=== PATIENT | female | born 1950 | race Caucasian/White ===

== ENCOUNTER 2021-02-02 13:47 | Emergency (ER) | payer OTHER ==
[~2021-02-02] VITALS: Ht 170.2 cm; Wt 59.0 kg
[2021-02-02] MEDS ORDERED: SODIUM CHLORIDE 0.9% 1,000 ML IVB ONE (16:15)
[2021-02-02] MEDS ORDERED: ONDANSETRON HCL 4 MG/2 ML VIAL IV ONE (16:15)
[2021-02-02 17:03] LABS: Basophils # (auto) 0.1 10 ^3/uL (0-0.2); Basophils % (auto) 0.4 % (0.0-2.0); Eosinophils # (auto) 0 10 ^3/uL (0-0.8); Hematocrit 32.8 % (36.0-46.0); Lymphocytes # (auto) 0.7 10 ^3/uL (0.4-5.4); Lymphocytes % (auto) 4.4 % (10.0-50.0); Mean Corpuscular Hemoglobin 30.6 pg (28.0-32.0); Mean Corpuscular Hgb Conc. 33.7 g/dL (32.0-36.0); Mean Corpuscular Volume 90.8 fL (80.0-100.0); Monocytes % (auto) 5.8 % (0.0-12.0); Neutrophils # (auto) 15.1 10 ^3/uL (1.6-8.6); Neutrophils % (auto) 89.4 % (37.0-80.0); Red Blood Cells 3.61 10^6/uL (4.0-5.20); Red Cell Distribution Width 12.9 % (11.8-14.3); White Blood Cell 16.8 10^3/uL (4.4-10.8)
[2021-02-02 17:20] LABS: Albumin 1.5 g/dL (3.4-5.0); Calcium 7.9 mg/dL (8.5-10.1); Magnesium 2.2 mg/dL (1.6-2.6); Potassium 3.3 mmol/L (3.5-5.1)
[2021-02-02 17:24] LABS: Bilirubin, Total 0.8 mg/dL (0.2-1.0); Total Protein 5.7 g/dL (6.4-8.2)
[2021-02-02] MEDS ORDERED: MORPHINE SULFATE INJECTION 2 MG/ML SYRG IV ONE (18:15)
[2021-02-02] MEDS ORDERED: cefTRIAXone 1GM/50ML D5W 50 ML IV ONE (21:00)
[2021-02-02] MEDS ORDERED: POTASSIUM CHL 20MEQ/50ML 50 ML IV ONE (21:00)
[2021-02-03] MEDS ORDERED: ONDANSETRON HCL 4 MG/2 ML VIAL IV PRN (04:00)
[2021-02-03] MEDS: MORPHINE SULFATE 4 MG/ML SYR/VIAL IV PRN ×3 (04:25→21:49)
[2021-02-03] MEDS ORDERED: ONDANSETRON HCL 4 MG/2 ML VIAL IV ONE (13:30)
[2021-02-03] MEDS ORDERED: MORPHINE SULFATE INJECTION 2 MG/ML SYRG IV ONE ×3 (13:30→18:00)
[2021-02-04] MEDS ORDERED: MORPHINE SULFATE 4 MG/ML SYR/VIAL IV PRN (01:45)
[2021-02-04] MEDS ORDERED: HYDROcodone-ACET 5/325MG TAB PO PRN (05:00)
[2021-02-04] MEDS ORDERED: metroNIDAZOLE 500 MG TAB PO SCH (06:00)
[2021-02-04 09:56] VITALS: BP 110/68
[2021-02-04] MEDS ORDERED: levoFLOXacin 500 MG TAB PO SCH (10:00)
== END 2021-02-04 10:01 | disposition home or self-care (01) ==
LOC: ER 13:47 → EDBD 13:47 → ER 02-04 10:01
DX: R10.84 Generalized abdominal pain (principal); R11.2 Nausea with vomiting, unspecified; E87.6 Hypokalemia; R50.9 Fever, unspecified; I10 Essential (primary) hypertension; E78.5 Hyperlipidemia, unspecified; F17.210 Nicotine dependence, cigarettes, uncomplicated; Z87.19 Personal history of other diseases of the digestive system; Z88.0 Allergy status to penicillin; Z20.822 Contact with and (suspected) exposure to COVID-19
CPT/HCPCS: 36415; 71045; 74176; 80053; 83605; 83735; 85025; 87040; 87426; 96361; 96365; 96375; 96376; 99285; C9803; J0696; J2270; J2405; J3480; U0003

== ENCOUNTER 2021-11-22 01:59 | Inpatient (IN) | payer OTHER ==
[~2021-11-22] VITALS: Ht 157.5 cm; Wt 37.3 kg
[2021-11-22] MEDS ORDERED: LACTATED RINGER'S 1,000 ML IV ONE (02:45)
[2021-11-22 05:16] LABS: Basophils # (auto) 0.1 10 ^3/uL (0-0.2); Basophils % (auto) 1.2 % (0.0-2.0); Eosinophils # (auto) 0 10 ^3/uL (0-0.8); Eosinophils % (auto) 0.2 % (0.0-7.0); Hematocrit 35.1 % (36.0-46.0); Lymphocytes # (auto) 1.8 10 ^3/uL (0.4-5.4); Lymphocytes % (auto) 20.6 % (10.0-50.0); Mean Corpuscular Hemoglobin 30.1 pg (28.0-32.0); Mean Corpuscular Hgb Conc. 34.2 g/dL (32.0-36.0); Mean Corpuscular Volume 88.2 fL (80.0-100.0); Monocytes % (auto) 11.3 % (0.0-12.0); Neutrophils # (auto) 5.9 10 ^3/uL (1.6-8.6); Neutrophils % (auto) 66.7 % (37.0-80.0); Nucleated Red Blood Cells % 0.1 %; Red Blood Cells 3.98 10^6/uL (4.0-5.20); White Blood Cell 8.9 10^3/uL (4.4-10.8)
[2021-11-22 05:39] LABS: Lactic Acid w/Reflex 2.1 mmol/L (0.4-2.0)
[2021-11-22 05:48] LABS: Albumin 3.6 g/dL (3.4-5.0); Anion Gap 15 (5-15); Aspartate Aminotransferase 51 U/L (15-37); Blood Urea Nitrogen 57 mg/dL (7-18); Calcium 6.1 mg/dL (8.5-10.1); Carbon Dioxide 22 mmol/L (21-32); Chloride 91 mmol/L (98-107); GFR African American 29 mL/min; GFR Non-African American 24 mL/min; Glucose 92 mg/dL (74-106); Sodium 128 mmol/L (136-145)
[2021-11-22 05:52] LABS: Alanine Aminotransferase 78 U/L (13-56); Alkaline Phosphatase 287 U/L (45-117); Bilirubin, Total 0.6 mg/dL (0.2-1.0); Total Protein 7.4 g/dL (6.4-8.2)
[2021-11-22 06:24] LABS: Magnesium 0.4 mg/dL (1.6-2.6)
[2021-11-22] MEDS ORDERED: CALCIUM GLUC 1,000mg/50ml-NS 50 ML IV ONE (06:45)
[2021-11-22 10:06] LABS: Urine Blood Negative /uL (Negative); Urine Hyaline Cast MOD /lpf (0 - 2)
[2021-11-22 10:09] LABS: Cannabinoid Screen, Urine NEGATIVE (NEGATIVE)
[2021-11-22 10:20] LABS: Alcohol, Urine < 3.0 mg/dL (0-10); Amphetamine Screen, Urine NEGATIVE (NEGATIVE); Barbiturate Scree,Urine NEGATIVE (NEGATIVE); Benzodiazephine Screen, Urine NEGATIVE (NEGATIVE); Cocaine Screen, Urine NEGATIVE (NEGATIVE); Opiate Scree,Urine NEGATIVE (NEGATIVE); Phencyclidine Screen, Urine NEGATIVE (NEGATIVE)
[2021-11-22] MEDS: MAGNESIUM SULFATE 1GM/100ML 100 ML IV SCH ×5 (10:22→21:31)
[2021-11-22 10:38] LABS: Urine Bacteria FEW /hpf (None Seen); Urine WBC None Seen /hpf (0 - 5)
[2021-11-22] MEDS ORDERED: SODIUM CHLORIDE 0.9% 1,000 ML IV ONE (13:30)
[2021-11-22 14:58] LABS: Potassium 4.1 mmol/L (3.5-5.1)
[2021-11-22 15:00] LABS: BUN/Creatinine Ratio 28.3; Calcium 7.1 mg/dL (8.5-10.1)
[2021-11-22] MEDS ORDERED: KETOROLAC TROMETH 60MG/2ML VIAL IM ONE ×2 (16:00→16:30)
[2021-11-22] MEDS ORDERED: cefTRIAXone 1GM/50ML D5W 50 ML IV ONE (16:15)
[2021-11-22] MEDS ORDERED: DOCUSATE SOD 100 MG CAP PO PRN (16:15)
[2021-11-22] MEDS ORDERED: MORPHINE SULFATE INJ 2 MG/ml SYRG IV PRN (16:15)
[2021-11-22] MEDS ORDERED: HYDROcodone-ACET 5/325MG TAB PO PRN (16:15)
[2021-11-22] MEDS ORDERED: ACETAMINOPHEN 325 MG TAB PO PRN (16:15)
[2021-11-22] MEDS ORDERED: LORazepam 0.5 MG TAB PO PRN (16:15)
[2021-11-22] MEDS ORDERED: ONDANSETRON HCL 4 MG/2 ML VIAL IV PRN (16:15)
[2021-11-22] MEDS ORDERED: OMNIPAQUE ORAL SOLN 500ml 12mg/ml PO ONE (16:24)
[2021-11-22] MEDS: SODIUM CHLORIDE 0.9% 1,000 ML IV SCH (17:17)
[2021-11-22] MEDS ORDERED: MAGNESIUM SULFATE 1GM/100ML 100 ML IV ONE (21:25)
[2021-11-22] MEDS: HALOPERIDOL LACTATE 5 MG/ML INJ VIAL IM SCH (22:00)
[2021-11-23 04:30] LABS: Basophils # (auto) 0 10 ^3/uL (0-0.2); Basophils % (auto) 0.8 % (0.0-2.0); Eosinophils # (auto) 0.1 10 ^3/uL (0-0.8); Eosinophils % (auto) 1.5 % (0.0-7.0); Hematocrit 34.8 % (36.0-46.0); Hemoglobin 11.5 g/dL (12.2-16.2); Lymphocytes # (auto) 1.7 10 ^3/uL (0.4-5.4); Lymphocytes % (auto) 30.8 % (10.0-50.0); Mean Corpuscular Hemoglobin 30.3 pg (28.0-32.0); Mean Corpuscular Hgb Conc. 33.1 g/dL (32.0-36.0); Mean Corpuscular Volume 91.6 fL (80.0-100.0); Neutrophils # (auto) 2.7 10 ^3/uL (1.6-8.6); Neutrophils % (auto) 48.9 % (37.0-80.0); White Blood Cell 5.4 10^3/uL (4.4-10.8)
[2021-11-23 04:32] LABS: Calcium 6.9 mg/dL (8.5-10.1); Potassium 3.5 mmol/L (3.5-5.1)
[2021-11-23 04:35] LABS: Albumin 3.2 g/dL (3.4-5.0); BUN/Creatinine Ratio 30.4; Magnesium 1.9 mg/dL (1.6-2.6)
[2021-11-23 04:38] LABS: Bilirubin, Total 0.8 mg/dL (0.2-1.0); Phosphorus 3.5 mg/dL (2.5-4.90); Total Protein 6.8 g/dL (6.4-8.2)
[2021-11-23] MEDS: HALOPERIDOL LACTATE 5 MG/ML INJ VIAL IM SCH (06:00)
[2021-11-23] MEDS: SODIUM CHLORIDE 0.9% 1,000 ML IV SCH (08:58)
[2021-11-23] MEDS ORDERED: CALCIUM GLUC 1,000mg/50ml-NS 50 ML IV ONE (09:00)
[2021-11-23] MEDS ORDERED: CALCIUM GLUC 1,000mg/50ml-NS 150 ML IV ONE (09:15)
[2021-11-23] MEDS ORDERED: CALCIUM GLUC IV ONE (09:15)
[2021-11-23] MEDS ORDERED: [UNRECOGNIZED DRUG - OTHER] IV ONE (09:15)
[2021-11-23] MEDS: CALCIUM GLUC 1,000mg/50ml-NS 50 ML IV SCH ×6 (09:30→18:01)
[2021-11-23 11:25] VITALS: BP 100/73
[2021-11-23 11:53] LABS: Creatinine, Urine 111 mg/dL (30.0-125.0); Sodium Urine < 5 mmol/L (40-220)
[2021-11-23 11:55] LABS: Protein, Urine 35.1 mg/dL (0.0-11.9)
[2021-11-23] MEDS: MAGNESIUM SULFATE 1GM/100ML 100 ML IV SCH ×4 (12:47→15:40)
[2021-11-23] MEDS ORDERED: HALOPERIDOL LACTATE 5 MG/ML INJ VIAL IM PRN (13:00)
[2021-11-23 16:00] VITALS: BP 110/73
[2021-11-23] MEDS ORDERED: LORazepam 2MG/ML-1ML VIAL IV PRN (20:45)
[2021-11-23 22:04] VITALS: BP 111/68
[2021-11-24] VITALS (7 sets, daily range): BP systolic 101–119; BP diastolic 63–69
[2021-11-24] MEDS: SODIUM CHLORIDE 0.9% 1,000 ML IV SCH ×3 (02:49→20:15)
[2021-11-24 07:04] LABS: Albumin 2.9 g/dL (3.4-5.0); Calcium 8.1 mg/dL (8.5-10.1); Potassium 3.2 mmol/L (3.5-5.1)
[2021-11-24 07:07] LABS: BUN/Creatinine Ratio 30.8; Bilirubin, Total 0.9 mg/dL (0.2-1.0); Total Protein 6.6 g/dL (6.4-8.2)
[2021-11-24] MEDS ORDERED: POTASSIUM CHL 20 Meq TABLET PO ONE (09:15)
[2021-11-24 09:53] LABS: Folate (Folic Acid) > 24.00 ng/mL (5.38-24)
[2021-11-24] MEDS ORDERED: ERGOCALCIFEROL 50,000 UNIT(1.25MG) CAP PO SCH (10:00)
[2021-11-24] MEDS ORDERED: ERGO1CAP23 PO (10:03)
[2021-11-24] MEDS ORDERED: POTASSIUM CHL 20MEQ/100ML 100 ML IV ONE (10:15)
[2021-11-24 12:09] LABS: Hepatitis A Ab IgM Negative; Hepatitis B Core IgM Negative
[2021-11-24 12:10] LABS: Hepatitis C Antibody Negative (Negative)
[2021-11-24] MEDS ORDERED: POTASSIUM EFFERVESENT TAB 25 MEQ PO ONE (14:00)
[2021-11-24] MEDS: PANTOPRAZOLE 40 MG TAB PO SCH (23:16)
[2021-11-25 05:00] VITALS: BP 98/59
[2021-11-25] MEDS: SODIUM CHLORIDE 0.9% 1,000 ML IV SCH (05:17)
[2021-11-25 08:00] VITALS: BP 114/69
[2021-11-25 09:00] VITALS: BP 123/71
[2021-11-25] MEDS: PANTOPRAZOLE 40 MG TAB PO SCH (10:28)
[2021-11-25] MEDS ORDERED: POTASSIUM CHL 20MEQ/100ML 100 ML IV SCH (11:00)
[2021-11-25 13:00] VITALS: BP 144/66
[2021-11-25 17:00] VITALS: BP 108/74
== END 2021-11-25 17:20 | disposition home health service (06) | DRG 640 ==
LOC: EDUNIT# 01:59 → ER 01:59 → EDBD 01:59 → ER 09:08 → TELE 16:09 → TELE-CENTR 11-23 11:23 → CENTRAL 11-23 18:48
PROVIDERS: ADMIT Internal Medicine; ATTEND Internal Medicine
DX: E87.1 Hypo-osmolality and hyponatremia (principal); G93.41 Metabolic encephalopathy; N17.0 Acute kidney failure with tubular necrosis; N39.0 Urinary tract infection, site not specified; E55.9 Vitamin D deficiency, unspecified; N18.31 Chronic kidney disease, stage 3a; I71.4 Abdominal aortic aneurysm, without rupture; E78.5 Hyperlipidemia, unspecified; E86.0 Dehydration; F17.210 Nicotine dependence, cigarettes, uncomplicated; I12.9 Hypertensive chronic kidney disease with stage 1 through stage 4 chronic kidney disease, or unspecified chronic kidney disease; G89.29 Other chronic pain; M54.50 Low back pain, unspecified; R79.89 Other specified abnormal findings of blood chemistry; Z20.822 Contact with and (suspected) exposure to COVID-19; Z82.49 Family history of ischemic heart disease and other diseases of the circulatory system; Z90.49 Acquired absence of other specified parts of digestive tract; Z93.2 Ileostomy status; Z93.3 Colostomy status; Z88.0 Allergy status to penicillin
CPT/HCPCS: 36415; 70450; 71045; 74176; 76705; 76775; 80048; 80053; 80074; 80307; 81001; 82140; 82306; 82570; 82607; 82746; 83605; 83735; 83880; 83970; 84100; 84156; 84300; 84439; 84443; 84484; 85025; 93005; 96361; 96365; 96367; 96372; 97163; 99291; G0378; J0696; J1885; J2405; J3480

== ENCOUNTER 2021-12-28 08:55 | Inpatient (IN) | payer OTHER, MEDICAID ==
[~2021-12-28] VITALS: Ht 170.2 cm; Wt 40.1 kg
[~2021-12-28 08:55] MED LIST: ERGO1CAP23 PO
[2021-12-28] MEDS ORDERED: SODIUM CHLORIDE 0.9% 1,000 ML IV ONE ×2 (09:30→15:45)
[2021-12-28 09:45] LABS: Basophils # (auto) 0.1 10 ^3/uL (0-0.2); Basophils % (auto) 1.6 % (0.0-2.0); Eosinophils # (auto) 0 10 ^3/uL (0-0.8); Eosinophils % (auto) 0.7 % (0.0-7.0); Hemoglobin 12.3 g/dL (12.2-16.2); Lymphocytes # (auto) 1.2 10 ^3/uL (0.4-5.4); Lymphocytes % (auto) 24.3 % (10.0-50.0); Mean Corpuscular Hemoglobin 28.9 pg (28.0-32.0); Mean Corpuscular Hgb Conc. 32.4 g/dL (32.0-36.0); Mean Corpuscular Volume 89.1 fL (80.0-100.0); Monocytes # (auto) 0.6 10 ^3/uL (0-1.3); Monocytes % (auto) 11.4 % (0.0-12.0); Neutrophils # (auto) 3.1 10 ^3/uL (1.6-8.6); Nucleated Red Blood Cells % 0.1 %; Red Blood Cells 4.27 10^6/uL (4.0-5.20); Red Cell Distribution Width 14.7 % (11.8-14.3)
[2021-12-28 10:03] LABS: Potassium 4.6 mmol/L (3.5-5.1)
[2021-12-28 10:06] LABS: BUN/Creatinine Ratio 20.2; Bilirubin, Total 0.8 mg/dL (0.2-1.0); Total Protein 8.2 g/dL (6.4-8.2)
[2021-12-28] MEDS ORDERED: CALCIUM GLUC 1,000mg/50ml-NS 50 ML IV ONE ×2 (15:15→18:30)
[2021-12-28] MEDS ORDERED: LORazepam 2MG/ML-1ML VIAL IV PRN ×2 (15:45→19:30)
[2021-12-28] MEDS ORDERED: NITROGLYCERIN 0.4 MG SL TAB SL PRN (16:00)
[2021-12-28] MEDS ORDERED: ACETAMINOPHEN 325 MG TAB PO PRN (16:00)
[2021-12-28] MEDS ORDERED: DOCUSATE SOD 100 MG CAP PO PRN (16:00)
[2021-12-28] MEDS ORDERED: MORPHINE SULFATE INJ 2 MG/ml SYRG IV PRN (16:00)
[2021-12-28] MEDS ORDERED: ONDANSETRON HCL 4 MG/2 ML VIAL IV PRN (16:00)
[2021-12-28] MEDS ORDERED: HYDROcodone-ACET 5/325MG TAB PO PRN (16:00)
[2021-12-28 16:54] LABS: Anion Gap 16 (5-15); BUN/Creatinine Ratio 22.6; Blood Urea Nitrogen 45 mg/dL (7-18); Carbon Dioxide 22 mmol/L (21-32); Chloride 93 mmol/L (98-107); GFR African American 32 mL/min; GFR Non-African American 26 mL/min; Glucose 102 mg/dL (74-106); Potassium 4.8 mmol/L (3.5-5.1); Sodium 131 mmol/L (136-145)
[2021-12-28 17:00] LABS: Calcium 5.9 mg/dL (8.5-10.1)
[2021-12-28 19:22] LABS: Potassium 5.4 mmol/L (3.5-5.1)
[2021-12-28 19:23] LABS: Calcium 6.4 mg/dL (8.5-10.1)
[2021-12-28] MEDS: HEPARIN SODIUM (PORCINE) 5000 UNITS/ML 1ML VIAL IV SCH (22:18)
[2021-12-29 02:05] LABS: BUN/Creatinine Ratio 25.6; Calcium 6.6 mg/dL (8.5-10.1); Potassium 3.8 mmol/L (3.5-5.1)
[2021-12-29] MEDS ORDERED: CALCIUM GLUC 1,000mg/50ml-NS 50 ML IV ONE ×2 (03:30→11:45)
[2021-12-29 03:55] LABS: Basophils # (auto) 0.1 10 ^3/uL (0-0.2); Basophils % (auto) 0.8 % (0.0-2.0); Eosinophils # (auto) 0 10 ^3/uL (0-0.8); Eosinophils % (auto) 0.2 % (0.0-7.0); Hematocrit 32.6 % (36.0-46.0); Hemoglobin 11.1 g/dL (12.2-16.2); Lymphocytes # (auto) 1.3 10 ^3/uL (0.4-5.4); Lymphocytes % (auto) 19.6 % (10.0-50.0); Mean Corpuscular Hemoglobin 30.1 pg (28.0-32.0); Mean Corpuscular Hgb Conc. 33.9 g/dL (32.0-36.0); Mean Corpuscular Volume 88.8 fL (80.0-100.0); Monocytes # (auto) 0.9 10 ^3/uL (0-1.3); Monocytes % (auto) 13.6 % (0.0-12.0); Neutrophils # (auto) 4.4 10 ^3/uL (1.6-8.6); Neutrophils % (auto) 65.8 % (37.0-80.0); Nucleated Red Blood Cells % 0.1 %; Red Blood Cells 3.68 10^6/uL (4.0-5.20); Red Cell Distribution Width 14.7 % (11.8-14.3); White Blood Cell 6.8 10^3/uL (4.4-10.8)
[2021-12-29 04:06] LABS: Anion Gap 13 (5-15); Blood Urea Nitrogen 39 mg/dL (7-18); Calcium 6.5 mg/dL (8.5-10.1); Carbon Dioxide 24 mmol/L (21-32); Chloride 99 mmol/L (98-107); GFR African American 44 mL/min; GFR Non-African American 36 mL/min; Glucose 69 mg/dL (74-106); Potassium 3.8 mmol/L (3.5-5.1); Sodium 136 mmol/L (136-145)
[2021-12-29 09:54] LABS: BUN/Creatinine Ratio 28.6; Calcium 7.2 mg/dL (8.5-10.1); Potassium 3.8 mmol/L (3.5-5.1)
[2021-12-29] MEDS: HEPARIN SODIUM (PORCINE) 5000 UNITS/ML 1ML VIAL IV SCH ×2 (11:02→21:22)
[2021-12-29] MEDS: SODIUM CHLORIDE 0.9% 1,000 ML IV SCH (13:00)
[2021-12-29 15:23] LABS: BUN/Creatinine Ratio 27.2; Calcium 7.3 mg/dL (8.5-10.1); Potassium 3.1 mmol/L (3.5-5.1)
[2021-12-29 22:00] VITALS: BP 128/63
[2021-12-30] MEDS: SODIUM CHLORIDE 0.9% 1,000 ML IV SCH ×2 (02:20→15:40)
[2021-12-30 05:00] VITALS: BP 105/63
[2021-12-30 05:43] LABS: Basophils # (auto) 0 10 ^3/uL (0-0.2); Basophils % (auto) 0.5 % (0.0-2.0); Eosinophils # (auto) 0.1 10 ^3/uL (0-0.8); Hematocrit 33.8 % (36.0-46.0); Hemoglobin 11.2 g/dL (12.2-16.2); Lymphocytes # (auto) 1.6 10 ^3/uL (0.4-5.4); Lymphocytes % (auto) 31.4 % (10.0-50.0); Mean Corpuscular Hemoglobin 29.6 pg (28.0-32.0); Mean Corpuscular Volume 89.5 fL (80.0-100.0); Monocytes # (auto) 0.6 10 ^3/uL (0-1.3); Monocytes % (auto) 12.2 % (0.0-12.0); Neutrophils # (auto) 2.8 10 ^3/uL (1.6-8.6); Neutrophils % (auto) 54.9 % (37.0-80.0); Nucleated Red Blood Cells % 0.1 %; Red Blood Cells 3.77 10^6/uL (4.0-5.20); Red Cell Distribution Width 14.6 % (11.8-14.3); White Blood Cell 5.1 10^3/uL (4.4-10.8)
[2021-12-30 09:00] VITALS: BP 106/69
[2021-12-30] MEDS ORDERED: POTA-180 PO (11:24)
[2021-12-30 11:54] LABS: BUN/Creatinine Ratio 30.5; Potassium 3.4 mmol/L (3.5-5.1)
[2021-12-30 12:07] LABS: Alcohol, Urine < 3.0 mg/dL (0-10); Amphetamine Screen, Urine NEGATIVE (NEGATIVE); Barbiturate Scree,Urine NEGATIVE (NEGATIVE); Benzodiazephine Screen, Urine NEGATIVE (NEGATIVE); Cannabinoid Screen, Urine NEGATIVE (NEGATIVE); Cocaine Screen, Urine NEGATIVE (NEGATIVE); Opiate Scree,Urine NEGATIVE (NEGATIVE); Phencyclidine Screen, Urine NEGATIVE (NEGATIVE)
[2021-12-30 12:21] LABS: Urine Bacteria FEW /hpf (None Seen); Urine Blood Negative /uL (Negative); Urine Specific Gravity 1.019 (1.001-1.035); Urine WBC 301 /hpf (0 - 5)
[2021-12-30 13:00] VITALS: BP 115/78
[2021-12-30 16:43] VITALS: BP 109/72
[2021-12-31 04:26] LABS: Sodium Urine < 5 mmol/L (40-220)
[2021-12-31 04:42] LABS: Creatinine, Urine 135 mg/dL (30.0-125.0)
== END 2021-12-30 19:40 | disposition home health service (06) | DRG 71 ==
LOC: EDBD 08:55 → ER 08:55 → TELE 15:57 → TELE-WESTW 12-29 18:13
PROVIDERS: ADMIT Internal Medicine; ATTEND Internal Medicine
DX: G93.41 Metabolic encephalopathy (principal); E87.1 Hypo-osmolality and hyponatremia; N17.9 Acute kidney failure, unspecified; G40.409 Other generalized epilepsy and epileptic syndromes, not intractable, without status epilepticus; E83.51 Hypocalcemia; N18.2 Chronic kidney disease, stage 2 (mild); I12.9 Hypertensive chronic kidney disease with stage 1 through stage 4 chronic kidney disease, or unspecified chronic kidney disease; F32.A Depression, unspecified; E78.5 Hyperlipidemia, unspecified; Z20.822 Contact with and (suspected) exposure to COVID-19; E87.6 Hypokalemia; M54.50 Low back pain, unspecified; F17.210 Nicotine dependence, cigarettes, uncomplicated; G89.29 Other chronic pain; Z82.49 Family history of ischemic heart disease and other diseases of the circulatory system; Z93.2 Ileostomy status; Z86.79 Personal history of other diseases of the circulatory system; Z90.49 Acquired absence of other specified parts of digestive tract; Z90.710 Acquired absence of both cervix and uterus; Z93.3 Colostomy status
CPT/HCPCS: 36415; 70450; 70551; 71045; 80048; 80053; 80307; 81001; 82310; 82570; 83930; 84133; 84156; 84166; 84300; 84484; 85025; 95819; 96361; 96365; 96366; 97163; 99291; G0378

== ENCOUNTER 2022-01-02 14:30 | Emergency (ER) | payer OTHER, MEDICAID ==
[~2022-01-02 14:30] MED LIST changes: +POTA-180 PO
[2022-01-02] MEDS ORDERED: SODIUM CHLORIDE 0.9% 1,000 ML IV ONE (17:45)
[2022-01-02 18:00] VITALS: BP 120/63
== END 2022-01-02 19:45 | disposition home or self-care (01) ==
LOC: EDBD 14:30 → ER 14:30
DX: Z43.3 Encounter for attention to colostomy (principal); I95.9 Hypotension, unspecified; E78.5 Hyperlipidemia, unspecified; I10 Essential (primary) hypertension; F17.210 Nicotine dependence, cigarettes, uncomplicated; Z79.899 Other long term (current) drug therapy; Z88.0 Allergy status to penicillin
CPT/HCPCS: 96360; 99283; J7030

== ENCOUNTER 2022-01-16 13:00 | Emergency (ER) | payer OTHER, MEDICAID ==
[~2022-01-16] VITALS: Ht 170.2 cm; Wt 34.5 kg
[2022-01-16] MEDS ORDERED: SODIUM CHLORIDE 0.9% 1,000 ML IV ONE (14:00)
[2022-01-16 14:57] LABS: Basophils # (auto) 0 10 ^3/uL (0-0.2); Basophils % (auto) 0.5 % (0.0-2.0); Eosinophils # (auto) 0.1 10 ^3/uL (0-0.8); Hematocrit 36.5 % (36.0-46.0); Hemoglobin 12.2 g/dL (12.2-16.2); Lymphocytes % (auto) 16.8 % (10.0-50.0); Mean Corpuscular Hemoglobin 29.2 pg (28.0-32.0); Mean Corpuscular Hgb Conc. 33.6 g/dL (32.0-36.0); Mean Corpuscular Volume 86.9 fL (80.0-100.0); Monocytes # (auto) 0.9 10 ^3/uL (0-1.3); Monocytes % (auto) 14.5 % (0.0-12.0); Neutrophils # (auto) 4.1 10 ^3/uL (1.6-8.6); Neutrophils % (auto) 67.2 % (37.0-80.0); Red Cell Distribution Width 13.9 % (11.8-14.3); White Blood Cell 6.1 10^3/uL (4.4-10.8)
[2022-01-16 15:12] LABS: Albumin 3.6 g/dL (3.4-5.0); BUN/Creatinine Ratio 35.7; Potassium 3.9 mmol/L (3.5-5.1)
[2022-01-16 15:14] LABS: Bilirubin, Total 0.7 mg/dL (0.2-1.0); Total Protein 7.4 g/dL (6.4-8.2)
[2022-01-16 15:19] LABS: Lactic Acid w/Reflex 2.1 mmol/L (0.4-2.0)
[2022-01-16 20:08] VITALS: BP 98/65
[2022-01-17] MEDS ORDERED: FOLIC ACID 1 MG, MULTIPLE VITAMIN 10 ML, MAGNESIUM SULF SDV 50% 8 MEQ, THIAMINE INJ 100... INJ SCH ×5 (12:00)
== END 2022-01-16 20:18 | disposition home or self-care (01) ==
LOC: ER 13:00
DX: S51.012A Laceration without foreign body of left elbow, initial encounter (principal); S81.812A Laceration without foreign body, left lower leg, initial encounter; S81.811A Laceration without foreign body, right lower leg, initial encounter; S00.83XA Contusion of other part of head, initial encounter; I10 Essential (primary) hypertension; E78.5 Hyperlipidemia, unspecified; F17.210 Nicotine dependence, cigarettes, uncomplicated; Z79.899 Other long term (current) drug therapy; Z88.0 Allergy status to penicillin; W01.0XXA Fall on same level from slipping, tripping and stumbling without subsequent striking against object, initial encounter; Y93.89 Activity, other specified; Y92.89 Other specified places as the place of occurrence of the external cause; Y99.8 Other external cause status
CPT/HCPCS: 36415; 70450; 71045; 72170; 74176; 80053; 83605; 85025; 86850; 86900; 86901; 96360; 99285; J7030

== ENCOUNTER 2022-02-14 17:48 | Inpatient (IN) | payer OTHER, MEDICAID ==
[~2022-02-14] VITALS: Ht 167.6 cm; Wt 44.4 kg
[2022-02-14] MEDS ORDERED: SODIUM CHLORIDE 0.9% 1,000 ML IV ONE (18:45)
[2022-02-14 20:17] LABS: Basophils # (auto) 0 10 ^3/uL (0-0.2); Eosinophils # (auto) 0 10 ^3/uL (0-0.8); Eosinophils % (auto) 0.4 % (0.0-7.0); Hemoglobin 11.2 g/dL (12.2-16.2); Lymphocytes # (auto) 0.5 10 ^3/uL (0.4-5.4); Lymphocytes % (auto) 11.5 % (10.0-50.0); Mean Corpuscular Hemoglobin 30.1 pg (28.0-32.0); Mean Corpuscular Hgb Conc. 33.1 g/dL (32.0-36.0); Mean Corpuscular Volume 90.8 fL (80.0-100.0); Monocytes # (auto) 0.6 10 ^3/uL (0-1.3); Monocytes % (auto) 12.7 % (0.0-12.0); Neutrophils # (auto) 3.3 10 ^3/uL (1.6-8.6); Neutrophils % (auto) 74.4 % (37.0-80.0); Nucleated Red Blood Cells % 0.1 %; Red Blood Cells 3.74 10^6/uL (4.0-5.20); Red Cell Distribution Width 14.2 % (11.8-14.3); White Blood Cell 4.4 10^3/uL (4.4-10.8)
[2022-02-14 20:44] LABS: Albumin 3.8 g/dL (3.4-5.0); Blood Urea Nitrogen 56 mg/dL (7-18); Chloride 87 mmol/L (98-107); Potassium 4.3 mmol/L (3.5-5.1); Sodium 131 mmol/L (136-145)
[2022-02-14 20:53] LABS: Alanine Aminotransferase 37 U/L (13-56); Alkaline Phosphatase 147 U/L (45-117); Anion Gap 13 (5-15); Aspartate Aminotransferase 28 U/L (15-37); BUN/Creatinine Ratio 28.9; Bilirubin, Total 0.5 mg/dL (0.2-1.0); Blood Alcohol < 3.0 mg/dL (0-5); Carbon Dioxide 31 mmol/L (21-32); GFR African American 33 mL/min; GFR Non-African American 27 mL/min; Glucose 128 mg/dL (74-106); Total Protein 7.2 g/dL (6.4-8.2)
[2022-02-14 21:59] LABS: Calcium 5.8 mg/dL (8.5-10.1)
[2022-02-14 22:03] LABS: Urine Bacteria NONE SEEN /hpf (None Seen); Urine Blood Negative /uL (Negative); Urine Specific Gravity 1.016 (1.001-1.035); Urine WBC 1 /hpf (0 - 5)
[2022-02-14] MEDS: CALCIUM GLUC 1,000mg/50ml-NS 50 ML IV SCH ×2 (22:19→23:02)
[2022-02-14 22:21] LABS: Alcohol, Urine < 3.0 mg/dL (0-10); Amphetamine Screen, Urine NEGATIVE (NEGATIVE); Barbiturate Scree,Urine NEGATIVE (NEGATIVE); Benzodiazephine Screen, Urine NEGATIVE (NEGATIVE); Cannabinoid Screen, Urine NEGATIVE (NEGATIVE); Cocaine Screen, Urine NEGATIVE (NEGATIVE); Opiate Scree,Urine NEGATIVE (NEGATIVE); Phencyclidine Screen, Urine NEGATIVE (NEGATIVE)
[2022-02-15] MEDS ORDERED: ACETAMINOPHEN 325 MG TAB PO PRN
[2022-02-15] MEDS ORDERED: NITROGLYCERIN 0.4 MG SL TAB SL PRN
[2022-02-15] MEDS ORDERED: MORPHINE SULFATE INJ 2 MG/ml SYRG IV PRN
[2022-02-15] MEDS ORDERED: ONDANSETRON HCL 4 MG/2 ML VIAL IV PRN
[2022-02-15] MEDS ORDERED: DOCUSATE SOD 100 MG CAP PO PRN
[2022-02-15] MEDS: SODIUM CHLORIDE 0.9% 1,000 ML IV SCH ×2 (00:18→16:36)
[2022-02-15 02:12] VITALS: BP 131/56
[2022-02-15] MEDS: FAMOTIDINE (10MG/ML) 2ML VL IV SCH (09:27)
[2022-02-15] MEDS: HYDROcodone-ACET 5/325MG TAB PO PRN ×3 (09:37→21:15)
[2022-02-15] MEDS: HEPARIN SODIUM (PORCINE) 5000 UNITS/ML 1ML VIAL SC SCH ×2 (09:38→20:21)
[2022-02-15 13:00] VITALS: BP 100/52
[2022-02-15 13:55] LABS: Basophils # (auto) 0.1 10 ^3/uL (0-0.2); Basophils % (auto) 0.7 % (0.0-2.0); Eosinophils # (auto) 0 10 ^3/uL (0-0.8); Hematocrit 33.2 % (36.0-46.0); Hemoglobin 10.8 g/dL (12.2-16.2); Lymphocytes # (auto) 0.9 10 ^3/uL (0.4-5.4); Mean Corpuscular Hemoglobin 29.8 pg (28.0-32.0); Mean Corpuscular Hgb Conc. 32.5 g/dL (32.0-36.0); Mean Corpuscular Volume 91.8 fL (80.0-100.0); Monocytes % (auto) 7.8 % (0.0-12.0); Neutrophils # (auto) 10.7 10 ^3/uL (1.6-8.6); Neutrophils % (auto) 84.5 % (37.0-80.0); Red Blood Cells 3.62 10^6/uL (4.0-5.20); Red Cell Distribution Width 14.4 % (11.8-14.3); White Blood Cell 12.7 10^3/uL (4.4-10.8)
[2022-02-15 16:03] LABS: Potassium 3.2 mmol/L (3.5-5.1)
[2022-02-15 16:04] LABS: Albumin 3.2 g/dL (3.4-5.0); BUN/Creatinine Ratio 26.1; Bilirubin, Total 0.7 mg/dL (0.2-1.0); Calcium 6.4 mg/dL (8.5-10.1); Total Protein 6.8 g/dL (6.4-8.2)
[2022-02-15 16:10] LABS: Magnesium 0.6 mg/dL (1.6-2.6)
[2022-02-15 17:37] VITALS: BP 106/66
[2022-02-15] MEDS ORDERED: POTASSIUM EFFERVESENT TAB 25 MEQ PO ONE (19:45)
[2022-02-15] MEDS: MAGNESIUM SULFATE 1GM/100ML 100 ML IV SCH ×3 (20:20→23:01)
[2022-02-15] MEDS ORDERED: MIDAZOLAM HCL 2MG/2ML 2ml VIAL (1mg/ml) IV PRN ×2 (21:45)
[2022-02-15] MEDS: levETIRAcetam 500 MG TAB PO SCH (22:09)
[2022-02-15 22:32] VITALS: BP 90/52
[2022-02-16] MEDS: MAGNESIUM SULFATE 1GM/100ML 100 ML IV SCH (00:40)
[2022-02-16] MEDS ORDERED: SODIUM CHLORIDE 0.9% 1,000 ML IV ONE (01:15)
[2022-02-16] MEDS: SODIUM CHLORIDE 0.9% 1,000 ML IV SCH (02:23)
[2022-02-16 05:09] VITALS: BP 90/58
[2022-02-16 08:37] LABS: Basophils # (auto) 0.1 10 ^3/uL (0-0.2); Basophils % (auto) 0.8 % (0.0-2.0); Eosinophils # (auto) 0 10 ^3/uL (0-0.8); Eosinophils % (auto) 0.1 % (0.0-7.0); Hematocrit 31.1 % (36.0-46.0); Hemoglobin 10.3 g/dL (12.2-16.2); Lymphocytes # (auto) 0.9 10 ^3/uL (0.4-5.4); Lymphocytes % (auto) 9.2 % (10.0-50.0); Mean Corpuscular Hemoglobin 31.2 pg (28.0-32.0); Mean Corpuscular Hgb Conc. 33.1 g/dL (32.0-36.0); Mean Corpuscular Volume 94.2 fL (80.0-100.0); Monocytes # (auto) 0.9 10 ^3/uL (0-1.3); Monocytes % (auto) 9.1 % (0.0-12.0); Neutrophils # (auto) 8.4 10 ^3/uL (1.6-8.6); Neutrophils % (auto) 80.8 % (37.0-80.0); Red Cell Distribution Width 14.4 % (11.8-14.3); White Blood Cell 10.4 10^3/uL (4.4-10.8)
[2022-02-16 08:59] LABS: BUN/Creatinine Ratio 22.5; Calcium 6.7 mg/dL (8.5-10.1); Magnesium 2.6 mg/dL (1.6-2.6); Potassium 3.2 mmol/L (3.5-5.1)
[2022-02-16 09:00] VITALS: BP 98/56
[2022-02-16] MEDS: FAMOTIDINE (10MG/ML) 2ML VL IV SCH (10:45)
[2022-02-16] MEDS: levETIRAcetam 500 MG TAB PO SCH ×2 (10:46→22:39)
[2022-02-16] MEDS: HEPARIN SODIUM (PORCINE) 5000 UNITS/ML 1ML VIAL SC SCH ×2 (11:01→22:47)
[2022-02-16] MEDS ORDERED: POTASSIUM EFFERVESENT TAB 25 MEQ PO ONE (11:15)
[2022-02-16] MEDS: HYDROcodone-ACET 5/325MG TAB PO PRN (11:19)
[2022-02-16] MEDS ORDERED: MAGNESIUM SULFATE 1GM/100ML 100 ML IV SCH (12:00)
[2022-02-16] MEDS ORDERED: POTA-180 PO (14:06)
[2022-02-16] MEDS ORDERED: KEP500T PO (14:06)
[2022-02-16 17:00] VITALS: BP 106/61
[2022-02-16 23:22] VITALS: BP 100/61
[2022-02-17] MEDS: SODIUM CHLORIDE 0.9% 1,000 ML IV SCH (02:00)
[2022-02-17 06:01] VITALS: BP 95/56
[2022-02-17] MEDS: HYDROcodone-ACET 5/325MG TAB PO PRN (06:34)
[2022-02-17 08:39] VITALS: BP 103/54
[2022-02-17] MEDS: levETIRAcetam 500 MG TAB PO SCH (09:15)
[2022-02-17] MEDS: FAMOTIDINE (10MG/ML) 2ML VL IV SCH (09:18)
[2022-02-17] MEDS: HEPARIN SODIUM (PORCINE) 5000 UNITS/ML 1ML VIAL SC SCH (09:18)
[2022-02-17] MEDS ORDERED: MAGNESIUM SULFATE 1GM/100ML 100 ML IV SCH (11:00)
== END 2022-02-17 10:36 | disposition home health service (06) | DRG 100 ==
LOC: EDBD 17:48 → ER 17:50 → TELE 23:59 → TELE-EAST 02-15 01:48 → EAST 02-17 06:24
PROVIDERS: ADMIT Nurse Practitioner Family; ATTEND Internal Medicine
DX: G40.401 Other generalized epilepsy and epileptic syndromes, not intractable, with status epilepticus (principal); N17.0 Acute kidney failure with tubular necrosis; E87.1 Hypo-osmolality and hyponatremia; D64.9 Anemia, unspecified; E86.0 Dehydration; J44.9 Chronic obstructive pulmonary disease, unspecified; I10 Essential (primary) hypertension; D72.829 Elevated white blood cell count, unspecified; Z20.822 Contact with and (suspected) exposure to COVID-19; F17.210 Nicotine dependence, cigarettes, uncomplicated; E78.5 Hyperlipidemia, unspecified; E83.42 Hypomagnesemia; E87.6 Hypokalemia; E83.51 Hypocalcemia; Z93.3 Colostomy status; Z88.0 Allergy status to penicillin; Z82.49 Family history of ischemic heart disease and other diseases of the circulatory system
CPT/HCPCS: 36415; 70450; 70551; 71045; 76775; 80048; 80053; 80307; 80320; 81001; 82306; 83605; 83690; 83735; 83880; 83970; 84100; 84484; 85025; 87081; 93005; 95819; 96361; 96365; 96375; 97116; 97163; 97530; G0378; J3490

== ENCOUNTER 2022-12-08 08:43 | Emergency (ER) | payer OTHER, MEDICAID ==
[~2022-12-08] VITALS: Ht 170.2 cm; Wt 43.0 kg
[~2022-12-08 08:43] MED LIST changes: +KEP500T PO
[2022-12-08] MEDS ORDERED: HYDROmorphone HCL 2 MG/ML VL/or syr IM ONE (09:30)
[2022-12-08 09:37] VITALS: BP 136/84
== END 2022-12-08 10:23 | disposition home or self-care (01) ==
LOC: ER 08:43
DX: M16.0 Bilateral primary osteoarthritis of hip (principal); F17.210 Nicotine dependence, cigarettes, uncomplicated; M19.90 Unspecified osteoarthritis, unspecified site; E78.5 Hyperlipidemia, unspecified; I10 Essential (primary) hypertension; Z88.0 Allergy status to penicillin; W18.09XA Striking against other object with subsequent fall, initial encounter; Y93.89 Activity, other specified; Y92.098 Other place in other non-institutional residence as the place of occurrence of the external cause; Y99.8 Other external cause status
CPT/HCPCS: 73502; 96372; 99283; J1170

== ENCOUNTER 2023-04-18 15:12 | Inpatient (IN) | payer OTHER, MEDICAID ==
[~2023-04-18] VITALS: Ht 170.2 cm; Wt 47.8 kg
[2023-04-18 15:59] VITALS: PULSE 102; RESP 20; O2SAT 99
[2023-04-18 16:24] LABS: Basophils # (auto) 0 10 ^3/uL (0-0.2); Basophils % (auto) 0.4 % (0.0-2.0); Eosinophils # (auto) 0.1 10 ^3/uL (0-0.8); Eosinophils % (auto) 1.1 % (0.0-7.0); Hematocrit 34.7 % (36.0-46.0); Hemoglobin 11.3 g/dL (12.2-16.2); Lymphocytes # (auto) 1.5 10 ^3/uL (0.4-5.4); Lymphocytes % (auto) 30.4 % (10.0-50.0); Mean Corpuscular Hemoglobin 30.3 pg (28.0-32.0); Mean Corpuscular Hgb Conc. 32.6 g/dL (32.0-36.0); Mean Corpuscular Volume 92.8 fL (80.0-100.0); Monocytes # (auto) 0.7 10 ^3/uL (0-1.3); Monocytes % (auto) 13.7 % (0.0-12.0); Neutrophils # (auto) 2.6 10 ^3/uL (1.6-8.6); Neutrophils % (auto) 54.4 % (37.0-80.0); Nucleated Red Blood Cells % 0.1 %; Red Blood Cells 3.75 10^6/uL (4.0-5.20); Red Cell Distribution Width 13.2 % (11.8-14.3); White Blood Cell 4.8 10^3/uL (4.4-10.8)
[2023-04-18 16:38] LABS: INR 1.4 (0.9-1.15); Partial Thromboplastin Time 30.4 SEC (24.5-34.5); Prothrombin Time 14.4 sec (9.3-11.8)
[2023-04-18 16:41] LABS: Alanine Aminotransferase 16 U/L (7-40); Albumin 4.9 g/dL (3.2-4.8); Alkaline Phosphatase 92 U/L (46-116); Anion Gap 12 (5-15); Aspartate Aminotransferase 20 U/L (13-40); BUN/Creatinine Ratio 11.2 (10.0-20.0); Bilirubin, Total 0.5 mg/dL (0.2-1.0); Blood Alcohol < 3.0 mg/dL (<10); Blood Urea Nitrogen 20 mg/dL (9-23); Calcium 7.6 mg/dL (8.5-10.1); Carbon Dioxide 27 mmol/L (20-30); Chloride 96 mmol/L (98-107); Glucose 116 mg/dL (74-106); Potassium 3.5 mmol/L (3.5-5.1); Sodium 135 mmol/L (136-145); Total Protein 7.3 g/dL (5.7-8.2)
[2023-04-18] MEDS ORDERED: KETOROLAC TROMETH 30 MG/ML 1ML VIAL IV ONE (16:45)
[2023-04-18] MEDS ORDERED: ONDANSETRON HCL 4 MG/2 ML VIAL IV ONE (18:00)
[2023-04-18] MEDS ORDERED: HYDROmorphone HCL 2 MG/ML VL/or syr IV ONE (18:00)
[2023-04-18] MEDS ORDERED: levETIRAcetam 1000 mg/100ml 100 ML IV ONE (18:00)
[2023-04-18] MEDS ORDERED: ERGOCALCIFEROL 50,000 UNIT(1.25MG) CAP PO SCH (19:15)
[2023-04-18] MEDS ORDERED: NITROGLYCERIN 0.4 MG SL TAB SL PRN (19:15)
[2023-04-18 19:30] VITALS: PULSE 107; RESP 22; O2SAT 98
[2023-04-18] MEDS ORDERED: PANTOPRAZOLE 40 MG/10 ML VIAL INJ IV ONE (19:30)
[2023-04-18] MEDS: MORPHINE SULFATE INJ 2 MG/ml SYRG IV PRN (20:38)
[2023-04-18] MEDS ORDERED: levETIRAcetam 500 MG TAB PO SCH (22:00)
[2023-04-18] MEDS ORDERED: levETIRAcetam 500 mg/100ml 100 ML IV SCH (22:00)
[2023-04-19] MEDS: MORPHINE SULFATE INJ 2 MG/ml SYRG IV PRN ×5 (00:38→23:37)
[2023-04-19] MEDS: ACETAMINOPHEN 325 MG TAB PO PRN ×3 (02:42→20:01)
[2023-04-19] MEDS ORDERED: MORPHINE SULFATE INJ 2 MG/ml SYRG IV ONE (03:00)
[2023-04-19 03:48] LABS: Urine Bacteria MOD /hpf (None Seen); Urine Blood TRACE /uL (Negative); Urine Clarity HAZY (Clear); Urine Color Yellow (Yellow); Urine Protein, UAD 1+ (Negative); Urine Specific Gravity 1.018 (1.001-1.035); Urine Urobilinogen Normal (Negative); Urine WBC 195 /hpf (0 - 5); Urine WBC Clumps PRESENT /hpf (None Seen); Urine pH 5.5 (5.0-8.0)
[2023-04-19 04:05] LABS: Amphetamine Screen, Urine Neg (NEGATIVE); Barbiturate Scree,Urine Neg (NEGATIVE); Benzodiazephine Screen, Urine Neg (NEGATIVE); Cocaine Screen, Urine Neg (NEGATIVE); Opiate Scree,Urine Pos (NEGATIVE); Phencyclidine Screen, Urine Neg (NEGATIVE)
[2023-04-19 04:06] LABS: Cannabinoid Screen, Urine Neg (NEGATIVE)
[2023-04-19 07:06] LABS: Alanine Aminotransferase 15 U/L (7-40); Albumin 4.2 g/dL (3.2-4.8); Alkaline Phosphatase 80 U/L (46-116); Anion Gap 9 (5-15); Aspartate Aminotransferase 23 U/L (13-40); BUN/Creatinine Ratio 12.8 (10.0-20.0); Basophils # (auto) 0 10 ^3/uL (0-0.2); Basophils % (auto) 0.3 % (0.0-2.0); Blood Urea Nitrogen 26 mg/dL (9-23); Calcium 7.7 mg/dL (8.5-10.1); Carbon Dioxide 31 mmol/L (20-30); Chloride 96 mmol/L (98-107); Eosinophils # (auto) 0 10 ^3/uL (0-0.8); Eosinophils % (auto) 0.1 % (0.0-7.0); Glucose 87 mg/dL (74-106); Hemoglobin 10.2 g/dL (12.2-16.2); Lymphocytes % (auto) 18.2 % (10.0-50.0); Mean Corpuscular Hemoglobin 30.2 pg (28.0-32.0); Mean Corpuscular Hgb Conc. 33.1 g/dL (32.0-36.0); Mean Corpuscular Volume 91.2 fL (80.0-100.0); Monocytes # (auto) 0.7 10 ^3/uL (0-1.3); Monocytes % (auto) 13.1 % (0.0-12.0); Neutrophils # (auto) 3.9 10 ^3/uL (1.6-8.6); Neutrophils % (auto) 68.3 % (37.0-80.0); Red Cell Distribution Width 12.6 % (11.8-14.3); Sodium 136 mmol/L (136-145); White Blood Cell 5.7 10^3/uL (4.4-10.8)
[2023-04-19 07:07] LABS: Bilirubin, Total 0.7 mg/dL (0.2-1.0); Total Protein 6.5 g/dL (5.7-8.2)
[2023-04-19] MEDS ORDERED: ONDANSETRON HCL 4 MG/2 ML VIAL IV PRN (09:00)
[2023-04-19 09:25] VITALS: PULSE 68; RESP 18; O2SAT 96
[2023-04-19] MEDS ORDERED: LORazepam 2MG/ML-1ML VIAL IV PRN (09:30)
[2023-04-19] MEDS ORDERED: levETIRAcetam 500 MG TAB PO SCH (10:00)
[2023-04-19] MEDS ORDERED: SODIUM CHLORIDE 0.9% 1,000 ML IV ONE (11:45)
[2023-04-19] MEDS: PANTOPRAZOLE 40 MG/10 ML VIAL INJ IV SCH (12:13)
[2023-04-19] MEDS: POTASSIUM CHL 20 Meq TABLET PO SCH (12:14)
[2023-04-19] MEDS: levoFLOXacin 250MG 50 ML IV SCH (12:15)
[2023-04-19] MEDS: levETIRAcetam 500 MG TAB PO SCH ×2 (12:33→22:13)
[2023-04-19 12:42] LABS: Folate (Folic Acid) > 24.00 ng/mL (>5.38); Free T4 (Free Thyroxine) 1.33 ng/dL (0.89-1.76)
[2023-04-19] MEDS ORDERED: VANCOMYCIN PER PHARMACY 0 MG IV SCH (18:30)
[2023-04-19] MEDS ORDERED: CYANOCOBALAMIN (B-12) 1000 MCG/1 ML VIAL IM ONE (18:30)
[2023-04-19] MEDS ORDERED: VANCOMYCIN 1GM/250ML 250 ML IV ONE (19:45)
[2023-04-19 19:54] VITALS: PULSE 67; RESP 20; O2SAT 94
[2023-04-20] VITALS (9 sets, daily range): BP systolic 107–142; BP diastolic 55–74; PULSE 63–78; RESP 16–18; TEMP 98–99.9; O2SAT 91–100
[2023-04-20] MEDS ORDERED: FUR20T PO (00:18)
[2023-04-20] MEDS ORDERED: ERGO1CAP12 PO (00:18)
[2023-04-20] MEDS ORDERED: OMEP1CAP70 PO (00:18)
[2023-04-20] MEDS ORDERED: CLOP75TA70 PO (00:18)
[2023-04-20] MEDS ORDERED: MEGE20TA3 PO (00:18)
[2023-04-20] MEDS ORDERED: POTA-228 PO (00:18)
[2023-04-20] MEDS ORDERED: MAGN400T40 PO (00:18)
[2023-04-20] MEDS ORDERED: CYAN100042 PO (00:18)
[2023-04-20] MEDS ORDERED: HYDR-4072 PO (00:19)
[2023-04-20] MEDS: MORPHINE SULFATE INJ 2 MG/ml SYRG IV PRN ×3 (05:41→16:35)
[2023-04-20 06:45] LABS: Anion Gap 6 (5-15); Calcium 7.6 mg/dL (8.7-10.4); Carbon Dioxide 29 mmol/L (20-30); Chloride 102 mmol/L (98-107); Potassium 3.9 mmol/L (3.5-5.1); Sodium 137 mmol/L (136-145)
[2023-04-20 06:50] LABS: Glucose 106 mg/dL (74-106)
[2023-04-20 06:51] LABS: BUN/Creatinine Ratio 12.9 (10.0-20.0); Blood Urea Nitrogen 24 mg/dL (9-23)
[2023-04-20 07:15] LABS: Basophils # (auto) 0 10 ^3/uL (0-0.2); Basophils % (auto) 0.4 % (0.0-2.0); Eosinophils # (auto) 0 10 ^3/uL (0-0.8); Eosinophils % (auto) 0.5 % (0.0-7.0); Hemoglobin 9.2 g/dL (12.2-16.2); Lymphocytes # (auto) 1.1 10 ^3/uL (0.4-5.4); Lymphocytes % (auto) 21.4 % (10.0-50.0); Mean Corpuscular Hemoglobin 31.2 pg (28.0-32.0); Mean Corpuscular Volume 91.8 fL (80.0-100.0); Monocytes # (auto) 0.8 10 ^3/uL (0-1.3); Monocytes % (auto) 15.3 % (0.0-12.0); Neutrophils # (auto) 3.3 10 ^3/uL (1.6-8.6); Neutrophils % (auto) 62.4 % (37.0-80.0); Nucleated Red Blood Cells % 0.3 %; Red Blood Cells 2.94 10^6/uL (4.0-5.20); Red Cell Distribution Width 13.1 % (11.8-14.3); White Blood Cell 5.3 10^3/uL (4.4-10.8)
[2023-04-20] MEDS ORDERED: VANCOMYCIN 1GM/250ML 250 ML IV ONE (09:15)
[2023-04-20] MEDS: POTASSIUM CHL 20 Meq TABLET PO SCH (09:55)
[2023-04-20] MEDS: levETIRAcetam 500 MG TAB PO SCH ×2 (09:55→22:02)
[2023-04-20] MEDS: levoFLOXacin 250MG 50 ML IV SCH (09:55)
[2023-04-20] MEDS: PANTOPRAZOLE 40 MG/10 ML VIAL INJ IV SCH (09:55)
[2023-04-20] MEDS ORDERED: HYDROcodone-ACET 5/325MG TAB PO PRN (20:15)
[2023-04-20] MEDS: HYDROcodone-ACET 5/325MG TAB PO PRN (20:57)
[2023-04-21] MEDS: MORPHINE SULFATE INJ 2 MG/ml SYRG IV PRN ×3 (01:31→20:47)
[2023-04-21 05:01] VITALS: BP 108/56; PULSE 63; RESP 18; TEMP 98.8; O2SAT 96
[2023-04-21 05:43] LABS: Basophils # (auto) 0 10 ^3/uL (0-0.2); Basophils % (auto) 0.3 % (0.0-2.0); Eosinophils # (auto) 0 10 ^3/uL (0-0.8); Eosinophils % (auto) 0.6 % (0.0-7.0); Hematocrit 27.8 % (36.0-46.0); Hemoglobin 9.3 g/dL (12.2-16.2); Lymphocytes # (auto) 1.3 10 ^3/uL (0.4-5.4); Lymphocytes % (auto) 21.9 % (10.0-50.0); Mean Corpuscular Hemoglobin 30.7 pg (28.0-32.0); Mean Corpuscular Hgb Conc. 33.3 g/dL (32.0-36.0); Mean Corpuscular Volume 92.2 fL (80.0-100.0); Neutrophils # (auto) 3.6 10 ^3/uL (1.6-8.6); Neutrophils % (auto) 60.2 % (37.0-80.0); Red Blood Cells 3.02 10^6/uL (4.0-5.20); Red Cell Distribution Width 13.1 % (11.8-14.3)
[2023-04-21 06:03] LABS: Anion Gap 7 (5-15); Carbon Dioxide 29 mmol/L (20-30); Chloride 101 mmol/L (98-107); Potassium 3.9 mmol/L (3.5-5.1); Sodium 137 mmol/L (136-145)
[2023-04-21 06:04] LABS: Calcium 8.2 mg/dL (8.5-10.1)
[2023-04-21 06:09] LABS: BUN/Creatinine Ratio 9.7 (10.0-20.0); Blood Urea Nitrogen 15 mg/dL (9-23); Glucose 94 mg/dL (74-106)
[2023-04-21] MEDS: HYDROcodone-ACET 5/325MG TAB PO PRN ×3 (06:25→23:11)
[2023-04-21 08:00] VITALS: RESP 16
[2023-04-21 09:24] VITALS: BP 126/60; PULSE 66; RESP 19; TEMP 98.3; O2SAT 95
[2023-04-21] MEDS: levoFLOXacin 250MG 50 ML IV SCH (09:56)
[2023-04-21] MEDS: levETIRAcetam 500 MG TAB PO SCH ×2 (09:56→20:47)
[2023-04-21] MEDS: PANTOPRAZOLE 40 MG/10 ML VIAL INJ IV SCH (09:56)
[2023-04-21] MEDS: POTASSIUM CHL 20 Meq TABLET PO SCH (09:56)
[2023-04-21 13:58] VITALS: BP 115/63; PULSE 63; RESP 19; TEMP 97.7; O2SAT 99
[2023-04-21 16:44] VITALS: BP 129/63; PULSE 64; RESP 19; TEMP 98; O2SAT 97
[2023-04-21] MEDS: VANCOMYCIN 750mg/250ml 250 ML IV SCH (17:38)
[2023-04-22] MEDS: MORPHINE SULFATE INJ 2 MG/ml SYRG IV PRN ×3 (02:52→10:10)
[2023-04-22 06:10] LABS: Basophils # (auto) 0 10 ^3/uL (0-0.2); Basophils % (auto) 0.3 % (0.0-2.0); Eosinophils # (auto) 0.1 10 ^3/uL (0-0.8); Eosinophils % (auto) 1.2 % (0.0-7.0); Hematocrit 28.8 % (36.0-46.0); Hemoglobin 9.5 g/dL (12.2-16.2); Lymphocytes # (auto) 1.4 10 ^3/uL (0.4-5.4); Lymphocytes % (auto) 24.8 % (10.0-50.0); Mean Corpuscular Hemoglobin 30.4 pg (28.0-32.0); Mean Corpuscular Hgb Conc. 33.1 g/dL (32.0-36.0); Mean Corpuscular Volume 91.7 fL (80.0-100.0); Monocytes # (auto) 0.8 10 ^3/uL (0-1.3); Monocytes % (auto) 13.9 % (0.0-12.0); Neutrophils # (auto) 3.4 10 ^3/uL (1.6-8.6); Neutrophils % (auto) 59.8 % (37.0-80.0); Nucleated Red Blood Cells % 0.3 %; Red Blood Cells 3.15 10^6/uL (4.0-5.20); White Blood Cell 5.7 10^3/uL (4.4-10.8)
[2023-04-22] MEDS: HYDROcodone-ACET 5/325MG TAB PO PRN ×2 (06:13→12:15)
[2023-04-22 06:23] LABS: Chloride 100 mmol/L (98-107); Potassium 3.9 mmol/L (3.5-5.1); Sodium 133 mmol/L (136-145)
[2023-04-22 06:24] LABS: Anion Gap 8 (5-15); Calcium 8.5 mg/dL (8.7-10.4); Carbon Dioxide 25 mmol/L (20-30)
[2023-04-22 06:29] LABS: BUN/Creatinine Ratio 11.5 (10.0-20.0); Blood Urea Nitrogen 15 mg/dL (9-23); Glucose 82 mg/dL (74-106)
[2023-04-22 06:39] LABS: Magnesium 0.9 mg/dL (1.6-2.6)
[2023-04-22 08:00] VITALS: BP 106/55; PULSE 69; RESP 20; TEMP 98; O2SAT 97
[2023-04-22] MEDS ORDERED: MAGNESIUM SULFATE 1GM/100ML 100 ML IV SCH (08:00)
[2023-04-22] MEDS: levoFLOXacin 250MG 50 ML IV SCH (10:04)
[2023-04-22] MEDS: POTASSIUM CHL 20 Meq TABLET PO SCH (10:10)
[2023-04-22] MEDS: levETIRAcetam 500 MG TAB PO SCH (10:10)
[2023-04-22] MEDS: PANTOPRAZOLE 40 MG/10 ML VIAL INJ IV SCH (10:10)
[2023-04-22] MEDS: MAGNESIUM SULFATE 1GM/100ML 100 ML IV SCH ×4 (10:11→16:15)
[2023-04-22 12:35] VITALS: BP 125/65; PULSE 66; RESP 20; TEMP 97.8; O2SAT 97
[2023-04-22 12:45] VITALS: BP 125/65; PULSE 66; RESP 20; TEMP 97.8; O2SAT 97
[2023-04-22 16:31] VITALS: BP 101/61; PULSE 67; RESP 20; TEMP 98.4; O2SAT 99
[2023-04-22] MEDS: VANCOMYCIN 750mg/250ml 250 ML IV SCH (17:00)
== END 2023-04-22 18:53 | disposition home health service (06) | DRG 177 ==
LOC: EDBD 15:12 → ER 15:12 → TELE 19:05 → TELE-WESTW 04-19 22:40
PROVIDERS: ADMIT Nurse Practitioner Family; ATTEND Internal Medicine
DX: J69.0 Pneumonitis due to inhalation of food and vomit (principal); J96.00 Acute respiratory failure, unspecified whether with hypoxia or hypercapnia; N17.0 Acute kidney failure with tubular necrosis; I13.0 Hypertensive heart and chronic kidney disease with heart failure and stage 1 through stage 4 chronic kidney disease, or unspecified chronic kidney disease; N39.0 Urinary tract infection, site not specified; I50.40 Unspecified combined systolic (congestive) and diastolic (congestive) heart failure; E83.51 Hypocalcemia; G40.909 Epilepsy, unspecified, not intractable, without status epilepticus; K21.9 Gastro-esophageal reflux disease without esophagitis; S01.01XA Laceration without foreign body of scalp, initial encounter; N18.31 Chronic kidney disease, stage 3a; M54.50 Low back pain, unspecified; G89.29 Other chronic pain; E78.5 Hyperlipidemia, unspecified; W18.39XA Other fall on same level, initial encounter; F17.210 Nicotine dependence, cigarettes, uncomplicated; Z86.73 Personal history of transient ischemic attack (TIA), and cerebral infarction without residual deficits; Z82.49 Family history of ischemic heart disease and other diseases of the circulatory system; Z88.0 Allergy status to penicillin; Z93.3 Colostomy status; Y93.89 Activity, other specified; Y92.89 Other specified places as the place of occurrence of the external cause; Y99.8 Other external cause status
CPT/HCPCS: 12011; 36415; 70450; 71045; 71250; 72125; 72192; 73502; 80048; 80053; 80202; 80307; 80320; 81001; 82306; 82607; 82746; 83735; 83880; 83930; 84439; 84443; 84484; 85025; 85610; 85730; 87086; 87088; 87186; 93306; 95819; 97110; 97116; 97163; 97530; C9113; G0378; J1885; J2405

== ENCOUNTER 2023-08-18 15:56 | Emergency (ER) | payer OTHER, MEDICAID ==
[~2023-08-18] VITALS: Ht 170.2 cm; Wt 45.5 kg
[~2023-08-18 15:56] MED LIST changes: +CLOP75TA70 PO; +CYAN100042 PO; +ERGO1CAP12 PO; +FUR20T PO; +HYDR-4072 PO; +MAGN400T40 PO; +MEGE20TA3 PO; +OMEP1CAP70 PO; +POTA-228 PO
[2023-08-18] MEDS: ONDANSETRON ODT 4 MG TAB PO ONE (19:23)
[2023-08-18] MEDS: MORPHINE SULFATE INJ 2 MG/ml SYRG IM ONE (19:24)
[2023-08-18 20:04] VITALS: BP 99/65; PULSE 85; RESP 18; TEMP 97.6; O2SAT 98
== END 2023-08-18 20:09 | disposition home or self-care (01) ==
LOC: ER 15:56 → EDBD 15:56 → ER 20:09
DX: M16.0 Bilateral primary osteoarthritis of hip (principal); G89.29 Other chronic pain; M25.552 Pain in left hip; M25.551 Pain in right hip; M54.50 Low back pain, unspecified; K21.9 Gastro-esophageal reflux disease without esophagitis; I13.0 Hypertensive heart and chronic kidney disease with heart failure and stage 1 through stage 4 chronic kidney disease, or unspecified chronic kidney disease; N18.9 Chronic kidney disease, unspecified; I50.9 Heart failure, unspecified; E78.5 Hyperlipidemia, unspecified; F17.210 Nicotine dependence, cigarettes, uncomplicated; Z79.01 Long term (current) use of anticoagulants; Z79.899 Other long term (current) drug therapy; Z88.0 Allergy status to penicillin
CPT/HCPCS: 96372; 99285; J2270; Q0162

== ENCOUNTER 2023-11-23 16:12 | Inpatient (IN) | payer OTHER, MEDICAID ==
[~2023-11-23] VITALS: Ht 170.2 cm; Wt 51.0 kg
[2023-11-23] MEDS: SODIUM CHLORIDE 0.9% 500 ML IVB ONE (16:45)
[2023-11-23 17:47] LABS: Basophils # (auto) 0 10 ^3/uL (0-0.2); Basophils % (auto) 0.6 % (0.0-2.0); Eosinophils # (auto) 0 10 ^3/uL (0-0.8); Eosinophils % (auto) 0.3 % (0.0-7.0); Hematocrit 31.4 % (36.0-46.0); Hemoglobin 10.7 g/dL (12.2-16.2); Lymphocytes # (auto) 0.7 10 ^3/uL (0.4-5.4); Lymphocytes % (auto) 13.7 % (10.0-50.0); Mean Corpuscular Hemoglobin 31.4 pg (28.0-32.0); Mean Corpuscular Hgb Conc. 34.2 g/dL (32.0-36.0); Monocytes # (auto) 0.8 10 ^3/uL (0-1.3); Monocytes % (auto) 14.5 % (0.0-12.0); Neutrophils # (auto) 3.7 10 ^3/uL (1.6-8.6); Neutrophils % (auto) 70.9 % (37.0-80.0); Nucleated Red Blood Cells % 0.1 %; Red Blood Cells 3.41 10^6/uL (4.0-5.20); Red Cell Distribution Width 12.9 % (11.8-14.3); White Blood Cell 5.2 10^3/uL (4.4-10.8)
[2023-11-23 18:00] VITALS: O2SAT 99
[2023-11-23 18:00] LABS: Anion Gap 15 (5-15); Carbon Dioxide 28 mmol/L (20-30); Chloride 89 mmol/L (98-107); Potassium 3.8 mmol/L (3.5-5.1); Sodium 132 mmol/L (136-145)
[2023-11-23 18:01] LABS: Calcium 6.8 mg/dL (8.5-10.1)
[2023-11-23 18:06] LABS: BUN/Creatinine Ratio 17.2 (10.0-20.0); Blood Urea Nitrogen 51 mg/dL (9-23); Glucose 126 mg/dL (74-106)
[2023-11-23 19:09] LABS: Magnesium 0.9 mg/dL (1.6-2.6)
[2023-11-23 19:10] LABS: Lactic Acid w/Reflex 3.2 mmol/L (0.4-2.0)
[2023-11-23 19:35] VITALS: PULSE 73; RESP 12; O2SAT 96
[2023-11-23] MEDS: MAGNESIUM SULFATE 1GM/100ML 100 ML IV ONE (20:12)
[2023-11-23] MEDS: levoFLOXacin 500MG 100 ML IV ONE (21:16)
[2023-11-23] MEDS: SODIUM CHLORIDE 0.9% 1,650 ML IV ONE (21:17)
[2023-11-23] MEDS ORDERED: MORPHINE SULFATE INJ 2 MG/ml SYRG IV PRN (21:30)
[2023-11-23] MEDS ORDERED: DOCUSATE SOD 100 MG CAP PO PRN (21:30)
[2023-11-23] MEDS ORDERED: ONDANSETRON HCL 4 MG/2 ML VIAL IV PRN (21:30)
[2023-11-23] MEDS ORDERED: NITROGLYCERIN 0.4 MG SL TAB SL PRN (21:30)
[2023-11-23] MEDS: ASCORBIC ACID 500 MG TAB PO SCH (22:46)
[2023-11-23] MEDS: MAGNESIUM SULFATE 1GM/100ML 100 ML IV SCH (22:46)
[2023-11-23] MEDS: SODIUM CHLORIDE 0.9% 1,000 ML IV SCH (22:55)
[2023-11-24 04:37] VITALS: BP 99/59; PULSE 73; RESP 18; TEMP 98; O2SAT 100
[2023-11-24 07:52] LABS: Hematocrit 26.6 % (36.0-46.0); Mean Corpuscular Hemoglobin 32.2 pg (28.0-32.0); Mean Corpuscular Hgb Conc. 33.8 g/dL (32.0-36.0); Mean Corpuscular Volume 95.4 fL (80.0-100.0); Red Blood Cells 2.79 10^6/uL (4.0-5.20); Red Cell Distribution Width 13.1 % (11.8-14.3); White Blood Cell 4.6 10^3/uL (4.4-10.8)
[2023-11-24 07:54] LABS: Band Neutrophils % (manual) 0; Basophils % (manual) 0 (0.0-2.0); Blast Cells 0; Eosinophils % (manual) 0 (0-7); Metamyelocytes % 0; Myelocytes % 0; Promyelocytes % 0; Reactive Lymphocytes 0
[2023-11-24 07:56] LABS: Alanine Aminotransferase 16 U/L (7-40); Albumin 3.8 g/dL (3.2-4.8); Alkaline Phosphatase 82 U/L (46-116); Anion Gap 12 (5-15); Aspartate Aminotransferase 15 U/L (13-40); BUN/Creatinine Ratio 16.5 (10.0-20.0); Bilirubin, Total 0.6 mg/dL (0.2-1.0); Carbon Dioxide 25 mmol/L (20-30); Chloride 99 mmol/L (98-107); Glucose 87 mg/dL (74-106); Potassium 3.1 mmol/L (3.5-5.1); Sodium 136 mmol/L (136-145); Total Protein 5.6 g/dL (5.7-8.2)
[2023-11-24 07:58] LABS: Blood Urea Nitrogen 34 mg/dL (9-23)
[2023-11-24 08:51] LABS: Lymphocytes % (manual) 14 (10.0-50.0); Monocytes % (manual) 6 (0-12)
[2023-11-24 08:52] LABS: Platelet Estimate Adequate
[2023-11-24 09:00] VITALS: BP 87/52; PULSE 71; RESP 18; TEMP 98.6; O2SAT 99
[2023-11-24] MEDS: ZINC SULFATE 220mg CAP or TAB PO SCH (09:37)
[2023-11-24] MEDS: MULTIPLE VITAMIN TAB PO SCH (09:38)
[2023-11-24] MEDS: HYDROcodone-ACET 5/325MG TAB PO PRN (09:38)
[2023-11-24 13:00] VITALS: BP 98/59; PULSE 68; RESP 18; TEMP 98.3; O2SAT 99
[2023-11-24 17:00] VITALS: BP 92/47; PULSE 72; RESP 18; TEMP 98.1; O2SAT 98
[2023-11-24] MEDS: MAGNESIUM SULFATE 1GM/100ML 100 ML IV SCH (17:53)
[2023-11-24] MEDS: levoFLOXacin 250MG 50 ML IV SCH (18:00)
[2023-11-24 18:22] LABS: Urine Bacteria None Seen /hpf (None Seen)
[2023-11-24 18:46] LABS: Creatinine, Urine 91.75 mg/dL (30.0-125.0); Protein, Urine 47.3 mg/dL (0.0-11.9); Urine Protein/Creatinine Ratio 0.52
[2023-11-24 18:50] LABS: Urine Blood Negative /uL (Negative); Urine Clarity Clear (Clear); Urine Color Yellow (Yellow); Urine Protein, UAD TRACE (Negative); Urine Specific Gravity 1.017 (1.001-1.035); Urine Urobilinogen Normal (Negative); Urine WBC <1 /hpf (0 - 5); Urine pH 5.5 (5.0-9.0)
[2023-11-24 20:00] VITALS: PULSE 70
[2023-11-24 21:00] VITALS: BP 92/69; PULSE 69; RESP 16; TEMP 98; O2SAT 94
[2023-11-24] MEDS: levETIRAcetam 500 MG TAB PO SCH (22:09)
[2023-11-24] MEDS: MAGNESIUM OXIDE 400 MG TAB PO SCH (22:10)
[2023-11-24] MEDS: SOD CHL 0.9%/ KCL 20MEQ 1,000 ML IV SCH (22:12)
[2023-11-24] MEDS ORDERED: LORazepam 2MG/ML-1ML VIAL IV PRN ×2 (23:15)
[2023-11-25] VITALS (8 sets, daily range): BP systolic 89–128; BP diastolic 38–89; PULSE 49–68; RESP 16–20; TEMP 97.8–98; O2SAT 92–100
[2023-11-25] MEDS: MEGESTROL ACETATE 20 MG TAB PO SCH (00:25)
[2023-11-25] MEDS: PANTOPRAZOLE 40 MG TAB PO SCH (05:08)
[2023-11-25 07:11] LABS: Anion Gap 9 (5-15); Carbon Dioxide 26 mmol/L (20-30); Chloride 102 mmol/L (98-107); Potassium 3.3 mmol/L (3.5-5.1); Sodium 137 mmol/L (136-145)
[2023-11-25 07:12] LABS: Calcium 8.1 mg/dL (8.5-10.1)
[2023-11-25 07:17] LABS: BUN/Creatinine Ratio 13.9 (10.0-20.0); Blood Urea Nitrogen 22 mg/dL (9-23); Glucose 84 mg/dL (74-106)
[2023-11-25] MEDS: CLOPIDOGREL BISULFATE 75 MG TAB PO SCH (10:50)
[2023-11-25] MEDS: ACETAMINOPHEN 325 MG TAB PO PRN (16:18)
[2023-11-26] VITALS (9 sets, daily range): BP systolic 91–119; BP diastolic 43–57; PULSE 53–81; RESP 16–22; TEMP 97.8–98.1; O2SAT 97–100
[2023-11-26 14:23] LABS: Basophils # (auto) 0 10 ^3/uL (0-0.2); Basophils % (auto) 0.4 % (0.0-2.0); Eosinophils # (auto) 0 10 ^3/uL (0-0.8); Eosinophils % (auto) 0.4 % (0.0-7.0); Hematocrit 23.2 % (36.0-46.0); Lymphocytes # (auto) 1.2 10 ^3/uL (0.4-5.4); Lymphocytes % (auto) 21.8 % (10.0-50.0); Mean Corpuscular Hemoglobin 32.1 pg (28.0-32.0); Mean Corpuscular Hgb Conc. 34.5 g/dL (32.0-36.0); Mean Corpuscular Volume 92.9 fL (80.0-100.0); Monocytes # (auto) 0.6 10 ^3/uL (0-1.3); Monocytes % (auto) 11.3 % (0.0-12.0); Neutrophils # (auto) 3.5 10 ^3/uL (1.6-8.6); Neutrophils % (auto) 66.1 % (37.0-80.0); Red Blood Cells 2.49 10^6/uL (4.0-5.20); Red Cell Distribution Width 13.4 % (11.8-14.3); White Blood Cell 5.3 10^3/uL (4.4-10.8)
[2023-11-26 14:55] LABS: Alanine Aminotransferase 13 U/L (7-40); Albumin 3.5 g/dL (3.2-4.8); Alkaline Phosphatase 77 U/L (46-116); Anion Gap 4 (5-15); Aspartate Aminotransferase 12 U/L (13-40); BUN/Creatinine Ratio 17.3 (10.0-20.0); Blood Urea Nitrogen 24 mg/dL (9-23); Calcium 7.8 mg/dL (8.5-10.1); Carbon Dioxide 28 mmol/L (20-30); Chloride 105 mmol/L (98-107); Glucose 99 mg/dL (74-106); Potassium 3.5 mmol/L (3.5-5.1); Sodium 137 mmol/L (136-145)
[2023-11-26 14:56] LABS: Bilirubin, Total 0.6 mg/dL (0.2-1.0); Total Protein 5.2 g/dL (5.7-8.2)
[2023-11-26] MEDS: MORPHINE SULFATE INJ 2 MG/ml SYRG IV PRN (23:28)
[2023-11-27] VITALS (7 sets, daily range): BP systolic 85–135; BP diastolic 45–86; PULSE 64–99; RESP 16–22; TEMP 98–98.6; O2SAT 90–100
[2023-11-27 06:09] LABS: Basophils # (auto) 0 10 ^3/uL (0-0.2); Basophils % (auto) 0.3 % (0.0-2.0); Eosinophils # (auto) 0 10 ^3/uL (0-0.8); Eosinophils % (auto) 0.4 % (0.0-7.0); Hematocrit 24.6 % (36.0-46.0); Hemoglobin 8.5 g/dL (12.2-16.2); Lymphocytes # (auto) 1.1 10 ^3/uL (0.4-5.4); Lymphocytes % (auto) 18.4 % (10.0-50.0); Mean Corpuscular Hemoglobin 32.3 pg (28.0-32.0); Mean Corpuscular Hgb Conc. 34.5 g/dL (32.0-36.0); Mean Corpuscular Volume 93.5 fL (80.0-100.0); Monocytes # (auto) 0.8 10 ^3/uL (0-1.3); Monocytes % (auto) 12.9 % (0.0-12.0); Red Blood Cells 2.64 10^6/uL (4.0-5.20); Red Cell Distribution Width 13.3 % (11.8-14.3); White Blood Cell 5.9 10^3/uL (4.4-10.8)
[2023-11-27 06:18] LABS: Alanine Aminotransferase 12 U/L (7-40); Albumin 3.4 g/dL (3.2-4.8); Alkaline Phosphatase 77 U/L (46-116); Anion Gap 4 (5-15); Aspartate Aminotransferase 10 U/L (13-40); BUN/Creatinine Ratio 16.2 (10.0-20.0); Blood Urea Nitrogen 23 mg/dL (9-23); Calcium 8.1 mg/dL (8.5-10.1); Carbon Dioxide 26 mmol/L (20-30); Chloride 108 mmol/L (98-107); Glucose 79 mg/dL (74-106); Potassium 4.3 mmol/L (3.5-5.1); Sodium 138 mmol/L (136-145)
[2023-11-27 06:19] LABS: Bilirubin, Total 0.6 mg/dL (0.2-1.0); Total Protein 5.2 g/dL (5.7-8.2)
[2023-11-27] MEDS ORDERED: GABAPENTIN 100 MG CAP PO SCH (10:00)
[2023-11-27] MEDS: PREGABALIN CAPSULE 75 MG CAP PO SCH (10:25)
[2023-11-28] VITALS (10 sets, daily range): BP systolic 88–135; BP diastolic 44–86; PULSE 68–83; RESP 16–20; TEMP 98–98.8; O2SAT 91–98
[2023-11-28] MEDS: PREGABALIN 25 MG CAP PO SCH (09:39)
[2023-11-29] VITALS (7 sets, daily range): BP systolic 91–132; BP diastolic 45–60; PULSE 61–78; RESP 17–19; TEMP 97.9–98.6; O2SAT 93–100
[2023-11-29 09:25] LABS: Basophils # (auto) 0 10 ^3/uL (0-0.2); Eosinophils # (auto) 0.1 10 ^3/uL (0-0.8); Neutrophils # (auto) 3.3 10 ^3/uL (1.6-8.6)
[2023-11-29 09:27] LABS: Basophils % (auto) 0.5 % (0.0-2.0); Eosinophils % (auto) 1.6 % (0.0-7.0); Hematocrit 24.2 % (36.0-46.0); Hemoglobin 8.3 g/dL (12.2-16.2); Lymphocytes % (auto) 19.4 % (10.0-50.0); Mean Corpuscular Hemoglobin 32.2 pg (28.0-32.0); Mean Corpuscular Hgb Conc. 34.5 g/dL (32.0-36.0); Mean Corpuscular Volume 93.5 fL (80.0-100.0); Monocytes # (auto) 0.7 10 ^3/uL (0-1.3); Monocytes % (auto) 14.6 % (0.0-12.0); Neutrophils % (auto) 63.9 % (37.0-80.0); Red Blood Cells 2.59 10^6/uL (4.0-5.20); Red Cell Distribution Width 13.5 % (11.8-14.3); White Blood Cell 5.1 10^3/uL (4.4-10.8)
[2023-11-29 10:04] LABS: Alanine Aminotransferase 14 U/L (7-40); Albumin 3.4 g/dL (3.2-4.8); Alkaline Phosphatase 116 U/L (46-116); Anion Gap 5 (5-15); Aspartate Aminotransferase 15 U/L (13-40); Blood Urea Nitrogen 21 mg/dL (9-23); Calcium 8.5 mg/dL (8.5-10.1); Carbon Dioxide 23 mmol/L (20-30); Chloride 110 mmol/L (98-107); Glucose 104 mg/dL (74-106); Potassium 4.3 mmol/L (3.5-5.1); Sodium 138 mmol/L (136-145)
[2023-11-29 10:05] LABS: Bilirubin, Total 0.5 mg/dL (0.2-1.0); Total Protein 5.1 g/dL (5.7-8.2)
[2023-11-30] VITALS (7 sets, daily range): BP systolic 92–107; BP diastolic 52–61; PULSE 69–78; RESP 16–19; TEMP 36.7; O2SAT 93–99
== END 2023-11-30 19:40 | disposition home health service (06) | DRG 682 ==
LOC: EDUNIT# 16:12 → EDBD 16:12 → ER 16:12 → TELE 21:27 → TELE-EAST 11-24 03:51
PROVIDERS: ADMIT Nurse Practitioner Family; ATTEND Nurse Practitioner Family
DX: N17.0 Acute kidney failure with tubular necrosis (principal); G93.41 Metabolic encephalopathy; I13.0 Hypertensive heart and chronic kidney disease with heart failure and stage 1 through stage 4 chronic kidney disease, or unspecified chronic kidney disease; E83.42 Hypomagnesemia; F17.210 Nicotine dependence, cigarettes, uncomplicated; D64.9 Anemia, unspecified; E78.5 Hyperlipidemia, unspecified; E83.51 Hypocalcemia; E87.6 Hypokalemia; K21.9 Gastro-esophageal reflux disease without esophagitis; G40.909 Epilepsy, unspecified, not intractable, without status epilepticus; N18.32 Chronic kidney disease, stage 3b; I50.9 Heart failure, unspecified; Z93.3 Colostomy status; Z88.0 Allergy status to penicillin; Z83.3 Family history of diabetes mellitus; Z82.49 Family history of ischemic heart disease and other diseases of the circulatory system; Z79.02 Long term (current) use of antithrombotics/antiplatelets
CPT/HCPCS: 36415; 70450; 71045; 76775; 80048; 80053; 81001; 82570; 83605; 83735; 84156; 85007; 85025; 85027; 87040; 93005; 93925; 95819; 96361; 96365; 96367; 97110; 97116; 97163; 97530; 99291; G0378; J1956

== ENCOUNTER 2023-12-23 07:39 | Inpatient (IN) | payer OTHER, MEDICAID ==
[~2023-12-23] VITALS: Ht 165.1 cm; Wt 52.0 kg
[2023-12-23] VITALS (7 sets, daily range): BP systolic 93–103; BP diastolic 51–60; PULSE 59–88; RESP 16–20; TEMP 97.2–98.7; O2SAT 95–100
[~2023-12-23 07:39] MED LIST changes: +BUPR5DIS TOP; +OXYC325T14 PO
[2023-12-23] MEDS: SODIUM CHLORIDE 0.9% 1,000 ML IVB ONE (08:29)
[2023-12-23] MEDS: ONDANSETRON HCL 4 MG/2 ML VIAL IV ONE (08:29)
[2023-12-23 08:38] LABS: Basophils # (auto) 0 10 ^3/uL (0-0.2); Basophils % (auto) 0.3 % (0.0-2.0); Eosinophils # (auto) 0 10 ^3/uL (0-0.8); Hematocrit 36.5 % (36.0-46.0); Hemoglobin 12.6 g/dL (12.2-16.2); Lymphocytes # (auto) 0.9 10 ^3/uL (0.4-5.4); Lymphocytes % (auto) 11.8 % (10.0-50.0); Mean Corpuscular Hemoglobin 32.1 pg (28.0-32.0); Mean Corpuscular Hgb Conc. 34.7 g/dL (32.0-36.0); Mean Corpuscular Volume 92.7 fL (80.0-100.0); Monocytes % (auto) 12.8 % (0.0-12.0); Neutrophils # (auto) 5.8 10 ^3/uL (1.6-8.6); Neutrophils % (auto) 75.1 % (37.0-80.0); Nucleated Red Blood Cells % 0.1 %; Red Blood Cells 3.94 10^6/uL (4.0-5.20); Red Cell Distribution Width 12.5 % (11.8-14.3); White Blood Cell 7.7 10^3/uL (4.4-10.8)
[2023-12-23] MEDS: MORPHINE SULFATE 4 MG/ML SYR/VIAL IV ONE (08:59)
[2023-12-23 09:14] LABS: Alanine Aminotransferase 37 U/L (7-40); Alkaline Phosphatase 151 U/L (46-116); Calcium 9.5 mg/dL (8.5-10.1)
[2023-12-23 09:15] LABS: Albumin 5.6 g/dL (3.2-4.8); Anion Gap 21 (5-15); Aspartate Aminotransferase 19 U/L (13-40); BUN/Creatinine Ratio 17.2 (10.0-20.0); Carbon Dioxide 22 mmol/L (20-30); Chloride 77 mmol/L (98-107); Glucose 122 mg/dL (74-106); Magnesium 1.5 mg/dL (1.6-2.6); Potassium 5.4 mmol/L (3.5-5.1); Sodium 120 mmol/L (136-145); Total Protein 8.3 g/dL (5.7-8.2)
[2023-12-23 09:20] LABS: Blood Urea Nitrogen 96 mg/dL (9-23); Lactic Acid w/Reflex 3.5 mmol/L (0.4-2.0)
[2023-12-23 10:46] LABS: Lipase 40 U/L (12-53)
[2023-12-23] MEDS: SODIUM ZIRCONIUM CYCL 10 GM PAK PO ONE ×2 (13:00→15:07)
[2023-12-23] MEDS ORDERED: MORPHINE SULFATE INJ 2 MG/ml SYRG IV PRN ×2 (13:00)
[2023-12-23] MEDS ORDERED: NITROGLYCERIN 0.4 MG SL TAB SL PRN (13:00)
[2023-12-23] MEDS: SODIUM CHLORIDE 0.9% 1,000 ML IV SCH (13:29)
[2023-12-23] MEDS: MAGNESIUM SULFATE 1GM/100ML 100 ML IV SCH (13:42)
[2023-12-23] MEDS ORDERED: SODIUM ZIRCONIUM CYCL 10 GM PAK PO ONE (13:45)
[2023-12-23] MEDS ORDERED: DEXTROSE (50%) 50ML SYRG IV ONE (15:30)
[2023-12-23] MEDS ORDERED: InsuLIN REG 1unit/0.01ml Soln (100units/ml) IV ONE (15:30)
[2023-12-23] MEDS ORDERED: CALCIUM GLUC 1,000mg/50ml-NS 50 ML IV ONE (15:30)
[2023-12-23] MEDS ORDERED: FUROSEMIDE 40 MG/4 ML VIAL IV ONE (15:30)
[2023-12-23] MEDS ORDERED: SODIUM BICARB 8.4% 50Meq/50ml SYR INJ IV ONE (15:30)
[2023-12-23 15:34] LABS: Sodium Urine < 10 mmol/L (40-220)
[2023-12-23 15:41] LABS: Creatinine, Urine 84.65 mg/dL (30.0-125.0)
[2023-12-23] MEDS: ALBUTEROL SULF 2.5 MG/0.5ML(0.5%) NEB SOLN NEB ONE (15:56)
[2023-12-23 17:19] LABS: Urine Bacteria MANY /hpf (None Seen); Urine Blood Negative /uL (Negative); Urine Clarity Turbid (Clear); Urine Color Light-Orange (Yellow); Urine Protein, UAD TRACE (Negative); Urine Specific Gravity 1.017 (1.001-1.035); Urine Urobilinogen Normal (Negative); Urine WBC 78 /hpf (0 - 5)
[2023-12-23] MEDS: levoFLOXacin 250MG 50 ML IV SCH (17:45)
[2023-12-23 19:52] LABS: Magnesium 1.8 mg/dL (1.6-2.6)
[2023-12-23 19:54] LABS: Phosphorus 10.6 mg/dL (2.4-5.1)
[2023-12-23] MEDS: MEGESTROL ACETATE 20 MG TAB PO SCH (21:00)
[2023-12-23] MEDS: levETIRAcetam 500 MG TAB PO SCH (21:17)
[2023-12-23] MEDS: OXYCODONE W/ ACETAMINOPHEN 5/325MG TABLET PO PRN (21:17)
[2023-12-24] VITALS (9 sets, daily range): BP systolic 86–104; BP diastolic 47–59; PULSE 60–71; RESP 15–21; TEMP 75.5–98.3; O2SAT 96–100
[2023-12-24] MEDS: SODIUM CHLORIDE 0.9% 500 ML IV ONE (01:39)
[2023-12-24 06:29] LABS: Basophils # (auto) 0 10 ^3/uL (0-0.2); Basophils % (auto) 0.2 % (0.0-2.0); Eosinophils # (auto) 0 10 ^3/uL (0-0.8); Eosinophils % (auto) 0.2 % (0.0-7.0); Hematocrit 26.2 % (36.0-46.0); Lymphocytes % (auto) 13.7 % (10.0-50.0); Mean Corpuscular Hemoglobin 31.7 pg (28.0-32.0); Mean Corpuscular Hgb Conc. 34.4 g/dL (32.0-36.0); Mean Corpuscular Volume 92.1 fL (80.0-100.0); Monocytes # (auto) 1.1 10 ^3/uL (0-1.3); Monocytes % (auto) 15.8 % (0.0-12.0); Neutrophils # (auto) 5.1 10 ^3/uL (1.6-8.6); Neutrophils % (auto) 70.1 % (37.0-80.0); Red Blood Cells 2.85 10^6/uL (4.0-5.20); Red Cell Distribution Width 12.5 % (11.8-14.3); White Blood Cell 7.2 10^3/uL (4.4-10.8)
[2023-12-24 06:40] LABS: Alanine Aminotransferase 31 U/L (7-40); Alkaline Phosphatase 94 U/L (46-116); Anion Gap 14 (5-15); Calcium 7.9 mg/dL (8.7-10.4); Carbon Dioxide 23 mmol/L (20-30); Glucose 84 mg/dL (74-106); Potassium 3.7 mmol/L (3.5-5.1)
[2023-12-24 06:41] LABS: Albumin 3.8 g/dL (3.2-4.8); Aspartate Aminotransferase 21 U/L (13-40); Bilirubin, Total 0.7 mg/dL (0.2-1.0); Total Protein 5.6 g/dL (5.7-8.2)
[2023-12-24 06:53] LABS: Chloride 89 mmol/L (98-107); Sodium 126 mmol/L (136-145)
[2023-12-24 06:55] LABS: Blood Urea Nitrogen 92 mg/dL (9-23)
[2023-12-24] MEDS: cefTRIAXone 1GM/50ML D5W 50 ML IV SCH (09:00)
[2023-12-24] MEDS ORDERED: cefTRIAXone 1GM/50ML D5W 50 ML IV ONE (09:00)
[2023-12-24] MEDS: CYANOCOBALAMIN 500 MCG TAB PO SCH (10:27)
[2023-12-24] MEDS: PANTOPRAZOLE 40 MG TAB PO SCH (10:28)
[2023-12-24] MEDS: CLOPIDOGREL BISULFATE 75 MG TAB PO SCH (10:28)
[2023-12-24] MEDS: ONDANSETRON HCL 4 MG/2 ML VIAL IV PRN (12:06)
[2023-12-24 13:49] LABS: Chloride 89 mmol/L (98-107); Potassium 3.4 mmol/L (3.5-5.1); Sodium 126 mmol/L (136-145)
[2023-12-24 13:50] LABS: Anion Gap 11 (5-15); Calcium 7.8 mg/dL (8.5-10.1); Carbon Dioxide 26 mmol/L (20-30)
[2023-12-24 13:55] LABS: BUN/Creatinine Ratio 22.7 (10.0-20.0); Glucose 113 mg/dL (74-106)
[2023-12-24 14:26] LABS: Blood Urea Nitrogen 92 mg/dL (9-23)
[2023-12-24] MEDS: MAGNESIUM SULFATE 1GM/100ML 100 ML IV SCH (16:00)
[2023-12-24] MEDS ORDERED: ALBUTEROL SULF 2.5 MG/0.5ML(0.5%) NEB SOLN NEB PRN (16:30)
[2023-12-24] MEDS: POTASSIUM EFFERVESENT TAB 25 MEQ PO ONE (16:30)
[2023-12-24] MEDS ORDERED: IPRATROPIUM BROM 0.5 MG/2.5ML INH SOL NEB PRN ×2 (16:30)
[2023-12-24] MEDS: ENOXAPARIN SOD 30 MG/0.3 ML SYRINGE SC ONE (17:15)
[2023-12-24] MEDS ORDERED: GABA-1250 PO (17:22)
[2023-12-24] MEDS ORDERED: BACL10TA PO (17:22)
[2023-12-24] MEDS ORDERED: ATOR10TA PO (17:22)
[2023-12-24] MEDS ORDERED: ALLO100T PO (17:22)
[2023-12-24] MEDS ORDERED: PRED1SUS31 LEFTEYE (17:22)
[2023-12-24] MEDS: ALBUMIN 25% 100 ML IV SCH (17:57)
[2023-12-24] MEDS: CALCIUM ACETATE 667 MG CAP PO SCH (17:58)
[2023-12-24] MEDS: FUROSEMIDE 20 MG TAB PO SCH (18:00)
[2023-12-24] MEDS: DOPamine 1600MCG/ML D5W 250 ML IV SCH (21:10)
[2023-12-24] MEDS: SODIUM CHLORIDE 0.9% 1,000 ML IV SCH (22:14)
[2023-12-25] VITALS (12 sets, daily range): BP systolic 80–112; BP diastolic 36–74; PULSE 61–72; RESP 15–18; TEMP 97.5–98.7; O2SAT 97–100
[2023-12-25] MEDS: ENOXAPARIN SOD 30 MG/0.3 ML SYRINGE SC SCH (08:38)
[2023-12-25 08:47] LABS: Basophils # (auto) 0 10 ^3/uL (0-0.2); Basophils % (auto) 0.3 % (0.0-2.0); Eosinophils # (auto) 0 10 ^3/uL (0-0.8); Eosinophils % (auto) 0.3 % (0.0-7.0); Hematocrit 23.1 % (36.0-46.0); Lymphocytes # (auto) 0.6 10 ^3/uL (0.4-5.4); Lymphocytes % (auto) 14.1 % (10.0-50.0); Mean Corpuscular Hemoglobin 32.4 pg (28.0-32.0); Mean Corpuscular Hgb Conc. 34.6 g/dL (32.0-36.0); Mean Corpuscular Volume 93.8 fL (80.0-100.0); Monocytes # (auto) 0.6 10 ^3/uL (0-1.3); Monocytes % (auto) 14.5 % (0.0-12.0); Neutrophils % (auto) 70.8 % (37.0-80.0); Red Blood Cells 2.47 10^6/uL (4.0-5.20); Red Cell Distribution Width 12.3 % (11.8-14.3); White Blood Cell 4.2 10^3/uL (4.4-10.8)
[2023-12-25 09:15] LABS: Chloride 97 mmol/L (98-107); Potassium 2.6 mmol/L (3.5-5.1)
[2023-12-25 09:16] LABS: Anion Gap 12 (5-15); Calcium 8.8 mg/dL (8.7-10.4); Carbon Dioxide 25 mmol/L (20-30)
[2023-12-25 09:21] LABS: BUN/Creatinine Ratio 19.1 (10.0-20.0); Glucose 89 mg/dL (74-106)
[2023-12-25 09:24] LABS: Blood Urea Nitrogen 58 mg/dL (9-23); Sodium 134 mmol/L (136-145)
[2023-12-25] MEDS: POTASSIUM CHL 20MEQ/100ML 100 ML IV SCH (11:52)
[2023-12-25] MEDS: POTASSIUM EFFERVESENT TAB 25 MEQ PO ONE ×2 (11:52→16:33)
[2023-12-25] MEDS: MAGNESIUM SULFATE 1GM/100ML 100 ML IV SCH (11:53)
[2023-12-25] MEDS: MAGNESIUM OXIDE 400 MG TAB PO ONE (16:34)
[2023-12-26] VITALS (10 sets, daily range): BP systolic 91–121; BP diastolic 45–59; PULSE 68–78; RESP 14–19; TEMP 97.4–98.9; O2SAT 94–100
[2023-12-26 06:48] LABS: Basophils # (auto) 0 10 ^3/uL (0-0.2); Basophils % (auto) 0.7 % (0.0-2.0); Eosinophils # (auto) 0 10 ^3/uL (0-0.8); Eosinophils % (auto) 0.9 % (0.0-7.0); Hematocrit 25.3 % (36.0-46.0); Hemoglobin 8.5 g/dL (12.2-16.2); Lymphocytes # (auto) 0.9 10 ^3/uL (0.4-5.4); Lymphocytes % (auto) 18.1 % (10.0-50.0); Mean Corpuscular Hemoglobin 31.9 pg (28.0-32.0); Mean Corpuscular Hgb Conc. 33.8 g/dL (32.0-36.0); Mean Corpuscular Volume 94.3 fL (80.0-100.0); Monocytes # (auto) 0.8 10 ^3/uL (0-1.3); Monocytes % (auto) 15.6 % (0.0-12.0); Neutrophils # (auto) 3.4 10 ^3/uL (1.6-8.6); Neutrophils % (auto) 64.7 % (37.0-80.0); Red Blood Cells 2.68 10^6/uL (4.0-5.20); Red Cell Distribution Width 12.7 % (11.8-14.3); White Blood Cell 5.2 10^3/uL (4.4-10.8)
[2023-12-26 07:11] LABS: Anion Gap 10 (5-15); Carbon Dioxide 28 mmol/L (20-30); Chloride 95 mmol/L (98-107); Potassium 3.4 mmol/L (3.5-5.1); Sodium 133 mmol/L (136-145)
[2023-12-26 07:12] LABS: Calcium 9.2 mg/dL (8.7-10.4)
[2023-12-26 07:17] LABS: BUN/Creatinine Ratio 15.2 (10.0-20.0); Glucose 115 mg/dL (74-106); Magnesium 1.9 mg/dL (1.6-2.6)
[2023-12-26 07:27] LABS: Blood Urea Nitrogen 41 mg/dL (9-23)
[2023-12-26] MEDS: CALCIUM ACETATE 667 MG CAP PO SCH (10:32)
[2023-12-26] MEDS: POTASSIUM EFFERVESENT TAB 25 MEQ PO ONE ×2 (10:33→13:11)
[2023-12-26 11:36] LABS: % Iron Saturation 15.5 % (15-50)
[2023-12-26 11:40] LABS: Ferritin 428.2 ng/mL (10-291)
[2023-12-26 15:20] LABS: Amphetamine Screen, Urine Neg (NEGATIVE); Barbiturate Scree,Urine Neg (NEGATIVE); Benzodiazephine Screen, Urine Neg (NEGATIVE); Cannabinoid Screen, Urine Neg (NEGATIVE); Cocaine Screen, Urine Neg (NEGATIVE); Opiate Scree,Urine Neg (NEGATIVE); Phencyclidine Screen, Urine Neg (NEGATIVE)
[2023-12-27] VITALS (11 sets, daily range): BP systolic 106–133; BP diastolic 50–78; PULSE 17–84; RESP 17–22; TEMP 97.8–98.2; O2SAT 95–100
[2023-12-27 06:55] LABS: Basophils # (auto) 0 10 ^3/uL (0-0.2); Basophils % (auto) 0.7 % (0.0-2.0); Eosinophils # (auto) 0.1 10 ^3/uL (0-0.8); Eosinophils % (auto) 1.6 % (0.0-7.0); Hematocrit 26.4 % (36.0-46.0); Lymphocytes # (auto) 1.1 10 ^3/uL (0.4-5.4); Lymphocytes % (auto) 20.4 % (10.0-50.0); Mean Corpuscular Hemoglobin 31.9 pg (28.0-32.0); Mean Corpuscular Hgb Conc. 33.9 g/dL (32.0-36.0); Mean Corpuscular Volume 94.2 fL (80.0-100.0); Monocytes # (auto) 0.9 10 ^3/uL (0-1.3); Monocytes % (auto) 17.1 % (0.0-12.0); Neutrophils # (auto) 3.2 10 ^3/uL (1.6-8.6); Neutrophils % (auto) 60.2 % (37.0-80.0); Nucleated Red Blood Cells % 0.1 %; Red Cell Distribution Width 12.5 % (11.8-14.3); White Blood Cell 5.3 10^3/uL (4.4-10.8)
[2023-12-27 07:04] LABS: Alanine Aminotransferase 20 U/L (7-40); Alkaline Phosphatase 76 U/L (46-116); Anion Gap 8 (5-15); Aspartate Aminotransferase 12 U/L (13-40); BUN/Creatinine Ratio 15.4 (10.0-20.0); Blood Urea Nitrogen 35 mg/dL (9-23); Calcium 8.9 mg/dL (8.7-10.4); Carbon Dioxide 29 mmol/L (20-30); Chloride 99 mmol/L (98-107); Glucose 84 mg/dL (74-106); Potassium 3.5 mmol/L (3.5-5.1); Sodium 136 mmol/L (136-145)
[2023-12-27 07:05] LABS: Albumin 4.1 g/dL (3.2-4.8); Bilirubin, Total 0.4 mg/dL (0.2-1.0); Creatine Kinase IFCC 33 U/L (34-145); Total Protein 5.9 g/dL (5.7-8.2)
[2023-12-27] MEDS: CEPHALEXIN 250 MG CAP PO SCH (12:06)
[2023-12-27 13:22] LABS: Folate (Folic Acid) 14.25 ng/mL (>5.38)
[2023-12-27] MEDS ORDERED: CEPH500C PO (18:19)
[2023-12-28] VITALS (9 sets, daily range): BP systolic 89–109; BP diastolic 45–62; PULSE 17–85; RESP 16–20; TEMP 97.9–98; O2SAT 95–100
[2023-12-28] MEDS ORDERED: CEPHALEXIN 250 MG CAP PO SCH (16:10)
== END 2023-12-28 13:30 | disposition home health service (06) | DRG 640 ==
LOC: EDBD 07:39 → ER 07:39 → OVERFLOW 13:04 → CENTRAL 15:18 → TELE-CENTR 12-24 17:30
PROVIDERS: ADMIT Internal Medicine Pulmonary Disease; ATTEND Emergency Medicine
DX: E86.0 Dehydration (principal); N17.0 Acute kidney failure with tubular necrosis; N39.0 Urinary tract infection, site not specified; I13.0 Hypertensive heart and chronic kidney disease with heart failure and stage 1 through stage 4 chronic kidney disease, or unspecified chronic kidney disease; I50.32 Chronic diastolic (congestive) heart failure; N25.81 Secondary hyperparathyroidism of renal origin; E87.1 Hypo-osmolality and hyponatremia; K56.41 Fecal impaction; E83.42 Hypomagnesemia; E87.5 Hyperkalemia; J44.9 Chronic obstructive pulmonary disease, unspecified; I71.40 Abdominal aortic aneurysm, without rupture, unspecified; N18.9 Chronic kidney disease, unspecified; F17.210 Nicotine dependence, cigarettes, uncomplicated; E78.5 Hyperlipidemia, unspecified; E83.39 Other disorders of phosphorus metabolism; K21.9 Gastro-esophageal reflux disease without esophagitis; G40.909 Epilepsy, unspecified, not intractable, without status epilepticus; E87.6 Hypokalemia; D64.9 Anemia, unspecified; Z93.3 Colostomy status; Z88.0 Allergy status to penicillin; Z79.899 Other long term (current) drug therapy; Z83.3 Family history of diabetes mellitus; Z82.49 Family history of ischemic heart disease and other diseases of the circulatory system
CPT/HCPCS: 36415; 71045; 74176; 76700; 76775; 80048; 80053; 80307; 81001; 82306; 82550; 82570; 82728; 82746; 83010; 83540; 83550; 83605; 83615; 83690; 83735; 83930; 83935; 83970; 84100; 84132; 84300; 84484; 85025; 85045; 93005; 93306; 97110; 97116; 97163; 97530; 99291; G0378; J1815; J2405; J3480; P9047

== ENCOUNTER 2024-03-18 05:19 | Inpatient (IN) | payer OTHER, MEDICAID ==
[~2024-03-18] VITALS: Ht 170.2 cm; Wt 48.6 kg
[~2024-03-18 05:19] MED LIST changes: +ALLO100T PO; +ATOR10TA PO; +BACL10TA PO; +CEPH500C PO; -ERGO1CAP23 PO; -FUR20T PO; +FURO20TA4 PO; +GABA-1250 PO; -HYDR-4072 PO; -KEP500T PO; -POTA-228 PO; +PRED1SUS31 LEFTEYE
[2024-03-18 07:56] LABS: Basophils # (auto) 0 10 ^3/uL (0-0.2); Basophils % (auto) 0.5 % (0.0-2.0); Eosinophils # (auto) 0 10 ^3/uL (0-0.8); Eosinophils % (auto) 0.1 % (0.0-7.0); Hematocrit 33.6 % (36.0-46.0); Hemoglobin 11.8 g/dL (12.2-16.2); Lymphocytes # (auto) 0.4 10 ^3/uL (0.4-5.4); Lymphocytes % (auto) 4.2 % (10.0-50.0); Mean Corpuscular Hemoglobin 32.4 pg (28.0-32.0); Mean Corpuscular Hgb Conc. 35.2 g/dL (32.0-36.0); Monocytes # (auto) 1.5 10 ^3/uL (0-1.3); Monocytes % (auto) 16.3 % (0.0-12.0); Neutrophils # (auto) 7.3 10 ^3/uL (1.6-8.6); Neutrophils % (auto) 78.9 % (37.0-80.0); Nucleated Red Blood Cells % 0.1 %; Platelet Count (auto) 294 10^3/uL (140-450); Red Blood Cells 3.65 10^6/uL (4.0-5.20); Red Cell Distribution Width 13.6 % (11.8-14.3); White Blood Cell 9.2 10^3/uL (4.4-10.8)
[2024-03-18 08:05] LABS: Chloride 75 mmol/L (98-107); Potassium 3.5 mmol/L (3.5-5.1); Sodium 124 mmol/L (136-145)
[2024-03-18 08:06] LABS: Anion Gap 19 (5-15); Calcium 9.5 mg/dL (8.7-10.4); Carbon Dioxide 30 mmol/L (20-31)
[2024-03-18 08:11] LABS: Glucose 140 mg/dL (74-106)
[2024-03-18 08:16] LABS: Blood Urea Nitrogen 120 mg/dL (9-23)
[2024-03-18] MEDS: SODIUM CHLORIDE 0.9% 1,000 ML IV ONE (09:12)
[2024-03-18] MEDS: ONDANSETRON HCL 4 MG/2 ML VIAL IV ONE (09:31)
[2024-03-18] MEDS: MORPHINE SULFATE INJ 2 MG/ml SYRG IV ONE (09:32)
[2024-03-18 10:10] VITALS: PULSE 67; RESP 14; O2SAT 98
[2024-03-18] MEDS ORDERED: DOCUSATE SOD 100 MG CAP PO PRN (11:15)
[2024-03-18] MEDS ORDERED: MORPHINE SULFATE INJ 2 MG/ml SYRG IV PRN (11:15)
[2024-03-18] MEDS ORDERED: NITROGLYCERIN 0.4 MG SL TAB SL PRN (11:15)
[2024-03-18] MEDS ORDERED: ERGOCALCIFEROL 50,000 UNIT(1.25MG) CAP PO SCH (11:15)
[2024-03-18] MEDS ORDERED: ONDANSETRON HCL 4 MG/2 ML VIAL IV PRN (11:15)
[2024-03-18] MEDS: prednisoLONE ACETATE 1% OPTH SUSP 5ML LEFTEYE SCH (12:00)
[2024-03-18] MEDS: SODIUM CHLORIDE 0.9% 1,000 ML IV SCH ×2 (12:00→17:30)
[2024-03-18] MEDS: OXYCODONE W/ ACETAMINOPHEN 5/325MG TABLET PO PRN (17:07)
[2024-03-18 17:50] LABS: Urine Bacteria None Seen /hpf (None Seen)
[2024-03-18 18:06] LABS: Sodium Urine < 10 mmol/L (40-220)
[2024-03-18 18:09] LABS: Urine Blood TRACE /uL (Negative); Urine Clarity Turbid (Clear); Urine Color Light-Orange (Yellow); Urine Protein, UAD TRACE (Negative); Urine Specific Gravity 1.015 (1.001-1.035); Urine Urobilinogen Normal (Negative); Urine WBC 6 /hpf (0 - 5)
[2024-03-18 18:11] LABS: Protein, Urine 41.9 mg/dL (1-14)
[2024-03-18 18:13] LABS: Creatinine, Urine 109.76 mg/dL (30.0-125.0)
[2024-03-18 18:41] LABS: Chloride 82 mmol/L (98-107); Potassium 2.8 mmol/L (3.5-5.1); Sodium 128 mmol/L (136-145)
[2024-03-18 18:42] LABS: Anion Gap 12 (5-15); Calcium 8.5 mg/dL (8.7-10.4); Carbon Dioxide 34 mmol/L (20-31)
[2024-03-18 18:47] LABS: BUN/Creatinine Ratio 25.4 (10.0-20.0); Glucose 111 mg/dL (74-106)
[2024-03-18 19:41] LABS: Blood Urea Nitrogen 101 mg/dL (9-23)
[2024-03-18 20:00] VITALS: PULSE 72; RESP 18; O2SAT 100
[2024-03-18 22:00] VITALS: BP 89/51; PULSE 72; RESP 18; TEMP 97.3; O2SAT 100
[2024-03-18] MEDS: MEGESTROL ACETATE 20 MG TAB PO SCH (22:00)
[2024-03-18 22:38] VITALS: BP 108/61
[2024-03-18] MEDS: MAGNESIUM OXIDE 400 MG TAB PO SCH (22:41)
[2024-03-19] VITALS (7 sets, daily range): BP systolic 77–118; BP diastolic 45–61; PULSE 60–86; RESP 15–19; TEMP 97.8–98.6; O2SAT 95–100
[2024-03-19 07:26] LABS: Basophils # (auto) 0 10 ^3/uL (0-0.2); Basophils % (auto) 0.6 % (0.0-2.0); Eosinophils # (auto) 0.1 10 ^3/uL (0-0.8); Eosinophils % (auto) 2.2 % (0.0-7.0); Hemoglobin 9.7 g/dL (12.2-16.2); Lymphocytes # (auto) 0.4 10 ^3/uL (0.4-5.4); Lymphocytes % (auto) 10.3 % (10.0-50.0); Mean Corpuscular Hemoglobin 33.1 pg (28.0-32.0); Mean Corpuscular Hgb Conc. 35.9 g/dL (32.0-36.0); Mean Corpuscular Volume 92.2 fL (80.0-100.0); Monocytes # (auto) 0.6 10 ^3/uL (0-1.3); Monocytes % (auto) 13.3 % (0.0-12.0); Neutrophils # (auto) 3.1 10 ^3/uL (1.6-8.6); Neutrophils % (auto) 73.6 % (37.0-80.0); Nucleated Red Blood Cells % 0.2 %; Platelet Count (auto) 239 10^3/uL (140-450); Red Blood Cells 2.93 10^6/uL (4.0-5.20); White Blood Cell 4.2 10^3/uL (4.4-10.8)
[2024-03-19 07:52] LABS: Alanine Aminotransferase 58 U/L (7-40); Albumin 3.8 g/dL (3.2-4.8); Alkaline Phosphatase 129 U/L (46-116); Anion Gap 9 (5-15); Aspartate Aminotransferase 71 U/L (13-40); BUN/Creatinine Ratio 23.9 (10.0-20.0); Bilirubin, Direct 0.5 mg/dL (<0.3); Bilirubin, Total 1.1 mg/dL (0.2-1.0); Calcium 8.4 mg/dL (8.7-10.4); Carbon Dioxide 30 mmol/L (20-31); Glucose 82 mg/dL (74-106); Phosphorus 3.7 mg/dL (2.4-5.1); Potassium 2.8 mmol/L (3.5-5.1); Sodium 132 mmol/L (136-145); Total Protein 5.9 g/dL (5.7-8.2)
[2024-03-19 07:55] LABS: Blood Urea Nitrogen 74 mg/dL (9-23); Chloride 93 mmol/L (98-107)
[2024-03-19 09:16] LABS: Uric Acid 17.8 mg/dL (3.1-7.8)
[2024-03-19] MEDS: FUROSEMIDE 20 MG TAB PO SCH (10:00)
[2024-03-19] MEDS: GABAPENTIN 300 MG CAP PO SCH (10:00)
[2024-03-19] MEDS: ATORVASTATIN 20 MG TAB PO SCH (11:19)
[2024-03-19] MEDS: CYANOCOBALAMIN 500 MCG TAB PO SCH (11:19)
[2024-03-19] MEDS: PANTOPRAZOLE 40 MG TAB PO SCH (11:19)
[2024-03-19] MEDS: CLOPIDOGREL BISULFATE 75 MG TAB PO SCH (11:20)
[2024-03-19] MEDS: POTASSIUM CHLORIDE 80 MEQ, LIDOCAINE 1% (LOCAL ANESTH.) 6 ML in SODIUM CHL 0.9% 500 ML IV ONE (15:19)
[2024-03-20] VITALS (8 sets, daily range): BP systolic 78–133; BP diastolic 41–64; PULSE 65–106; RESP 15–22; TEMP 98–98.7; O2SAT 92–99
[2024-03-20 07:19] LABS: Basophils # (auto) 0 10 ^3/uL (0-0.2); Basophils % (auto) 0.7 % (0.0-2.0); Eosinophils # (auto) 0.1 10 ^3/uL (0-0.8); Hematocrit 25.6 % (36.0-46.0); Hemoglobin 8.8 g/dL (12.2-16.2); Lymphocytes # (auto) 0.5 10 ^3/uL (0.4-5.4); Lymphocytes % (auto) 11.7 % (10.0-50.0); Mean Corpuscular Hemoglobin 32.6 pg (28.0-32.0); Mean Corpuscular Hgb Conc. 34.5 g/dL (32.0-36.0); Mean Corpuscular Volume 94.4 fL (80.0-100.0); Monocytes # (auto) 0.7 10 ^3/uL (0-1.3); Monocytes % (auto) 16.6 % (0.0-12.0); Neutrophils # (auto) 2.8 10 ^3/uL (1.6-8.6); Nucleated Red Blood Cells % 0.2 %; Platelet Count (auto) 229 10^3/uL (140-450); Red Blood Cells 2.71 10^6/uL (4.0-5.20); Red Cell Distribution Width 13.8 % (11.8-14.3); White Blood Cell 4.1 10^3/uL (4.4-10.8)
[2024-03-20 11:34] LABS: Anion Gap 7 (5-15); Calcium 8.4 mg/dL (8.7-10.4); Carbon Dioxide 32 mmol/L (20-31); Chloride 96 mmol/L (98-107); Potassium 4.1 mmol/L (3.5-5.1); Sodium 135 mmol/L (136-145)
[2024-03-20 11:40] LABS: BUN/Creatinine Ratio 22.2 (10.0-20.0); Glucose 121 mg/dL (74-106)
[2024-03-20 11:42] LABS: Blood Urea Nitrogen 46 mg/dL (9-23)
[2024-03-20 11:43] LABS: Folate (Folic Acid) 23.28 ng/mL (>5.38); Free T3 2.44 pg/mL (2.3-4.2)
[2024-03-20 11:44] LABS: Ferritin 849.5 ng/mL (10-291); Free T4 (Free Thyroxine) 1.78 ng/dL (0.89-1.76)
[2024-03-20 11:56] LABS: % Iron Saturation 11.5 % (15-50)
[2024-03-20] MEDS: Ensure HIGH Protein Chocolate 8oz Bottle PO SCH (12:00)
[2024-03-20] MEDS: MAGNESIUM SULFATE 1GM/100ML 100 ML IV SCH ×2 (14:00→21:13)
[2024-03-20] MEDS: SODIUM CHLORIDE 0.9% 1,000 ML IV SCH (16:15)
[2024-03-20] MEDS: IRON SUCROSE COMPLEX 100 ML IV SCH (16:15)
[2024-03-20] MEDS: ALPRAZolam 0.5 MG TAB PO PRN (16:21)
[2024-03-20 19:54] LABS: INR 1.65 (0.9-1.15); Partial Thromboplastin Time 30.1 SEC (24.5-34.5); Prothrombin Time 16.9 sec (9.3-11.8)
[2024-03-20] MEDS: MELATONIN 5 MG TAB PO SCH (22:04)
[2024-03-21] VITALS (8 sets, daily range): BP systolic 82–124; BP diastolic 43–65; PULSE 66–99; RESP 14–17; TEMP 97.3–98.7; O2SAT 94–100
[2024-03-21 09:17] LABS: Basophils # (auto) 0 10 ^3/uL (0-0.2); Basophils % (auto) 0.7 % (0.0-2.0); Eosinophils # (auto) 0.1 10 ^3/uL (0-0.8); Eosinophils % (auto) 2.4 % (0.0-7.0); Hematocrit 26.7 % (36.0-46.0); Hemoglobin 9.2 g/dL (12.2-16.2); Lymphocytes # (auto) 0.3 10 ^3/uL (0.4-5.4); Lymphocytes % (auto) 7.5 % (10.0-50.0); Mean Corpuscular Hemoglobin 32.4 pg (28.0-32.0); Mean Corpuscular Hgb Conc. 34.4 g/dL (32.0-36.0); Mean Corpuscular Volume 94.1 fL (80.0-100.0); Monocytes # (auto) 0.8 10 ^3/uL (0-1.3); Neutrophils # (auto) 3.3 10 ^3/uL (1.6-8.6); Neutrophils % (auto) 71.4 % (37.0-80.0); Nucleated Red Blood Cells % 0.1 %; Platelet Count (auto) 238 10^3/uL (140-450); Red Blood Cells 2.84 10^6/uL (4.0-5.20); Red Cell Distribution Width 13.9 % (11.8-14.3); White Blood Cell 4.6 10^3/uL (4.4-10.8)
[2024-03-21 09:23] LABS: Chloride 97 mmol/L (98-107); Potassium 3.1 mmol/L (3.5-5.1); Sodium 134 mmol/L (136-145)
[2024-03-21 09:24] LABS: Anion Gap 7 (5-15); Carbon Dioxide 30 mmol/L (20-31)
[2024-03-21 09:25] LABS: Calcium 8.5 mg/dL (8.7-10.4)
[2024-03-21 09:29] LABS: Glucose 85 mg/dL (74-106)
[2024-03-21 09:32] LABS: BUN/Creatinine Ratio 21.3 (10.0-20.0)
[2024-03-21 09:36] LABS: Blood Urea Nitrogen 35 mg/dL (9-23)
[2024-03-21] MEDS: POTASSIUM CHLORIDE 40 MEQ, LIDOCAINE 1% (LOCAL ANESTH.) 4 ML in SODIUM CHL 0.9% 250 ML IV ONE (12:00)
[2024-03-21] MEDS ORDERED: LOPERAMIDE HCL 2 MG CAP/TAB PO PRN (18:45)
[2024-03-21 18:49] LABS: Potassium 3.1 mmol/L (3.5-5.1)
[2024-03-21 18:58] LABS: Phosphorus 2.1 mg/dL (2.4-5.1)
[2024-03-21] MEDS: LOPERAMIDE HCL 2 MG CAP/TAB PO ONE (21:46)
[2024-03-21] MEDS: ZINC OXIDE 20 % OINT 30GM TOP SCH (21:48)
[2024-03-21] MEDS: HYDROGEL 60 GRAM GEL TOP SCH (21:49)
[2024-03-22] VITALS (8 sets, daily range): BP systolic 92–141; BP diastolic 52–75; PULSE 62–103; RESP 16–19; TEMP 97.9–99.2; O2SAT 91–100
[2024-03-22] MEDS: POTASSIUM CHLORIDE 60 MEQ, LIDOCAINE 1% (LOCAL ANESTH.) 6 ML in SODIUM CHL 0.9% 500 ML IV ONE (00:49)
[2024-03-22] MEDS: MELATONIN 5 MG TAB PO ONE (02:27)
[2024-03-22 06:00] LABS: Chloride 103 mmol/L (98-107); Sodium 134 mmol/L (136-145)
[2024-03-22 06:01] LABS: Anion Gap 7 (5-15); Carbon Dioxide 24 mmol/L (20-31)
[2024-03-22 06:06] LABS: BUN/Creatinine Ratio 18.5 (10.0-20.0); Blood Urea Nitrogen 31 mg/dL (9-23); Glucose 101 mg/dL (74-106)
[2024-03-22 06:07] LABS: Magnesium 1.7 mg/dL (1.6-2.6)
[2024-03-22 06:17] LABS: Hematocrit 28.3 % (36.0-46.0); Hemoglobin 9.9 g/dL (12.2-16.2); Mean Corpuscular Hemoglobin 32.8 pg (28.0-32.0); Mean Corpuscular Hgb Conc. 34.9 g/dL (32.0-36.0); Mean Corpuscular Volume 94.1 fL (80.0-100.0); Platelet Count (auto) 236 10^3/uL (140-450); Red Blood Cells 3.01 10^6/uL (4.0-5.20); White Blood Cell 6.8 10^3/uL (4.4-10.8)
[2024-03-22 06:30] LABS: Potassium 5.2 mmol/L (3.5-5.1)
[2024-03-22 06:36] LABS: Band Neutrophils % (manual) 0; Basophils % (manual) 0 (0.0-2.0); Blast Cells 0; Metamyelocytes % 0; Myelocytes % 0; Promyelocytes % 0; Reactive Lymphocytes 0
[2024-03-22 08:20] LABS: Eosinophils % (manual) 1 (0-7); Lymphocytes % (manual) 9 (10.0-50.0); Monocytes % (manual) 16 (0-12); Platelet Estimate Adequate
[2024-03-22] MEDS: MAGNESIUM SULFATE 1GM/100ML 100 ML IV ONE (14:00)
[2024-03-23 01:00] VITALS: BP 99/51; PULSE 90; RESP 18; TEMP 98.4; O2SAT 97
[2024-03-23 05:00] VITALS: BP 89/94; PULSE 86; RESP 18; TEMP 98.4; O2SAT 94
[2024-03-23 06:08] LABS: Basophils # (auto) 0 10 ^3/uL (0-0.2); Basophils % (auto) 0.7 % (0.0-2.0); Eosinophils # (auto) 0.2 10 ^3/uL (0-0.8); Eosinophils % (auto) 2.9 % (0.0-7.0); Hematocrit 23.6 % (36.0-46.0); Hemoglobin 8.3 g/dL (12.2-16.2); Lymphocytes # (auto) 0.5 10 ^3/uL (0.4-5.4); Lymphocytes % (auto) 7.5 % (10.0-50.0); Mean Corpuscular Hemoglobin 32.9 pg (28.0-32.0); Mean Corpuscular Hgb Conc. 35.1 g/dL (32.0-36.0); Mean Corpuscular Volume 93.7 fL (80.0-100.0); Monocytes % (auto) 15.9 % (0.0-12.0); Neutrophils # (auto) 4.5 10 ^3/uL (1.6-8.6); Nucleated Red Blood Cells % 0.1 %; Platelet Count (auto) 208 10^3/uL (140-450); Red Blood Cells 2.52 10^6/uL (4.0-5.20); Red Cell Distribution Width 14.2 % (11.8-14.3); White Blood Cell 6.2 10^3/uL (4.4-10.8)
[2024-03-23 06:18] LABS: Chloride 103 mmol/L (98-107); Potassium 5.1 mmol/L (3.5-5.1); Sodium 131 mmol/L (136-145)
[2024-03-23 06:19] LABS: Anion Gap 5 (5-15); Calcium 8.2 mg/dL (8.7-10.4); Carbon Dioxide 23 mmol/L (20-31)
[2024-03-23 06:24] LABS: BUN/Creatinine Ratio 19.1 (10.0-20.0); Blood Urea Nitrogen 31 mg/dL (9-23); Glucose 89 mg/dL (74-106)
[2024-03-23 08:00] VITALS: PULSE 79; RESP 20; O2SAT 93
[2024-03-23 09:09] VITALS: BP 87/46; PULSE 79; RESP 20; TEMP 98.6; O2SAT 98
[2024-03-23 11:00] VITALS: BP 105/55; PULSE 79; RESP 20; TEMP 98.6; O2SAT 98
== END 2024-03-23 13:45 | disposition home health service (06) | DRG 604 ==
LOC: ER 05:19 → EDBD 05:19 → OVERFLOW 11:25 → WEST WING 18:53 → TELE-WESTW 03-19 13:34
PROVIDERS: ADMIT Internal Medicine; ATTEND Internal Medicine
DX: S41.011A Laceration without foreign body of right shoulder, initial encounter (principal); N17.0 Acute kidney failure with tubular necrosis; I13.0 Hypertensive heart and chronic kidney disease with heart failure and stage 1 through stage 4 chronic kidney disease, or unspecified chronic kidney disease; E87.1 Hypo-osmolality and hyponatremia; K90.822 Short bowel syndrome without colon in continuity; N18.4 Chronic kidney disease, stage 4 (severe); I50.32 Chronic diastolic (congestive) heart failure; S09.8XXA Other specified injuries of head, initial encounter; S51.011A Laceration without foreign body of right elbow, initial encounter; R56.9 Unspecified convulsions; E86.0 Dehydration; D64.9 Anemia, unspecified; E78.5 Hyperlipidemia, unspecified; J44.9 Chronic obstructive pulmonary disease, unspecified; K21.9 Gastro-esophageal reflux disease without esophagitis; E87.8 Other disorders of electrolyte and fluid balance, not elsewhere classified; E61.1 Iron deficiency; E87.6 Hypokalemia; G47.00 Insomnia, unspecified; L24.9 Irritant contact dermatitis, unspecified cause; M16.0 Bilateral primary osteoarthritis of hip; Z82.49 Family history of ischemic heart disease and other diseases of the circulatory system; Z87.891 Personal history of nicotine dependence; I25.2 Old myocardial infarction; Z83.3 Family history of diabetes mellitus; Z93.3 Colostomy status; Z90.49 Acquired absence of other specified parts of digestive tract; Z88.0 Allergy status to penicillin; W01.0XXA Fall on same level from slipping, tripping and stumbling without subsequent striking against object, initial encounter; Y93.89 Activity, other specified; Y92.89 Other specified places as the place of occurrence of the external cause; Y99.8 Other external cause status
CPT/HCPCS: 36415; 70450; 72170; 73030; 73080; 76705; 76775; 80048; 80053; 80076; 81001; 82306; 82570; 82607; 82728; 82746; 83540; 83550; 83735; 84100; 84132; 84156; 84300; 84439; 84443; 84481; 84484; 84550; 85007; 85025; 85027; 85610; 85730; 87340; 93886; 96361; 96374; 96375; 97110; 97116; 97163; G0378; J1756; J2001; J2003; J2405

== ENCOUNTER 2024-03-28 16:43 | Inpatient (IN) | payer OTHER, MEDICAID ==
[~2024-03-28] VITALS: Ht 157.5 cm; Wt 51.3 kg
[~2024-03-28 16:43] MED LIST changes: +BUPR5DIS TD; -BUPR5DIS TOP; -CEPH500C PO; +POTA-228 PO; +ZOFR4T PO
[2024-03-28 17:24] LABS: Basophils # (auto) 0 10 ^3/uL (0-0.2); Basophils % (auto) 0.6 % (0.0-2.0); Eosinophils # (auto) 0.1 10 ^3/uL (0-0.8); Eosinophils % (auto) 1.9 % (0.0-7.0); Hematocrit 26.5 % (36.0-46.0); Lymphocytes # (auto) 0.6 10 ^3/uL (0.4-5.4); Mean Corpuscular Hemoglobin 31.7 pg (28.0-32.0); Mean Corpuscular Hgb Conc. 33.9 g/dL (32.0-36.0); Mean Corpuscular Volume 93.4 fL (80.0-100.0); Monocytes # (auto) 0.8 10 ^3/uL (0-1.3); Neutrophils % (auto) 66.5 % (37.0-80.0); Platelet Count (auto) 302 10^3/uL (140-450); Red Blood Cells 2.84 10^6/uL (4.0-5.20); Red Cell Distribution Width 14.3 % (11.8-14.3); White Blood Cell 4.5 10^3/uL (4.4-10.8)
[2024-03-28 17:37] LABS: Anion Gap 9 (5-15); Carbon Dioxide 24 mmol/L (20-31); Chloride 103 mmol/L (98-107); Potassium 4.2 mmol/L (3.5-5.1)
[2024-03-28 17:38] LABS: Calcium 8.1 mg/dL (8.7-10.4)
[2024-03-28 17:43] LABS: BUN/Creatinine Ratio 17.7 (10.0-20.0); Blood Urea Nitrogen 34 mg/dL (9-23); Glucose 104 mg/dL (74-106)
[2024-03-28 18:23] VITALS: PULSE 102; RESP 18; O2SAT 97
[2024-03-28] MEDS: ONDANSETRON HCL 4 MG/2 ML VIAL IV ONE (18:34)
[2024-03-28 18:36] LABS: Sodium 136 mmol/L (136-145)
[2024-03-28] MEDS: MORPHINE SULFATE 4 MG/ML SYR/VIAL IV ONE (18:36)
[2024-03-28 23:53] LABS: Alanine Aminotransferase 44 U/L (7-40); Albumin 3.7 g/dL (3.2-4.8); Alkaline Phosphatase 232 U/L (46-116); Anion Gap 9 (5-15); Aspartate Aminotransferase 28 U/L (13-40); Bilirubin, Total 0.6 mg/dL (0.2-1.0); Blood Urea Nitrogen 28 mg/dL (9-23); Calcium 8.5 mg/dL (8.7-10.4); Carbon Dioxide 24 mmol/L (20-31); Chloride 103 mmol/L (98-107); Glucose 101 mg/dL (74-106); Potassium 3.3 mmol/L (3.5-5.1); Sodium 136 mmol/L (136-145); Total Protein 5.9 g/dL (5.7-8.2)
[2024-03-29] VITALS (12 sets, daily range): BP systolic 100–116; BP diastolic 51–65; PULSE 64–83; RESP 15–19; TEMP 97.6–97.8; O2SAT 93–100
[2024-03-29] MEDS: FUROSEMIDE 20 MG/2 ML VIAL IV ONE (02:24)
[2024-03-29] MEDS ORDERED: OXYCODONE PO PRN (02:30)
[2024-03-29] MEDS ORDERED: ACETAMINOPHEN PO PRN (02:30)
[2024-03-29] MEDS: POTASSIUM CHL 20 Meq TABLET PO ONE (02:32)
[2024-03-29] MEDS ORDERED: ALBUTEROL SULF 2.5 MG/0.5ML(0.5%) NEB SOLN NEB PRN (06:15)
[2024-03-29] MEDS ORDERED: IPRATROPIUM BROM 0.5 MG/2.5ML INH SOL NEB PRN (06:15)
[2024-03-29] MEDS: Ensure HIGH Protein Chocolate 8oz Bottle PO SCH (08:00)
[2024-03-29] MEDS: FUROSEMIDE 20 MG/2 ML VIAL IV SCH (09:46)
[2024-03-29] MEDS: BACLOFEN 10 MG TAB PO SCH (09:47)
[2024-03-29] MEDS: CLOPIDOGREL BISULFATE 75 MG TAB PO SCH (09:47)
[2024-03-29] MEDS: ENOXAPARIN SOD 30 MG/0.3 ML SYRINGE SC SCH (09:47)
[2024-03-29] MEDS ORDERED: PATIENTS OWN MEDICATION (Atorvastatin Calcium (Lipitor) 1 TAB) PO SCH (10:00)
[2024-03-29 11:19] LABS: INR 1.76 (0.9-1.15); Prothrombin Time 17.9 sec (9.3-11.8)
[2024-03-29 11:22] LABS: % Iron Saturation 17.1 % (15-50)
[2024-03-29 11:24] LABS: Folate (Folic Acid) 13.56 ng/mL (>5.38)
[2024-03-29] MEDS: POTASSIUM EFFERVESENT TAB 25 MEQ PO ONE ×2 (11:34→14:45)
[2024-03-29] MEDS: ceFAZolin 2 GM/D5W50ml 50 ML IV SCH (14:13)
[2024-03-29] MEDS: FUROSEMIDE 40 MG/4 ML VIAL IV SCH (14:24)
[2024-03-29 16:58] LABS: Amphetamine Screen, Urine Neg (NEGATIVE); Barbiturate Scree,Urine Neg (NEGATIVE); Benzodiazephine Screen, Urine Neg (NEGATIVE); Cannabinoid Screen, Urine Neg (NEGATIVE); Cocaine Screen, Urine Neg (NEGATIVE); Opiate Scree,Urine Neg (NEGATIVE); Phencyclidine Screen, Urine Neg (NEGATIVE)
[2024-03-29 17:07] LABS: Urine Bacteria FEW /hpf (None Seen); Urine Blood Negative /uL (Negative); Urine Budding Yeast FEW /hpf (None Seen); Urine Clarity Turbid (Clear); Urine Color Colorless (Yellow); Urine Hyaline Cast FEW /lpf (0 - 2); Urine Protein, UAD Negative (Negative); Urine Specific Gravity 1.008 (1.001-1.035); Urine Urobilinogen Normal (Negative); Urine WBC 367 /hpf (0 - 5); Urine pH 6.5 (5.0-9.0)
[2024-03-29] MEDS: ATORVASTATIN 20 MG TAB PO SCH (21:13)
[2024-03-30] VITALS (10 sets, daily range): BP systolic 98–139; BP diastolic 57–74; PULSE 51–99; RESP 16–20; TEMP 97.4–99.2; O2SAT 0–100
[2024-03-30] MEDS: ceFAZolin 1GM/50ML 50 ML IV SCH (01:19)
[2024-03-30] MEDS: PANTOPRAZOLE 40 MG TAB PO SCH (05:42)
[2024-03-30] MEDS: FERROUS SULFATE 325mg EC TAB PO SCH (09:56)
[2024-03-30] MEDS ORDERED: FERROUS SULFATE 325mg EC TAB PO ONE (10:00)
[2024-03-30 10:30] LABS: Basophils # (auto) 0 10 ^3/uL (0-0.2); Basophils % (auto) 0.5 % (0.0-2.0); Eosinophils # (auto) 0.1 10 ^3/uL (0-0.8); Eosinophils % (auto) 1.2 % (0.0-7.0); Hematocrit 27.1 % (36.0-46.0); Hemoglobin 9.4 g/dL (12.2-16.2); Lymphocytes # (auto) 0.7 10 ^3/uL (0.4-5.4); Mean Corpuscular Hemoglobin 32.3 pg (28.0-32.0); Mean Corpuscular Hgb Conc. 34.6 g/dL (32.0-36.0); Mean Corpuscular Volume 93.6 fL (80.0-100.0); Monocytes # (auto) 0.9 10 ^3/uL (0-1.3); Monocytes % (auto) 17.8 % (0.0-12.0); Neutrophils # (auto) 3.2 10 ^3/uL (1.6-8.6); Neutrophils % (auto) 66.5 % (37.0-80.0); Nucleated Red Blood Cells % 0.1 %; Platelet Count (auto) 297 10^3/uL (140-450); Red Cell Distribution Width 14.7 % (11.8-14.3); White Blood Cell 4.8 10^3/uL (4.4-10.8)
[2024-03-30] MEDS: cefTRIAXone 1GM/50ML D5W 50 ML IV SCH (10:31)
[2024-03-30 10:34] LABS: Chloride 103 mmol/L (98-107); Potassium 3.4 mmol/L (3.5-5.1); Sodium 139 mmol/L (136-145)
[2024-03-30 10:35] LABS: Anion Gap 8 (5-15); Calcium 8.2 mg/dL (8.7-10.4); Carbon Dioxide 28 mmol/L (20-31)
[2024-03-30 10:40] LABS: BUN/Creatinine Ratio 15.2 (10.0-20.0); Blood Urea Nitrogen 26 mg/dL (9-23); Glucose 88 mg/dL (74-106)
[2024-03-30] MEDS: SODIUM CHLORIDE 0.9% 1,000 ML IV SCH (11:45)
[2024-03-30] MEDS: SODIUM CHLORIDE 0.9% 500 ML IV ONE (11:45)
[2024-03-30] MEDS: POTASSIUM EFFERVESENT TAB 25 MEQ PO SCH (13:26)
[2024-03-30] MEDS: metroNIDAZOLE 500MG/100ML 100 ML IV SCH (13:26)
[2024-03-30] MEDS ORDERED: POTASSIUM EFFERVESENT TAB 25 MEQ PO SCH (14:00)
[2024-03-30] MEDS: POTASSIUM CHL 20MEQ/100ML 100 ML IV ONE (16:20)
[2024-03-30 22:08] LABS: Basophils # (auto) 0.1 10 ^3/uL (0-0.2); Basophils % (auto) 1.2 % (0.0-2.0); Eosinophils # (auto) 0 10 ^3/uL (0-0.8); Eosinophils % (auto) 0.1 % (0.0-7.0); Hematocrit 30.8 % (36.0-46.0); Hemoglobin 10.4 g/dL (12.2-16.2); Lymphocytes # (auto) 0.6 10 ^3/uL (0.4-5.4); Lymphocytes % (auto) 7.2 % (10.0-50.0); Mean Corpuscular Hemoglobin 32.1 pg (28.0-32.0); Mean Corpuscular Hgb Conc. 33.8 g/dL (32.0-36.0); Monocytes # (auto) 0.7 10 ^3/uL (0-1.3); Monocytes % (auto) 8.6 % (0.0-12.0); Neutrophils # (auto) 6.9 10 ^3/uL (1.6-8.6); Neutrophils % (auto) 82.9 % (37.0-80.0); Nucleated Red Blood Cells % 0.1 %; Platelet Count (auto) 349 10^3/uL (140-450); Red Blood Cells 3.24 10^6/uL (4.0-5.20); Red Cell Distribution Width 14.9 % (11.8-14.3); White Blood Cell 8.3 10^3/uL (4.4-10.8)
[2024-03-30] MEDS ORDERED: LORazepam 2MG/ML-1ML VIAL IV PRN (22:30)
[2024-03-30 22:45] LABS: Alanine Aminotransferase 24 U/L (7-40); Albumin 3.8 g/dL (3.2-4.8); Alkaline Phosphatase 205 U/L (46-116); Anion Gap 12 (5-15); Aspartate Aminotransferase 27 U/L (13-40); BUN/Creatinine Ratio 15.9 (10.0-20.0); Bilirubin, Total 0.4 mg/dL (0.2-1.0); Blood Urea Nitrogen 25 mg/dL (9-23); Calcium 8.4 mg/dL (8.7-10.4); Carbon Dioxide 25 mmol/L (20-31); Chloride 104 mmol/L (98-107); Glucose 98 mg/dL (74-106); Magnesium 1.3 mg/dL (1.6-2.6); Potassium 3.9 mmol/L (3.5-5.1); Sodium 141 mmol/L (136-145); Total Protein 6.3 g/dL (5.7-8.2)
[2024-03-30] MEDS: MEROPENEM 500MG IVPB 50 ML IV ONE (22:45)
[2024-03-31] VITALS (9 sets, daily range): BP systolic 103–134; BP diastolic 48–80; PULSE 61–105; RESP 16–20; TEMP 96.5–98.9; O2SAT 97–100
[2024-03-31] MEDS: MEROPENEM 500MG IVPB 50 ML IV ONE (00:27)
[2024-03-31] MEDS: MAGNESIUM SULFATE 1GM/100ML 100 ML IV SCH (02:41)
[2024-03-31 02:46] LABS: COVID19 ANTIGEN SOFIA FIA NEGATIVE (NEGATIVE)
[2024-03-31 03:05] LABS: Basophils # (auto) 0 10 ^3/uL (0-0.2); Basophils % (auto) 0.2 % (0.0-2.0); Eosinophils # (auto) 0 10 ^3/uL (0-0.8); Hematocrit 29.2 % (36.0-46.0); Hemoglobin 10.2 g/dL (12.2-16.2); Lymphocytes # (auto) 0.4 10 ^3/uL (0.4-5.4); Lymphocytes % (auto) 6.3 % (10.0-50.0); Mean Corpuscular Hemoglobin 32.4 pg (28.0-32.0); Mean Corpuscular Hgb Conc. 34.8 g/dL (32.0-36.0); Mean Corpuscular Volume 93.1 fL (80.0-100.0); Monocytes # (auto) 0.5 10 ^3/uL (0-1.3); Monocytes % (auto) 6.6 % (0.0-12.0); Neutrophils % (auto) 86.9 % (37.0-80.0); Platelet Count (auto) 334 10^3/uL (140-450); Red Blood Cells 3.14 10^6/uL (4.0-5.20); Red Cell Distribution Width 14.6 % (11.8-14.3); White Blood Cell 6.9 10^3/uL (4.4-10.8)
[2024-03-31] MEDS: MEROPENEM 1GM IVPB 50 ML IV SCH (10:00)
[2024-03-31] MEDS: metroNIDAZOLE 500MG/100ML 100 ML IV SCH (14:24)
[2024-03-31 16:30] LABS: Chloride 107 mmol/L (98-107); Potassium 3.7 mmol/L (3.5-5.1); Sodium 143 mmol/L (136-145)
[2024-03-31 16:31] LABS: Anion Gap 8 (5-15); Calcium 8.9 mg/dL (8.7-10.4); Carbon Dioxide 28 mmol/L (20-31)
[2024-03-31 16:36] LABS: BUN/Creatinine Ratio 17.1 (10.0-20.0); Blood Urea Nitrogen 25 mg/dL (9-23); Glucose 115 mg/dL (74-106)
[2024-03-31] MEDS ORDERED: ACETAMINOPHEN IV 1000 MG/100ML (10MG/ML) IV PRN (16:45)
[2024-03-31] MEDS: ACETAMINOPHEN IV 1000 MG/100ML (10MG/ML) IV PRN (17:56)
[2024-04-01] VITALS (9 sets, daily range): BP systolic 119–134; BP diastolic 52–73; PULSE 71–110; RESP 16–20; TEMP 98.4–98.9; O2SAT 90–99
[2024-04-01] MEDS: HALOPERIDOL LACTATE 5 MG/ML INJ VIAL IM PRN (01:05)
[2024-04-01 05:57] LABS: Basophils # (auto) 0 10 ^3/uL (0-0.2); Basophils % (auto) 0.5 % (0.0-2.0); Eosinophils # (auto) 0 10 ^3/uL (0-0.8); Eosinophils % (auto) 0.2 % (0.0-7.0); Hemoglobin 8.9 g/dL (12.2-16.2); Lymphocytes # (auto) 0.6 10 ^3/uL (0.4-5.4); Lymphocytes % (auto) 10.5 % (10.0-50.0); Mean Corpuscular Hemoglobin 32.3 pg (28.0-32.0); Mean Corpuscular Hgb Conc. 34.4 g/dL (32.0-36.0); Mean Corpuscular Volume 93.8 fL (80.0-100.0); Monocytes # (auto) 0.9 10 ^3/uL (0-1.3); Monocytes % (auto) 14.5 % (0.0-12.0); Neutrophils # (auto) 4.4 10 ^3/uL (1.6-8.6); Neutrophils % (auto) 74.3 % (37.0-80.0); Nucleated Red Blood Cells % 0.1 %; Platelet Count (auto) 345 10^3/uL (140-450); Red Blood Cells 2.77 10^6/uL (4.0-5.20); Red Cell Distribution Width 14.8 % (11.8-14.3); White Blood Cell 5.9 10^3/uL (4.4-10.8)
[2024-04-01 06:11] LABS: Anion Gap 10 (5-15); Calcium 8.6 mg/dL (8.7-10.4); Carbon Dioxide 28 mmol/L (20-31); Chloride 109 mmol/L (98-107); Sodium 147 mmol/L (136-145)
[2024-04-01 06:17] LABS: BUN/Creatinine Ratio 20.3 (10.0-20.0); Blood Urea Nitrogen 30 mg/dL (9-23); Glucose 91 mg/dL (74-106)
[2024-04-01] MEDS: POTASSIUM CHL 20MEQ/100ML 100 ML IV SCH (09:30)
[2024-04-02] VITALS (9 sets, daily range): BP systolic 99–128; BP diastolic 53–82; PULSE 64–90; RESP 18–20; TEMP 97.6–98.3; O2SAT 94–100
[2024-04-02] MEDS: HALOPERIDOL LACTATE 5 MG/ML INJ VIAL IM ONE (00:18)
[2024-04-02] MEDS ORDERED: HALOPERIDOL LACTATE 5 MG/ML INJ VIAL IM PRN (00:30)
[2024-04-02 06:00] LABS: Basophils # (auto) 0 10 ^3/uL (0-0.2); Basophils % (auto) 0.3 % (0.0-2.0); Eosinophils # (auto) 0 10 ^3/uL (0-0.8); Eosinophils % (auto) 0.5 % (0.0-7.0); Hemoglobin 8.5 g/dL (12.2-16.2); Lymphocytes # (auto) 0.6 10 ^3/uL (0.4-5.4); Lymphocytes % (auto) 9.7 % (10.0-50.0); Mean Corpuscular Hemoglobin 32.5 pg (28.0-32.0); Mean Corpuscular Hgb Conc. 34.1 g/dL (32.0-36.0); Mean Corpuscular Volume 95.2 fL (80.0-100.0); Monocytes % (auto) 14.5 % (0.0-12.0); Platelet Count (auto) 342 10^3/uL (140-450); Red Blood Cells 2.63 10^6/uL (4.0-5.20); Red Cell Distribution Width 15.1 % (11.8-14.3); White Blood Cell 6.6 10^3/uL (4.4-10.8)
[2024-04-02 06:14] LABS: Anion Gap 8 (5-15); Carbon Dioxide 28 mmol/L (20-31); Chloride 107 mmol/L (98-107); Potassium 3.4 mmol/L (3.5-5.1); Sodium 143 mmol/L (136-145)
[2024-04-02 06:19] LABS: Glucose 106 mg/dL (74-106)
[2024-04-02 06:20] LABS: BUN/Creatinine Ratio 21.4 (10.0-20.0); Blood Urea Nitrogen 30 mg/dL (9-23)
[2024-04-02] MEDS: HYDROcodone-ACET 5/325MG TAB PO PRN (11:21)
[2024-04-03] VITALS (7 sets, daily range): BP systolic 95–114; BP diastolic 54–66; PULSE 70–92; RESP 16–21; TEMP 97.7–98.7; O2SAT 95–100
[2024-04-03 06:41] LABS: Chloride 104 mmol/L (98-107); Potassium 3.1 mmol/L (3.5-5.1); Sodium 138 mmol/L (136-145)
[2024-04-03 06:42] LABS: Anion Gap 8 (5-15); Calcium 8.5 mg/dL (8.7-10.4); Carbon Dioxide 26 mmol/L (20-31)
[2024-04-03 06:48] LABS: BUN/Creatinine Ratio 20.6 (10.0-20.0); Blood Urea Nitrogen 27 mg/dL (9-23); Glucose 91 mg/dL (74-106)
[2024-04-03 06:49] LABS: Basophils # (auto) 0 10 ^3/uL (0-0.2); Basophils % (auto) 0.3 % (0.0-2.0); Eosinophils # (auto) 0.1 10 ^3/uL (0-0.8); Eosinophils % (auto) 1.2 % (0.0-7.0); Hematocrit 26.2 % (36.0-46.0); Hemoglobin 8.9 g/dL (12.2-16.2); Lymphocytes # (auto) 0.7 10 ^3/uL (0.4-5.4); Lymphocytes % (auto) 9.9 % (10.0-50.0); Mean Corpuscular Hemoglobin 32.4 pg (28.0-32.0); Mean Corpuscular Volume 95.2 fL (80.0-100.0); Monocytes # (auto) 0.9 10 ^3/uL (0-1.3); Monocytes % (auto) 12.1 % (0.0-12.0); Neutrophils # (auto) 5.4 10 ^3/uL (1.6-8.6); Neutrophils % (auto) 76.5 % (37.0-80.0); Nucleated Red Blood Cells % 0.1 %; Platelet Count (auto) 326 10^3/uL (140-450); Red Blood Cells 2.75 10^6/uL (4.0-5.20); Red Cell Distribution Width 14.2 % (11.8-14.3); White Blood Cell 7.1 10^3/uL (4.4-10.8)
[2024-04-03] MEDS: POTASSIUM EFFERVESENT TAB 25 MEQ PO ONE (10:06)
[2024-04-03] MEDS: PERCOCET PO SCH (11:26)
[2024-04-03] MEDS: SODIUM CHLORIDE 0.9% 1,000 ML IV SCH (11:45)
[2024-04-03] MEDS: OXYCODONE W/ ACETAMINOPHEN 5/325MG TABLET PO PRN (18:13)
[2024-04-04] VITALS (8 sets, daily range): BP systolic 103–117; BP diastolic 57–66; PULSE 75–95; RESP 16–20; TEMP 98.5–98.9; O2SAT 99–100
[2024-04-04 05:58] LABS: Basophils # (auto) 0 10 ^3/uL (0-0.2); Basophils % (auto) 0.5 % (0.0-2.0); Eosinophils # (auto) 0.2 10 ^3/uL (0-0.8); Eosinophils % (auto) 3.2 % (0.0-7.0); Hematocrit 25.9 % (36.0-46.0); Hemoglobin 8.7 g/dL (12.2-16.2); Lymphocytes # (auto) 0.7 10 ^3/uL (0.4-5.4); Lymphocytes % (auto) 13.8 % (10.0-50.0); Mean Corpuscular Hemoglobin 32.2 pg (28.0-32.0); Mean Corpuscular Hgb Conc. 33.8 g/dL (32.0-36.0); Mean Corpuscular Volume 95.2 fL (80.0-100.0); Monocytes # (auto) 0.8 10 ^3/uL (0-1.3); Monocytes % (auto) 14.7 % (0.0-12.0); Neutrophils # (auto) 3.7 10 ^3/uL (1.6-8.6); Neutrophils % (auto) 67.8 % (37.0-80.0); Nucleated Red Blood Cells % 0.1 %; Platelet Count (auto) 321 10^3/uL (140-450); Red Blood Cells 2.71 10^6/uL (4.0-5.20); Red Cell Distribution Width 14.6 % (11.8-14.3); White Blood Cell 5.4 10^3/uL (4.4-10.8)
[2024-04-04 06:20] LABS: Anion Gap 7 (5-15); Calcium 8.3 mg/dL (8.7-10.4); Carbon Dioxide 25 mmol/L (20-31); Chloride 104 mmol/L (98-107); Potassium 3.6 mmol/L (3.5-5.1); Sodium 136 mmol/L (136-145)
[2024-04-04 06:26] LABS: BUN/Creatinine Ratio 19.8 (10.0-20.0); Blood Urea Nitrogen 26 mg/dL (9-23); Glucose 83 mg/dL (74-106)
[2024-04-05] VITALS (7 sets, daily range): BP systolic 105–115; BP diastolic 57–75; PULSE 75–98; RESP 18–20; TEMP 98–99.3; O2SAT 94–100
[2024-04-05 07:10] LABS: Hematocrit 24.9 % (36.0-46.0); Hemoglobin 8.5 g/dL (12.2-16.2); Mean Corpuscular Hemoglobin 32.1 pg (28.0-32.0); Mean Corpuscular Volume 94.4 fL (80.0-100.0); Platelet Count (auto) 290 10^3/uL (140-450); Red Blood Cells 2.64 10^6/uL (4.0-5.20); Red Cell Distribution Width 14.5 % (11.8-14.3); White Blood Cell 5.8 10^3/uL (4.4-10.8)
[2024-04-05 07:13] LABS: Band Neutrophils % (manual) 0; Basophils % (manual) 0 (0.0-2.0); Blast Cells 0; Metamyelocytes % 0; Monocytes % (manual) 0 (0-12); Myelocytes % 0; Promyelocytes % 0; Reactive Lymphocytes 0
[2024-04-05 07:31] LABS: Calcium 8.4 mg/dL (8.7-10.4); Chloride 104 mmol/L (98-107); Potassium 3.3 mmol/L (3.5-5.1); Sodium 136 mmol/L (136-145)
[2024-04-05 07:32] LABS: Anion Gap 8 (5-15); Carbon Dioxide 24 mmol/L (20-31)
[2024-04-05 07:37] LABS: BUN/Creatinine Ratio 17.5 (10.0-20.0); Blood Urea Nitrogen 21 mg/dL (9-23); Glucose 83 mg/dL (74-106)
[2024-04-05 07:42] LABS: Eosinophils % (manual) 3 (0-7); Lymphocytes % (manual) 30 (10.0-50.0); Platelet Estimate Adequate
[2024-04-05] MEDS ORDERED: FER325T PO (08:12)
[2024-04-05] MEDS: POTASSIUM EFFERVESENT TAB 25 MEQ PO ONE (09:31)
[2024-04-05] MEDS: CALCIUM CARB 500 MG CHEW TAB PO ONE (13:49)
== END 2024-04-05 17:00 | disposition home or self-care (01) | DRG 280 ==
LOC: EDBD 16:43 → ER 16:43 → OVERFLOW 23:08 → WEST WING 03-29 05:15 → TELE-WESTW 03-29 05:23 → WEST WING 04-05 08:08
PROVIDERS: ADMIT Internal Medicine Geriatric Medicine; ATTEND Emergency Medicine
DX: I13.0 Hypertensive heart and chronic kidney disease with heart failure and stage 1 through stage 4 chronic kidney disease, or unspecified chronic kidney disease (principal); G93.41 Metabolic encephalopathy; I21.A1 Myocardial infarction type 2; I50.33 Acute on chronic diastolic (congestive) heart failure; N17.0 Acute kidney failure with tubular necrosis; N39.0 Urinary tract infection, site not specified; L03.115 Cellulitis of right lower limb; A04.5 Campylobacter enteritis; N18.4 Chronic kidney disease, stage 4 (severe); Z68.1 Body mass index [BMI] 19.9 or less, adult; E44.0 Moderate protein-calorie malnutrition; L03.116 Cellulitis of left lower limb; J44.9 Chronic obstructive pulmonary disease, unspecified; E78.5 Hyperlipidemia, unspecified; E87.6 Hypokalemia; G40.909 Epilepsy, unspecified, not intractable, without status epilepticus; M16.0 Bilateral primary osteoarthritis of hip; K21.9 Gastro-esophageal reflux disease without esophagitis; R74.01 Elevation of levels of liver transaminase levels; I25.10 Atherosclerotic heart disease of native coronary artery without angina pectoris; Z20.822 Contact with and (suspected) exposure to COVID-19; G89.29 Other chronic pain; D64.9 Anemia, unspecified; F17.200 Nicotine dependence, unspecified, uncomplicated; Z88.0 Allergy status to penicillin; Z79.899 Other long term (current) drug therapy; Z83.3 Family history of diabetes mellitus; Z82.49 Family history of ischemic heart disease and other diseases of the circulatory system; I25.2 Old myocardial infarction; Z93.2 Ileostomy status; Z93.3 Colostomy status; Z98.61 Coronary angioplasty status; Z74.01 Bed confinement status; Z86.73 Personal history of transient ischemic attack (TIA), and cerebral infarction without residual deficits; Z90.710 Acquired absence of both cervix and uterus
CPT/HCPCS: 36415; 36600; 70450; 71045; 71250; 73700; 74176; 80048; 80053; 80307; 81001; 82140; 82306; 82550; 82607; 82746; 82805; 82962; 83540; 83550; 83735; 83880; 83970; 84100; 84132; 84146; 84484; 85007; 85025; 85027; 85048; 85610; 85730; 87045; 87081; 87086; 87088; 87426; 87427; 87493; 93005; 93925; 93970; 95819; 97110; 97116; 97163; G0378; J0131; J2185; J2405; J3480; J3490

== ENCOUNTER 2024-04-10 12:00 | Inpatient (IN) | payer OTHER, MEDICAID ==
[~2024-04-10] VITALS: Ht 154.9 cm; Wt 43.3 kg
[~2024-04-10 12:00] MED LIST changes: +FER325T PO; -POTA-180 PO
[2024-04-10 12:41] VITALS: PULSE 62; RESP 10
[2024-04-10 12:59] LABS: Basophils # (auto) 0 10 ^3/uL (0-0.2); Basophils % (auto) 0.3 % (0.0-2.0); Eosinophils # (auto) 0.3 10 ^3/uL (0-0.8); Eosinophils % (auto) 3.8 % (0.0-7.0); Hematocrit 29.2 % (36.0-46.0); Hemoglobin 9.8 g/dL (12.2-16.2); Lymphocytes # (auto) 0.8 10 ^3/uL (0.4-5.4); Lymphocytes % (auto) 10.6 % (10.0-50.0); Mean Corpuscular Hemoglobin 32.3 pg (28.0-32.0); Mean Corpuscular Hgb Conc. 33.7 g/dL (32.0-36.0); Mean Corpuscular Volume 95.9 fL (80.0-100.0); Monocytes % (auto) 12.8 % (0.0-12.0); Neutrophils # (auto) 5.8 10 ^3/uL (1.6-8.6); Neutrophils % (auto) 72.5 % (37.0-80.0); Platelet Count (auto) 233 10^3/uL (140-450); Red Blood Cells 3.04 10^6/uL (4.0-5.20); Red Cell Distribution Width 14.6 % (11.8-14.3)
[2024-04-10 13:07] LABS: Chloride 101 mmol/L (98-107); Sodium 134 mmol/L (136-145)
[2024-04-10 13:08] LABS: Anion Gap 7 (5-15); Carbon Dioxide 26 mmol/L (20-31)
[2024-04-10 13:09] LABS: Calcium 8.6 mg/dL (8.7-10.4)
[2024-04-10 13:13] LABS: Glucose 115 mg/dL (74-106)
[2024-04-10 13:14] LABS: Blood Urea Nitrogen 36 mg/dL (9-23)
[2024-04-10] MEDS: SODIUM CHLORIDE 0.9% 1,000 ML IV ONE (13:50)
[2024-04-10 14:35] LABS: Urine Bacteria None Seen /hpf (None Seen)
[2024-04-10 15:16] LABS: Urine Blood Negative /uL (Negative); Urine Budding Yeast MODERATE /hpf (None Seen); Urine Clarity Clear (Clear); Urine Color Colorless (Yellow); Urine Protein, UAD Negative (Negative); Urine Specific Gravity 1.007 (1.001-1.035); Urine Urobilinogen Normal (Negative); Urine WBC 7 /hpf (0 - 5)
[2024-04-10] MEDS ORDERED: BUPRENORPHINE TD SCH ×2 (15:30→15:45)
[2024-04-10] MEDS ORDERED: DOCUSATE SOD 100 MG CAP PO PRN (15:30)
[2024-04-10] MEDS ORDERED: levETIRAcetam 1000 mg/100ml 100 ML IV ONE (15:30)
[2024-04-10] MEDS ORDERED: ACETAMINOPHEN 325 MG TAB PO PRN (15:30)
[2024-04-10] MEDS ORDERED: ERGOCALCIFEROL 50,000 UNIT(1.25MG) CAP PO SCH (15:30)
[2024-04-10] MEDS ORDERED: ONDANSETRON HCL 4 MG/2 ML VIAL IV PRN (15:30)
[2024-04-10] MEDS ORDERED: LORazepam 2MG/ML-1ML VIAL IV ONE (15:45)
[2024-04-10 16:17] LABS: Free T4 (Free Thyroxine) 1.53 ng/dL (0.89-1.76)
[2024-04-10] MEDS: levETIRAcetam 1000 mg/100ml 100 ML IV ONE (16:29)
[2024-04-10] MEDS: LORazepam 2MG/ML-1ML VIAL IV ONE (16:40)
[2024-04-10 18:58] LABS: Magnesium 1.5 mg/dL (1.6-2.6)
[2024-04-10 19:00] LABS: Phosphorus 3.6 mg/dL (2.4-5.1)
[2024-04-10 19:21] LABS: Uric Acid 8.3 mg/dL (3.1-7.8)
[2024-04-10 19:43] VITALS: PULSE 55; RESP 12; O2SAT 100
[2024-04-10 21:06] LABS: Sodium Urine < 10 mmol/L (40-220)
[2024-04-10 21:11] LABS: Protein, Urine 17.5 mg/dL (1-14)
[2024-04-10 21:12] LABS: Amphetamine Screen, Urine Neg (NEGATIVE); Barbiturate Scree,Urine Neg (NEGATIVE); Benzodiazephine Screen, Urine Neg (NEGATIVE); Cocaine Screen, Urine Neg (NEGATIVE)
[2024-04-10 21:13] LABS: Cannabinoid Screen, Urine Neg (NEGATIVE); Creatinine, Urine 39.05 mg/dL (30.0-125.0); Opiate Scree,Urine Neg (NEGATIVE); Phencyclidine Screen, Urine Neg (NEGATIVE); Urine Protein/Creatinine Ratio 0.45
[2024-04-10] MEDS: ATORVASTATIN 20 MG TAB PO SCH (22:00)
[2024-04-10] MEDS ORDERED: SODIUM CHLOR 0.9% PF (SALINE LOCK) 10ML VIAL/SYR IV SCH (22:00)
[2024-04-10] MEDS: SODIUM CHLOR 0.9% PF (SALINE LOCK) 10ML VIAL/SYR IV SCH (22:03)
[2024-04-11 05:11] LABS: Hematocrit 31.8 % (36.0-46.0); Hemoglobin 10.7 g/dL (12.2-16.2); Mean Corpuscular Hemoglobin 32.4 pg (28.0-32.0); Mean Corpuscular Hgb Conc. 33.7 g/dL (32.0-36.0); Mean Corpuscular Volume 96.1 fL (80.0-100.0); Platelet Count (auto) 243 10^3/uL (140-450); Red Blood Cells 3.31 10^6/uL (4.0-5.20); Red Cell Distribution Width 14.7 % (11.8-14.3); White Blood Cell 6.8 10^3/uL (4.4-10.8)
[2024-04-11 05:17] LABS: Band Neutrophils % (manual) 0; Basophils % (manual) 0 (0.0-2.0); Blast Cells 0; Metamyelocytes % 0; Myelocytes % 0; Promyelocytes % 0; Reactive Lymphocytes 0
[2024-04-11 05:27] LABS: Alanine Aminotransferase 28 U/L (7-40); Albumin 3.9 g/dL (3.2-4.8); Alkaline Phosphatase 126 U/L (46-116); Anion Gap 6 (5-15); Aspartate Aminotransferase 25 U/L (13-40); BUN/Creatinine Ratio 15.5 (10.0-20.0); Bilirubin, Total 0.6 mg/dL (0.2-1.0); Calcium 9.3 mg/dL (8.7-10.4); Carbon Dioxide 25 mmol/L (20-31); Chloride 107 mmol/L (98-107); Glucose 89 mg/dL (74-106); Potassium 4.2 mmol/L (3.5-5.1); Sodium 138 mmol/L (136-145); Total Protein 6.3 g/dL (5.7-8.2)
[2024-04-11 05:29] LABS: Blood Urea Nitrogen 25 mg/dL (9-23)
[2024-04-11 06:47] LABS: Eosinophils % (manual) 2 (0-7); Lymphocytes % (manual) 16 (10.0-50.0); Monocytes % (manual) 20 (0-12); Platelet Estimate Adequate
[2024-04-11 06:50] LABS: Anisocytosis Slight; Ovalocytes FEW
[2024-04-11 07:30] VITALS: PULSE 64; RESP 14; O2SAT 100
[2024-04-11 08:06] LABS: RPR Non Reactive (Non Reactive)
[2024-04-11] MEDS: FUROSEMIDE 20 MG TAB PO SCH (10:00)
[2024-04-11] MEDS: CLOPIDOGREL BISULFATE 75 MG TAB PO SCH (10:00)
[2024-04-11] MEDS ORDERED: CYANOCOBALAMIN PO SCH ×2 (10:00)
[2024-04-11] MEDS: PANTOPRAZOLE 40 MG TAB PO SCH (10:00)
[2024-04-11] MEDS: CHOLECALCIFEROL (VITD3) 1,000UNIT=25mCg TAB PO SCH (10:00)
[2024-04-11] MEDS ORDERED: FUROSEMIDE 20 MG TAB PO SCH (10:00)
[2024-04-11] MEDS ORDERED: PATIENTS OWN MEDICATION (Atorvastatin Calcium (Lipitor) 1 TAB) PO SCH (10:00)
[2024-04-11] MEDS: FERROUS SULFATE 325mg EC TAB PO SCH (10:00)
[2024-04-11] MEDS ORDERED: ENOXAPARIN SOD 40 MG/0.4 ML SYRINGE SC SCH (10:00)
[2024-04-11] MEDS ORDERED: PATIENTS OWN MEDICATION (Omeprazole (Omeprazole Dr) 1 CAP) PO SCH ×2 (10:00)
[2024-04-11] MEDS ORDERED: FERROUS SULFATE 325mg EC TAB PO SCH (10:00)
[2024-04-11] MEDS ORDERED: CLOPIDOGREL BISULFATE 75 MG TAB PO SCH (10:00)
[2024-04-11] MEDS: ENOXAPARIN SOD 30 MG/0.3 ML SYRINGE SC SCH (10:24)
[2024-04-11 13:03] LABS: Basophils # (auto) 0.1 10 ^3/uL (0-0.2); Basophils % (auto) 0.8 % (0.0-2.0); Eosinophils # (auto) 0.1 10 ^3/uL (0-0.8); Eosinophils % (auto) 0.8 % (0.0-7.0); Hematocrit 31.6 % (36.0-46.0); Hemoglobin 10.5 g/dL (12.2-16.2); Lymphocytes # (auto) 0.7 10 ^3/uL (0.4-5.4); Lymphocytes % (auto) 5.3 % (10.0-50.0); Mean Corpuscular Hemoglobin 31.9 pg (28.0-32.0); Mean Corpuscular Hgb Conc. 33.3 g/dL (32.0-36.0); Mean Corpuscular Volume 95.6 fL (80.0-100.0); Monocytes # (auto) 1.1 10 ^3/uL (0-1.3); Monocytes % (auto) 8.7 % (0.0-12.0); Neutrophils # (auto) 11.1 10 ^3/uL (1.6-8.6); Neutrophils % (auto) 84.4 % (37.0-80.0); Nucleated Red Blood Cells % 0.1 %; Platelet Count (auto) 274 10^3/uL (140-450); Red Cell Distribution Width 15.1 % (11.8-14.3); White Blood Cell 13.1 10^3/uL (4.4-10.8)
[2024-04-11] MEDS: SODIUM CHLORIDE 0.9% 1,000 ML IV SCH (13:15)
[2024-04-11 16:43] LABS: Urine Bacteria None Seen /hpf (None Seen)
[2024-04-11 16:57] LABS: Urine Blood Negative /uL (Negative); Urine Budding Yeast MANY /hpf (None Seen); Urine Clarity Turbid (Clear); Urine Color Light-Orange (Yellow); Urine Protein, UAD 1+ (Negative); Urine Specific Gravity 1.024 (1.001-1.035); Urine Urobilinogen Normal (Negative); Urine WBC 49 /hpf (0 - 5); Urine pH 5.5 (5.0-9.0)
[2024-04-11 18:14] VITALS: O2SAT 100
[2024-04-11 19:30] VITALS: BP 126/67; PULSE 115; RESP 21; O2SAT 100
[2024-04-11 20:44] VITALS: PULSE 103; RESP 20; O2SAT 100
[2024-04-11] MEDS: MEROPENEM 500MG IVPB 50 ML IV SCH (21:47)
[2024-04-11] MEDS: LINEZOLID 600MG/300ML 300 ML IV SCH (21:48)
[2024-04-11] MEDS ORDERED: MEROPENEM 1GM IVPB 50 ML IV SCH (22:00)
[2024-04-11 23:59] VITALS: O2SAT 95
[2024-04-12] VITALS (9 sets, daily range): BP systolic 101–144; BP diastolic 70–90; PULSE 103–123; RESP 15–20; TEMP 96.8–98.8; O2SAT 98–100
[2024-04-12 06:22] LABS: Basophils # (auto) 0 10 ^3/uL (0-0.2); Basophils % (auto) 0.2 % (0.0-2.0); Eosinophils # (auto) 0 10 ^3/uL (0-0.8); Hematocrit 27.2 % (36.0-46.0); Hemoglobin 9.2 g/dL (12.2-16.2); Lymphocytes % (auto) 4.7 % (10.0-50.0); Mean Corpuscular Hemoglobin 32.4 pg (28.0-32.0); Mean Corpuscular Hgb Conc. 33.8 g/dL (32.0-36.0); Monocytes % (auto) 9.5 % (0.0-12.0); Neutrophils # (auto) 18.3 10 ^3/uL (1.6-8.6); Neutrophils % (auto) 85.6 % (37.0-80.0); Nucleated Red Blood Cells % 0.1 %; Platelet Count (auto) 242 10^3/uL (140-450); Red Blood Cells 2.83 10^6/uL (4.0-5.20); Red Cell Distribution Width 15.4 % (11.8-14.3); White Blood Cell 21.4 10^3/uL (4.4-10.8)
[2024-04-12 06:38] LABS: Alanine Aminotransferase 25 U/L (7-40); Albumin 3.9 g/dL (3.2-4.8); Alkaline Phosphatase 112 U/L (46-116); Anion Gap 9 (5-15); Aspartate Aminotransferase 24 U/L (13-40); BUN/Creatinine Ratio 14.9 (10.0-20.0); Blood Urea Nitrogen 22 mg/dL (9-23); Calcium 9.1 mg/dL (8.7-10.4); Carbon Dioxide 21 mmol/L (20-31); Chloride 113 mmol/L (98-107); Glucose 115 mg/dL (74-106); Magnesium 1.4 mg/dL (1.6-2.6); Potassium 3.9 mmol/L (3.5-5.1); Sodium 143 mmol/L (136-145)
[2024-04-12 06:39] LABS: Bilirubin, Total 0.7 mg/dL (0.2-1.0); Total Protein 6.1 g/dL (5.7-8.2)
[2024-04-12] MEDS: SODIUM CHLORIDE 0.9% 1,000 ML IV SCH (10:30)
[2024-04-12] MEDS ORDERED: traMADol HCL 50 MG TAB PO PRN (10:30)
[2024-04-12] MEDS ORDERED: LORazepam 2MG/ML-1ML VIAL IV PRN (11:00)
[2024-04-12] MEDS: levETIRAcetam 1000 mg/100ml 100 ML IV ONE (12:17)
[2024-04-12] MEDS: MEROPENEM 500MG IVPB 50 ML IV SCH (12:50)
[2024-04-12] MEDS: levETIRAcetam 500 mg/100ml 100 ML IV SCH (21:31)
[2024-04-13] VITALS (9 sets, daily range): BP systolic 109–131; BP diastolic 58–67; PULSE 89–125; RESP 16–20; TEMP 97.4–98.9; O2SAT 95–100
[2024-04-13 07:19] LABS: Basophils # (auto) 0 10 ^3/uL (0-0.2); Basophils % (auto) 0.3 % (0.0-2.0); Eosinophils # (auto) 0.1 10 ^3/uL (0-0.8); Eosinophils % (auto) 0.5 % (0.0-7.0); Hematocrit 25.8 % (36.0-46.0); Hemoglobin 8.6 g/dL (12.2-16.2); Lymphocytes # (auto) 0.9 10 ^3/uL (0.4-5.4); Lymphocytes % (auto) 5.5 % (10.0-50.0); Mean Corpuscular Hgb Conc. 33.4 g/dL (32.0-36.0); Mean Corpuscular Volume 95.7 fL (80.0-100.0); Monocytes # (auto) 1.5 10 ^3/uL (0-1.3); Monocytes % (auto) 9.2 % (0.0-12.0); Neutrophils # (auto) 13.8 10 ^3/uL (1.6-8.6); Neutrophils % (auto) 84.5 % (37.0-80.0); Platelet Count (auto) 236 10^3/uL (140-450); Red Cell Distribution Width 15.4 % (11.8-14.3); White Blood Cell 16.3 10^3/uL (4.4-10.8)
[2024-04-13 07:38] LABS: Alanine Aminotransferase 31 U/L (7-40); Albumin 3.5 g/dL (3.2-4.8); Alkaline Phosphatase 122 U/L (46-116); Anion Gap 9 (5-15); Aspartate Aminotransferase 36 U/L (13-40); BUN/Creatinine Ratio 16.7 (10.0-20.0); Bilirubin, Total 0.7 mg/dL (0.2-1.0); Blood Urea Nitrogen 24 mg/dL (9-23); Carbon Dioxide 22 mmol/L (20-31); Chloride 113 mmol/L (98-107); Glucose 82 mg/dL (74-106); Sodium 144 mmol/L (136-145); Total Protein 5.6 g/dL (5.7-8.2)
[2024-04-13] MEDS: MEROPENEM 1GM IVPB 50 ML IV SCH (12:25)
[2024-04-13] MEDS: QUEtiapine FUMARATE 25 MG TAB PO SCH (13:45)
[2024-04-13] MEDS: SODIUM CHLORIDE 0.9% 1,000 ML IV SCH (15:56)
[2024-04-13] MEDS: Ensure Enlive Strawberry 8oz Bottle PO SCH (18:00)
[2024-04-13] MEDS: HYDROcodone-ACET 7.5/325MG TAB PO PRN (23:23)
[2024-04-14] VITALS (10 sets, daily range): BP systolic 102–128; BP diastolic 51–69; PULSE 80–93; RESP 16–18; TEMP 97.7–98.6; O2SAT 94–100
[2024-04-14 08:13] LABS: Basophils # (auto) 0 10 ^3/uL (0-0.2); Eosinophils # (auto) 0.3 10 ^3/uL (0-0.8); Lymphocytes # (auto) 0.3 10 ^3/uL (0.4-5.4); Monocytes # (auto) 0.3 10 ^3/uL (0-1.3); Neutrophils % (auto) 86.1 % (37.0-80.0); White Blood Cell 6.8 10^3/uL (4.4-10.8)
[2024-04-14 08:16] LABS: Basophils % (auto) 0.5 % (0.0-2.0); Eosinophils % (auto) 3.8 % (0.0-7.0); Hematocrit 23.5 % (36.0-46.0); Mean Corpuscular Hemoglobin 32.5 pg (28.0-32.0); Mean Corpuscular Hgb Conc. 34.1 g/dL (32.0-36.0); Mean Corpuscular Volume 95.5 fL (80.0-100.0); Monocytes % (auto) 4.6 % (0.0-12.0); Neutrophils # (auto) 5.9 10 ^3/uL (1.6-8.6); Nucleated Red Blood Cells % 0.1 %; Platelet Count (auto) 212 10^3/uL (140-450); Red Blood Cells 2.46 10^6/uL (4.0-5.20); Red Cell Distribution Width 15.2 % (11.8-14.3)
[2024-04-14 08:40] LABS: Alanine Aminotransferase 39 U/L (7-40); Alkaline Phosphatase 104 U/L (46-116); Calcium 8.8 mg/dL (8.7-10.4); Carbon Dioxide 21 mmol/L (20-31); Chloride 115 mmol/L (98-107)
[2024-04-14 08:41] LABS: Albumin 3.1 g/dL (3.2-4.8); Anion Gap 10 (5-15); Aspartate Aminotransferase 45 U/L (13-40); BUN/Creatinine Ratio 19.6 (10.0-20.0); Bilirubin, Total 0.6 mg/dL (0.2-1.0); Blood Urea Nitrogen 27 mg/dL (9-23); Glucose 73 mg/dL (74-106); Sodium 146 mmol/L (136-145); Total Protein 5.2 g/dL (5.7-8.2)
[2024-04-14] MEDS: ENOXAPARIN SOD 40 MG/0.4 ML SYRINGE SC SCH (10:25)
[2024-04-14] MEDS: POTASSIUM CHLORIDE 40 MEQ, LIDOCAINE 1% (LOCAL ANESTH.) 4 ML in SODIUM CHL 0.9% 250 ML IV ONE (18:47)
[2024-04-15] VITALS (9 sets, daily range): BP systolic 92–113; BP diastolic 55–66; PULSE 64–98; RESP 14–20; TEMP 97.4–98.6; O2SAT 92–100
[2024-04-15 06:04] LABS: Basophils # (auto) 0 10 ^3/uL (0-0.2); Eosinophils # (auto) 0.3 10 ^3/uL (0-0.8); Hematocrit 23.9 % (36.0-46.0); Hemoglobin 8.1 g/dL (12.2-16.2); Lymphocytes # (auto) 0.4 10 ^3/uL (0.4-5.4); Monocytes # (auto) 0.4 10 ^3/uL (0-1.3); Neutrophils # (auto) 4.6 10 ^3/uL (1.6-8.6)
[2024-04-15 06:09] LABS: Basophils % (auto) 0.4 % (0.0-2.0); Eosinophils % (auto) 5.1 % (0.0-7.0); Lymphocytes % (auto) 7.3 % (10.0-50.0); Mean Corpuscular Hemoglobin 32.5 pg (28.0-32.0); Mean Corpuscular Volume 95.5 fL (80.0-100.0); Monocytes % (auto) 6.8 % (0.0-12.0); Neutrophils % (auto) 80.4 % (37.0-80.0); Nucleated Red Blood Cells % 0.2 %; Platelet Count (auto) 211 10^3/uL (140-450); Red Cell Distribution Width 15.2 % (11.8-14.3); White Blood Cell 5.8 10^3/uL (4.4-10.8)
[2024-04-15 06:28] LABS: Alanine Aminotransferase 32 U/L (7-40); Albumin 3.2 g/dL (3.2-4.8); Alkaline Phosphatase 98 U/L (46-116); Anion Gap 7 (5-15); Aspartate Aminotransferase 28 U/L (13-40); BUN/Creatinine Ratio 17.1 (10.0-20.0); Blood Urea Nitrogen 24 mg/dL (9-23); Calcium 8.7 mg/dL (8.7-10.4); Carbon Dioxide 23 mmol/L (20-31); Chloride 116 mmol/L (98-107); Glucose 98 mg/dL (74-106); Magnesium 1.5 mg/dL (1.6-2.6); Potassium 3.8 mmol/L (3.5-5.1); Sodium 146 mmol/L (136-145)
[2024-04-15 06:29] LABS: Bilirubin, Total 0.7 mg/dL (0.2-1.0); Total Protein 5.2 g/dL (5.7-8.2)
[2024-04-15] MEDS ORDERED: MEROPENEM 500MG IVPB 50 ML IV SCH (15:00)
[2024-04-15] MEDS: MEROPENEM 1GM IVPB 50 ML IV SCH (15:56)
[2024-04-15] MEDS ORDERED: MORPHINE SULFATE INJ 2 MG/ml SYRG IV PRN (21:00)
[2024-04-15] MEDS: MELATONIN 5 MG TAB PO ONE (22:01)
[2024-04-16] VITALS (9 sets, daily range): BP systolic 88–112; BP diastolic 46–70; PULSE 73–82; RESP 16–19; TEMP 97.5–98.9; O2SAT 97–100
[2024-04-17] VITALS (7 sets, daily range): BP systolic 93–101; BP diastolic 51–64; PULSE 76–86; RESP 13–18; TEMP 98–98.4; O2SAT 98–100
[2024-04-17] MEDS: FLUCONAZOLE 100 MG TAB PO ONE (13:25)
[2024-04-17] MEDS: CELECOXIB 100 MG CAP PO SCH (22:53)
[2024-04-18] MEDS: ACETAMINOPHEN 325 MG TAB PO PRN (00:17)
[2024-04-18 03:56] VITALS: BP 95/61; PULSE 83; RESP 16; O2SAT 99
[2024-04-18 05:10] LABS: Basophils # (auto) 0.1 10 ^3/uL (0-0.2); Basophils % (auto) 0.9 % (0.0-2.0); Eosinophils # (auto) 0.5 10 ^3/uL (0-0.8); Eosinophils % (auto) 7.1 % (0.0-7.0); Hematocrit 26.9 % (36.0-46.0); Hemoglobin 9.2 g/dL (12.2-16.2); Lymphocytes # (auto) 1.1 10 ^3/uL (0.4-5.4); Mean Corpuscular Hemoglobin 31.9 pg (28.0-32.0); Mean Corpuscular Volume 93.7 fL (80.0-100.0); Monocytes # (auto) 0.5 10 ^3/uL (0-1.3); Monocytes % (auto) 8.1 % (0.0-12.0); Neutrophils # (auto) 4.5 10 ^3/uL (1.6-8.6); Neutrophils % (auto) 67.9 % (37.0-80.0); Nucleated Red Blood Cells % 0.2 %; Platelet Count (auto) 169 10^3/uL (140-450); Red Blood Cells 2.87 10^6/uL (4.0-5.20); Red Cell Distribution Width 14.6 % (11.8-14.3); White Blood Cell 6.6 10^3/uL (4.4-10.8)
[2024-04-18 05:18] LABS: Anion Gap 8 (5-15); Calcium 8.5 mg/dL (8.7-10.4); Carbon Dioxide 34 mmol/L (20-31); Potassium 3.4 mmol/L (3.5-5.1); Sodium 139 mmol/L (136-145)
[2024-04-18 05:24] LABS: BUN/Creatinine Ratio 20.3 (10.0-20.0); Blood Urea Nitrogen 38 mg/dL (9-23); Glucose 79 mg/dL (74-106)
[2024-04-18 05:27] LABS: Chloride 97 mmol/L (98-107)
[2024-04-18 06:43] VITALS: O2SAT 96
[2024-04-18 09:00] VITALS: BP 90/57; PULSE 86; RESP 17; O2SAT 100
[2024-04-18] MEDS ORDERED: cefTRIAXone 1GM/50ML D5W 50 ML IV SCH (09:00)
[2024-04-18] MEDS: FLUCONAZOLE 100 MG TAB PO SCH (09:31)
[2024-04-18] MEDS: levoFLOXacin 500 MG TAB PO SCH (09:31)
[2024-04-18] MEDS: ERGOCALCIFEROL 50,000 UNIT(1.25MG) CAP PO SCH (09:32)
[2024-04-18] MEDS: ONDANSETRON HCL 4 MG/2 ML VIAL IV PRN (09:48)
[2024-04-18 13:00] VITALS: BP 88/56; PULSE 90; RESP 16; TEMP 98.1; O2SAT 98
[2024-04-18] MEDS ORDERED: levETIRAcetam 500 MG TAB PO SCH (22:00)
== END 2024-04-18 17:04 | DRG 871 ==
LOC: EDUNIT# 12:00 → EDBD 12:00 → ER 12:05 → OVERFLOW 15:30 → ER 15:32 → WEST WING 04-11 23:18
PROVIDERS: ADMIT Internal Medicine; ATTEND Nurse Practitioner Acute Care
DX: A41.9 Sepsis, unspecified organism (principal); G93.41 Metabolic encephalopathy; N17.0 Acute kidney failure with tubular necrosis; I13.0 Hypertensive heart and chronic kidney disease with heart failure and stage 1 through stage 4 chronic kidney disease, or unspecified chronic kidney disease; I50.32 Chronic diastolic (congestive) heart failure; R64 Cachexia; Z68.1 Body mass index [BMI] 19.9 or less, adult; D63.1 Anemia in chronic kidney disease; E78.5 Hyperlipidemia, unspecified; J44.9 Chronic obstructive pulmonary disease, unspecified; E83.42 Hypomagnesemia; K21.9 Gastro-esophageal reflux disease without esophagitis; G89.29 Other chronic pain; F17.200 Nicotine dependence, unspecified, uncomplicated; N18.32 Chronic kidney disease, stage 3b; R65.20 Severe sepsis without septic shock; N30.90 Cystitis, unspecified without hematuria; Z88.0 Allergy status to penicillin; Z83.3 Family history of diabetes mellitus; Z82.49 Family history of ischemic heart disease and other diseases of the circulatory system; Z93.3 Colostomy status; Z86.73 Personal history of transient ischemic attack (TIA), and cerebral infarction without residual deficits
CPT/HCPCS: 36415; 36600; 70450; 70551; 71045; 76775; 80048; 80053; 80307; 81001; 82306; 82550; 82570; 82607; 82805; 83605; 83735; 83970; 84100; 84156; 84300; 84439; 84443; 84484; 84550; 85007; 85025; 85027; 86592; 87040; 87081; 87086; 87088; 93005; 93886; 95819; 96360; 96361; 97110; 97163; 97530; 99291; G0378; J2003; J2185; J2405

== ENCOUNTER 2024-04-22 19:14 | Inpatient (IN) | payer OTHER, MEDICAID ==
[~2024-04-22] VITALS: Ht 157.5 cm; Wt 44.2 kg
[~2024-04-22 19:14] MED LIST changes: +HYDR-4069 PO; +LEVE500T40 PO; +PANT40TA2 PO; +POM PO; +QUET100T47 PO
--- NOTE | 2024-04-22 19:59 | ED.PDOC ---
History of Present Illness HPI Comments 73 y.o female with PMH of HTN, hyperlipidemia, GERD, seizures and CHF, presents to the ED via EMS for an evaluation of hypotension. Per EMS, patient is coming from [facility] in regards to hypotension today. Staff reported the lowest blood pressure reading was 60/28. EMS reported pressure reading in the 90's systolic on scene and en route to the ED. At this time, patient denies any symptoms or pain but does states she feels confused. Patient is aware of her location and why she is at the hospital. Chief Complaint: Low Blood Pressure Time Seen by MD: 19:45 Primary Care Provider: VERONICA Reviewed Notes: Nurses Notes, Batch Blender Notes, Medications, Allergies Allergies: Coded Allergies: Penicillins (Verified Allergy, Intermediate, 02/02/21) Home Meds Active Scripts Ferrous Sulfate (Ferrous Sulfate) 325 Mg Tab, 325 MG PO TUTHSA for 30 Days, #30 TAB Prov:RINKU HURT RESIDENT 04/05/24 Reported Medications Ondansetron Odt 4MG Tab (ZOFRAN PO) 4 Mg Tb, 1 TAB PO BID for 15 Days, #30 ODT TAB-DISSOLVE IN MOUTH, THEN SWALLOW 03/30/24 Potassium Chloride (Potassium Chloride ER) 10 Meq Tab, 1 TAB PO BID for 90 Days, #180 03/30/24 Prednisolone Acetate (Prednisolone Acetate P-F) 1 % Mayi, 1 DROP LEFTEYE QID 12/24/23 Allopurinol (Allopurinol) 100 Mg Tab, 1 TAB PO DAILY 12/24/23 Baclofen (Baclofen) 10 Mg Tab, 20 MG PO BID PRN Take 1 tablet by mouth without regards to meals as needed twice daily. 12/24/23 Buprenorphine (BUTRANS) 5 Mcg/Hr Dis, 1 PATCH TD QWEEKLY for 28 Days, #4 APPLY 1 PATCH TRANSDERMALLY ONCE A WEEK NEEDED. 12/24/23 Atorvastatin Calcium (Lipitor) 10 Mg Tab, 1 TAB PO DAILY, #30 5 Refills 12/24/23 Oxycodone W/ Acetaminophen (Apap/Oxycodone) 1 Tab Tab, 1 TAB PO QID PRN for LOW BACK PAIN for 30 Days 12/24/23 Gabapentin (Gabapentin) 300 Mg Cap, 1 CAP PO DAILY for 90 Days, #90 12/24/23 Clopidogrel Bisulfate (CLOPIDOGREL) 75 Mg Tab, 1 TAB PO DAILY 04/20/23 Cyanocobalamin (Vitamin B-12) 1,000 Mcg Tab, 1 TAB PO DAILY for 90 Days, #90 04/20/23 Megestrol Acetate (Megace) 20 Mg Tb, 1 TAB PO BID for 30 Days, #60 04/20/23 Furosemide (Furosemide) 20 Mg Tab, 1 TAB PO DAILY for 90 Days, #90 04/20/23 Ergocalciferol (Vitamin D) 50,000 Unit Cap, 1 CAP PO QWEEKLY for 84 Days, #12 04/20/23 Omeprazole (Omeprazole Dr) 20 Mg Cap, 1 CAP PO DAILY for 90 Days, #90 04/20/23 Magnesium Oxide (MAGNESIUM OXIDE) 400 Mg Tab, 1 TAB PO BID for 30 Days, #60 04/20/23 Information Source: Patient, Emergency Med Personnel Mode of Arrival: EMS Severity: Moderate Timing: Hours Duration: Since onset Past Medical History PAST MEDICAL HISTORY: Arthritis, CHF, GERD, High Lipids, HTN, Seizures Surgical History: Unknown COTTRELL OPERATOR History: No Pertinent COTTRELL OPERATOR History Family History Family History: Family hx of DM, Family hx of HTN Social History Smoker: Non-Smoker, Quit Greater Than 1 Year Alcohol: Rarely Drugs: Denies Drug Use Lives In: Home Constitutional: denies: chills, diaphoresis, fatigue, fever, malaise, sweats, weakness, others EENTM: denies: blurred vision, double vision, ear bleeding, ear discharge, ear drainage, ear pain, ear ringing, eye pain, eye redness, hearing loss, mouth pain, mouth swelling, nasal discharge, nose bleeding, nose congestion, nose p ain, photophobia, tearing, throat pain, throat swelling, voice changes, others Respiratory: denies: cough, hemoptysis, orthopnea, SOB at rest, shortness of breath, SOB with excertion, stridor, wheezing, others Cardiovascular: denies: chest pain, dizzy spells, diaphoresis, Dyspnea on exertion, edema, irregular heart beat, left arm pain, lightheadedness, palpitations, PND, syncope, others Gastrointestinal: denies: abdomen distended, abdominal pain, blood streaked bowels, constipated, diarrhea, dysphagia, difficulty swallowing, hematemesis, melena, nausea, poor appetite, poor fluid intake, rectal bleeding, rectal pain, vomiting, others Genitourinary: denies: abnormal vagina bleeding, burning, dyspareunia, dysuria, flank pain, frequency, hematuria, incontinence, pain, , vagina discharge, urgency, others Neurological: denies: dizziness, fainting, headache, left sided numbness, left sided weakness, numbness, paresthesia, pre-existing deficit, right sided numbness, right sided weakness, seizure, speech problems, tingling, tremors, weakness, others Musculoskeletal: denies: back pain, gout, joint pain, joint swelling, muscle pain, muscle stiffness, neck pain, others Integumetry: denies: bruises, change in color, change in hair/nails, dryness, laceration, lesions, lumps, rash, wounds, others Allergic/Immunocompromised: denies: Difficulty Healing, Frequent Infections, Hives, Itching, others Hematologic/Lymphatic: denies: anemia, blood clots, easy bleeding, easy bruising, swollen glands, others Endocrine: denies: excessive hunger, excessive sweating, excessive thirst, excessive urination, flushing, intolerance to cold, intolerance to heat, unexplained weight gain, unexplained weight loss, others Psychiatric: denies: anxiety, bipolar disorder, depression, hopeless, panic disorder, schizophrenia, sleepless, suicidal, others All Other Systems: Reviewed and Negative Physical Exam General Appearance: Moderate Distress, Thin HEENT: Normal ENT Inspection, Pharynx Normal, TMs Normal Neck: Full Range of Motion, Non-Tender, Normal, Normal Inspection Respiratory: Chest Non-Tender, Lungs Clear, No Accessory Muscle Use, No Respiratory Distress, Normal Breath Sounds Cardiovascular: No Edema, No JVD, No Murmur, No Gallop, Normal Peripheral Pulses, Regular Rate/Rhythm Breast Exam: Deferred Gastrointestinal: No Organomegaly, No Pulsatile Mass, Normal Bowel Sounds, Soft Genitalia: Deferred Pelvic: Deferred Rectal: Deferred Extremities: No calf tenderness, No pedal edema Musculoskeletal : Apperance: Normal Neurologic: Disoriented Cerebellar Function: NOT DONE Reflexes: NOT DONE Skin: Pallor Peripheral Pulses: 3+ Radial (R), 3+ Radial (L) Lymphatic: No Adenopathy Was a procedure done? Was a procedure done?: No Differential Dx Considerations may include: Hypotension, Dehydration, Electrolyte Imbalance, CAD X-Ray, Labs, Meds, VS Vital Signs Date Time Temp Pulse Resp B/P (MAP) Pulse Ox O2 Delivery O2 Flow Rate FiO2 04/22/24 19:25 97.4 93 18 94/62 (73) 98 04/22/24 19:17 98 Lab Test 04/22/24 20:17 Range/Units White Blood Count Pending Red Blood Count Pending Hemoglobin Pending Hematocrit Pending Mean Corpuscular Volume Pending Mean Corpuscular Hemoglobin Pending Mean Corpuscular Hemoglobin Concent Pending Red Cell Distribution Width Pending Platelet Count Pending Mean Platelet Volume Pending Neutrophils (%) (Auto) Pending Lymphocytes (%) (Auto) Pending Monocytes (%) (Auto) Pending Basophils (%) (Auto) Pending Neutrophils # (Auto) Pending Lymphocytes # (Auto) Pending Monocytes # (Auto) Pending Sodium Level Pending Potassium Level Pending Chloride Level Pending Carbon Dioxide Level Pending Anion Gap Pending Blood Urea Nitrogen Pending Creatinine Pending Glomerular Filtration Rate Calc Pending BUN/Creatinine Ratio Pending Serum Glucose Pending Calcium Level Pending Troponin I High Sensitivity Pending Current Medications Medications (Trade) Dose Ordered Sig/Arielle Route Start Time Stop Time Status Last Admin Sodium Chloride 1,000 ml @ 1,000 mls/hr Q1H ONCE IV 04/22/24 20:15 04/22/24 21:14 04/22/24 20:21 Patient disoriented. Possibly baseline. Hypotension. Answering simple questions. Saturation pristine on room air. Has Machado catheter in place. Possible urosepsis. Establish intravenous access. Was given fluids. Was given Bactrim. Waiting for family. Time of 1ST Reevaluation: 19:54 Reevaluation 1ST: Unchanged Patient Education/Counseling: Diagnosis, Treatment Family Education/Counseling: No Family Present Departure 1 Departure Time of Disposition: 20:06 Impression: Primary Impression: Metabolic encephalopathy Additional Impression: Sepsis due to urinary tract infection Disposition: ADMITTED INPATIENT Admit to: Med Surg Condition: Guarded Critical Care Note Critical Care Time?: Yes (45 min-critical care time only) Stability Stability form required: No I personally scribed for LUKE LOCKE MD ([email or web address]) on 04/22/24 at 19:59. Electronically submitted by Pam Antony ([facility]). LUKE LOCKE MD Apr 22, 2024 19:59
[2024-04-22] MEDS ORDERED: levoFLOXacin 500MG 100 ML IV ONE (20:15)
[2024-04-22] MEDS: SODIUM CHLORIDE 0.9% 1,000 ML IV ONE ×2 (20:21→21:25)
[2024-04-22 20:27] LABS: Basophils # (auto) 0.1 10 ^3/uL (0-0.2); Neutrophils # (auto) 3.9 10 ^3/uL (1.6-8.6); Platelet Count (auto) 162 10^3/uL (140-450); Red Cell Distribution Width 14.1 % (11.8-14.3); White Blood Cell 6.3 10^3/uL (4.4-10.8)
[2024-04-22 20:29] LABS: Basophils % (auto) 1.5 % (0.0-2.0); Eosinophils # (auto) 0.3 10 ^3/uL (0-0.8); Eosinophils % (auto) 4.7 % (0.0-7.0); Hematocrit 24.3 % (36.0-46.0); Hemoglobin 8.4 g/dL (12.2-16.2); Lymphocytes % (auto) 15.8 % (10.0-50.0); Mean Corpuscular Hemoglobin 32.3 pg (28.0-32.0); Mean Corpuscular Hgb Conc. 34.4 g/dL (32.0-36.0); Monocytes % (auto) 15.8 % (0.0-12.0); Neutrophils % (auto) 62.2 % (37.0-80.0); Nucleated Red Blood Cells % 0.1 %; Red Blood Cells 2.59 10^6/uL (4.0-5.20)
[2024-04-22] MEDS ORDERED: SULFAMETH-TRIMETH 80/16MG-ML 10 ML in D5W 5% 250 ML IV ONE ×2 (20:30→21:00)
--- NOTE | 2024-04-22 20:39 | DVH ---
CHEST RADIOGRAPH Indication:sob Technique: Single frontal view of the chest was obtained Comparison: XY CHEST PORTABLE on DOS: 04/10/24, XY CHEST XRAY 1 VIEW on DOS: 03/30/24, XY CHEST XRAY 1 VIEW on DOS: 03/28/24 FINDINGS: Lines and Tubes: None Lungs: No focal consolidation. Pleura: No effusion. No pneumothorax. Cardiomediastinal contours: Unremarkable patient's right hand is superimposed over the right chest an d mediastinum obscuring detail. Consider repeat study Bones: No acute osseous abnormality. IMPRESSION: 1. No acute cardiopulmonary disease.
[2024-04-22 20:41] LABS: Chloride 94 mmol/L (98-107); Potassium 3.4 mmol/L (3.5-5.1)
[2024-04-22 20:42] LABS: Anion Gap 10 (5-15); Calcium 6.4 mg/dL (8.7-10.4); Carbon Dioxide 30 mmol/L (20-31)
[2024-04-22 20:47] LABS: BUN/Creatinine Ratio 22.2 (10.0-20.0); Blood Urea Nitrogen 62 mg/dL (9-23); Glucose 106 mg/dL (74-106)
[2024-04-22] MEDS ORDERED: SULFAMETH TRIMETH IV ONE (21:00)
[2024-04-22] MEDS ORDERED: D5W 5% IV ONE (21:00)
[2024-04-22 21:07] LABS: Sodium 134 mmol/L (136-145)
[2024-04-22 21:53] LABS: Urine Bacteria None Seen /hpf (None Seen)
[2024-04-22 22:06] LABS: Urine Blood Negative /uL (Negative); Urine Budding Yeast OCCASIONAL /hpf (None Seen); Urine Clarity Clear (Clear); Urine Color Light-Orange (Yellow); Urine Protein, UAD TRACE (Negative); Urine Specific Gravity 1.017 (1.001-1.035); Urine Urobilinogen Normal (Negative); Urine WBC 11 /hpf (0 - 5); Urine pH 6.5 (5.0-9.0)
[2024-04-23] VITALS (8 sets, daily range): BP systolic 95–108; BP diastolic 47–64; PULSE 72–92; RESP 12–19; TEMP 97.7–98.1; O2SAT 92–100
[2024-04-23] MEDS: SODIUM CHLORIDE 0.9% 1,000 ML IV ONE (00:36)
[2024-04-23] MEDS: ACETAMINOPHEN 325 MG TAB PO ONE (01:00)
[2024-04-23] MEDS ORDERED: ONDANSETRON HCL 4 MG/2 ML VIAL IV PRN (01:00)
[2024-04-23] MEDS ORDERED: DOCUSATE SOD 100 MG CAP PO PRN (01:00)
[2024-04-23] MEDS: POTASSIUM CHL 20 Meq TABLET PO ONE ×2 (01:15→12:38)
[2024-04-23] MEDS: CALCIUM GLUC 1,000mg/50ml-NS 50 ML IV ONE (01:15)
[2024-04-23] MEDS: HYDROcodone-ACET 5/325MG TAB PO PRN (01:45)
[2024-04-23] MEDS: MELATONIN 5 MG TAB PO ONE (02:13)
[2024-04-23 03:56] LABS: Basophils # (auto) 0 10 ^3/uL (0-0.2); Basophils % (auto) 0.7 % (0.0-2.0); Eosinophils # (auto) 0.3 10 ^3/uL (0-0.8); Hemoglobin 7.6 g/dL (12.2-16.2); Monocytes # (auto) 0.9 10 ^3/uL (0-1.3); Red Cell Distribution Width 14.2 % (11.8-14.3); White Blood Cell 6.1 10^3/uL (4.4-10.8)
[2024-04-23 03:59] LABS: Eosinophils % (auto) 5.4 % (0.0-7.0); Lymphocytes # (auto) 1.1 10 ^3/uL (0.4-5.4); Lymphocytes % (auto) 17.4 % (10.0-50.0); Mean Corpuscular Hemoglobin 32.1 pg (28.0-32.0); Mean Corpuscular Hgb Conc. 34.5 g/dL (32.0-36.0); Mean Corpuscular Volume 93.2 fL (80.0-100.0); Monocytes % (auto) 15.2 % (0.0-12.0); Neutrophils # (auto) 3.7 10 ^3/uL (1.6-8.6); Neutrophils % (auto) 61.3 % (37.0-80.0); Platelet Count (auto) 157 10^3/uL (140-450); Red Blood Cells 2.36 10^6/uL (4.0-5.20)
[2024-04-23] MEDS ORDERED: NITROGLYCERIN 0.4 MG SL TAB SL PRN (04:00)
[2024-04-23] MEDS ORDERED: MORPHINE SULFATE INJ 2 MG/ml SYRG IV PRN (04:00)
[2024-04-23 04:18] LABS: Alanine Aminotransferase 18 U/L (7-40); Albumin 3.2 g/dL (3.2-4.8); Alkaline Phosphatase 118 U/L (46-116); Anion Gap 6 (5-15); Aspartate Aminotransferase 19 U/L (13-40); BUN/Creatinine Ratio 17.9 (10.0-20.0); Calcium 6.5 mg/dL (8.7-10.4); Carbon Dioxide 27 mmol/L (20-31); Chloride 103 mmol/L (98-107); Glucose 95 mg/dL (74-106); Potassium 3.1 mmol/L (3.5-5.1); Sodium 136 mmol/L (136-145)
[2024-04-23 04:19] LABS: Bilirubin, Total 0.4 mg/dL (0.2-1.0); Total Protein 5.1 g/dL (5.7-8.2)
[2024-04-23 04:21] LABS: Blood Urea Nitrogen 45 mg/dL (9-23)
--- NOTE | 2024-04-23 04:30 | DVHHP2 ---
History of Present Illness Reason for Visit: Hypotension History of Present Illness The patient is a 73-year-old female with past medical history of arthritis, CHF, GERD, seizures, hyperlipidemia, and hypertension who presented to [facility] ED for evaluation of hypotension. As reported by EMS, patient is coming from [facility] in regards to hypotension today. Staff reported the lowest blood pressure reading was 60/28. EMS reported pressure reading in the 90's systolic on scene and en route to the ED. patient was seen and evaluated in the ED, laboratory data shows WBC 6.3, hemoglobin 8.4, hematocrit 24.3, platelets 162, sodium 134, potassium 3.4, BUN 62, creatinine 2.79, glucose 106, calcium 6.4, troponin 3, blood pressure 89/52 trending up to 92/54, heart rate 84, temperature 97.8 F, O2 saturation 98% on room air. Chest x-ray show no acute cardiopulmonary disease. Urinalysis positive for urinary tract infection. Patient was started on IV antibiotic regimen levofloxacin, please see medication orders section in the computer. On my assessment, patient denied chest pain, no headache, no dizziness, no shortness a breath, no nausea, no vomiting, no fever, no chills. Patient was admitted for further evaluation and medical management. Past Medical History Arthritis, CHF, GERD, High Lipids, HTN, Seizures Past Surgical History Denies all surgeries Family History Reviewed, noncontributory to the management of this case. Past Social History The patient lives at home, denies smoking, alcohol or illicit drugs abuse. Review of Systems Constitutional: Yes: Weakness; No: Fever, Chills, Sweats, Malaise, Other Eyes: No: Pain, Vision change, Conjunctivae inflammation, Eyelid inflammation, Other, Redness ENT: No: Ear pain, Ear discharge, Nose pain, Nose discharge, Nose congestion, Mouth pain, Mouth swelling, Throat pain, Throat swelling, Other Respiratory: No: Cough, Dry, Shortness of breath, SOB with excertion, Wheezing, Hemoptysis, Pleuritic Pain, Sputum, Wheezing, Other Cardiovascular: No: Chest Pain, Palpitations, Orthopnea, Paroxysmal Noc. Dyspnea, Edema, Lt Headedness, Other Gastrointestinal: No: Nausea, Vomiting, Abdominal Pain, Diarrhea, Constipation, Melena, Hematochezia, Other Genitourinary: No Dysuria, No Frequency, No Incontinence, No Hematuria, No Retention, No Other Musculoskeletal: No: other, neck pain, shoulder pain, arm pain, back pain, hand pain, leg pain, foot pain Skin: No: Rash, Lesions, Jaundice, Bruising, Other Neurological: No: Weakness, Numbness, Incoordination, Change in speech, Confusion, Seizures, Other Allergies: Coded Allergies: Penicillins (Verified Allergy, Intermediate, 02/02/21) Medications Current Medications Medications Dose Ordered Sig/Arielle Route Start Time Stop Time Status Last Admin Dose Admin Clopidogrel Bisulfate 75 mg DAILY PO 04/23/24 10:00 Famotidine 20 mg DAILY IV 04/23/24 10:00 Levofloxacin 50 ml @ 50 mls/hr DAILY@2100 IV 04/23/24 21:00 Sodium Chloride 1,000 ml @ 60 mls/hr [id number] IV 04/23/24 01:00 Acetaminophen/ Hydrocodone Bitart 1 tab Q4HP PRN PO 04/23/24 01:00 04/23/24 01:45 1 TAB Ondansetron HCl 4 mg Q4HP PRN IV 04/23/24 01:00 Docusate Sodium 100 mg BIDPRN PRN PO 04/23/24 01:00 Acetaminophen 650 mg Q6HP PRN PO 04/23/24 01:00 Atorvastatin Calcium 10 mg HS PO 04/23/24 22:00 Exam Vital Signs Vital Signs Date Time Temp Pulse Resp B/P (MAP) Pulse Ox O2 Delivery O2 Flow Rate FiO2 04/23/24 02:00 80 14 88/55 (66) 99 04/22/24 20:00 97.8 97.8 04/22/24 19:30 Room Air* 0 21 General Appearance: Alert, Oriented X3, Cooperative, No acute distress HEENT: Atraumatic, PERRLA, EOMI, Mucous membr. moist/pink Respiratory: Clear to auscultation, Normal air movement Cardiovascular: Regular rate, Normal S1, Normal S2, No murmurs Abdominal: Normal bowel sounds, Soft, No tenderness, No hepatospenomegaly, No masses Extremities: No clubbing, No cyanosis, No edema, Normal pulses, No tenderness/swelling Skin: No rashes, No breakdown, No significant lesion Neuro: Normal speech, Normal tone, Sensation intact, Cranial nerves 3-12 NL, Reflexes 2+ Psych/Mental Status: Mental status NL, Mood NL Labs/Xrays Labs Test 04/23/24 03:37 04/22/24 21:48 04/22/24 21:12 04/22/24 20:17 Range/Units Urine Color Light-orange Yellow Urine Clarity Clear Clear Urine pH 6.5 5.0-9.0 Urine Specific [place] 1.017 1.001-1.035 Urine Protein Trace H Negative Urine Ketones Negative Negative Urine Blood Negative Negative /uL Urine Nitrite Negative Negative Urine Bilirubin Negative Negative Urine Urobilinogen Normal Negative mg/dL Urine Leukocyte Esterase 1+ Negative /uL Urine RBC 1 0 - 4 /hpf Urine WBC 11 0 - 5 /hpf Urine Squamous Epithelial Cells Few <5 /hpf Urine Bacteria None seen None Seen /hpf Urine Yeast (Budding) Occasional None Seen /hpf Urine Glucose Normal Normal mg/dL Troponin I High Sensitivity 3 L </=34 ng/L Eosinophils (%) (Auto) 4.7 0.0-7.0 % Eosinophils # (Auto) 0.3 0-0.8 10 ^3/uL Basophils # (Auto) 0.1 0-0.2 10 ^3/uL Nucleated Red Blood Cells 0.1 % PATIENT: FELA RIVERA ACCT: [id number] UNIT: [id number] : 1950 LOC: ER ROOM / BED: / AGE / SEX: 73 / F ADM STATUS: REG ER SERVICE 01 ORDERING PHYSICIAN: LUKE LOCKE MD PROCEDURE(s): CXRP - CHEST PORTABLE REASON: sob ORDER NUMBER(s): [id number], ACCESSION NUMBER(s): [id number] CHEST RADIOGRAPH Indication:sob Technique: Single frontal view of the chest was obtained Comparison: XY CHEST PORTABLE on DOS: 04/10/24, XY CHEST XRAY 1 VIEW on DOS: 03/30/24, XY CHEST XRAY 1 VIEW on DOS: 03/28/24 FINDINGS: Lines and Tubes: None Lungs: No focal consolidation. Pleura: No effusion. No pneumothorax. Cardiomediastinal contours: Unremarkable patient's right hand is superimposed over the right chest and mediastinum obscuring detail. Consider repeat study Bones: No acute osseous abnormality. IMPRESSION: 1. No acute cardiopulmonary disease. Assessment/Plan Assessment/Plan Hypotensive episode Anemia, unspecified Electrolyte imbalance Generalized weakness Urinary tract infection Acute on chronic renal failure Plan 1. Admit to telemetry unit 2. Breathing treatment 3. Pain control management 4. IV antibiotic management 5. Management of fluids and electrolytes 6. Consultation for Nephrology 7. Diagnostic test head CT 8. DVT prophylaxis-on aspirin 9. Repeat labs CBC, CMP in a.m. 10. Home medication reviewed and reconciled 11. Continue with current medical management 12. Treatment plan discussed with patient and RN. Patient verbalized understanding. Plan discussed with: Patient, Other (RN) My Orders Orders - LORRI ZAMORA DNP Procedure Category Date Status Time Complete Blood Count LAB 04/23/24 In Process 04:00 Comprehensive LAB 04/23/24 In Process Metabolic Panel 04:00 Clopidogrel Bisulfate PHA 04/23/24 In Process (Plavix) 10:00 Famotidine Injection PHA 04/23/24 In Process (Pepcid Injection) 10:00 Levofloxacin 250mg PHA 04/23/24 In Process (Levaquin 250mg) 21:00 *[facility] CONS 04/23/24 Transmitted -[place] 00:51 Allergies MATTHEW 04/23/24 In Process 00:51 Code Status CODE 04/23/24 Transmitted 00:51 Sodium Chloride 0.9% PHA 04/23/24 In Process 01:00 Oxygen Per Hour RT 04/23/24 Transmitted 00:51 Hydrocodone-Acet PHA 04/23/24 In Process 5/325mg Tab ([place] 01:00 Ondansetron Hcl PHA 04/23/24 In Process (Zofran) 01:00 Docusate Sodium PHA 04/23/24 In Process Capsule (Colace 01:00 Fall Risk Precautions MATTHEW 04/23/[address] 00:51 Complete Blood Count LAB 04/24/24 Verified 04:00 Comprehensive LAB 04/24/24 Verified Metabolic Panel 04:00 Cardiac DIET 04/23/24 Transmitted Diet-2gna,Lofat,Lochol Breakfast Condition: Serious MATTHEW 04/23/24 In Process 00:51 Acetaminophen Tablet PHA 04/23/24 In Process (Tylenol Tablet) 01:00 Sequential MATTHEW 04/23/24 In Process Compression Device Atorvastatin (Lipitor) PHA 04/23/24 In Process 22:00 Problem List: (1) Hypotensive episode (2) Anemia, unspecified (3) Acute on chronic renal failure (4) Electrolyte imbalance (5) Generalized weakness (6) UTI (urinary tract infection) Date of Service: Apr 23, 2024 Billing Provider: LORRI ZAMORA DNP Common Visit Codes: [id number] INP/OBS CARE (HIGH) LORRI ZAMORA DNP Apr 23, 2024 04:30
[2024-04-23] MEDS: ACETAMINOPHEN 325 MG TAB PO PRN (05:31)
--- NOTE | 2024-04-23 06:19 | ECG ---
[facility] Test Date: 2024-04-22 Test Time: 19:17:36 Pat Name: FELA RIVERA Department: ED Room: 0235T Gender: F Schedule Announcer: CHRIST : 1950 Requested By: LUKE LOCKE Order Number: [id number] Reading MD: Eliel Juarez Measurements Intervals [place] Rate: 98 P: 87 MD: 143 QRS: 68 QRSD: 97 T: 138 QT: 400 QTc: 511 Interpretive Statements Sinus rhythm Inferior infarct, old Prolonged QT interval Electronically Signed On 04-27-2024 11:11:11 PST by Eliel Juarez Please click the below link to view image of tracing.
[2024-04-23] MEDS: SODIUM CHLORIDE 0.9% 1,000 ML IV SCH (08:00)
[2024-04-23] MEDS: FAMOTIDINE (10MG/ML) 2ML VL IV SCH (09:45)
[2024-04-23] MEDS: CLOPIDOGREL BISULFATE 75 MG TAB PO SCH (09:45)
[2024-04-23] MEDS ORDERED: AZITHROMYCIN 500MG/ 250ML 250 ML IV SCH (10:00)
--- NOTE | 2024-04-23 10:41 | DVHINCON2 ---
Date of service: Apr 23, 2024 Referring Physician Wilber Wellington NP Reason for Consultation Acute kidney injury History of Present Illness Mrs. Dillard is a 73-year-old female with known history of chronic kidney disease with baseline creatinine of approximately 1.5 who presented for further evaluat ion and management of hypotension at the [facility] where she was a resident. She is seen in her room this morning she is somnolent but arousable, patient's sitter is at bedside. Consultation requested due to serum creatinine elevated above her baseline. She denies current dyspnea or chest pain. Past Medical History Arthritis, CHF, GERD, High Lipids, HTN, Seizures Allergies: Coded Allergies: Penicillins (Verified Allergy, Intermediate, 02/02/21) Home Meds Active Scripts Ferrous Sulfate (Ferrous Sulfate) 325 Mg Tab, 325 MG PO TUTHSA for 30 Days, #30 TAB Prov:RINKU HURT RESIDENT 04/05/24 Reported Medications Ondansetron Odt 4MG Tab (ZOFRAN PO) 4 Mg Tb, 1 TAB PO BID for 15 Days, #30 ODT TAB-DISSOLVE IN MOUTH, THEN SWALLOW 03/30/24 Potassium Chloride (Potassium Chloride ER) 10 Meq Tab, 1 TAB PO BID for 90 Days, #180 03/30/24 Prednisolone Acetate (Prednisolone Acetate P-F) 1 % Mayi, 1 DROP LEFTEYE QID 12/24/23 Allopurinol (Allopurinol) 100 Mg Tab, 1 TAB PO DAILY 12/24/23 Baclofen (Baclofen) 10 Mg Tab, 20 MG PO BID PRN Take 1 tablet by mouth without regards to meals as needed twice daily. 12/24/23 Buprenorphine (BUTRANS) 5 Mcg/Hr Dis, 1 PATCH TD QWEEKLY for 28 Days, #4 APPLY 1 PATCH TRANSDERMALLY ONCE A WEEK NEEDED. 12/24/23 Atorvastatin Calcium (Lipitor) 10 Mg Tab, 1 TAB PO DAILY, #30 5 Refills 12/24/23 Oxycodone W/ Acetaminophen (Apap/Oxycodone) 1 Tab Tab, 1 TAB PO QID PRN for LOW BACK PAIN for 30 Days 12/24/23 Gabapentin (Gabapentin) 300 Mg Cap, 1 CAP PO DAILY for 90 Days, #90 12/24/23 Clopidogrel Bisulfate (CLOPIDOGREL) 75 Mg Tab, 1 TAB PO DAILY 04/20/23 Cyanocobalamin (Vitamin B-12) 1,000 Mcg Tab, 1 TAB PO DAILY for 90 Days, #90 04/20/23 Megestrol Acetate (Megace) 20 Mg Tb, 1 TAB PO BID for 30 Days, #60 04/20/23 Furosemide (Furosemide) 20 Mg Tab, 1 TAB PO DAILY for 90 Days, #90 04/20/23 Ergocalciferol (Vitamin D) 50,000 Unit Cap, 1 CAP PO QWEEKLY for 84 Days, #12 04/20/23 Omeprazole (Omeprazole Dr) 20 Mg Cap, 1 CAP PO DAILY for 90 Days, #90 04/20/23 Magnesium Oxide (MAGNESIUM OXIDE) 400 Mg Tab, 1 TAB PO BID for 30 Days, #60 04/20/23 Current Medications Current Medications Medications (Trade) Dose Ordered Sig/Arielle Route PRN Reason Start Time Stop Time Status Last Admin Clopidogrel Bisulfate (Plavix) 75 mg DAILY PO 04/23/24 10:00 04/23/24 09:45 Famotidine (Pepcid Injection) 20 mg DAILY IV 04/23/24 10:00 04/23/24 09:45 Levofloxacin 50 ml @ 50 mls/hr DAILY@2100 IV 04/23/24 21:00 04/23/24 08:50 DC Sodium Chloride 1,000 ml @ 60 mls/hr [id number] IV 04/23/24 01:00 04/23/24 08:00 Acetaminophen/ Hydrocodone Bitart ([place] 5/325MG Tab) 1 tab Q4HP PRN PO MODERATE PAIN (4-6 PAIN SCALE) 04/23/24 01:00 04/23/24 07:48 Ondansetron HCl (Zofran) 4 mg Q4HP PRN IV NAUSEA / VOMITING 04/23/24 01:00 Docusate Sodium (Colace Capsule) 100 mg BIDPRN PRN PO FOR CONSTIPATION 04/23/24 01:00 Acetaminophen (Tylenol Tablet) 650 mg Q6HP PRN PO PAIN SCALE 1-3 OR TEMP>100.4 04/23/24 01:00 04/23/24 05:31 Atorvastatin Calcium (Lipitor) 10 mg HS PO 04/23/24 22:00 Nitroglycerin (Ntrostat Sublingual) 0.4 mg Q5MINP PRN SL FOR CHEST PAIN 04/23/24 04:00 Morphine Sulfate 2 mg Q30M PRN IV FOR CHEST PAIN 04/23/24 04:00 Ceftriaxone Sodium 50 ml @ 100 mls/hr DAILY@09 IV 04/23/24 09:00 Azithromycin 250 ml @ 125 mls/hr DAILY IV 04/23/24 10:00 04/23/24 09:43 DC Family History: Patient reports no known family medical history. Review of Systems Denies gross hematuria, dysuria, tea or Coca-Cola colored urine Denies excessive use of recent NSAIDs, foamy urine, recent IV contrast studies Denies recent chest pain, dyspnea, PND, orthopnea Denies fever, chills, nausea, vomiting, diarrhea Denies unintentional weight loss, night sweats Denies focal weakness, numbness H&P Exam Vital Signs/I&O Vital Sign Date Time Temp Pulse Resp B/P (MAP) Pulse Ox O2 Delivery O2 Flow Rate FiO2 04/23/24 08:14 79 04/23/24 07:51 14 100 Room Air* 0 21 04/23/24 06:00 107/65 (79) 04/22/24 20:00 97.8 97.8 Intake and Output 04/22/24 04/23/24 19:00 07:00 Intake Total 1750 ml Balance 1750 ml Intake IV Total 1750 ml Physical Exam Gen: nad, cachectic, chronically ill-appearing heent: nc/at, mmm lungs: cta anteriorly cvs: no rub abd: soft, bowel sounds audible ext: no edema skin: no rash neuro: Arousable Labs/Diagnostic Data Labs/Diagnostic Data Laboratory Tests Test 04/23/24 03:37 04/22/24 21:48 04/22/24 21:12 04/22/24 20:17 Range/Units White Blood Count 6.1 6.3 4.4-10.8 10^3/uL Red Blood Count 2.36 L 2.59 L 4.0-5.20 10^6/uL Hemoglobin 7.6 L 8.4 L 12.2-16.2 g/dL Hematocrit 22.0 L 24.3 L 36.0-46.0 % Mean Corpuscular Volume 93.2 94.0 80.0-100.0 fL Mean Corpuscular Hemoglobin 32.1 H 32.3 H 28.0-32.0 pg Mean Corpuscular Hemoglobin Concent 34.5 34.4 32.0-36.0 g/dL Red Cell Distribution Width 14.2 14.1 11.8-14.3 % Platelet Count 157 162 140-450 10^3/uL Mean Platelet Volume 7.2 7.2 6.9-10.8 fL Neutrophils (%) (Auto) 61.3 62.2 37.0-80.0 % Lymphocytes (%) (Auto) 17.4 15.8 10.0-50.0 % Monocytes (%) (Auto) 15.2 H 15.8 H 0.0-12.0 % Eosinophils (%) (Auto) 5.4 4.7 0.0-7.0 % Basophils (%) (Auto) 0.7 1.5 0.0-2.0 % Neutrophils # (Auto) 3.7 3.9 1.6-8.6 10 ^3/uL Lymphocytes # (Auto) 1.1 1.0 0.4-5.4 10 ^3/uL Monocytes # (Auto) 0.9 1.0 0-1.3 10 ^3/uL Eosinophils # (Auto) 0.3 0.3 0-0.8 10 ^3/uL Basophils # (Auto) 0 0.1 0-0.2 10 ^3/uL Nucleated Red Blood Cells 0.0 0.1 % Sodium Level 136 134 #L 136-145 mmol/L Potassium Level 3.1 L 3.4 L 3.5-5.1 mmol/L Chloride Level 103 94 L 98-107 mmol/L Carbon Dioxide Level 27 30 20-31 mmol/L Anion Gap 6 10 5-15 Blood Urea Nitrogen 45 #H 62 H 9-23 mg/dL Creatinine 2.52 H 2.79 #H 0.550-1.02 mg/dL Glomerular Filtration Rate Calc 20 17 >90 mL/min BUN/Creatinine Ratio 17.9 22.2 H 10.0-20.0 Serum Glucose 95 106 74-106 mg/dL Calcium Level 6.5 L 6.4 L 8.7-10.4 mg/dL Total Bilirubin 0.4 0.2-1.0 mg/dL Aspartate Amino Transferase (AST) 19 13-40 U/L Alanine Aminotransferase (ALT) 18 7-40 U/L Alkaline Phosphatase 118 H 46-116 U/L Total Protein 5.1 L 5.7-8.2 g/dL Albumin 3.2 3.2-4.8 g/dL Urine Color Light-orange Yellow Urine Clarity Clear Clear Urine pH 6.5 5.0-9.0 Urine Specific [place] 1.017 1.001-1.035 Urine Protein Trace H Negative Urine Ketones Negative Negative Urine Blood Negative Negative /uL Urine Nitrite Negative Negative Urine Bilirubin Negative Negative Urine Urobilinogen Normal Negative mg/dL Urine Leukocyte Esterase 1+ Negative /uL Urine RBC 1 0 - 4 /hpf Urine WBC 11 0 - 5 /hpf Urine Squamous Epithelial Cells Few <5 /hpf Urine Bacteria None seen None Seen /hpf Urine Yeast (Budding) Occasional None Seen /hpf Urine Glucose Normal Normal mg/dL Troponin I High Sensitivity 3 L 4 </=34 ng/L Assessment IMP: 1) Hemodynamically mediated GRACIELA and vasomotor nephropathy, possible prerenal state. Appears volume deplete on exam 2) CKD IIIb 3) symptomatic hypotension 4) history of heart failure 5) history of seizure disorder REC: - check urine studies, serial chemistry panels - judicious IV fluid challenge should there be a component of volume depletion - avoidance of NSAIDs, intravenous contrast studies if able - we will continue to follow closely along with you. Thank you for the consultation Plan discussed with: Other PIO LAZO MD Apr 23, 2024 10:41
[2024-04-23] MEDS: cefTRIAXone 1GM/50ML D5W 50 ML IV SCH (12:38)
--- NOTE | 2024-04-23 17:06 | DVHPNRES ---
Progress Note Date Seen: Apr 23, 2024 Resident Creating Document: RAEGAN RODRÍGUEZ RESIDENT Has the PT tested + for MRSA If YES, has PT been informed?: No Medical Necessity Reason Pt with a Central, PICC or Fol: No Subjective Review of Systems This is a 73-year-old female with past medical history of arthritis, CHF, GERD, seizures, hyperlipidemia, hypertension who presented to the ED for evaluation of hypotension. As reported by EMS patient was residing on [facility] where she started having hypotension before coming to the ED. staff at [place] was reported that lower blood pressure was 60/28 mmHg. By EMS, they reported blood pressure readings with systolic blood pressure in the 90s. Patient was initially evaluated in the ED were CBC and CMP were grossly unremarkable except for hypokalemia and creatinine at 2.79 with a BUN of 62. Blood pressure initially was low at 92/54 mmHg. There was no evidence of fever or any requirement of oxygen at that time. Urinalysis was performed which came back positive suggesting urinary tract infection. Patient was started on IV fluids at 60 cc/hour and IV azithromycin and ceftriaxone. Patient was admitted for further assessment and management. Patient seen and examined at bedside. Patient is currently complaining of suprapubic pain that is worse with palpation in the suprapubic area. UA came back positive for UTI for which IV antibiotics are being administered at this time. We also started the patient on IV fluids at 60 cc/hour due to hypotension in possible setting of sepsis due to UTI. We also ordered urine bacterial cultures but meanwhile we will continue with current IV antibiotics. Patient also complains of left knee pain which is most likely due to severe advanced osteoarthritis. No additional complaints at this time. ROS Constitutional: Denies weight loss, fever and chills. HEENT: Denies changes in vision and hearing. Respiratory: Denies shortness of breath and cough Cardiovascular: Denies chest discomfort or palpitations GI: Reports suprapubic tenderness upon palpation. Denies nausea, vomiting and diarrhea. : Denies dysuria and urinary frequency. Musculoskeletal: Reports severe left knee pain. Denies myalgias and joint pain Skin: Denies rash and pruritus. Neurological: Denies dizziness, headache, vision or hearing problems Objective vital signs Vital Sign Date Time Temp Pulse Resp B/P (MAP) Pulse Ox O2 Delivery O2 Flow Rate FiO2 04/23/24 12:53 76 17 95/47 (63) 93 04/23/24 09:49 97.7 97.7 04/23/24 09:49 Room Air* 0 21 Total Intake and Output 04/22/24 04/22/24 04/23/24 15:00 23:00 07:00 Intake Total 1150 ml 600 ml Balance 1150 ml 600 ml medications Current Medications Medications Dose Ordered Sig/Arielle Route Start Time Stop Time Status Last Admin Dose Admin Clopidogrel Bisulfate 75 mg DAILY PO 04/23/24 10:00 04/23/24 09:45 75 MG Famotidine 20 mg DAILY IV 04/23/24 10:00 04/23/24 09:45 20 MG Sodium Chloride 1,000 ml @ 60 mls/hr [id number] IV 04/23/24 01:00 04/23/24 08:00 60 MLS/HR Acetaminophen/ Hydrocodone Bitart 1 tab Q4HP PRN PO 04/23/24 01:00 04/23/24 12:39 1 TAB Ondansetron HCl 4 mg Q4HP PRN IV 04/23/24 01:00 Docusate Sodium 100 mg BIDPRN PRN PO 04/23/24 01:00 Acetaminophen 650 mg Q6HP PRN PO 04/23/24 01:00 04/23/24 05:31 650 MG Atorvastatin Calcium 10 mg HS PO 04/23/24 22:00 Nitroglycerin 0.4 mg Q5MINP PRN SL 04/23/24 04:00 Morphine Sulfate 2 mg Q30M PRN IV 04/23/24 04:00 Ceftriaxone Sodium 50 ml @ 100 mls/hr DAILY@09 IV 04/23/24 09:00 04/23/24 12:38 100 MLS/HR Examination Physical Examination General: Patient alert and oriented in person, place and time. Patient following commands. HEENT: Normocephalic, atraumatic, moist mucous membranes Respiratory/pulmonary: Clear lungs bilaterally, no associated crackles or wheezes. Cardiovascular: Normal heart sounds S1 and S2 with no associated murmurs Abdomen: Abdomen nondistended, there is moderate pain to palpation at the suprapubic region. no palpable masses. Extremities: There is no peripheral edema present at the lower extremities. Peripheral Pulses: 3+ Radial (R). 3+ Radial (L). 3+ Dorsalis pedis (R). 3+ Dorsalis pedis(L) Skin: No rashes or pruritus, there is no sacral edema present at this time. Neurological: Intact cranial nerves with no focal neurologic deficits laboratory and microbiology Laboratory Tests 04/23/24 03:37 Test 04/23/24 03:37 Range/Units Serum Glucose 95 74-106 mg/dL Microbiology Date/Time Source Procedure Growth Status 04/22/24 21:48 Urine - [place] Urine Culture - Preliminary Resulted Problem List/Assessment/Plan Problem List/Assessment/Plan Assessment/Plan Severe hypotension likely in the setting of UTI -initial WBC was normal range -patient was slightly tachycardic, no fever, no leukocytosis, no tachypnea, no criteria for sepsis met at all -urinalysis came back positive for UTI -Stop Levofloxacin -started IV ceftriaxone and azithromycin -start IV fluids at 60 cc/hour -monitor electrolytes -monitor blood pressure closely UTI -UA came back positive for UTI -start IV ceftriaxone -ordered urine bacterial culture, continue current antibiotics until cultures come back. Hypokalemia -potassium today was 3.1, repleted with 40 mEq of potassium Dyslipidemia -continue atorvastatin 10 mg q.d. Chronic diastolic heart failure HFpEF 55% -last echocardiogram on 12/24/2023 showed an LVEF of 55% with normal cardiac valves and no pericardial effusion -hold BP medications at this time due to hypotension -monitor blood pressure closely GERD -continue famotidine 20 mg q.d. Left knee pain likely due to severe advanced osteoarthritis -monitor and pain medication -follow-up as an outpatient. Goals of care discussed with the patient at bedside for > 23min, FULL CODE Plan discussed with Dr. Hansen Plan discussed with: Patient (Plan discussed with the patient we agreed and understood.) My Orders My Orders Orders - RAEGAN RODRÍGUEZ Procedure Category Date Status Time Blood Culture REINIER 04/23/24 In Process 08:43 Ceftriaxone 1gm/50ml PHA 04/23/24 In Process D5w (Rocephin) 09:00 Covid19 Antigen [facility] 04/23/24 Logged Rapid Influenza A&B LAB 04/23/24 Logged 08:52 Mrsa Screen REINIER 04/23/24 Uncollected 11:48 Date of Service: Apr 23, 2024 Billing Provider: MISAEL HANSEN MD Common Visit Codes: [id number] INP/OBS CARE(HIGH) Secondary Visit Codes: [id number] CARE PLAN 30 MINUTES RAEGAN RODRÍGUEZ Apr 23, 2024 17:06 MISAEL HANSEN MD Apr 24, 2024 22:10
[2024-04-23] MEDS ORDERED: levoFLOXacin 250MG 50 ML IV SCH (21:00)
[2024-04-23 21:50] LABS: Rapid Influenza A Negative (Negative); Rapid Influenza B Negative (Negative)
[2024-04-23 21:52] LABS: COVID19 ANTIGEN SOFIA FIA POSITIVE (NEGATIVE)
[2024-04-23] MEDS: ATORVASTATIN 20 MG TAB PO SCH (22:48)
[2024-04-24 05:00] VITALS: BP 108/64; PULSE 115; RESP 19; TEMP 98.5; O2SAT 97
[2024-04-24 08:00] VITALS: PULSE 113; PULSE 72; RESP 19; O2SAT 94
[2024-04-24] MEDS ORDERED: ENOXAPARIN SOD 40 MG/0.4 ML SYRINGE SC SCH (10:00)
--- NOTE | 2024-04-24 10:20 | DVH ---
BILATERAL LOWER EXTREMITY VENOUS DOPPLER CLINICAL HISTORY: R/O DVT Technique: Duplex Doppler evaluation of the deep venous systems of both lower extremities from the co mmon femoral veins to the popliteal veins including color Doppler and spectral/pulsed waveform analys is was performed. COMPARISON: US BILAT LOWER DVT on DOS: 03/28/24 FINDINGS: The right and left common femoral, superficial femoral, popliteal, posterior tibial and peroneal vein s appear patent with normal augmentation, phasicity, compressibility and color-flow. There are small Chung's cyst in the right and left popliteal fossa measuring 2.8 x 1.2 cm and 2.0 x 0.5 cm. IMPRESSION: 1. There is no sonographic evidence for DVT in the lower extremities. 2. Small chung's cyst in the bilateral popliteal fossas. HS:Y
[2024-04-24 13:03] VITALS: BP 93/50; PULSE 87; RESP 17; TEMP 98; O2SAT 99
--- NOTE | 2024-04-24 13:13 | DVHPN2 ---
Progress Note Date Seen: Apr 24, 2024 Has the PT tested + for MRSA If YES, has PT been informed?: No Medical Necessity Reason Pt with a Central, PICC or Fol: No Subjective Patient reports: No new complaints Objective vital signs Vital Sign Date Time Temp Pulse Resp B/P (MAP) Pulse Ox O2 Delivery O2 Flow Rate FiO2 04/24/24 13:03 98.0 87 17 93/50 (64) 99 98.0 04/23/24 20:00 Room Air* 0 21 Total Intake and Output 04/23/24 04/23/24 04/24/24 15:00 23:00 07:00 Intake Total 750 ml 300 ml Output Total 350 ml Balance 750 ml -50 ml medications Current Medications Medications Dose Ordered Sig/Arielle Route Start Time Stop Time Status Last Admin Dose Admin Clopidogrel Bisulfate 75 mg DAILY PO 04/23/24 10:00 04/24/24 09:51 75 MG Famotidine 20 mg DAILY IV 04/23/24 10:00 04/24/24 12:04 20 MG Sodium Chloride 1,000 ml @ 60 mls/hr [id number] IV 04/23/24 01:00 04/23/24 18:35 60 MLS/HR Acetaminophen/ Hydrocodone Bitart 1 tab Q4HP PRN PO 04/23/24 01:00 04/24/24 09:50 1 TAB Ondansetron HCl 4 mg Q4HP PRN IV 04/23/24 01:00 Docusate Sodium 100 mg BIDPRN PRN PO 04/23/24 01:00 Acetaminophen 650 mg Q6HP PRN PO 04/23/24 01:00 04/23/24 05:31 650 MG Atorvastatin Calcium 10 mg HS PO 04/23/24 22:00 04/23/24 22:48 10 MG Nitroglycerin 0.4 mg Q5MINP PRN SL 04/23/24 04:00 Morphine Sulfate 2 mg Q30M PRN IV 04/23/24 04:00 Ceftriaxone Sodium 50 ml @ 100 mls/hr DAILY@09 IV 04/23/24 09:00 04/24/24 09:50 100 MLS/HR Enoxaparin Sodium 40 mg DAILY SC 04/24/24 10:00 UNV Enoxaparin Sodium 30 mg DAILY SC 04/25/24 10:00 Enteral Nutritional Formula 240 ml BIDWM PO 04/24/24 18:00 Cholecalciferol 2,000 unit DAILY PO 04/25/24 10:00 Zinc Sulfate 220 mg DAILY PO 04/25/24 10:00 Ascorbic Acid 500 mg DAILY PO 04/25/24 10:00 laboratory and microbiology Laboratory Tests 04/23/24 03:37 Test 04/23/24 03:37 Range/Units Serum Glucose 95 74-106 mg/dL Microbiology Date/Time Source Procedure Growth Status 04/23/24 12:30 Nose MRSA Screen - Final Complete 04/22/24 21:48 Urine - [place] Urine Culture - Preliminary Resulted Problem List/Assessment/Plan Problem List/Assessment/Plan 1) Hemodynamically mediated GRACIELA , possible prerenal state. 2) CKD IIIb 3) symptomatic hypotension 4) history of heart failure 5) history of seizure disorder covid + recs gentle ivf for today will montitor closely Plan discussed with: Patient SALOMÓN FARLEY MD Apr 24, 2024 13:13
--- NOTE | 2024-04-24 13:45 | DVHPNRES ---
Progress Note Date Seen: Apr 24, 2024 Resident Creating Document: RAEGAN RODRÍGUEZ RESIDENT Has the PT tested + for MRSA If YES, has PT been informed?: No Medical Necessity Reason Pt with a Central, PICC or Fol: No Subjective Review of Systems Patient seen and examined at bedside. Patient was complaining of severe bilateral lower extremity pain for which bilateral lower extremity venous Doppler was ordered and came back showing no evidence of DVTs. Patient also tested positive for COVID but denies any acute respiratory distress and there is no supplemental oxygen requirement at this time. We started the patient on ensure b.i.d., vitamin-C, vitamin-D due to severe malnourishment. Urine culture came back showing no growth in the last 48 hours. Colostomy bag was leaking in the dial marker but was changed afterwards. ROS Constitutional: Denies weight loss, fever and chills. HEENT: Denies changes in vision and hearing. Respiratory: Denies shortness of breath and cough Cardiovascular: Denies chest discomfort or palpitations GI: Denies abdominal pain, nausea, vomiting and diarrhea. : Denies dysuria and urinary frequency. Musculoskeletal: Reports Bilateral lower extremity pain. Denies myalgias and joint pain Skin: Denies rash and pruritus. Neurological: Denies dizziness, headache, vision or hearing problems Objective vital signs Vital Sign Date Time Temp Pulse Resp B/P (MAP) Pulse Ox O2 Delivery O2 Flow Rate FiO2 04/24/24 13:03 98.0 87 17 93/50 (64) 99 98.0 04/23/24 20:00 Room Air* 0 21 Total Intake and Output 04/23/24 04/23/24 04/24/24 15:00 23:00 07:00 Intake Total 750 ml 300 ml Output Total 350 ml Balance 750 ml -50 ml medications Current Medications Medications Dose Ordered Sig/Arielle Route Start Time Stop Time Status Last Admin Dose Admin Clopidogrel Bisulfate 75 mg DAILY PO 04/23/24 10:00 04/24/24 09:51 75 MG Famotidine 20 mg DAILY IV 04/23/24 10:00 04/24/24 12:04 20 MG Sodium Chloride 1,000 ml @ 60 mls/hr [id number] IV 04/23/24 01:00 04/23/24 18:35 60 MLS/HR Acetaminophen/ Hydrocodone Bitart 1 tab Q4HP PRN PO 04/23/24 01:00 04/24/24 09:50 1 TAB Ondansetron HCl 4 mg Q4HP PRN IV 04/23/24 01:00 Docusate Sodium 100 mg BIDPRN PRN PO 04/23/24 01:00 Acetaminophen 650 mg Q6HP PRN PO 04/23/24 01:00 04/23/24 05:31 650 MG Atorvastatin Calcium 10 mg HS PO 04/23/24 22:00 04/23/24 22:48 10 MG Nitroglycerin 0.4 mg Q5MINP PRN SL 04/23/24 04:00 Morphine Sulfate 2 mg Q30M PRN IV 04/23/24 04:00 Ceftriaxone Sodium 50 ml @ 100 mls/hr DAILY@09 IV 04/23/24 09:00 04/24/24 09:50 100 MLS/HR Enoxaparin Sodium 40 mg DAILY SC 04/24/24 10:00 UNV Enoxaparin Sodium 30 mg DAILY SC 04/25/24 10:00 Enteral Nutritional Formula 240 ml BIDWM PO 04/24/24 18:00 Cholecalciferol 2,000 unit DAILY PO 04/25/24 10:00 Zinc Sulfate 220 mg DAILY PO 04/25/24 10:00 Ascorbic Acid 500 mg DAILY PO 04/25/24 10:00 Examination Physical Examination General: Patient alert and oriented in person, place and time. Patient following commands. HEENT: Normocephalic, atraumatic, moist mucous membranes Respiratory/pulmonary: Clear lungs bilaterally, no associated crackles or wheezes. Cardiovascular: Normal heart sounds S1 and S2 with no associated murmurs Abdomen: Abdomen nondistended, there is no pain to palpation in any of the abdominal quadrants, patient has a colostomy bag on place which was changed this morning. no palpable masses. Extremities: There is no peripheral edema present at the lower extremities. Peripheral Pulses: 3+ Radial (R). 3+ Radial (L). 3+ Dorsalis pedis (R). 3+ Dorsalis pedis(L) Skin: No rashes or pruritus, there is no sacral edema present at this time. Neurological:Intact cranial nerves not evaluated independently, patient seems anxious and slightly irritable. laboratory and microbiology Laboratory Tests 04/23/24 03:37 Test 04/23/24 03:37 Range/Units Serum Glucose 95 74-106 mg/dL Microbiology Date/Time Source Procedure Growth Status 04/23/24 12:30 Nose MRSA Screen - Final Complete 04/22/24 21:48 Urine - [place] Urine Culture - Preliminary Resulted Problem List/Assessment/Plan Problem List/Assessment/Plan Assessment/Plan Severe hypotension likely in the setting of UTI -initial WBC was normal range -patient was slightly tachycardic, no fever, no leukocytosis, no tachypnea, no criteria for sepsis met at all -urinalysis came back positive for UTI -continue IV ceftriaxone -continue IV fluids at 60 cc/hour -monitor electrolytes -monitor blood pressure closely UTI -UA came back positive for UTI -Continue IV ceftriaxone -ordered urine bacterial culture, continue current antibiotics until cultures come back. Hypokalemia -potassium today was 3.1, repleted with 40 mEq of potassium Dyslipidemia -continue atorvastatin 10 mg q.d. Chronic diastolic heart failure HFpEF 55% -last echocardiogram on 12/24/2023 showed an LVEF of 55% with normal cardiac valves and no pericardial effusion -hold BP medications at this time due to hypotension -monitor blood pressure closely GERD -continue famotidine 20 mg q.d. Left knee pain likely due to severe advanced osteoarthritis -Ordered Bilat lower ext venous doppler which showed no evidence of DVTs at this time there are bilateral Chung cyst on both popliteal fossas. -monitor and pain medication -follow-up as an outpatient. COVID+ Mostly asymptomatic, on room air, no hypoxia No indication for Remdesivir or steroids -start vitamin-C, vitamin-D, Zinc -start ensure BID Goals of care discussed with the patient at bedside for > 23min, FULL CODE Plan discussed with Dr. Hansen Plan discussed with: Patient My Orders My Orders Orders - RAEGAN RODRÍGUEZ Procedure Category Date Status Time Bilat Lower Dvt US 04/24/24 Resulted 08:39 Enoxaparin Sodium PHA 04/25/24 In Process (Lovenox) 10:00 Date of Service: Apr 24, 2024 Billing Provider: MISAEL HANSEN MD Common Visit Codes: [id number] INP/OBS CARE(HIGH) RAEGAN RODRÍGUEZ RESIDENT Apr 24, 2024 13:45 MISAEL HANSEN MD Apr 24, 2024 22:13
[2024-04-24 14:08] LABS: Basophils # (auto) 0.1 10 ^3/uL (0-0.2); Eosinophils # (auto) 0 10 ^3/uL (0-0.8); Hemoglobin 8.2 g/dL (12.2-16.2); Lymphocytes # (auto) 1.3 10 ^3/uL (0.4-5.4); Mean Corpuscular Volume 94.5 fL (80.0-100.0)
[2024-04-24 14:09] LABS: Basophils % (auto) 1.2 % (0.0-2.0); Eosinophils % (auto) 0.7 % (0.0-7.0); Hematocrit 23.9 % (36.0-46.0); Lymphocytes % (auto) 19.3 % (10.0-50.0); Mean Corpuscular Hemoglobin 32.4 pg (28.0-32.0); Mean Corpuscular Hgb Conc. 34.3 g/dL (32.0-36.0); Monocytes # (auto) 0.7 10 ^3/uL (0-1.3); Neutrophils # (auto) 4.6 10 ^3/uL (1.6-8.6); Neutrophils % (auto) 67.8 % (37.0-80.0); Nucleated Red Blood Cells % 0.1 %; Platelet Count (auto) 195 10^3/uL (140-450); Red Blood Cells 2.53 10^6/uL (4.0-5.20); Red Cell Distribution Width 14.6 % (11.8-14.3); White Blood Cell 6.8 10^3/uL (4.4-10.8)
[2024-04-24 14:30] LABS: Alanine Aminotransferase 21 U/L (7-40); Albumin 3.4 g/dL (3.2-4.8); Alkaline Phosphatase 106 U/L (46-116); Anion Gap 8 (5-15); Aspartate Aminotransferase 25 U/L (13-40); BUN/Creatinine Ratio 19.2 (10.0-20.0); Calcium 7.2 mg/dL (8.7-10.4); Carbon Dioxide 24 mmol/L (20-31); Chloride 103 mmol/L (98-107); Glucose 134 mg/dL (74-106); Sodium 135 mmol/L (136-145)
[2024-04-24 14:31] LABS: Bilirubin, Total 0.4 mg/dL (0.2-1.0); Total Protein 5.8 g/dL (5.7-8.2)
[2024-04-24 14:38] LABS: Blood Urea Nitrogen 32 mg/dL (9-23)
[2024-04-24] MEDS: ZINC SULFATE 220mg CAP or TAB PO ONE (15:14)
[2024-04-24] MEDS: ASCORBIC ACID 500 MG TAB PO ONE (15:14)
[2024-04-24] MEDS: CHOLECALCIFEROL (VITD3) 1,000UNIT=25mCg TAB PO ONE (15:14)
[2024-04-24 16:31] VITALS: BP 89/51; PULSE 84; RESP 16; TEMP 98.4; O2SAT 99
[2024-04-24] MEDS: Ensure HIGH Protein Chocolate 8oz Bottle PO SCH (17:21)
[2024-04-24 20:00] VITALS: PULSE 74; PULSE 79; RESP 18; O2SAT 95
[2024-04-24 21:00] VITALS: BP 102/57; PULSE 74; RESP 17; TEMP 97.9; O2SAT 100
[2024-04-25] VITALS (7 sets, daily range): BP systolic 98–129; BP diastolic 57–64; PULSE 62–94; RESP 16–20; TEMP 97.7–98.2; O2SAT 85–99
[2024-04-25 06:28] LABS: Basophils # (auto) 0 10 ^3/uL (0-0.2); Basophils % (auto) 0.7 % (0.0-2.0); Eosinophils # (auto) 0.2 10 ^3/uL (0-0.8); Eosinophils % (auto) 2.5 % (0.0-7.0); Lymphocytes # (auto) 1.2 10 ^3/uL (0.4-5.4); Monocytes # (auto) 0.8 10 ^3/uL (0-1.3); Neutrophils # (auto) 4.1 10 ^3/uL (1.6-8.6); White Blood Cell 6.3 10^3/uL (4.4-10.8)
[2024-04-25 06:30] LABS: Hematocrit 23.5 % (36.0-46.0); Hemoglobin 8.1 g/dL (12.2-16.2); Lymphocytes % (auto) 18.9 % (10.0-50.0); Mean Corpuscular Hemoglobin 32.4 pg (28.0-32.0); Mean Corpuscular Hgb Conc. 34.3 g/dL (32.0-36.0); Mean Corpuscular Volume 94.3 fL (80.0-100.0); Monocytes % (auto) 12.9 % (0.0-12.0); Nucleated Red Blood Cells % 0.3 %; Platelet Count (auto) 196 10^3/uL (140-450); Red Blood Cells 2.49 10^6/uL (4.0-5.20); Red Cell Distribution Width 14.4 % (11.8-14.3)
[2024-04-25 06:39] LABS: Calcium 7.2 mg/dL (8.7-10.4); Chloride 103 mmol/L (98-107); Sodium 135 mmol/L (136-145)
[2024-04-25 06:40] LABS: Anion Gap 9 (5-15); Carbon Dioxide 23 mmol/L (20-31)
[2024-04-25 06:45] LABS: BUN/Creatinine Ratio 16.9 (10.0-20.0); Blood Urea Nitrogen 27 mg/dL (9-23); Glucose 85 mg/dL (74-106)
[2024-04-25 06:52] LABS: Magnesium 0.8 mg/dL (1.6-2.6)
[2024-04-25] MEDS: MAGNESIUM SULFATE 1GM/100ML 100 ML IV SCH (11:00)
[2024-04-25] MEDS: ZINC SULFATE 220mg CAP or TAB PO SCH (11:07)
[2024-04-25] MEDS: CHOLECALCIFEROL (VITD3) 1,000UNIT=25mCg TAB PO SCH (11:07)
[2024-04-25] MEDS: ASCORBIC ACID 500 MG TAB PO SCH (11:07)
[2024-04-25] MEDS: ENOXAPARIN SOD 30 MG/0.3 ML SYRINGE SC SCH (11:08)
--- NOTE | 2024-04-25 13:58 | DVHPNRES ---
Progress Note Date Seen: Apr 25, 2024 Resident Creating Document: RAEGAN RODRÍGUEZ RESIDENT Has the PT tested + for MRSA If YES, has PT been informed?: No Medical Necessity Reason Pt with a Central, PICC or Fol: No Subjective Review of Systems This is a 73-year-old female with past medical history of arthritis, CHF, GERD, seizures, hyperlipidemia, hypertension who presented to the ED for evaluation of hypotension. As reported by EMS patient was residing on [facility] where she started having hypotension before coming to the ED. staff at [facility] was reported that lower blood pressure was 60/28 mmHg. By EMS, they reported blood pressure readings with systolic blood pressure in the 90s. Patient was initially evaluated in the ED were CBC and CMP were grossly unremarkable except for hypokalemia and creatinine at 2.79 with a BUN of 62. Blood pressure initially was low at 92/54 mmHg. There was no evidence of fever or any requirement of oxygen at that time. Urinalysis was performed which came back positive suggesting urinary tract infection. Patient was started on IV fluids at 60 cc/hour and IV azithromycin and ceftriaxone. Patient was admitted for further assessment and management. Patient seen and examined at bedside. Today, the patient still reports mild to moderate abdominal tenderness in the hypogastric region and there was slight leaking of the colostomy bag which will be changed once again. Magnesium came back low at 0.8 for which 3 g of IV magnesium rider was given as well as magnesium oxide 400 mg b.i.d.. We will repeat magnesium levels tomorrow with WBC and BMP. We will re-evaluate the patient tomorrow a.m. and determine if patient could be discharged. ROS Constitutional: Denies weight loss, fever and chills. HEENT: Denies changes in vision and hearing. Respiratory: Denies shortness of breath and cough Cardiovascular: Denies chest discomfort or palpitations GI: Reports mild to moderate tenderness at the hypogastric region. Denies nausea, vomiting and diarrhea. : Denies dysuria and urinary frequency. Musculoskeletal: Denies myalgias and joint pain Skin: Denies rash and pruritus. Neurological: Denies dizziness, headache, vision or hearing problems Objective vital signs Vital Sign Date Time Temp Pulse Resp B/P (MAP) Pulse Ox O2 Delivery O2 Flow Rate FiO2 04/25/24 09:00 97.9 94 16 100/60 (73) 89 97.9 04/25/24 08:00 Room Air* 0 21 Total Intake and Output 04/24/24 04/24/24 04/25/24 15:00 23:00 07:00 Intake Total 1500 ml 700 ml Output Total 300 ml 300 ml 600 ml Balance -300 ml 1200 ml 100 ml medications Current Medications Medications Dose Ordered Sig/Arielle Route Start Time Stop Time Status Last Admin Dose Admin Clopidogrel Bisulfate 75 mg DAILY PO 04/23/24 10:00 04/25/24 11:07 75 MG Famotidine 20 mg DAILY IV 04/23/24 10:00 04/25/24 10:00 20 MG Sodium Chloride 1,000 ml @ 60 mls/hr [id number] IV 04/23/24 01:00 04/23/24 18:35 60 MLS/HR Acetaminophen/ Hydrocodone Bitart 1 tab Q4HP PRN PO 04/23/24 01:00 04/25/24 11:06 1 TAB Ondansetron HCl 4 mg Q4HP PRN IV 04/23/24 01:00 Docusate Sodium 100 mg BIDPRN PRN PO 04/23/24 01:00 Acetaminophen 650 mg Q6HP PRN PO 04/23/24 01:00 04/24/24 14:30 650 MG Atorvastatin Calcium 10 mg HS PO 04/23/24 22:00 04/24/24 21:10 10 MG Nitroglycerin 0.4 mg Q5MINP PRN SL 04/23/24 04:00 Morphine Sulfate 2 mg Q30M PRN IV 04/23/24 04:00 Ceftriaxone Sodium 50 ml @ 100 mls/hr DAILY@09 IV 04/23/24 09:00 04/24/24 09:50 100 MLS/HR Enoxaparin Sodium 40 mg DAILY SC 04/24/24 10:00 UNV Enoxaparin Sodium 30 mg DAILY SC 04/25/24 10:00 04/25/24 11:08 30 MG Enteral Nutritional Formula 240 ml BIDWM PO 04/24/24 18:00 04/25/24 08:00 240 ML Cholecalciferol 2,000 unit DAILY PO 04/25/24 10:00 04/25/24 11:07 2,000 UNIT Zinc Sulfate 220 mg DAILY PO 04/25/24 10:00 04/25/24 11:07 220 MG Ascorbic Acid 500 mg DAILY PO 04/25/24 10:00 04/25/24 11:07 500 MG Magnesium Oxide 400 mg BID PO 04/25/24 22:00 Examination Physical Examination General: Patient alert and oriented in person, place and time. Patient following commands. HEENT: Normocephalic, atraumatic, moist mucous membranes Respiratory/pulmonary: Clear lungs bilaterally, no associated crackles or wheezes. Cardiovascular: Normal heart sounds S1 and S2 with no associated murmurs Abdomen: Abdomen nondistended, there is no pain to palpation in any of the abdominal quadrants, patient has a colostomy bag on place that was slightly leaking this morning . no palpable masses. Extremities: There is no peripheral edema present at the lower extremities. Peripheral Pulses: 3+ Radial (R). 3+ Radial (L). 3+ Dorsalis pedis (R). 3+ Dorsalis pedis(L) Skin: No rashes or pruritus, there is no sacral edema present at this time. Neurological:Intact cranial nerves not evaluated independently, patient seems anxious and slightly irritable. laboratory and microbiology Laboratory Tests 04/25/24 05:20 Test 04/25/24 05:20 Range/Units Serum Glucose 85 74-106 mg/dL Microbiology Date/Time Source Procedure Growth Status 04/23/24 13:59 Blood Blood Culture - Preliminary NO GROWTH AFTER 24 HOURS OF INCUBATION. Resulted 04/23/24 12:30 Nose MRSA Screen - Final Complete 04/22/24 21:48 Urine - [place] Urine Culture - Final Complete Problem List/Assessment/Plan Problem List/Assessment/Plan Assessment/Plan Severe hypotension likely in the setting of UTI -initial WBC was normal range -patient was slightly tachycardic, no fever, no leukocytosis, no tachypnea, no criteria for sepsis met at all -urinalysis came back positive for UTI -continue IV ceftriaxone -continue IV fluids at 60 cc/hour -monitor electrolytes -monitor blood pressure closely UTI -UA came back positive for UTI -Continue IV ceftriaxone -ordered urine bacterial culture, continue current antibiotics until cultures come back. Positive for Covid 19 -currently patient has no respiratory distress -currently saturating 95% on room air -Chest x ray was grossly unremarkable Hypomagnesemia -Mg this morning was 0.8 -3gr of IV mg rider were given and mg oxide 400mg BID was started as well -Monitor electrolytes closely Hypokalemia -potassium today was 3.1, repleted with 40 mEq of potassium Dyslipidemia -continue atorvastatin 10 mg q.d. Chronic diastolic heart failure HFpEF 55% -last echocardiogram on 12/24/2023 showed an LVEF of 55% with normal cardiac valves and no pericardial effusion -hold BP medications at this time due to hypotension -monitor blood pressure closely GERD -continue famotidine 20 mg q.d. Left knee pain likely due to severe advanced osteoarthritis -Ordered Bilat lower ext venous doppler which showed no evidence of DVTs at this time there are bilateral Chung cyst on both popliteal fossas. -monitor and pain medication -follow-up as an outpatient. Severe Malnourish -Continue vitamin-C, vitamin-D, Zinc -Continue ensure BID Goals of care discussed with the patient at bedside for > 23min, FULL CODE Plan discussed with Dr. Hansen Plan discussed with: Patient Date of Service: Apr 25, 2024 Billing Provider: MISAEL HANSEN MD Common Visit Codes: [id number] INP/OBS CARE(HIGH) RAEGAN RODRÍGUEZ RESIDENT Apr 25, 2024 13:58 MISAEL HANSEN MD Apr 25, 2024 19:00
--- NOTE | 2024-04-25 18:49 | DVHPN2 ---
Progress Note Date Seen: Apr 25, 2024 Has the PT tested + for MRSA If YES, has PT been informed?: No Medical Necessity Reason Pt with a Central, PICC or Fol: No Subjective Patient reports: No new complaints Objective vital signs Vital Sign Date Time Temp Pulse Resp B/P (MAP) Pulse Ox O2 Delivery O2 Flow Rate FiO2 04/25/24 17:00 97.7 87 18 107/58 (74) 99 97.7 04/25/24 08:00 Room Air* 0 21 Total Intake and Output 04/24/24 04/24/24 04/25/24 15:00 23:00 07:00 Intake Total 1500 ml 700 ml Output Total 300 ml 300 ml 600 ml Balance -300 ml 1200 ml 100 ml medications Current Medications Medications Dose Ordered Sig/Arielle Route Start Time Stop Time Status Last Admin Dose Admin Clopidogrel Bisulfate 75 mg DAILY PO 04/23/24 10:00 04/25/24 11:07 75 MG Famotidine 20 mg DAILY IV 04/23/24 10:00 04/25/24 10:00 20 MG Acetaminophen/ Hydrocodone Bitart 1 tab Q4HP PRN PO 04/23/24 01:00 04/25/24 16:33 1 TAB Ondansetron HCl 4 mg Q4HP PRN IV 04/23/24 01:00 Docusate Sodium 100 mg BIDPRN PRN PO 04/23/24 01:00 Acetaminophen 650 mg Q6HP PRN PO 04/23/24 01:00 04/25/24 14:14 650 MG Atorvastatin Calcium 10 mg HS PO 04/23/24 22:00 04/24/24 21:10 10 MG Nitroglycerin 0.4 mg Q5MINP PRN SL 04/23/24 04:00 Morphine Sulfate 2 mg Q30M PRN IV 04/23/24 04:00 Ceftriaxone Sodium 50 ml @ 100 mls/hr DAILY@09 IV 04/23/24 09:00 04/25/24 14:17 100 MLS/HR Enoxaparin Sodium 40 mg DAILY SC 04/24/24 10:00 UNV Enoxaparin Sodium 30 mg DAILY SC 04/25/24 10:00 04/25/24 11:08 30 MG Enteral Nutritional Formula 240 ml BIDWM PO 04/24/24 18:00 04/25/24 18:00 240 ML Cholecalciferol 2,000 unit DAILY PO 04/25/24 10:00 04/25/24 11:07 2,000 UNIT Zinc Sulfate 220 mg DAILY PO 04/25/24 10:00 04/25/24 11:07 220 MG Ascorbic Acid 500 mg DAILY PO 04/25/24 10:00 04/25/24 11:07 500 MG Magnesium Oxide 400 mg BID PO 04/25/24 22:00 laboratory and microbiology Laboratory Tests 04/25/24 05:20 Test 04/25/24 05:20 Range/Units Serum Glucose 85 74-106 mg/dL Microbiology Date/Time Source Procedure Growth Status 04/23/24 13:59 Blood Blood Culture - Preliminary NO GROWTH AFTER 48 HOURS OF INCUBATION. Resulted 04/23/24 12:30 Nose MRSA Screen - Final Complete 04/22/24 21:48 Urine - [place] Urine Culture - Final Complete Problem List/Assessment/Plan Problem List/Assessment/Plan 1) Hemodynamically mediated GRACIELA , possible prerenal state. 2) CKD IIIb 3) symptomatic hypotension 4) history of heart failure 5) history of seizure disorder covid + recs dc ivf mag replace Plan discussed with: Patient SALOMÓN FARLEY MD Apr 25, 2024 18:49
[2024-04-25] MEDS: MAGNESIUM OXIDE 400 MG TAB PO SCH (22:31)
[2024-04-26 04:00] VITALS: BP 103/54; PULSE 101; RESP 18; O2SAT 98
[2024-04-26 08:00] VITALS: PULSE 90; PULSE 91; RESP 18; O2SAT 93
--- NOTE | 2024-04-26 08:08 | DVHDSRES ---
Discharge Summary Date of Admission Resident Creating Document: RAEGAN RODRÍGUEZ RESIDENT Apr 23, 2024 at 03:58 Date of Discharge: Apr 26, 2024 Admitting Diagnosis UTI Wounds: No wounds present at this time. Labs/Diagnostic Data: Laboratory Results Test 04/25/24 05:20 04/24/24 13:56 04/23/24 20:58 04/23/24 03:37 White Blood Count 6.3 10^3/uL (4.4-10.8) Red Blood Count 2.49 10^6/uL (4.0-5.20) Hemoglobin 8.1 g/dL (12.2-16.2) Hematocrit 23.5 % (36.0-46.0) Mean Corpuscular Volume 94.3 fL (80.0-100.0) Mean Corpuscular Hemoglobin 32.4 pg (28.0-32.0) Mean Corpuscular Hemoglobin Concent 34.3 g/dL (32.0-36.0) Red Cell Distribution Width 14.4 % (11.8-14.3) Platelet Count 196 10^3/uL (140-450) Mean Platelet Volume 7.4 fL (6.9-10.8) Neutrophils (%) (Auto) 65.0 % (37.0-80.0) Lymphocytes (%) (Auto) 18.9 % (10.0-50.0) Monocytes (%) (Auto) 12.9 % (0.0-12.0) Eosinophils (%) (Auto) 2.5 % (0.0-7.0) Basophils (%) (Auto) 0.7 % (0.0-2.0) Neutrophils # (Auto) 4.1 10 ^3/uL (1.6-8.6) Lymphocytes # (Auto) 1.2 10 ^3/uL (0.4-5.4) Monocytes # (Auto) 0.8 10 ^3/uL (0-1.3) Eosinophils # (Auto) 0.2 10 ^3/uL (0-0.8) Basophils # (Auto) 0 10 ^3/uL (0-0.2) Nucleated Red Blood Cells 0.3 % Sodium Level 135 mmol/L (136-145) Potassium Level 4.0 mmol/L (3.5-5.1) Chloride Level 103 mmol/L (98-107) Carbon Dioxide Level 23 mmol/L (20-31) Anion Gap 9 (5-15) Blood Urea Nitrogen 27 mg/dL (9-23) Creatinine 1.60 mg/dL (0.550-1.02) Glomerular Filtration Rate Calc 34 mL/min (>90) BUN/Creatinine Ratio 16.9 (10.0-20.0) Serum Glucose 85 mg/dL (74-106) Calcium Level 7.2 mg/dL (8.7-10.4) Magnesium Level 0.8 mg/dL (1.6-2.6) Total Bilirubin 0.4 mg/dL (0.2-1.0) Aspartate Amino Transferase (AST) 25 U/L (13-40) Alanine Aminotransferase (ALT) 21 U/L (7-40) Alkaline Phosphatase 106 U/L (46-116) Total Protein 5.8 g/dL (5.7-8.2) Albumin 3.4 g/dL (3.2-4.8) Influenza Type A Antigen Negative (Negative) Influenza Type B Antigen Negative (Negative) SARS-CoV-2 Antigen (Rapid) Positive (NEGATIVE) B-Type Natriuretic Peptide 17.63 pg/mL (0-100) Test 04/22/24 21:48 04/22/24 21:12 Urine Color Light-orange (Yellow) Urine Clarity Clear (Clear) Urine pH 6.5 (5.0-9.0) Urine Specific Eva 1.017 (1.001-1.035) Urine Protein Trace (Negative) Urine Ketones Negative (Negative) Urine Blood Negative /uL (Negative) Urine Nitrite Negative (Negative) Urine Bilirubin Negative (Negative) Urine Urobilinogen Normal mg/dL (Negative) Urine Leukocyte Esterase 1+ /uL (Negative) Urine RBC 1 /hpf (0 - 4) Urine WBC 11 /hpf (0 - 5) Urine Squamous Epithelial Cells Few /hpf (<5) Urine Bacteria None seen /hpf (None Seen) Urine Yeast (Budding) Occasional /hpf (None Urine Glucose Normal mg/dL (Normal) Troponin I High Sensitivity 3 ng/L (</=34) Other Laboratory Tests 04/25/24 05:20 Brief Hx & Hospital Course: This is a 73-year-old female with past medical history of arthritis, CHF, GERD, seizures, hyperlipidemia, hypertension who presented to the ED for evaluation of hypotension. As reported by EMS patient was residing on [facility] where she started having hypotension before coming to the ED. staff at [facility] was reported that lower blood pressure was 60/28 mmHg. By EMS, they reported blood pressure readings with systolic blood pressure in the 90s. Patient was initially evaluated in the ED were CBC and CMP were grossly unremarkable except for hypokalemia and creatinine at 2.79 with a BUN of 62. Blood pressure initially was low at 92/54 mmHg. There was no evidence of fever or any requirement of oxygen at that time. Urinalysis was performed which came back positive suggesting urinary tract infection. Patient was started on IV fluids at 60 cc/hour and IV azithromycin and ceftriaxone. Initial chest x-ray was grossly unremarkable without any evidence of solid consolidations. Last echocardiogram showed an LVEF of 55% with no pericardial effusion. Urine culture came back showing no growth. The patient looked malnourished for which she was started on ensure b.i.d., vitamin-C, vitamin-D and other multivitamins supplements. Blood culture came back also showing no growth. During hospitalization magnesium level was measured and came back low at 0.8 for which 4 g of magnesium were infused IV with oral mag oxide 400mg BID as well. The Patient has been complaining of severe bilateral knee pain, bilateral lower extremity venous Doppler was performed ruling out DVTs bilateral but it did show some small Chung cyst bilaterally. 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 Today, patient was evaluated at bedside, denied any suprapubic pain but did report chronic knee pain bilaterally. We will discharge the patient on nitrofurantoin 100 mg b.i.d. for five days, iron tablets 325 mg q.d. and docusate 100 mg q.d. to prevent constipation. Patient agrees and understands the plan. ROS Constitutional: Denies weight loss, fever and chills. HEENT: Denies changes in vision and hearing. Respiratory: Denies shortness of breath and cough Cardiovascular: Denies chest discomfort or palpitations GI: Denies abdominal pain, nausea, vomiting and diarrhea. : Denies dysuria and urinary frequency. Musculoskeletal: Reports bilateral knee pain. Denies myalgias and joint pain Skin: Denies rash and pruritus. Neurological: Denies dizziness, headache, vision or hearing problems Physical Examination General: Patient alert and oriented in person, place and time. Patient following commands. HEENT: Normocephalic, atraumatic, moist mucous membranes Respiratory/pulmonary: Clear lungs bilaterally, no associated crackles or wheezes. Cardiovascular: Normal heart sounds S1 and S2 with no associated murmurs Abdomen: Abdomen nondistended, there is no pain to palpation in any of the abdominal quadrants, patient has a colostomy bag on place. no palpable masses. Extremities: There is no peripheral edema present at the lower extremities. Peripheral Pulses: 3+ Radial (R). 3+ Radial (L). 3+ Dorsalis pedis (R). 3+ Dorsalis pedis(L) Skin: No rashes or pruritus, there is no sacral edema present at this time. Neurological:Intact cranial nerves not evaluated independently, patient seems anxious and slightly irritable. Consults/Reason for consult N/A Operations or Procedures CHEST RADIOGRAPH Indication:sob Technique: Single frontal view of the chest was obtained Comparison: XY CHEST PORTABLE on DOS: 04/10/24, XY CHEST XRAY 1 VIEW on DOS: 03/30/24, XY CHEST XRAY 1 VIEW on DOS: 03/28/24 FINDINGS: Lines and Tubes: None Lungs: No focal consolidation. Pleura: No effusion. No pneumothorax. Cardiomediastinal contours: Unremarkable patient's right hand is superimposed over the right chest and mediastinum obscuring detail. Consider repeat study Bones: No acute osseous abnormality. IMPRESSION: 1. No acute cardiopulmonary disease. BILATERAL LOWER EXTREMITY VENOUS DOPPLER CLINICAL HISTORY: R/O DVT Technique: Duplex Doppler evaluation of the deep venous systems of both lower extremities from the common femoral veins to the popliteal veins including color Doppler and spectral/pulsed waveform analysis was performed. COMPARISON: US BILAT LOWER DVT on DOS: 03/28/24 FINDINGS: The right and left common femoral, superficial femoral, popliteal, posterior tibial and peroneal veins appear patent with normal augmentation, phasicity, compressibility and color-flow. There are small Chung's cyst in the right and left popliteal fossa measuring 2.8 x 1.2 cm and 2.0 x 0.5 cm. IMPRESSION: 1. There is no sonographic evidence for DVT in the lower extremities. 2. Small chung's cyst in the bilateral popliteal fossas. Condition at Discharge: Stable Final Diagnosis/Problems List Severe hypotension likely in the setting of UTI UTI Hypokalemia Dyslipidemia Chronic diastolic heart failure HFpEF 55% GERD Left knee pain likely due to severe advanced osteoarthritis COVID+ Discharge Disposition: [facility] Facility Discharge Instruct/Medications Diet: Regular Activity: No Restrictions, As Tolerated Follow Up/Referral: F/U with her PCP in 1 week Medications: Iron tabs 325mg QD for 30 days Docusate 100mg QD for 20 days Nitrofurantoin 100mg BID for 5 days Discharge Statement: "Patient was advised to return to the ER or call 911 if any headaches, dizziness, shortness of breath, chest pain, abdominal pain, bleeding, fevers, or worsening of medical condition. Patient was counseled about treatment plan, medications, possible side effects, patientverbalized understanding. All questions were answered to the best of my ability. This discharge took greater then 30 minutes in planning, reviewing documentation, counseling the patient, and discussing with other team members." ASSESSMENT ASSESSMENT Assessment Severe hypotension likely in the setting of UTI UTI Hypokalemia Dyslipidemia Chronic diastolic heart failure HFpEF 55% GERD Left knee pain likely due to severe advanced osteoarthritis COVID+ Date of Service: Apr 26, 2024 Billing Provider: MISAEL BRIGHT MD Common Visit Codes: [id number] DISCH DAY >30min RAEGAN RODRÍGUEZ RESIDENT Apr 26, 2024 08:08 MISAEL BRIGHT MD Apr 26, 2024 22:06
[2024-04-26 09:00] VITALS: BP 110/69; PULSE 98; RESP 18; O2SAT 100
[2024-04-26] MEDS: FERROUS SULFATE 325mg EC TAB PO SCH (10:53)
--- NOTE | 2024-04-26 17:31 | DVHPN2 ---
Progress Note Date Seen: Apr 26, 2024 Has the PT tested + for MRSA If YES, has PT been informed?: No Medical Necessity Reason Pt with a Central, PICC or Fol: No Subjective Patient reports: No new complaints Objective vital signs Vital Sign Date Time Temp Pulse Resp B/P (MAP) Pulse Ox O2 Delivery O2 Flow Rate FiO2 04/26/24 09:00 98 18 110/69 (83) 100 04/26/24 08:00 Room Air* 0 21 04/25/24 17:00 97.7 97.7 Total Intake and Output 04/25/24 04/25/24 04/26/24 15:00 23:00 07:00 Intake Total 600 ml 1670 ml 500 ml Output Total 950 ml 300 ml Balance 600 ml 720 ml 200 ml medications Current Medications Medications Dose Ordered Sig/Arielle Route Start Time Stop Time Status Last Admin Dose Admin Clopidogrel Bisulfate 75 mg DAILY PO 04/23/24 10:00 04/26/24 10:53 75 MG Famotidine 20 mg DAILY IV 04/23/24 10:00 04/26/24 11:11 20 MG Acetaminophen/ Hydrocodone Bitart 1 tab Q4HP PRN PO 04/23/24 01:00 04/26/24 11:11 1 TAB Ondansetron HCl 4 mg Q4HP PRN IV 04/23/24 01:00 Docusate Sodium 100 mg BIDPRN PRN PO 04/23/24 01:00 Acetaminophen 650 mg Q6HP PRN PO 04/23/24 01:00 04/26/24 14:36 650 MG Atorvastatin Calcium 10 mg HS PO 04/23/24 22:00 04/25/24 22:31 10 MG Nitroglycerin 0.4 mg Q5MINP PRN SL 04/23/24 04:00 Morphine Sulfate 2 mg Q30M PRN IV 04/23/24 04:00 Ceftriaxone Sodium 50 ml @ 100 mls/hr DAILY@09 IV 04/23/24 09:00 04/26/24 10:54 100 MLS/HR Enoxaparin Sodium 40 mg DAILY SC 04/24/24 10:00 UNV Enoxaparin Sodium 30 mg DAILY SC 04/25/24 10:00 04/26/24 10:54 30 MG Enteral Nutritional Formula 240 ml BIDWM PO 04/24/24 18:00 04/26/24 12:00 240 ML Cholecalciferol 2,000 unit DAILY PO 04/25/24 10:00 04/26/24 10:52 2,000 UNIT Zinc Sulfate 220 mg DAILY PO 04/25/24 10:00 04/26/24 10:53 220 MG Ascorbic Acid 500 mg DAILY PO 04/25/24 10:00 04/26/24 10:53 500 MG Magnesium Oxide 400 mg BID PO 04/25/24 22:00 04/26/24 10:53 400 MG Ferrous Sulfate 325 mg DAILY PO 04/26/24 10:00 04/26/24 10:53 325 MG laboratory and microbiology Laboratory Tests 04/25/24 05:20 Test 04/25/24 05:20 Range/Units Serum Glucose 85 74-106 mg/dL Microbiology Date/Time Source Procedure Growth Status 04/25/24 21:38 Nose MRSA Screen - Final Complete 04/23/24 13:59 Blood Blood Culture - Preliminary NO GROWTH AFTER 72 HOURS OF INCUBATION. Resulted 04/22/24 21:48 Urine - [place] Urine Culture - Final Complete Problem List/Assessment/Plan Problem List/Assessment/Plan 1) Hemodynamically mediated GRACIELA , possible prerenal state. 2) CKD IIIb 3) symptomatic hypotension 4) history of heart failure 5) history of seizure disorder covid + recs dc ivf mag replace graciela outpt f/u Plan discussed with: Patient My Orders My Orders Orders - SALOMÓN FARLEY MD Procedure Category Date Status Time Ferrous Sulfate Tablet PHA 04/26/24 In Process 10:00 SALOMÓN FARLEY MD Apr 26, 2024 17:31
[2024-04-26 20:30] VITALS: PULSE 83; PULSE 84; RESP 20; O2SAT 94
[2024-04-26 21:00] VITALS: BP 91/50; PULSE 84; RESP 20; TEMP 97.3; O2SAT 94
[2024-04-27 08:00] VITALS: PULSE 84; PULSE 96; RESP 18; O2SAT 99
[2024-04-27 09:00] VITALS: BP 90/46; PULSE 84; RESP 18; TEMP 98.4; O2SAT 99
--- NOTE | 2024-04-27 10:24 | DVHPNRES ---
Progress Note Date Seen: Apr 27, 2024 Resident Creating Document: RAEGAN RODRÍGUEZ RESIDENT Has the PT tested + for MRSA If YES, has PT been informed?: No Medical Necessity Reason Pt with a Central, PICC or Fol: No Subjective Review of Systems This is a 73-year-old female with past medical history of arthritis, CHF, GERD, seizures, hyperlipidemia, hypertension who presented to the ED for evaluation of hypotension. As reported by EMS patient was residing on [facility] where she started having hypotension before coming to the ED. staff at [facility] was reported that lower blood pressure was 60/28 mmHg. By EMS, they reported blood pressure readings with systolic blood pressure in the 90s. Patient was initially evaluated in the ED were CBC and CMP were grossly unremarkable except for hypokalemia and creatinine at 2.79 with a BUN of 62. Blood pressure initially was low at 92/54 mmHg. There was no evidence of fever or any requirement of oxygen at that time. Urinalysis was performed which came back positive suggesting urinary tract infection. Patient was started on IV fluids at 60 cc/hour and IV azithromycin and ceftriaxone. Patient was admitted for further assessment and management. Patient seen and examined at bedside. Patient was found this morning without colostomy bag, which was on place before with erythema and cellulitis surrounding the colostomy wound. The patient is currently complaining of abdominal tenderness in the mentioned area and of chronic knee pain. Discharge was hold due to new onset and worsened erythema surrounding the colostomy bag which could be suggestive of cellulitis. Will order a CT scan of abd/pelvis to R/O any intra-abdominal acute pathology. ROS Constitutional: Denies weight loss, fever and chills. HEENT: Denies changes in vision and hearing. Respiratory: Denies shortness of breath and cough Cardiovascular: Denies chest discomfort or palpitations GI: Reports abdominal tenderness surrounding colostomy wound. Denies nausea, vomiting and diarrhea. : Denies dysuria and urinary frequency. Musculoskeletal: Denies myalgias and joint pain Skin: Denies rash and pruritus. Neurological: Denies dizziness, headache, vision or hearing problems Objective vital signs Vital Sign Date Time Temp Pulse Resp B/P (MAP) Pulse Ox O2 Delivery O2 Flow Rate FiO2 04/26/24 21:00 97.3 84 20 91/50 (64) 94 97.3 04/26/24 20:30 Room Air* 0 21 Total Intake and Output 04/26/24 04/26/24 04/27/24 15:00 23:00 07:00 Intake Total 290 ml 1100 ml 600 ml Output Total 900 ml 450 ml Balance 290 ml 200 ml 150 ml medications Current Medications Medications Dose Ordered Sig/Arielle Route Start Time Stop Time Status Last Admin Dose Admin Clopidogrel Bisulfate 75 mg DAILY PO 04/23/24 10:00 04/27/24 10:11 75 MG Famotidine 20 mg DAILY IV 04/23/24 10:00 04/26/24 11:11 20 MG Acetaminophen/ Hydrocodone Bitart 1 tab Q4HP PRN PO 04/23/24 01:00 04/27/24 10:05 1 TAB Ondansetron HCl 4 mg Q4HP PRN IV 04/23/24 01:00 Docusate Sodium 100 mg BIDPRN PRN PO 04/23/24 01:00 Acetaminophen 650 mg Q6HP PRN PO 04/23/24 01:00 04/26/24 20:48 650 MG Atorvastatin Calcium 10 mg HS PO 04/23/24 22:00 04/26/24 21:34 10 MG Nitroglycerin 0.4 mg Q5MINP PRN SL 04/23/24 04:00 Morphine Sulfate 2 mg Q30M PRN IV 04/23/24 04:00 Ceftriaxone Sodium 50 ml @ 100 mls/hr DAILY@09 IV 04/23/24 09:00 04/27/24 10:09 100 MLS/HR Enoxaparin Sodium 40 mg DAILY SC 04/24/24 10:00 UNV Enoxaparin Sodium 30 mg DAILY SC 04/25/24 10:00 04/27/24 10:11 30 MG Enteral Nutritional Formula 240 ml BIDWM PO 04/24/24 18:00 04/27/24 08:00 240 ML Cholecalciferol 2,000 unit DAILY PO 04/25/24 10:00 04/27/24 10:10 2,000 UNIT Zinc Sulfate 220 mg DAILY PO 04/25/24 10:00 04/27/24 10:10 220 MG Ascorbic Acid 500 mg DAILY PO 04/25/24 10:00 04/27/24 10:11 500 MG Magnesium Oxide 400 mg BID PO 04/25/24 22:00 04/27/24 10:11 400 MG Ferrous Sulfate 325 mg DAILY PO 04/26/24 10:00 04/27/24 10:09 325 MG Examination Physical Examination General: Patient alert and oriented in person, place and time bu has some source of underlying dementia. HEENT: Normocephalic, atraumatic, moist mucous membranes Respiratory/pulmonary: Clear lungs bilaterally, no associated crackles or wheezes. Cardiovascular: Normal heart sounds S1 and S2 with no associated murmurs Abdomen: Abdomen nondistended, there is mild to mod tenderness to palpation to the abdomen in the area surrounding colostomy bag. There is erythema and poss cellulitis surrounding colostomy wound. No masses palpable at this time. Extremities: There is no peripheral edema present at the lower extremities. Peripheral Pulses: 3+ Radial (R). 3+ Radial (L). 3+ Dorsalis pedis (R). 3+ Dorsalis pedis(L) Skin: No rashes or pruritus, there is no sacral edema present at this time. Neurological:Intact cranial nerves not evaluated independently, patient seems anxious and slightly irritable. laboratory and microbiology Laboratory Tests 04/25/24 05:20 Test 04/25/24 05:20 Range/Units Serum Glucose 85 74-106 mg/dL Microbiology Date/Time Source Procedure Growth Status 04/25/24 21:38 Nose MRSA Screen - Final Complete 04/23/24 13:59 Blood Blood Culture - Preliminary NO GROWTH AFTER 72 HOURS OF INCUBATION. Resulted 04/22/24 21:48 Urine - [place] Urine Culture - Final Complete Problem List/Assessment/Plan Problem List/Assessment/Plan Assessment/Plan Severe hypotension likely in the setting of UTI -initial WBC was normal range -patient was slightly tachycardic, no fever, no leukocytosis, no tachypnea, no criteria for sepsis met at all -urinalysis came back positive for UTI -continue IV ceftriaxone -Stop IV fluids -monitor electrolytes -monitor blood pressure closely UTI -UA came back positive for UTI -Continue IV ceftriaxone -ordered urine bacterial culture, continue current antibiotics until cultures come back. Positive for Covid 19 -currently patient has no respiratory distress -currently saturating 95% on room air -Chest x ray was grossly unremarkable Cellulitis surrounding colostomy bag/wound -Will continue IV ceftriaxone -Start metroidazole IV -Wound consult Hypomagnesemia -Mg improved to 1.7 today -Will keep magnesium oxide 400mg BID po and replace tomorrow with IV if needed -Monitor electrolytes closely Hypokalemia -potassium was 3.9 Dyslipidemia -continue atorvastatin 10 mg q.d. Chronic diastolic heart failure HFpEF 55% -last echocardiogram on 12/24/2023 showed an LVEF of 55% with normal cardiac valves and no pericardial effusion -hold BP medications at this time due to hypotension -monitor blood pressure closely GERD -continue famotidine 20 mg q.d. Left knee pain likely due to severe advanced osteoarthritis -Ordered Bilat lower ext venous doppler which showed no evidence of DVTs at this time there are bilateral Chung cyst on both popliteal fossas. -monitor and pain medication -follow-up as an outpatient. Severe Malnourish -Continue vitamin-C, vitamin-D, Zinc -Continue ensure BID Goals of care discussed with the patient at bedside for > 23min, FULL CODE Plan discussed with Dr. Hansen Plan discussed with: Patient My Orders My Orders Orders - RAEGAN RODRÍGUEZ Procedure Category Date Status Time Magnesium LAB 04/27/24 Logged 06:29 Basic Metabolic Panel LAB 04/27/24 Logged 06:29 Communication Order ORDERS 04/27/24 Transmitted 06:29 Date of Service: Apr 27, 2024 Billing Provider: MISAEL HANSEN MD Common Visit Codes: [id number] INP/OBS CARE(HIGH) RAEGAN RODRÍGUEZ RESIDENT Apr 27, 2024 10:24 MISAEL HANSEN MD Apr 27, 2024 21:30
[2024-04-27 13:00] VITALS: BP 90/51; PULSE 90; RESP 18; TEMP 98.3; O2SAT 98
[2024-04-27] MEDS: metroNIDAZOLE 500MG/100ML 100 ML IV SCH (14:23)
--- NOTE | 2024-04-27 15:21 | DVHPN2 ---
Progress Note Date Seen: Apr 27, 2024 Has the PT tested + for MRSA If YES, has PT been informed?: No Medical Necessity Reason Pt with a Central, PICC or Fol: No Subjective Patient reports: No new complaints Review of Systems: HEENT:Normal, CVS:Normal, RESPIRATORY:Normal, GI:Normal, :Normal, MSK:Normal, NEURO:Normal Objective vital signs Vital Sign Date Time Temp Pulse Resp B/P (MAP) Pulse Ox O2 Delivery O2 Flow Rate FiO2 04/27/24 09:00 98.4 84 18 90/46 (61) 99 98.4 04/27/24 08:00 Room Air* 0 21 Total Intake and Output 04/26/24 04/26/24 04/27/24 14:59 22:59 06:59 Intake Total 290 ml 1100 ml 600 ml Output Total 900 ml 450 ml Balance 290 ml 200 ml 150 ml medications Current Medications Medications Dose Ordered Sig/Arielle Route Start Time Stop Time Status Last Admin Dose Admin Clopidogrel Bisulfate 75 mg DAILY PO 04/23/24 10:00 04/27/24 10:11 75 MG Famotidine 20 mg DAILY IV 04/23/24 10:00 04/27/24 10:48 20 MG Acetaminophen/ Hydrocodone Bitart 1 tab Q4HP PRN PO 04/23/24 01:00 04/27/24 10:05 1 TAB Ondansetron HCl 4 mg Q4HP PRN IV 04/23/24 01:00 Docusate Sodium 100 mg BIDPRN PRN PO 04/23/24 01:00 Acetaminophen 650 mg Q6HP PRN PO 04/23/24 01:00 04/27/24 13:04 650 MG Atorvastatin Calcium 10 mg HS PO 04/23/24 22:00 04/26/24 21:34 10 MG Nitroglycerin 0.4 mg Q5MINP PRN SL 04/23/24 04:00 Morphine Sulfate 2 mg Q30M PRN IV 04/23/24 04:00 Ceftriaxone Sodium 50 ml @ 100 mls/hr DAILY@09 IV 04/23/24 09:00 04/27/24 10:09 100 MLS/HR Enoxaparin Sodium 40 mg DAILY SC 04/24/24 10:00 UNV Enoxaparin Sodium 30 mg DAILY SC 04/25/24 10:00 04/27/24 10:11 30 MG Enteral Nutritional Formula 240 ml BIDWM PO 04/24/24 18:00 04/27/24 08:00 240 ML Cholecalciferol 2,000 unit DAILY PO 04/25/24 10:00 04/27/24 10:10 2,000 UNIT Zinc Sulfate 220 mg DAILY PO 04/25/24 10:00 04/27/24 10:10 220 MG Ascorbic Acid 500 mg DAILY PO 04/25/24 10:00 04/27/24 10:11 500 MG Magnesium Oxide 400 mg BID PO 04/25/24 22:00 04/27/24 10:11 400 MG Ferrous Sulfate 325 mg DAILY PO 04/26/24 10:00 04/27/24 10:09 325 MG Metronidazole 100 ml @ 100 mls/hr Q8HR IV 04/27/24 14:00 04/27/24 14:23 100 MLS/HR Examination: GENERAL:Normal, HEENT:Normal, NECK:Normal, LUNGS:Normal, CVS:Normal, ABDOMEN:Normal, MSK:Normal, SKIN:Normal, NEURO:Normal, :Normal laboratory and microbiology Laboratory Tests 04/25/24 05:20 Test 04/25/24 05:20 Range/Units Serum Glucose 85 74-106 mg/dL Microbiology Date/Time Source Procedure Growth Status 04/25/24 21:38 Nose MRSA Screen - Final Complete 04/23/24 13:59 Blood Blood Culture - Preliminary NO GROWTH AFTER 72 HOURS OF INCUBATION. Resulted 04/22/24 21:48 Urine - [place] Urine Culture - Final Complete Problem List/Assessment/Plan Problem List/Assessment/Plan 1) Hemodynamically mediated GRACIELA , possible prerenal state. 2) CKD IIIb 3) symptomatic hypotension 4) history of heart failure 5) history of seizure disorder covid + recs no new labs though ordered remains in isolation await labs Plan discussed with: Patient Dietary Evaluation Review Comments: Monitor PO intake to meet her needs at least 75%. Encourage Ensure High protein supplements. Expected Outcomes/Goals: gradual weight gains. SALOMÓN FARLEY MD Apr 27, 2024 15:21
--- NOTE | 2024-04-27 15:47 | DVH ---
Exam: CT CT AB PEL WO CON-NO ORAL OR IV History: right lower abd cellulitis Comparison Study: CT CT AB PEL WO CON-NO ORAL OR IV on DOS: 03/31/24, CT CT AB PEL WO CON-NO ORAL OR IV on DOS: 12/27/23, CT CT AB PEL WO CON-NO ORAL OR IV on DOS: 12/23/23, [facility] on DOS: 02/16/22, [facility] on D OS: 12/29/21 Technique: Multidetector spiral CT of the abdomen and pelvis was performed from lung bases to pubic symphysis. Imaging was performed without IV contrast. Axial, coronal and sagittal multiplanar reform ats were obtained from the axial data set by the technologist. Radiation dose : Abdomen/Pelvis: CTDIvol 5 mGy, DLP 261.6 mGy*cm. Findings: Evaluation of solid organs is limited due to lack of intravenous contrast use. Lung Bases: No acute or significant lung base finding. Normal heart size. No pleural or pericardial effusion. Liver: The liver is normal in size. No focal lesions. Gallbladder and biliary Tree: Cholelithiasis noted without secondary findings of cholecystitis or evonne iary obstruction. Spleen: Unremarkable Pancreas: The pancreas is grossly normal in appearance. Adrenal Glands: Unremarkable Kidneys: Kidneys are grossly normal without calculi or hydronephrosis. Bladder: Bladder is decompressed with a [place] catheter and cannot be adequately assessed. Bowel: The stomach is grossly normal in appearance. Postsurgical changes with a right midabdomen osto my in place. The appendix is not visualized; however, no secondary findings of acute appendicitis id entified. Ascites: Absent Lymphadenopathy: No mesenteric, retroperitoneal or periportal lymphadenopathy. Abdominal wall and Mesentery: Unremarkable. Vasculature: Infrarenal abdominal aortic aneurysm measuring up to 33 mm. Pelvic Organs: Unremarkable Musculoskeletal: Postsurgical changes in the spine. Advanced degenerative changes of the bilateral hi ps with [id number] impaction. IMPRESSION: 1. Limited noncontrast exam. No definite acute abnormality identified. Infrarenal abdominal aortic an eurysm measuring up to 33 mm. Cholelithiasis. Consider further evaluation with CT of the abdomen and pelvis with contrast. Radiation optimization: All CT scans at this facility use at least one of these dose optimization griselda hniques: Automated exposure control mA and/or kV adjustment per patient size (includes targeted exams where dose is matched to clinical indication) or iterative reconstruction. HS:Y
[2024-04-27 17:00] VITALS: BP 95/51; PULSE 94; RESP 18; TEMP 98.6; O2SAT 100
[2024-04-27 18:44] LABS: Chloride 96 mmol/L (98-107); Potassium 3.9 mmol/L (3.5-5.1)
[2024-04-27 18:45] LABS: Anion Gap 4 (5-15); Calcium 7.8 mg/dL (8.7-10.4); Carbon Dioxide 30 mmol/L (20-31)
[2024-04-27 18:50] LABS: BUN/Creatinine Ratio 15.8 (10.0-20.0); Blood Urea Nitrogen 28 mg/dL (9-23); Glucose 116 mg/dL (74-106)
[2024-04-27 18:51] LABS: Magnesium 1.7 mg/dL (1.6-2.6)
[2024-04-27 19:07] LABS: Sodium 130 mmol/L (136-145)
[2024-04-27 20:00] VITALS: PULSE 108; PULSE 111; RESP 22; O2SAT 100
[2024-04-27 20:50] VITALS: BP 114/53; PULSE 111; RESP 22; TEMP 98.1; O2SAT 100
[2024-04-28] VITALS (8 sets, daily range): BP systolic 101–108; BP diastolic 47–63; PULSE 73–101; RESP 18–22; TEMP 97.1–98.8; O2SAT 97–100
[2024-04-28] MEDS: LORazepam 2MG/ML-1ML VIAL IM ONE (00:30)
[2024-04-28 10:15] LABS: Basophils # (auto) 0 10 ^3/uL (0-0.2); Basophils % (auto) 0.8 % (0.0-2.0); Eosinophils # (auto) 0.2 10 ^3/uL (0-0.8); Hemoglobin 8.2 g/dL (12.2-16.2); Lymphocytes # (auto) 0.9 10 ^3/uL (0.4-5.4); Monocytes # (auto) 0.7 10 ^3/uL (0-1.3); Neutrophils # (auto) 3.5 10 ^3/uL (1.6-8.6); White Blood Cell 5.3 10^3/uL (4.4-10.8)
[2024-04-28 10:17] LABS: Eosinophils % (auto) 3.8 % (0.0-7.0); Hematocrit 24.7 % (36.0-46.0); Lymphocytes % (auto) 16.9 % (10.0-50.0); Mean Corpuscular Hemoglobin 31.4 pg (28.0-32.0); Mean Corpuscular Hgb Conc. 33.1 g/dL (32.0-36.0); Mean Corpuscular Volume 94.6 fL (80.0-100.0); Monocytes % (auto) 13.5 % (0.0-12.0); Platelet Count (auto) 242 10^3/uL (140-450); Red Blood Cells 2.61 10^6/uL (4.0-5.20); Red Cell Distribution Width 14.6 % (11.8-14.3)
[2024-04-28 10:35] LABS: Chloride 97 mmol/L (98-107); Potassium 3.7 mmol/L (3.5-5.1); Sodium 130 mmol/L (136-145)
[2024-04-28 10:36] LABS: Anion Gap 6 (5-15); Calcium 7.8 mg/dL (8.7-10.4); Carbon Dioxide 27 mmol/L (20-31)
[2024-04-28 10:41] LABS: Glucose 119 mg/dL (74-106)
[2024-04-28 10:42] LABS: BUN/Creatinine Ratio 25.3 (10.0-20.0); Magnesium 1.7 mg/dL (1.6-2.6)
[2024-04-28 10:50] LABS: Blood Urea Nitrogen 39 mg/dL (9-23)
--- NOTE | 2024-04-28 12:14 | DVHPN2 ---
Progress Note Date Seen: Apr 28, 2024 Has the PT tested + for MRSA If YES, has PT been informed?: No Medical Necessity Reason Pt with a Central, PICC or Fol: No Subjective Other Systems: Patient seen and examined by myself today in follow-up Objective vital signs Vital Sign Date Time Temp Pulse Resp B/P (MAP) Pulse Ox O2 Delivery O2 Flow Rate FiO2 04/28/24 09:00 98.8 84 18 101/48 (65) 100 98.8 04/27/24 20:00 Room Air* 0 21 Total Intake and Output 04/27/24 04/27/24 04/28/24 15:00 23:00 07:00 Intake Total 50 ml 940 ml 450 ml Output Total 375 ml Balance 50 ml 940 ml 75 ml medications Current Medications Medications Dose Ordered Sig/Arielle Route Start Time Stop Time Status Last Admin Dose Admin Clopidogrel Bisulfate 75 mg DAILY PO 04/23/24 10:00 04/28/24 08:47 75 MG Famotidine 20 mg DAILY IV 04/23/24 10:00 04/28/24 08:46 20 MG Acetaminophen/ Hydrocodone Bitart 1 tab Q4HP PRN PO 04/23/24 01:00 04/28/24 06:09 1 TAB Ondansetron HCl 4 mg Q4HP PRN IV 04/23/24 01:00 Docusate Sodium 100 mg BIDPRN PRN PO 04/23/24 01:00 Acetaminophen 650 mg Q6HP PRN PO 04/23/24 01:00 04/28/24 08:48 650 MG Atorvastatin Calcium 10 mg HS PO 04/23/24 22:00 04/27/24 21:02 10 MG Nitroglycerin 0.4 mg Q5MINP PRN SL 04/23/24 04:00 Morphine Sulfate 2 mg Q30M PRN IV 04/23/24 04:00 Ceftriaxone Sodium 50 ml @ 100 mls/hr DAILY@09 IV 04/23/24 09:00 04/28/24 08:46 100 MLS/HR Enoxaparin Sodium 40 mg DAILY SC 04/24/24 10:00 UNV Enoxaparin Sodium 30 mg DAILY SC 04/25/24 10:00 04/27/24 10:11 30 MG Enteral Nutritional Formula 240 ml BIDWM PO 04/24/24 18:00 04/28/24 08:00 240 ML Cholecalciferol 2,000 unit DAILY PO 04/25/24 10:00 04/28/24 08:48 2,000 UNIT Zinc Sulfate 220 mg DAILY PO 04/25/24 10:00 04/28/24 08:47 220 MG Ascorbic Acid 500 mg DAILY PO 04/25/24 10:00 04/28/24 08:47 500 MG Magnesium Oxide 400 mg BID PO 04/25/24 22:00 04/28/24 08:47 400 MG Ferrous Sulfate 325 mg DAILY PO 04/26/24 10:00 04/28/24 08:47 325 MG Metronidazole 100 ml @ 100 mls/hr Q8HR IV 04/27/24 14:00 04/28/24 06:09 100 MLS/HR Examination: LUNGS:Normal, CVS:Normal, MSK:Normal laboratory and microbiology Laboratory Tests 04/28/24 09:50 Test 04/28/24 09:50 Range/Units Serum Glucose 119 H 74-106 mg/dL Microbiology Date/Time Source Procedure Growth Status 04/25/24 21:38 Nose MRSA Screen - Final Complete 04/23/24 13:59 Blood Blood Culture - Preliminary NO GROWTH AFTER 72 HOURS OF INCUBATION. Resulted 04/22/24 21:48 Urine - [place] Urine Culture - Final Complete Problem List/Assessment/Plan Problem List/Assessment/Plan Acute kidney injury superimposed Chronic Kidney Disease secondary hemodynamic mediated Hypotension History of seizure disorder Hypomagnesemia Recommendations Kidney function is improving Increased urine output Strict I&Os IVF NS at 75 cc/hour Magnesium sulfate IV piggyback We will continue to follow up Plan discussed with: Patient Dietary Evaluation Review Comments: Monitor PO intake to meet her needs at least 75%. Encourage Ensure High protein supplements. Expected Outcomes/Goals: gradual weight gains. MAR HELMS MD Apr 28, 2024 12:14
[2024-04-28] MEDS: MAGNESIUM SULFATE 1GM/100ML 100 ML IV SCH (12:57)
[2024-04-28] MEDS: SODIUM CHLORIDE 0.9% 1,000 ML IV SCH (13:02)
--- NOTE | 2024-04-28 13:51 | DVHINCON2 ---
GI Consult Consult Note GI consult note Date of Consultation: 04/28/2024 Chief Complaint: Cellulitis colostomy site Referring Physician: Dr. Harper H&P: 73-year-old female admitted for evaluation of hypotension, from [facility] Patient also has complains of generalized weakness and history of anemia Being treated for UTI. History of CKD Patient has redness around colostomy bag, patient tends to remove the colostomy bag at times herself Patient has a sitter that is monitoring the patient Past Medical History: Arthritis, CHF, GERD, High Lipids, HTN, Seizures Past Surgical History: Colostomy bag Social History: NO smoking, drinking ETOH and use of illegal drugs. Family History: Noncontributory Review of Systems: Constitutional: no fever, chill, weight loss Heart: no chest pain, no chest pressure Lung: no cough, no dyspnea with exertion Abdomen: see HPI Physical exam: General: Patient is awake Chest: lung mauricio clear to auscultation Heart: RRR, no murmur Abdomen: Moderate redness to large area of abdomen, colostomy bag in place with green stool Labs: Test 04/28/24 09:50 Range/Units Serum Glucose 119 H 74-106 mg/dL Microbiology Date/Time Source Procedure Growth Status 04/25/24 21:38 Nose MRSA Screen - Final Complete 04/23/24 13:59 Blood Blood Culture - Preliminary NO GROWTH AFTER 72 HOURS OF INCUBATION. Resulted 04/22/24 21:48 Urine - [place] Urine Culture - Final Complete Imaging: CT abdomen pelvis IMPRESSION: 1. Limited noncontrast exam. No definite acute abnormality identified. Infrarenal abdominal aortic aneurysm measuring up to 33 mm. Cholelithiasis. Consider further evaluation with CT of the abdomen and pelvis with contrast. Assessment: Cellulitis Around colostomy bag COVID positive UTI Severe hypotension Plan: Discussed with Dr. Madden Continue with antibiotic Monitor lab Wound care Thank you for this consult Date of Service: Apr 28, 2024 Billing Provider: PRANEETH WYATT Common Visit Codes: CONSULT ONLY Consultation Codes: [id number] CONSULT <45MIN PRANEETH WYATT Apr 28, 2024 13:51
--- NOTE | 2024-04-28 15:23 | DVHPNRES ---
Progress Note Date Seen: Apr 28, 2024 Resident Creating Document: RAEGAN RODRÍGUEZ RESIDENT Has the PT tested + for MRSA If YES, has PT been informed?: No Medical Necessity Reason Pt with a Central, PICC or Fol: No Subjective Review of Systems This is a 73-year-old female with past medical history of arthritis, CHF, GERD, seizures, hyperlipidemia, hypertension who presented to the ED for evaluation of hypotension. As reported by EMS patient was residing on [facility] where she started having hypotension before coming to the ED. staff at [facility] was reported that lower blood pressure was 60/28 mmHg. By EMS, they reported blood pressure readings with systolic blood pressure in the 90s. Patient was initially evaluated in the ED were CBC and CMP were grossly unremarkable except for hypokalemia and creatinine at 2.79 with a BUN of 62. Blood pressure initially was low at 92/54 mmHg. There was no evidence of fever or any requirement of oxygen at that time. Urinalysis was performed which came back positive suggesting urinary tract infection. Patient was started on IV fluids at 60 cc/hour and IV azithromycin and ceftriaxone. Patient was admitted for further assessment and management. Patient seen and examined at bedside. Colostomy bag was assessed and there is significant erythema surrounding colostomy bag that is extending to the right lower back and right lower quadrant of the abdomen. The patient states that is tenderness to palpation and reports 6/10 tenderness in the abdomen at this time. CT scan of the abdomen and pelvis was performed and no definite acute abnormality was identified. There is an infrarenal abdominal aortic aneurysm measuring 33 mm and cholelithiasis but no signs of cholecystitis at this time. We will discontinue IV ceftriaxone and start the patient on IV cefepime and continue metronidazole. We will monitor abdominal cellulitis/erythema and keep colostomy bag as dry as possible. ROS Constitutional: Denies weight loss, fever and chills. HEENT: Denies changes in vision and hearing. Respiratory: Denies shortness of breath and cough Cardiovascular: Denies chest discomfort or palpitations GI: Reports mild to moderate abdominal tenderness to palpation surrounding colostomy bag area. Denies nausea, vomiting and diarrhea. : Denies dysuria and urinary frequency. Musculoskeletal: Denies myalgias and joint pain Skin: Denies rash and pruritus. Neurological: Denies dizziness, headache, vision or hearing problems Objective vital signs Vital Sign Date Time Temp Pulse Resp B/P (MAP) Pulse Ox O2 Delivery O2 Flow Rate FiO2 04/28/24 13:11 98.7 85 20 107/59 (75) 97 98.7 04/28/24 08:00 Room Air* 0 21 Total Intake and Output 04/27/24 04/27/24 04/28/24 15:00 23:00 07:00 Intake Total 50 ml 940 ml 450 ml Output Total 375 ml Balance 50 ml 940 ml 75 ml medications Current Medications Medications Dose Ordered Sig/Arielle Route Start Time Stop Time Status Last Admin Dose Admin Clopidogrel Bisulfate 75 mg DAILY PO 04/23/24 10:00 04/28/24 08:47 75 MG Famotidine 20 mg DAILY IV 04/23/24 10:00 04/28/24 08:46 20 MG Acetaminophen/ Hydrocodone Bitart 1 tab Q4HP PRN PO 04/23/24 01:00 04/28/24 06:09 1 TAB Ondansetron HCl 4 mg Q4HP PRN IV 04/23/24 01:00 Docusate Sodium 100 mg BIDPRN PRN PO 04/23/24 01:00 Acetaminophen 650 mg Q6HP PRN PO 04/23/24 01:00 04/28/24 08:48 650 MG Atorvastatin Calcium 10 mg HS PO 04/23/24 22:00 04/27/24 21:02 10 MG Nitroglycerin 0.4 mg Q5MINP PRN SL 04/23/24 04:00 Morphine Sulfate 2 mg Q30M PRN IV 04/23/24 04:00 Ceftriaxone Sodium 50 ml @ 100 mls/hr DAILY@09 IV 04/23/24 09:00 04/28/24 08:46 100 MLS/HR Enoxaparin Sodium 40 mg DAILY SC 04/24/24 10:00 UNV Enoxaparin Sodium 30 mg DAILY SC 04/25/24 10:00 04/27/24 10:11 30 MG Enteral Nutritional Formula 240 ml BIDWM PO 04/24/24 18:00 04/28/24 08:00 240 ML Cholecalciferol 2,000 unit DAILY PO 04/25/24 10:00 04/28/24 08:48 2,000 UNIT Zinc Sulfate 220 mg DAILY PO 04/25/24 10:00 04/28/24 08:47 220 MG Ascorbic Acid 500 mg DAILY PO 04/25/24 10:00 04/28/24 08:47 500 MG Magnesium Oxide 400 mg BID PO 04/25/24 22:00 04/28/24 08:47 400 MG Ferrous Sulfate 325 mg DAILY PO 04/26/24 10:00 04/28/24 08:47 325 MG Metronidazole 100 ml @ 100 mls/hr Q8HR IV 04/27/24 14:00 04/28/24 06:09 100 MLS/HR Sodium Chloride 1,000 ml @ 75 mls/hr [id number] IV 04/28/24 12:15 04/28/24 13:02 75 MLS/HR Magnesium Sulfate/ Dextrose 100 ml @ 100 mls/hr Q1HR IV 04/28/24 13:00 04/28/24 14:59 04/28/24 12:57 100 MLS/HR Examination Physical Examination General: Patient alert and oriented in person, place and time bu has some source of underlying dementia. HEENT: Normocephalic, atraumatic, moist mucous membranes Respiratory/pulmonary: Clear lungs bilaterally, no associated crackles or wheezes. Cardiovascular: Normal heart sounds S1 and S2 with no associated murmurs Abdomen: Abdomen nondistended, there is mild to mod tenderness to palpation to the abdomen in the area surrounding colostomy bag. There is erythema and poss cellulitis surrounding colostomy wound unchanged from previous day. No masses palpable at this time. Extremities: There is no peripheral edema present at the lower extremities. Peripheral Pulses: 3+ Radial (R). 3+ Radial (L). 3+ Dorsalis pedis (R). 3+ Dorsalis pedis(L) Skin: No rashes or pruritus, there is no sacral edema present at this time. Neurological:Intact cranial nerves not evaluated independently, patient seems anxious and slightly irritable. laboratory and microbiology Laboratory Tests 04/28/24 09:50 Test 04/28/24 09:50 Range/Units Serum Glucose 119 H 74-106 mg/dL Microbiology Date/Time Source Procedure Growth Status 04/25/24 21:38 Nose MRSA Screen - Final Complete 04/23/24 13:59 Blood Blood Culture - Final NO GROWTH AFTER 5 DAYS OF INCUBATION. Complete 04/22/24 21:48 Urine - [place] Urine Culture - Final Complete Problem List/Assessment/Plan Problem List/Assessment/Plan Assessment/Plan Severe hypotension likely in the setting of UTI -initial WBC was normal range -patient was slightly tachycardic, no fever, no leukocytosis, no tachypnea, no criteria for sepsis met at all -urinalysis came back positive for UTI -Discontinue IV ceftriaxone -Stop IV fluids -monitor electrolytes -monitor blood pressure closely UTI -UA came back positive for UTI -Start cefepime -ordered urine bacterial culture, continue current antibiotics until cultures come back. Positive for Covid 19 -currently patient has no respiratory distress -currently saturating 96% on room air -Chest x ray was grossly unremarkable Cellulitis surrounding colostomy bag/wound -Discontinue ceftriaxone -Start cefepime IV -Continue metronidazole IV -Wound consult Hypomagnesemia -Mg improved to 1.7 today, IV was repleated -Will keep magnesium oxide 400mg BID po and replace tomorrow with IV if needed -Monitor electrolytes closely Hypokalemia -potassium was 3.7 Dyslipidemia -continue atorvastatin 10 mg q.d. Chronic diastolic heart failure HFpEF 55% -last echocardiogram on 12/24/2023 showed an LVEF of 55% with normal cardiac valves and no pericardial effusion -hold BP medications at this time due to hypotension -monitor blood pressure closely GERD -continue famotidine 20 mg q.d. Left knee pain likely due to severe advanced osteoarthritis -Ordered Bilat lower ext venous doppler which showed no evidence of DVTs at this time there are bilateral Chung cyst on both popliteal fossas. -monitor and pain medication -follow-up as an outpatient. Severe Malnourish -Continue vitamin-C, vitamin-D, Zinc -Continue ensure BID Goals of care discussed with the patient at bedside for > 23min, FULL CODE Plan discussed with Dr. Carrero Plan discussed with: Patient My Orders My Orders Orders - RAEGAN RODRÍGUEZ Procedure Category Date Status Time * Gi Dvh Anesthesiologist Attending CONS 04/27/24 Transmitted 15:58 * Wound Consult CONS 04/27/24 Transmitted Dietary Evaluation Review Comments: Monitor PO intake to meet her needs at least 75%. Encourage Ensure High protein supplements. Expected Outcomes/Goals: gradual weight gains. RAEGAN RODRÍGUEZ Apr 28, 2024 15:23
[2024-04-28] MEDS: CEFEPIME 1GM/ 50ML 50 ML IV SCH (20:54)
[2024-04-29] VITALS (7 sets, daily range): BP systolic 85–110; BP diastolic 48–69; PULSE 78–89; RESP 17–19; TEMP 98–98.7; O2SAT 94–100
[2024-04-29 07:08] LABS: Basophils # (auto) 0 10 ^3/uL (0-0.2); Basophils % (auto) 0.5 % (0.0-2.0); Eosinophils # (auto) 0.1 10 ^3/uL (0-0.8); Eosinophils % (auto) 2.4 % (0.0-7.0); Hematocrit 22.8 % (36.0-46.0); Hemoglobin 7.7 g/dL (12.2-16.2); Lymphocytes # (auto) 0.8 10 ^3/uL (0.4-5.4); Lymphocytes % (auto) 14.5 % (10.0-50.0); Mean Corpuscular Hemoglobin 31.3 pg (28.0-32.0); Mean Corpuscular Hgb Conc. 33.6 g/dL (32.0-36.0); Mean Corpuscular Volume 93.3 fL (80.0-100.0); Monocytes # (auto) 0.9 10 ^3/uL (0-1.3); Monocytes % (auto) 17.4 % (0.0-12.0); Neutrophils # (auto) 3.5 10 ^3/uL (1.6-8.6); Neutrophils % (auto) 65.2 % (37.0-80.0); Nucleated Red Blood Cells % 0.1 %; Platelet Count (auto) 242 10^3/uL (140-450); Red Blood Cells 2.45 10^6/uL (4.0-5.20); Red Cell Distribution Width 14.3 % (11.8-14.3); White Blood Cell 5.3 10^3/uL (4.4-10.8)
[2024-04-29 07:20] LABS: Anion Gap 6 (5-15); Carbon Dioxide 27 mmol/L (20-31); Chloride 99 mmol/L (98-107); Potassium 3.5 mmol/L (3.5-5.1); Sodium 132 mmol/L (136-145)
[2024-04-29 07:21] LABS: Calcium 8.1 mg/dL (8.7-10.4)
[2024-04-29 07:26] LABS: BUN/Creatinine Ratio 21.6 (10.0-20.0); Glucose 86 mg/dL (74-106)
[2024-04-29 07:27] LABS: Blood Urea Nitrogen 29 mg/dL (9-23); Magnesium 2.1 mg/dL (1.6-2.6)
--- NOTE | 2024-04-29 10:44 | DVHPN2 ---
Progress Note Date Seen: Apr 29, 2024 Has the PT tested + for MRSA If YES, has PT been informed?: No Medical Necessity Reason Pt with a Central, PICC or Fol: No Subjective Patient reports: No new complaints Other Systems: Patient seen and examined by myself on follow-up today Objective vital signs Vital Sign Date Time Temp Pulse Resp B/P (MAP) Pulse Ox O2 Delivery O2 Flow Rate FiO2 04/29/24 08:00 98.5 87 85/48 (60) 99 98.5 04/29/24 04:55 19 04/28/24 20:00 Room Air* 0 21 Total Intake and Output 04/28/24 04/28/24 04/29/24 15:00 23:00 07:00 Intake Total 250 ml 935 ml 700 ml Output Total 500 ml 750 ml Balance 250 ml 435 ml -50 ml medications Current Medications Medications Dose Ordered Sig/Arielle Route Start Time Stop Time Status Last Admin Dose Admin Clopidogrel Bisulfate 75 mg DAILY PO 04/23/24 10:00 04/29/24 09:05 75 MG Famotidine 20 mg DAILY IV 04/23/24 10:00 04/29/24 09:05 20 MG Acetaminophen/ Hydrocodone Bitart 1 tab Q4HP PRN PO 04/23/24 01:00 04/29/24 09:03 1 TAB Ondansetron HCl 4 mg Q4HP PRN IV 04/23/24 01:00 Docusate Sodium 100 mg BIDPRN PRN PO 04/23/24 01:00 Acetaminophen 650 mg Q6HP PRN PO 04/23/24 01:00 04/28/24 08:48 650 MG Atorvastatin Calcium 10 mg HS PO 04/23/24 22:00 04/28/24 23:21 10 MG Nitroglycerin 0.4 mg Q5MINP PRN SL 04/23/24 04:00 Morphine Sulfate 2 mg Q30M PRN IV 04/23/24 04:00 Enoxaparin Sodium 40 mg DAILY SC 04/24/24 10:00 UNV Enoxaparin Sodium 30 mg DAILY SC 04/25/24 10:00 04/29/24 09:05 30 MG Enteral Nutritional Formula 240 ml BIDWM PO 04/24/24 18:00 04/29/24 08:00 240 ML Cholecalciferol 2,000 unit DAILY PO 04/25/24 10:00 04/29/24 09:06 2,000 UNIT Zinc Sulfate 220 mg DAILY PO 04/25/24 10:00 04/29/24 09:06 220 MG Ascorbic Acid 500 mg DAILY PO 04/25/24 10:00 04/29/24 09:06 500 MG Magnesium Oxide 400 mg BID PO 04/25/24 22:00 04/29/24 09:05 400 MG Ferrous Sulfate 325 mg DAILY PO 04/26/24 10:00 04/29/24 09:06 325 MG Metronidazole 100 ml @ 100 mls/hr Q8HR IV 04/27/24 14:00 04/28/24 23:20 100 MLS/HR Sodium Chloride 1,000 ml @ 75 mls/hr [id number] IV 04/28/24 12:15 04/28/24 13:02 75 MLS/HR Cefepime HCl 50 ml @ 12.5 mls/hr Q24H IV 04/28/24 20:00 04/28/24 20:54 12.5 MLS/HR Examination: LUNGS:Normal, CVS:Normal, MSK:Normal laboratory and microbiology Laboratory Tests 04/29/24 06:27 Test 04/29/24 06:27 Range/Units Serum Glucose 86 74-106 mg/dL Microbiology Date/Time Source Procedure Growth Status 04/25/24 21:38 Nose MRSA Screen - Final Complete 04/23/24 13:59 Blood Blood Culture - Final NO GROWTH AFTER 5 DAYS OF INCUBATION. Complete 04/22/24 21:48 Urine - [place] Urine Culture - Final Complete Problem List/Assessment/Plan Problem List/Assessment/Plan Acute kidney injury superimposed Chronic Kidney Disease secondary hemodynamic mediated Hypotension History of seizure disorder Hypomagnesemia Recommendations Kidney function is improving Increased urine output Strict I&Os IVF NS at 75 cc/hour Magnesium sulfate IV piggyback We will continue to follow up Plan discussed with: Patient My Orders My Orders Orders - MAR HELMS MD Procedure Category Date Status Time Sodium Chloride 0.9% PHA 04/28/24 In Process 12:15 Dietary Evaluation Review Comments: Monitor PO intake to meet her needs at least 75%. Encourage Ensure High protein supplements. Expected Outcomes/Goals: gradual weight gains. MAR HELMS MD Apr 29, 2024 10:44
[2024-04-29] MEDS: MAGNESIUM SULFATE 1GM/100ML 100 ML IV SCH (12:00)
[2024-04-29] MEDS: POTASSIUM EFFERVESENT TAB 25 MEQ PO ONE (12:42)
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
--- NOTE | 2024-04-29 20:31 | DVHPN2 ---
Progress Note - Dictate Date Seen: Apr 29, 2024 Has the PT tested + for MRSA If YES, has PT been informed?: No Medical Necessity Reason Pt with a Central, PICC or Fol: No Subjective Pt was agitated; pulling out lines and tubes;slightly altered requiring soft restraints for wound care There is significant erythema and cellulitis surrounding colostomy wound. Unable to place colostomy bag directly to the skin. Pt was scratching the wound also Respiratory edouard she is stable saturating 100% on room air Renal function is improving vital signs Vital Sign Date Time Temp Pulse Resp B/P (MAP) Pulse Ox O2 Delivery O2 Flow Rate FiO2 04/29/24 17:00 98.2 82 18 95/58 (70) 100 98.2 04/29/24 08:00 Room Air* 0 21 Total Intake and Output 04/28/24 04/28/24 04/29/24 15:00 23:00 07:00 Intake Total 250 ml 935 ml 700 ml Output Total 500 ml 750 ml Balance 250 ml 435 ml -50 ml medications Current Medications Medications Dose Ordered Sig/Arielle Route Start Time Stop Time Status Last Admin Dose Admin Clopidogrel Bisulfate 75 mg DAILY PO 04/23/24 10:00 04/29/24 09:05 75 MG Famotidine 20 mg DAILY IV 04/23/24 10:00 04/29/24 09:05 20 MG Acetaminophen/ Hydrocodone Bitart 1 tab Q4HP PRN PO 04/23/24 01:00 04/29/24 16:50 1 TAB Ondansetron HCl 4 mg Q4HP PRN IV 04/23/24 01:00 Docusate Sodium 100 mg BIDPRN PRN PO 04/23/24 01:00 Acetaminophen 650 mg Q6HP PRN PO 04/23/24 01:00 04/28/24 08:48 650 MG Atorvastatin Calcium 10 mg HS PO 04/23/24 22:00 04/28/24 23:21 10 MG Nitroglycerin 0.4 mg Q5MINP PRN SL 04/23/24 04:00 Morphine Sulfate 2 mg Q30M PRN IV 04/23/24 04:00 Enoxaparin Sodium 40 mg DAILY SC 04/24/24 10:00 UNV Enoxaparin Sodium 30 mg DAILY SC 04/25/24 10:00 04/29/24 09:05 30 MG Enteral Nutritional Formula 240 ml BIDWM PO 04/24/24 18:00 04/29/24 16:50 240 ML Cholecalciferol 2,000 unit DAILY PO 04/25/24 10:00 04/29/24 09:06 2,000 UNIT Zinc Sulfate 220 mg DAILY PO 04/25/24 10:00 04/29/24 09:06 220 MG Ascorbic Acid 500 mg DAILY PO 04/25/24 10:00 04/29/24 09:06 500 MG Magnesium Oxide 400 mg BID PO 04/25/24 22:00 04/29/24 09:05 400 MG Ferrous Sulfate 325 mg DAILY PO 04/26/24 10:00 04/29/24 09:06 325 MG Metronidazole 100 ml @ 100 mls/hr Q8HR IV 04/27/24 14:00 04/29/24 14:00 100 MLS/HR Sodium Chloride 1,000 ml @ 75 mls/hr [id number] IV 04/28/24 12:15 04/29/24 14:55 75 MLS/HR Cefepime HCl 50 ml @ 12.5 mls/hr Q24H IV 04/28/24 20:00 04/29/24 20:15 12.5 MLS/HR objective General: Patient is awake Chest: lung mauricio clear to auscultation Heart: RRR, no murmur Abdomen: Moderate redness to large area of abdomen, laboratory and microbiology Laboratory Tests 04/29/24 06:27 Test 04/29/24 06:27 Range/Units Serum Glucose 86 74-106 mg/dL Problems(with codes): (1) COVID-19 (2) Cellulitis, abdominal wall (3) Generalized weakness (4) GRACIELA (acute kidney injury) (5) Sepsis due to urinary tract infection (6) Metabolic encephalopathy (7) Acute abdominal pain (8) Colostomy in place Prognosis Plan Recommend getting wound care consult IV antibiotics; IV PPI: barrier ointments COVID management protocol in place Consider possible NPO status or clear liquids and IV Clinimix until the wound heals to cut back on stool output Dietary Evaluation Review Comments: Monitor PO intake to meet her needs at least 75%. Encourage Ensure High protein supplements. Expected Outcomes/Goals: gradual weight gains. Plan discussed with: Other (Dr Danielle Campos) SO BANG MD Apr 29, 2024 20:31
[2024-04-29] MEDS: FAMOTIDINE (10MG/ML) 2ML VL IV SCH (21:50)
[2024-04-29] MEDS ORDERED: FAMOTIDINE (10MG/ML) 2ML VL IV SCH (22:00)
[2024-04-30] VITALS (9 sets, daily range): BP systolic 91–110; BP diastolic 52–74; PULSE 74–103; RESP 16–19; TEMP 97.1–98.9; O2SAT 94–100
[2024-04-30 07:38] LABS: Anion Gap 6 (5-15); Carbon Dioxide 26 mmol/L (20-31); Chloride 98 mmol/L (98-107); Sodium 130 mmol/L (136-145)
[2024-04-30 07:42] LABS: Calcium 7.9 mg/dL (8.7-10.4)
[2024-04-30 07:44] LABS: BUN/Creatinine Ratio 18.2 (10.0-20.0); Blood Urea Nitrogen 24 mg/dL (9-23); Glucose 94 mg/dL (74-106); Hematocrit 25.9 % (36.0-46.0); Hemoglobin 8.6 g/dL (12.2-16.2); Mean Corpuscular Hemoglobin 31.3 pg (28.0-32.0); Mean Corpuscular Hgb Conc. 33.1 g/dL (32.0-36.0); Mean Corpuscular Volume 94.6 fL (80.0-100.0); Platelet Count (auto) 313 10^3/uL (140-450); Red Blood Cells 2.74 10^6/uL (4.0-5.20); Red Cell Distribution Width 14.5 % (11.8-14.3); White Blood Cell 6.7 10^3/uL (4.4-10.8)
[2024-04-30 07:54] LABS: Basophils % (manual) 0 (0.0-2.0); Blast Cells 0; Metamyelocytes % 0; Myelocytes % 0; Promyelocytes % 0
[2024-04-30 08:53] LABS: Band Neutrophils % (manual) 7; Eosinophils % (manual) 1 (0-7); Lymphocytes % (manual) 5 (10.0-50.0); Monocytes % (manual) 20 (0-12); Reactive Lymphocytes 4
[2024-04-30 08:54] LABS: Anisocytosis Slight; Ovalocytes MODERATE
[2024-04-30 08:55] LABS: Platelet Estimate Adequate
--- NOTE | 2024-04-30 11:00 | DVHPN2 ---
Progress Note Date Seen: Apr 30, 2024 Has the PT tested + for MRSA If YES, has PT been informed?: No Medical Necessity Reason Pt with a Central, PICC or Fol: No Subjective Patient reports: No new complaints Other Systems: Patient seen and examined by myself today in follow-up Objective vital signs Vital Sign Date Time Temp Pulse Resp B/P (MAP) Pulse Ox O2 Delivery O2 Flow Rate FiO2 04/30/24 08:36 98.9 79 16 97/52 (67) 98 98.9 04/29/24 20:00 Room Air* 0 21 Total Intake and Output 04/29/24 04/29/24 04/30/24 15:00 23:00 07:00 Intake Total 1360 ml 400 ml Output Total 600 ml 350 ml Balance 760 ml 50 ml medications Current Medications Medications Dose Ordered Sig/Arielle Route Start Time Stop Time Status Last Admin Dose Admin Clopidogrel Bisulfate 75 mg DAILY PO 04/23/24 10:00 04/29/24 09:05 75 MG Acetaminophen/ Hydrocodone Bitart 1 tab Q4HP PRN PO 04/23/24 01:00 04/30/24 04:17 1 TAB Ondansetron HCl 4 mg Q4HP PRN IV 04/23/24 01:00 Docusate Sodium 100 mg BIDPRN PRN PO 04/23/24 01:00 Acetaminophen 650 mg Q6HP PRN PO 04/23/24 01:00 04/28/24 08:48 650 MG Atorvastatin Calcium 10 mg HS PO 04/23/24 22:00 04/29/24 21:50 10 MG Nitroglycerin 0.4 mg Q5MINP PRN SL 04/23/24 04:00 Morphine Sulfate 2 mg Q30M PRN IV 04/23/24 04:00 Enoxaparin Sodium 40 mg DAILY SC 04/24/24 10:00 UNV Enoxaparin Sodium 30 mg DAILY SC 04/25/24 10:00 04/29/24 09:05 30 MG Enteral Nutritional Formula 240 ml BIDWM PO 04/24/24 18:00 04/30/24 08:00 240 ML Cholecalciferol 2,000 unit DAILY PO 04/25/24 10:00 04/29/24 09:06 2,000 UNIT Zinc Sulfate 220 mg DAILY PO 04/25/24 10:00 04/29/24 09:06 220 MG Ascorbic Acid 500 mg DAILY PO 04/25/24 10:00 04/29/24 09:06 500 MG Magnesium Oxide 400 mg BID PO 04/25/24 22:00 04/29/24 21:50 400 MG Ferrous Sulfate 325 mg DAILY PO 04/26/24 10:00 04/29/24 09:06 325 MG Metronidazole 100 ml @ 100 mls/hr Q8HR IV 04/27/24 14:00 04/30/24 05:15 100 MLS/HR Sodium Chloride 1,000 ml @ 75 mls/hr [id number] IV 04/28/24 12:15 04/29/24 14:55 75 MLS/HR Cefepime HCl 50 ml @ 12.5 mls/hr Q24H IV 04/28/24 20:00 04/29/24 20:15 12.5 MLS/HR Famotidine 20 mg Q12HR IV 04/29/24 22:00 UNV Famotidine 20 mg HS IV 04/29/24 22:00 04/29/24 21:50 20 MG Examination: LUNGS:Normal, CVS:Normal, MSK:Normal laboratory and microbiology Laboratory Tests 04/30/24 06:52 Test 04/30/24 06:52 Range/Units Serum Glucose 94 74-106 mg/dL Microbiology Date/Time Source Procedure Growth Status 04/25/24 21:38 Nose MRSA Screen - Final Complete 04/23/24 13:59 Blood Blood Culture - Final NO GROWTH AFTER 5 DAYS OF INCUBATION. Complete 04/22/24 21:48 Urine - [place] Urine Culture - Final Complete Problem List/Assessment/Plan Problem List/Assessment/Plan Acute kidney injury superimposed Chronic Kidney Disease secondary hemodynamic mediated Hypotension History of seizure disorder Hypomagnesemia Recommendations Kidney function is improving Increased urine output Strict I&Os IVF NS at 75 cc/hour Magnesium sulfate IV piggyback I will sign off this case please reconsult as needed Thank you for the Plan discussed with: Patient Dietary Evaluation Review Comments: Monitor PO intake to meet her needs at least 75%. Encourage Ensure High protein supplements. Expected Outcomes/Goals: gradual weight gains. MAR HELMS MD Apr 30, 2024 11:00
--- NOTE | 2024-04-30 12:30 | DVHPNRES ---
Progress Note Date Seen: Apr 30, 2024 Resident Creating Document: CECI COX RESIDENT Has the PT tested + for MRSA If YES, has PT been informed?: No Medical Necessity Reason Pt with a Central, PICC or Fol: No Subjective Review of Systems This is a 73-year-old female with past medical history of arthritis, CHF, GERD, seizures, hyperlipidemia, hypertension who presented to the ED for evaluation of hypotension. As reported by EMS patient was residing on [facility] where she started having hypotension before coming to the ED. staff at [facility] was reported that lower blood pressure was 60/28 mmHg. By EMS, they reported blood pressure readings with systolic blood pressure in the 90s. Patient was initially evaluated in the ED were CBC and CMP were grossly unremarkable except for hypokalemia and creatinine at 2.79 with a BUN of 62. Blood pressure initially was low at 92/54 mmHg. There was no evidence of fever or any requirement of oxygen at that time. Urinalysis was performed which came back positive suggesting urinary tract infection. Patient was started on IV fluids at 60 cc/hour and IV azithromycin and ceftriaxone. Patient was admitted for further assessment and management. Patient was seen today for clinical evaluations. Labs and chart reviewed. Hemoglobin 8.6. Mild hyponatremia, sodium 130. Patient was seen come in quite this morning. Serum creatinine improving, today 1.32. Patient has skin tear above right wrist. there is significant erythema and cellulitis surrounding colostomy wound his standing 2 of the left lower abdomen up to the lateral wall of the abdomen. Patient was seen by surgery, recommendation reviewed and appreciated. Surgery recommended cellulitis over anterior lower abdominal skin, most likely Monilial dermatitis, suggested statin powder, no surgical intervention is warranted. Objective vital signs Vital Sign Date Time Temp Pulse Resp B/P (MAP) Pulse Ox O2 Delivery O2 Flow Rate FiO2 04/30/24 08:36 98.9 79 16 97/52 (67) 98 98.9 04/29/24 20:00 Room Air* 0 21 Total Intake and Output 04/29/24 04/29/24 04/30/24 15:00 23:00 07:00 Intake Total 1360 ml 400 ml Output Total 600 ml 350 ml Balance 760 ml 50 ml medications Current Medications Medications Dose Ordered Sig/Arielle Route Start Time Stop Time Status Last Admin Dose Admin Clopidogrel Bisulfate 75 mg DAILY PO 04/23/24 10:00 11/10/24 11:15 75 MG Acetaminophen/ Hydrocodone Bitart 1 tab Q4HP PRN PO 04/23/24 01:00 04/30/24 11:52 1 TAB Ondansetron HCl 4 mg Q4HP PRN IV 04/23/24 01:00 Docusate Sodium 100 mg BIDPRN PRN PO 04/23/24 01:00 Acetaminophen 650 mg Q6HP PRN PO 04/23/24 01:00 04/28/24 08:48 650 MG Atorvastatin Calcium 10 mg HS PO 04/23/24 22:00 04/29/24 21:50 10 MG Nitroglycerin 0.4 mg Q5MINP PRN SL 04/23/24 04:00 Morphine Sulfate 2 mg Q30M PRN IV 04/23/24 04:00 Enoxaparin Sodium 40 mg DAILY SC 04/24/24 10:00 UNV Enoxaparin Sodium 30 mg DAILY SC 04/25/24 10:00 04/30/24 11:16 30 MG Enteral Nutritional Formula 240 ml BIDWM PO 04/24/24 18:00 04/30/24 08:00 240 ML Cholecalciferol 2,000 unit DAILY PO 04/25/24 10:00 04/30/24 11:15 2,000 UNIT Zinc Sulfate 220 mg DAILY PO 04/25/24 10:00 04/30/24 11:15 220 MG Ascorbic Acid 500 mg DAILY PO 04/25/24 10:00 04/30/24 11:28 500 MG Magnesium Oxide 400 mg BID PO 04/25/24 22:00 04/30/24 11:14 400 MG Ferrous Sulfate 325 mg DAILY PO 04/26/24 10:00 04/30/24 11:14 325 MG Metronidazole 100 ml @ 100 mls/hr Q8HR IV 04/27/24 14:00 04/30/24 05:15 100 MLS/HR Sodium Chloride 1,000 ml @ 75 mls/hr [id number] IV 04/28/24 12:15 04/29/24 14:55 75 MLS/HR Cefepime HCl 50 ml @ 12.5 mls/hr Q24H IV 04/28/24 20:00 04/29/24 20:15 12.5 MLS/HR Famotidine 20 mg Q12HR IV 04/29/24 22:00 UNV Famotidine 20 mg HS IV 04/29/24 22:00 04/29/24 21:50 20 MG Examination General: Patient alert and oriented in person, place and time but has some source of underlying dementia. HEENT: Normocephalic, atraumatic, moist mucous membranes Respiratory/pulmonary: Clear lungs bilaterally, no associated crackles or wheezes. Cardiovascular: Normal heart sounds S1 and S2 with no associated murmurs Abdomen: Abdomen nondistended, there is mild to mod tenderness to palpation to the abdomen in the area surrounding colostomy bag. There is erythema and poss cellulitis surrounding colostomy wound unchanged from previous day. No masses palpable at this time. Extremities: There is no peripheral edema present at the lower extremities. skin tear just of the right wrist Peripheral Pulses: 3+ Radial (R). 3+ Radial (L). 3+ Dorsalis pedis (R). 3+ Dorsalis pedis(L) Skin: No rashes or pruritus, there is no sacral edema present at this time. Neurological:Intact cranial nerves not evaluated independently, patient seems anxious and slightly irritable. laboratory and microbiology Laboratory Tests 04/30/24 06:52 Test 04/30/24 06:52 Range/Units Serum Glucose 94 74-106 mg/dL Microbiology Date/Time Source Procedure Growth Status 04/25/24 21:38 Nose MRSA Screen - Final Complete 04/23/24 13:59 Blood Blood Culture - Final NO GROWTH AFTER 5 DAYS OF INCUBATION. Complete 04/22/24 21:48 Urine - [place] Urine Culture - Final Complete Problem List/Assessment/Plan Problem List/Assessment/Plan Severe hypotension likely in the setting of UTI -initial WBC was normal range -patient was slightly tachycardic, no fever, no leukocytosis, no tachypnea, no criteria for sepsis met at all -urinalysis came back positive for UTI -continue cefepime 1 g IV q.12 hours -Stop IV fluids -monitor electrolytes -monitor blood pressure closely -urine culture no growth -blood culture no growth -nares MRSA negative UTI -UA came back positive for UTI --continue cefepime 1 g IV q.12 hours --urine culture no growth -blood culture no growth -nares MRSA negative Positive for Covid 19 -currently patient has no respiratory distress -currently saturating 98% on room air -Chest x ray was grossly unremarkable Cellulitis surrounding colostomy bag/wound -Continue cefepime IV -Continue metronidazole IV Continue nystatin powder as per surgery recommendation -Wound consult -Consulted surgery to evaluate status of colostomy wound - Acute kidney injury superimposed Chronic Kidney Disease secondary hemodynamic mediated -creatinine was 1.34 and BUN Hypomagnesemia -Mg improved to 2.1 today -Will keep magnesium oxide 400mg BID po -Monitor electrolytes closely Hypokalemia -potassium was 3.7 Dyslipidemia -continue atorvastatin 10 mg q.d. Chronic diastolic heart failure HFpEF 55% -last echocardiogram on 12/24/2023 showed an LVEF of 55% with normal cardiac valves and no pericardial effusion -hold BP medications at this time due to hypotension -monitor blood pressure closely GERD -continue famotidine 20 mg q.d. Left knee pain likely due to severe advanced osteoarthritis -Ordered Bilat lower ext venous doppler which showed no evidence of DVTs at this time there are bilateral Chung cyst on both popliteal fossas. -monitor and pain medication -follow-up as an outpatient. Severe Malnourish -Continue vitamin-C, vitamin-D, Zinc -Continue ensure BID Goals of care discussed with the patient at bedside for > 23min, FULL CODE Plan discussed with Dr. Fleming Plan discussed with: Patient Plan discussed with: Patient, Other (RN) My Orders My Orders Orders - CECI COX Procedure Category Date Status Time * Wound Consult CONS 04/30/24 Transmitted Dietary Evaluation Review Comments: Monitor PO intake to meet her needs at least 75%. Encourage Ensure High protein supplements. Expected Outcomes/Goals: gradual weight gains. Date of Service: Apr 30, 2024 Billing Provider: LANG FLEMING MD Common Visit Codes: [id number] INP/OBS CARE(HIGH) CECI COX Apr 30, 2024 12:30 LANG FLEMING MD May 03, 2024 07:11
--- NOTE | 2024-04-30 14:21 | DVHPN2 ---
Progress Note Date Seen: Apr 30, 2024 Has the PT tested + for MRSA If YES, has PT been informed?: No Medical Necessity Reason Pt with a Central, PICC or Fol: No Objective vital signs Vital Sign Date Time Temp Pulse Resp B/P (MAP) Pulse Ox O2 Delivery O2 Flow Rate FiO2 04/30/24 13:00 97.1 84 18 101/69 (80) 100 97.1 04/29/24 20:00 Room Air* 0 21 Total Intake and Output 04/29/24 04/29/24 04/30/24 15:00 23:00 07:00 Intake Total 1360 ml 400 ml Output Total 600 ml 350 ml Balance 760 ml 50 ml medications Current Medications Medications Dose Ordered Sig/Arielle Route Start Time Stop Time Status Last Admin Dose Admin Clopidogrel Bisulfate 75 mg DAILY PO 04/23/24 10:00 04/30/24 11:15 75 MG Acetaminophen/ Hydrocodone Bitart 1 tab Q4HP PRN PO 04/23/24 01:00 04/30/24 11:52 1 TAB Ondansetron HCl 4 mg Q4HP PRN IV 04/23/24 01:00 Docusate Sodium 100 mg BIDPRN PRN PO 04/23/24 01:00 Acetaminophen 650 mg Q6HP PRN PO 04/23/24 01:00 04/28/24 08:48 650 MG Atorvastatin Calcium 10 mg HS PO 04/23/24 22:00 04/29/24 21:50 10 MG Nitroglycerin 0.4 mg Q5MINP PRN SL 04/23/24 04:00 Morphine Sulfate 2 mg Q30M PRN IV 04/23/24 04:00 Enoxaparin Sodium 40 mg DAILY SC 04/24/24 10:00 UNV Enoxaparin Sodium 30 mg DAILY SC 04/25/24 10:00 04/30/24 11:16 30 MG Enteral Nutritional Formula 240 ml BIDWM PO 04/24/24 18:00 04/30/24 08:00 240 ML Cholecalciferol 2,000 unit DAILY PO 04/25/24 10:00 04/30/24 11:15 2,000 UNIT Zinc Sulfate 220 mg DAILY PO 04/25/24 10:00 04/30/24 11:15 220 MG Ascorbic Acid 500 mg DAILY PO 04/25/24 10:00 04/30/24 11:28 500 MG Magnesium Oxide 400 mg BID PO 04/25/24 22:00 04/30/24 11:14 400 MG Ferrous Sulfate 325 mg DAILY PO 04/26/24 10:00 04/30/24 11:14 325 MG Metronidazole 100 ml @ 100 mls/hr Q8HR IV 04/27/24 14:00 04/30/24 13:58 100 MLS/HR Sodium Chloride 1,000 ml @ 75 mls/hr [id number] IV 04/28/24 12:15 04/30/24 13:57 75 MLS/HR Cefepime HCl 50 ml @ 12.5 mls/hr Q24H IV 04/28/24 20:00 04/29/24 20:15 12.5 MLS/HR Famotidine 20 mg Q12HR IV 04/29/24 22:00 UNV Famotidine 20 mg HS IV 04/29/24 22:00 04/29/24 21:50 20 MG Nystatin 1 applic BID TOP 04/30/24 22:00 UNV laboratory and microbiology Laboratory Tests 04/30/24 06:52 Test 04/30/24 06:52 Range/Units Serum Glucose 94 74-106 mg/dL Problem List/Assessment/Plan Problem List/Assessment/Plan 04/30/24 CELLULITIS OVER ENTIRE LOWER ABDOMINAL SKIN, MOST LIKELY MONILIAL DERMATITIS, suggest mycostatin powder, no surgical intervention is warranted. Plan discussed with: Patient Dietary Evaluation Review Comments: Monitor PO intake to meet her needs at least 75%. Encourage Ensure High protein supplements. Expected Outcomes/Goals: gradual weight gains. LINDEN RUDOLPH MD Apr 30, 2024 14:21
--- NOTE | 2024-04-30 16:53 | DVHPN2 ---
Progress Note - Dictate Date Seen: Apr 30, 2024 Has the PT tested + for MRSA If YES, has PT been informed?: No Medical Necessity Reason Pt with a Central, PICC or Fol: No Subjective Pt was seen at bedside, she is less agitated asking for more food There is significant erythema and cellulitis surrounding colostomy wound. The cellulitis appears to be improving Respiratory edouard she is stable saturating 100% on room air Renal function is improving Patient was also seen by surgical consult who thinks it might be a fungal skin rash vital signs Vital Sign Date Time Temp Pulse Resp B/P (MAP) Pulse Ox O2 Delivery O2 Flow Rate FiO2 04/30/24 13:00 97.1 84 18 101/69 (80) 100 97.1 04/29/24 20:00 Room Air* 0 21 Total Intake and Output 04/29/24 04/29/24 04/30/24 15:00 23:00 07:00 Intake Total 1360 ml 400 ml Output Total 600 ml 350 ml Balance 760 ml 50 ml medications Current Medications Medications Dose Ordered Sig/Arielle Route Start Time Stop Time Status Last Admin Dose Admin Clopidogrel Bisulfate 75 mg DAILY PO 04/23/24 10:00 04/30/24 11:15 75 MG Acetaminophen/ Hydrocodone Bitart 1 tab Q4HP PRN PO 04/23/24 01:00 04/30/24 11:52 1 TAB Ondansetron HCl 4 mg Q4HP PRN IV 04/23/24 01:00 Docusate Sodium 100 mg BIDPRN PRN PO 04/23/24 01:00 Acetaminophen 650 mg Q6HP PRN PO 04/23/24 01:00 04/28/24 08:48 650 MG Atorvastatin Calcium 10 mg HS PO 04/23/24 22:00 04/29/24 21:50 10 MG Nitroglycerin 0.4 mg Q5MINP PRN SL 04/23/24 04:00 Morphine Sulfate 2 mg Q30M PRN IV 04/23/24 04:00 Enoxaparin Sodium 40 mg DAILY SC 04/24/24 10:00 UNV Enoxaparin Sodium 30 mg DAILY SC 04/25/24 10:00 04/30/24 11:16 30 MG Enteral Nutritional Formula 240 ml BIDWM PO 04/24/24 18:00 04/30/24 08:00 240 ML Cholecalciferol 2,000 unit DAILY PO 04/25/24 10:00 04/30/24 11:15 2,000 UNIT Zinc Sulfate 220 mg DAILY PO 04/25/24 10:00 04/30/24 11:15 220 MG Ascorbic Acid 500 mg DAILY PO 04/25/24 10:00 04/30/24 11:28 500 MG Magnesium Oxide 400 mg BID PO 04/25/24 22:00 04/30/24 11:14 400 MG Ferrous Sulfate 325 mg DAILY PO 04/26/24 10:00 04/30/24 11:14 325 MG Metronidazole 100 ml @ 100 mls/hr Q8HR IV 04/27/24 14:00 04/30/24 13:58 100 MLS/HR Sodium Chloride 1,000 ml @ 75 mls/hr [id number] IV 04/28/24 12:15 04/30/24 13:57 75 MLS/HR Cefepime HCl 50 ml @ 12.5 mls/hr Q24H IV 04/28/24 20:00 04/29/24 20:15 12.5 MLS/HR Famotidine 20 mg Q12HR IV 04/29/24 22:00 UNV Famotidine 20 mg HS IV 04/29/24 22:00 04/29/24 21:50 20 MG Nystatin 1 applic BID TOP 04/30/24 22:00 objective General: Patient is awake Chest: lung mauricio clear to auscultation Heart: RRR, no murmur Abdomen: Moderate redness to large area of abdomen, laboratory and microbiology Laboratory Tests 04/30/24 06:52 Test 04/30/24 06:52 Range/Units Serum Glucose 94 74-106 mg/dL Problems(with codes): (1) Physical deconditioning (2) COVID-19 (3) Cellulitis, abdominal wall (4) GRACIELA (acute kidney injury) (5) Colostomy in place Prognosis Plan Recommend Mycostatin ointment or powder Wound care follow up If the rash does not improve then consider IV Diflucan I will follow up patient with you Dietary Evaluation Review Comments: Monitor PO intake to meet her needs at least 75%. Encourage Ensure High protein supplements. Expected Outcomes/Goals: gradual weight gains. Plan discussed with: Patient, Other (Nurse) SO BANG MD Apr 30, 2024 16:53
--- NOTE | 2024-04-30 17:58 | DVHINCON2 ---
Date of service: Apr 30, 2024 Family History: Patient reports no known family medical history. Allergies: Coded Allergies: Penicillins (Verified Allergy, Intermediate, 02/02/21) Uncoded Allergies: BROCCOLI (Allergy, Severe, 04/29/24) Home Meds Active Scripts Ferrous Sulfate (Ferrous Sulfate) 325 Mg Tab, 325 MG PO TUTHSA for 30 Days, #30 TAB Prov:RINKU HURT RESIDENT 04/05/24 Reported Medications Patients Own Medication (PATIENTS OWN MEDICATION) ., 2 ML PO DAILY for 90 Days, #180 PTS OWN MED-OBTAIN FROM PT AND SEND TO RX DRUG: MEGESTROL 400 MG/10 ML ORAL SUSPENSION FREQ: TAKE 2 ML BY MOUTH ONCE DAILY RX# EXP: DATE DISP: TECH: RP: 04/26/24 Levetiracetam (Keppra) 500 Mg Tab, 1 TAB PO BID for 14 Days, #28 04/26/24 Hydrocodone-Acetaminophen (Hydrocodone/Acetaminophen 7.5-325 mg) 1 Tab Tab, 1 TAB PO QID for 7 Days, #28 04/26/24 Quetiapine Fumerate (QUETIAPINE FUMARATE) 100 Mg Tab, 25 MG PO BID for 14 Days, #28 04/26/24 Pantoprazole Sodium Sesquihydr (Protonix) 40 Mg Tab, 1 TAB PO DAILY for 14 Days, #14 04/26/24 Ondansetron Odt 4MG Tab (ZOFRAN PO) 4 Mg Tb, 1 TAB PO BID for 30 Days, #60 ODT TAB-DISSOLVE IN MOUTH, THEN SWALLOW 03/30/24 Potassium Chloride (Potassium Chloride ER) 10 Meq Tab, 1 TAB PO BID for 90 Days, #180 03/30/24 Prednisolone Acetate (Prednisolone Acetate P-F) 1 % Mayi, 1 DROP LEFTEYE QID 12/24/23 Allopurinol (Allopurinol) 100 Mg Tab, 1 TAB PO DAILY 12/24/23 Baclofen (Baclofen) 10 Mg Tab, 20 MG PO BID PRN Take 1 tablet by mouth without regards to meals as needed twice daily. 12/24/23 Atorvastatin Calcium (Lipitor) 10 Mg Tab, 1 TAB PO DAILY, #30 5 Refills 12/24/23 Gabapentin (Gabapentin) 300 Mg Cap, 1 CAP PO DAILY for 90 Days, #90 12/24/23 Clopidogrel Bisulfate (CLOPIDOGREL) 75 Mg Tab, 1 TAB PO DAILY 04/20/23 Cyanocobalamin (Vitamin B-12) 1,000 Mcg Tab, 1 TAB PO DAILY for 90 Days, #90 04/20/23 Furosemide (Furosemide) 20 Mg Tab, 1 TAB PO DAILY for 90 Days, #90 04/20/23 Ergocalciferol (Vitamin D) 50,000 Unit Cap, 1 CAP PO QWEEKLY for 84 Days, #12 04/20/23 Magnesium Oxide (MAGNESIUM OXIDE) 400 Mg Tab, 1 TAB PO BID for 30 Days, #60 04/20/23 Current Medications Current Medications Medications (Trade) Dose Ordered Sig/Arielle Route PRN Reason Start Time Stop Time Status Last Admin Famotidine (Pepcid Injection) 20 mg Q12HR IV 04/29/24 22:00 UNV Famotidine (Pepcid Injection) 20 mg HS IV 04/29/24 22:00 04/29/24 21:50 Nystatin (Mycostatin Cream) 1 applic BID TOP 04/30/24 22:00 Vital Signs Vital Signs Date Time Temp Pulse Resp B/P (MAP) Pulse Ox O2 Delivery O2 Flow Rate FiO2 04/30/24 17:00 98.4 80 19 110/74 (86) 100 98.4 04/29/24 20:00 Room Air* 0 21 Labs/Diagnostic Data Labs Test 04/30/24 06:52 04/29/24 06:27 04/24/24 13:56 04/23/24 20:58 Range/Units White Blood Count 6.7 # 4.4-10.8 10^3/uL Red Blood Count 2.74 L 4.0-5.20 10^6/uL Hemoglobin 8.6 L 12.2-16.2 g/dL Hematocrit 25.9 #L 36.0-46.0 % Mean Corpuscular Volume 94.6 80.0-100.0 fL Mean Corpuscular Hemoglobin 31.3 28.0-32.0 pg Mean Corpuscular Hemoglobin Concent 33.1 32.0-36.0 g/dL Red Cell Distribution Width 14.5 H 11.8-14.3 % Platelet Count 313 140-450 10^3/uL Mean Platelet Volume 7.3 6.9-10.8 fL Neutrophils (%) (Auto) 37.0-80.0 % Lymphocytes (%) (Auto) 10.0-50.0 % Monocytes (%) (Auto) 0.0-12.0 % Basophils (%) (Auto) 0.0-2.0 % Neutrophils # (Auto) 1.6-8.6 10 ^3/uL Lymphocytes # (Auto) 0.4-5.4 10 ^3/uL Monocytes # (Auto) 0-1.3 10 ^3/uL Differential Total Cells Counted 100.0 100 Neutrophils % (Manual) 63 37.0-80.0 Band Neutrophils % (Manual) 7 Lymphocytes % (Manual) 5 L 10.0-50.0 Monocytes % (Manual) 20 H 0-12 Eosinophils % (Manual) 1 0-7 Basophils % (Manual) 0 0.0-2.0 Metamyelocytes % (manual) 0 Myelocytes % (Manual) 0 Promyelocytes % (Manual) 0 Blast Cells % (Manual) 0 Reactive Lymphocytes 4 Platelet Estimate Adequate Anisocytosis (manual) Slight Ovalocytes Moderate [place] Cells Few Sodium Level 130 L 136-145 mmol/L Potassium Level 4.0 3.5-5.1 mmol/L Chloride Level 98 98-107 mmol/L Carbon Dioxide Level 26 20-31 mmol/L Anion Gap 6 5-15 Blood Urea Nitrogen 24 H 9-23 mg/dL Creatinine 1.32 H 0.550-1.02 mg/dL Glomerular Filtration Rate Calc 43 >90 mL/min BUN/Creatinine Ratio 18.2 10.0-20.0 Serum Glucose 94 74-106 mg/dL Calcium Level 7.9 L 8.7-10.4 mg/dL Magnesium Level 2.0 1.6-2.6 mg/dL Eosinophils (%) (Auto) 2.4 0.0-7.0 % Eosinophils # (Auto) 0.1 0-0.8 10 ^3/uL Basophils # (Auto) 0 0-0.2 10 ^3/uL Nucleated Red Blood Cells 0.1 % Total Bilirubin 0.4 0.2-1.0 mg/dL Aspartate Amino Transferase (AST) 25 13-40 U/L Alanine Aminotransferase (ALT) 21 7-40 U/L Alkaline Phosphatase 106 46-116 U/L Total Protein 5.8 5.7-8.2 g/dL Albumin 3.4 3.2-4.8 g/dL Influenza Type A Antigen Negative Negative Influenza Type B Antigen Negative Negative SARS-CoV-2 Antigen (Rapid) Positive NEGATIVE Test 04/23/24 03:37 04/22/24 21:48 04/22/24 21:12 Range/Units B-Type Natriuretic Peptide 17.63 0-100 pg/mL Urine Color Light-orange Yellow Urine Clarity Clear Clear Urine pH 6.5 5.0-9.0 Urine Specific [place] 1.017 1.001-1.035 Urine Protein Trace H Negative Urine Ketones Negative Negative Urine Blood Negative Negative /uL Urine Nitrite Negative Negative Urine Bilirubin Negative Negative Urine Urobilinogen Normal Negative mg/dL Urine Leukocyte Esterase 1+ Negative /uL Urine RBC 1 0 - 4 /hpf Urine WBC 11 0 - 5 /hpf Urine Squamous Epithelial Cells Few <5 /hpf Urine Bacteria None seen None Seen /hpf Urine Yeast (Budding) Occasional None Seen /hpf Urine Glucose Normal Normal mg/dL Troponin I High Sensitivity 3 L </=34 ng/L Microbiology Date/Time Source Procedure Growth Status 04/25/24 21:38 Nose MRSA Screen - Final Complete 04/23/24 13:59 Blood Blood Culture - Final NO GROWTH AFTER 5 DAYS OF INCUBATION. Complete 04/22/24 21:48 Urine - [place] Urine Culture - Final Complete LOREEN PERSON MD Apr 30, 2024 17:58
[2024-04-30] MEDS: NYSTATIN TOPICAL CREAM 15GM TOP SCH (22:00)
[2024-05-01] VITALS (10 sets, daily range): BP systolic 91–106; BP diastolic 55–72; PULSE 76–88; RESP 13–20; TEMP 97.8–98.5; O2SAT 97–98
[2024-05-01 10:42] LABS: Basophils # (auto) 0 10 ^3/uL (0-0.2); Basophils % (auto) 0.7 % (0.0-2.0); Eosinophils # (auto) 0.2 10 ^3/uL (0-0.8); Eosinophils % (auto) 3.9 % (0.0-7.0); Hemoglobin 8.5 g/dL (12.2-16.2); Lymphocytes % (auto) 21.7 % (10.0-50.0); Mean Corpuscular Hemoglobin 31.7 pg (28.0-32.0); Mean Corpuscular Hgb Conc. 33.8 g/dL (32.0-36.0); Mean Corpuscular Volume 93.8 fL (80.0-100.0); Monocytes # (auto) 0.7 10 ^3/uL (0-1.3); Monocytes % (auto) 14.5 % (0.0-12.0); Neutrophils # (auto) 2.7 10 ^3/uL (1.6-8.6); Neutrophils % (auto) 59.2 % (37.0-80.0); Nucleated Red Blood Cells % 0.1 %; Platelet Count (auto) 417 10^3/uL (140-450); Red Blood Cells 2.67 10^6/uL (4.0-5.20); Red Cell Distribution Width 14.7 % (11.8-14.3); White Blood Cell 4.5 10^3/uL (4.4-10.8)
[2024-05-01 11:01] LABS: Alanine Aminotransferase 14 U/L (7-40); Albumin 3.3 g/dL (3.2-4.8); Alkaline Phosphatase 105 U/L (46-116); Anion Gap 6 (5-15); Aspartate Aminotransferase 24 U/L (13-40); BUN/Creatinine Ratio 17.4 (10.0-20.0); Blood Urea Nitrogen 24 mg/dL (9-23); Calcium 8.8 mg/dL (8.7-10.4); Carbon Dioxide 29 mmol/L (20-31); Chloride 98 mmol/L (98-107); Glucose 123 mg/dL (74-106); Sodium 133 mmol/L (136-145)
[2024-05-01 11:02] LABS: Bilirubin, Total 0.3 mg/dL (0.2-1.0)
--- NOTE | 2024-05-01 14:54 | DVHPNRES ---
Progress Note Date Seen: May 01, 2024 Resident Creating Document: RAEGAN RODRÍGUEZ RESIDENT Has the PT tested + for MRSA If YES, has PT been informed?: No Medical Necessity Reason Pt with a Central, PICC or Fol: No Subjective Review of Systems This is a 73-year-old female with past medical history of arthritis, CHF, GERD, seizures, hyperlipidemia, hypertension who presented to the ED for evaluation of hypotension. As reported by EMS patient was residing on [facility] where she started having hypotension before coming to the ED. staff at [facility] was reported that lower blood pressure was 60/28 mmHg. By EMS, they reported blood pressure readings with systolic blood pressure in the 90s. Patient was initially evaluated in the ED were CBC and CMP were grossly unremarkable except for hypokalemia and creatinine at 2.79 with a BUN of 62. Blood pressure initially was low at 92/54 mmHg. There was no evidence of fever or any requirement of oxygen at that time. Urinalysis was performed which came back positive suggesting urinary tract infection. Patient was started on IV fluids at 60 cc/hour and IV azithromycin and ceftriaxone. Patient was admitted for further assessment and management. Patient seen and examined at bedside. Patient still complaining of abdominal tenderness to palpation likely due to dermatitis and skin irritation or skin fungal infection. Colostomy wound keeps draining fluid and fecal material in the abdominal wall making the skin wet and making unable to place colostomy bag correctly. GI and surgery both were consulted and both services agrees that the patient just have likely fungal infection of the skin with concomitant irritation/dermatitis. We will keep doing wound care, avoiding contact with the abdominal wall and doing nystatin powder topically b.i.d. on the abdominal wall. We will continue IV cefepime and metronidazole at this time with ferrous sulfate and IV fluids. We will continue with multivitamins due to patient's severe malnutrition. We will also consult manager social services for possible hospice placement. ROS Constitutional: Denies weight loss, fever and chills. HEENT: Denies changes in vision and hearing. Respiratory: Denies shortness of breath and cough Cardiovascular: Denies chest discomfort or palpitations GI: Reports moderate to severe abdominal tenderness to slight palpation at the right lower quadrant in the skin surrounding the colostomy wound. Denies nausea, vomiting or diarrhea. : Denies dysuria and urinary frequency. Musculoskeletal: Denies myalgias and joint pain Skin: Denies rash and pruritus. Neurological: Denies dizziness, headache, vision or hearing problems Objective vital signs Vital Sign Date Time Temp Pulse Resp B/P (MAP) Pulse Ox O2 Delivery O2 Flow Rate FiO2 05/01/24 12:30 97.8 82 18 101/55 (70) 97 97.8 05/01/24 08:08 Room Air* 0 21 Total Intake and Output 04/30/24 04/30/24 05/01/24 15:00 23:00 07:00 Intake Total 100 ml 680 ml 500 ml Output Total 300 ml 400 ml Balance 100 ml 380 ml 100 ml medications Current Medications Medications Dose Ordered Sig/Arielle Route Start Time Stop Time Status Last Admin Dose Admin Clopidogrel Bisulfate 75 mg DAILY PO 04/23/24 10:00 05/01/24 10:00 75 MG Acetaminophen/ Hydrocodone Bitart 1 tab Q4HP PRN PO 04/23/24 01:00 05/01/24 12:03 1 TAB Ondansetron HCl 4 mg Q4HP PRN IV 04/23/24 01:00 Docusate Sodium 100 mg BIDPRN PRN PO 04/23/24 01:00 Acetaminophen 650 mg Q6HP PRN PO 04/23/24 01:00 05/01/24 08:24 650 MG Atorvastatin Calcium 10 mg HS PO 04/23/24 22:00 04/30/24 20:23 10 MG Nitroglycerin 0.4 mg Q5MINP PRN SL 04/23/24 04:00 Morphine Sulfate 2 mg Q30M PRN IV 04/23/24 04:00 Enoxaparin Sodium 40 mg DAILY SC 04/24/24 10:00 UNV Enoxaparin Sodium 30 mg DAILY SC 04/25/24 10:00 05/01/24 10:00 30 MG Enteral Nutritional Formula 240 ml BIDWM PO 04/24/24 18:00 05/01/24 07:55 240 ML Cholecalciferol 2,000 unit DAILY PO 04/25/24 10:00 05/01/24 10:00 2,000 UNIT Zinc Sulfate 220 mg DAILY PO 04/25/24 10:00 05/01/24 10:00 220 MG Ascorbic Acid 500 mg DAILY PO 04/25/24 10:00 05/01/24 10:00 500 MG Magnesium Oxide 400 mg BID PO 04/25/24 22:00 05/01/24 10:00 400 MG Ferrous Sulfate 325 mg DAILY PO 04/26/24 10:00 05/01/24 10:00 325 MG Metronidazole 100 ml @ 100 mls/hr Q8HR IV 04/27/24 14:00 05/01/24 13:59 100 MLS/HR Sodium Chloride 1,000 ml @ 75 mls/hr [id number] IV 04/28/24 12:15 04/30/24 13:57 75 MLS/HR Cefepime HCl 50 ml @ 12.5 mls/hr Q24H IV 04/28/24 20:00 04/30/24 20:23 12.5 MLS/HR Famotidine 20 mg Q12HR IV 04/29/24 22:00 UNV Famotidine 20 mg HS IV 04/29/24 22:00 04/30/24 20:24 20 MG Nystatin 1 applic BID TOP 04/30/24 22:00 05/01/24 10:00 1 APPLIC Examination Physical Examination General: Patient alert and oriented in person, place and time but has some source of underlying dementia. HEENT: Normocephalic, atraumatic, moist mucous membranes Respiratory/pulmonary: Clear lungs bilaterally, no associated crackles or wheezes. Cardiovascular: Normal heart sounds S1 and S2 with no associated murmurs Abdomen: Abdomen nondistended, there is moderate to severe tenderness to slight palpation at the abdominal wall which is erythematous and wet due to wound fluid secretion. Inability to correctly place colostomy bag due to colostomy wound constantly draining fluid and feces. Extremities: There is no peripheral edema present at the lower extremities. Peripheral Pulses: 3+ Radial (R). 3+ Radial (L). 3+ Dorsalis pedis (R). 3+ Dorsalis pedis(L) Skin: No rashes or pruritus, there is no sacral edema present at this time. Neurological:Intact cranial nerves not evaluated independently, patient seems anxious and slightly irritable. laboratory and microbiology Laboratory Tests 05/01/24 10:02 Test 05/01/24 10:02 Range/Units Serum Glucose 123 H 74-106 mg/dL Microbiology Date/Time Source Procedure Growth Status 04/25/24 21:38 Nose MRSA Screen - Final Complete 04/23/24 13:59 Blood Blood Culture - Final NO GROWTH AFTER 5 DAYS OF INCUBATION. Complete 04/22/24 21:48 Urine - [place] Urine Culture - Final Complete Problem List/Assessment/Plan Problem List/Assessment/Plan Assessment/Plan Severe hypotension likely in the setting of UTI -initial WBC was normal range -patient was slightly tachycardic, no fever, no leukocytosis, no tachypnea, no criteria for sepsis met at all -urinalysis came back positive for UTI -Discontinue IV ceftriaxone -monitor electrolytes -monitor blood pressure closely UTI -UA came back positive for UTI -continue cefepime -ordered urine bacterial culture, continue current antibiotics until cultures come back. Positive for Covid 19 -currently patient has no respiratory distress -currently saturating 96% on room air -Chest x ray was grossly unremarkable Cellulitis surrounding colostomy bag/wound likely due to fungal infection -Start nystatin powder BID topical use -Keep woud as dry and clean as possible -Continue cefepime IV -Continue metronidazole IV -Wound consult -Consulted surgery to evaluate status of colostomy wound Acute kidney injury superimposed Chronic Kidney Disease secondary hemodynamic mediated -creatinine was 1.38 and BUN 24 Hypomagnesemia -Mg improved to 2.0 -Will keep magnesium oxide 400mg BID po -Monitor electrolytes closely Hypokalemia -potassium was 4.0 Dyslipidemia -continue atorvastatin 10 mg q.d. Chronic diastolic heart failure HFpEF 55% -last echocardiogram on 12/24/2023 showed an LVEF of 55% with normal cardiac valves and no pericardial effusion -hold BP medications at this time due to hypotension -monitor blood pressure closely GERD -continue famotidine 20 mg q.d. Left knee pain likely due to severe advanced osteoarthritis -Ordered Bilat lower ext venous doppler which showed no evidence of DVTs at this time there are bilateral Chung cyst on both popliteal fossas. -monitor and pain medication -follow-up as an outpatient. Severe Malnourish -Continue vitamin-C, vitamin-D, Zinc -Continue ensure BID insurance and financial services agent consult was placed for home hospice. Goals of care discussed with the patient at bedside for > 23min, FULL CODE Plan discussed with Dr. Hansen Plan discussed with: Patient Dietary Evaluation Review Comments: Monitor PO intake to meet her needs at least 75%. Encourage Ensure High protein supplements. Expected Outcomes/Goals: gradual weight gains. Date of Service: May 01, 2024 Billing Provider: MISAEL HANSEN MD Common Visit Codes: [id number] INP/OBS CARE(HIGH) RAEGAN RODRÍGUEZ May 01, 2024 14:54 MISAEL HANSEN MD May 01, 2024 20:51
[2024-05-02] VITALS (7 sets, daily range): BP systolic 95–111; BP diastolic 51–68; PULSE 78–90; RESP 13–17; TEMP 97.8–98.6; O2SAT 96–100
[2024-05-02 10:22] LABS: Basophils # (auto) 0 10 ^3/uL (0-0.2); Eosinophils # (auto) 0.2 10 ^3/uL (0-0.8); Hematocrit 19.8 % (36.0-46.0); Red Blood Cells 2.08 10^6/uL (4.0-5.20); White Blood Cell 3.8 10^3/uL (4.4-10.8)
[2024-05-02 10:24] LABS: Basophils % (auto) 0.7 % (0.0-2.0); Eosinophils % (auto) 5.3 % (0.0-7.0); Lymphocytes # (auto) 0.9 10 ^3/uL (0.4-5.4); Lymphocytes % (auto) 23.2 % (10.0-50.0); Mean Corpuscular Hemoglobin 31.9 pg (28.0-32.0); Mean Corpuscular Hgb Conc. 33.5 g/dL (32.0-36.0); Mean Corpuscular Volume 95.4 fL (80.0-100.0); Monocytes # (auto) 0.6 10 ^3/uL (0-1.3); Monocytes % (auto) 16.9 % (0.0-12.0); Neutrophils % (auto) 53.9 % (37.0-80.0); Nucleated Red Blood Cells % 0.1 %; Platelet Count (auto) 353 10^3/uL (140-450); Red Cell Distribution Width 14.8 % (11.8-14.3)
[2024-05-02 10:32] LABS: Alanine Aminotransferase 12 U/L (7-40); Alkaline Phosphatase 78 U/L (46-116); Anion Gap 2 (5-15); Aspartate Aminotransferase 15 U/L (13-40); BUN/Creatinine Ratio 19.6 (10.0-20.0); Blood Urea Nitrogen 19 mg/dL (9-23); Calcium 6.4 mg/dL (8.7-10.4); Carbon Dioxide 26 mmol/L (20-31); Glucose 67 mg/dL (74-106); Hemoglobin 6.6 g/dL (12.2-16.2); Magnesium 1.4 mg/dL (1.6-2.6); Potassium 3.2 mmol/L (3.5-5.1); Sodium 139 mmol/L (136-145)
[2024-05-02 10:33] LABS: Albumin 2.2 g/dL (3.2-4.8); Bilirubin, Total 0.2 mg/dL (0.2-1.0); Total Protein 3.9 g/dL (5.7-8.2)
[2024-05-02 10:36] LABS: Chloride 111 mmol/L (98-107)
[2024-05-02] MEDS: HYDROcodone-ACET 5/325MG TAB PO PRN (11:09)
[2024-05-02 12:02] LABS: Hemoglobin 7.9 g/dL (12.2-16.2)
[2024-05-02 12:05] LABS: Hematocrit 23.4 % (36.0-46.0)
[2024-05-02] MEDS: MAGNESIUM SULFATE 1GM/100ML 100 ML IV SCH (12:41)
--- NOTE | 2024-05-02 14:49 | DVHDSRES ---
Discharge Summary Date of Admission Resident Creating Document: RAEGAN RODRÍGUEZ RESIDENT Apr 23, 2024 at 03:58 Date of Discharge: Apr 26, 2024 Admitting Diagnosis Hypotension Wounds: There is erythema, irritation/dermatitis and possible fungal infection surrounding the colostomy wound. Labs/Diagnostic Data: Laboratory Results Test 05/02/24 11:46 05/02/24 09:56 04/30/24 06:52 04/23/24 20:58 Hemoglobin 7.9 g/dL (12.2-16.2) Hematocrit 23.4 % (36.0-46.0) White Blood Count 3.8 10^3/uL (4.4-10.8) Red Blood Count 2.08 10^6/uL (4.0-5.20) Mean Corpuscular Volume 95.4 fL (80.0-100.0) Mean Corpuscular Hemoglobin 31.9 pg (28.0-32.0) Mean Corpuscular Hemoglobin Concent 33.5 g/dL (32.0-36.0) Red Cell Distribution Width 14.8 % (11.8-14.3) Platelet Count 353 10^3/uL (140-450) Mean Platelet Volume 6.6 fL (6.9-10.8) Neutrophils (%) (Auto) 53.9 % (37.0-80.0) Lymphocytes (%) (Auto) 23.2 % (10.0-50.0) Monocytes (%) (Auto) 16.9 % (0.0-12.0) Eosinophils (%) (Auto) 5.3 % (0.0-7.0) Basophils (%) (Auto) 0.7 % (0.0-2.0) Neutrophils # (Auto) 2.0 10 ^3/uL (1.6-8.6) Lymphocytes # (Auto) 0.9 10 ^3/uL (0.4-5.4) Monocytes # (Auto) 0.6 10 ^3/uL (0-1.3) Eosinophils # (Auto) 0.2 10 ^3/uL (0-0.8) Basophils # (Auto) 0 10 ^3/uL (0-0.2) Nucleated Red Blood Cells 0.1 % Sodium Level 139 mmol/L (136-145) Potassium Level 3.2 mmol/L (3.5-5.1) Chloride Level 111 mmol/L (98-107) Carbon Dioxide Level 26 mmol/L (20-31) Anion Gap 2 (5-15) Blood Urea Nitrogen 19 mg/dL (9-23) Creatinine 0.97 mg/dL (0.550-1.02) Glomerular Filtration Rate Calc 62 mL/min (>90) BUN/Creatinine Ratio 19.6 (10.0-20.0) Serum Glucose 67 mg/dL (74-106) Calcium Level 6.4 mg/dL (8.7-10.4) Magnesium Level 1.4 mg/dL (1.6-2.6) Total Bilirubin 0.2 mg/dL (0.2-1.0) Aspartate Amino Transferase (AST) 15 U/L (13-40) Alanine Aminotransferase (ALT) 12 U/L (7-40) Alkaline Phosphatase 78 U/L (46-116) Total Protein 3.9 g/dL (5.7-8.2) Albumin 2.2 g/dL (3.2-4.8) Differential Total Cells Counted 100.0 (100) Neutrophils % (Manual) 63 (37.0-80.0) Band Neutrophils % (Manual) 7 Lymphocytes % (Manual) 5 (10.0-50.0) Monocytes % (Manual) 20 (0-12) Eosinophils % (Manual) 1 (0-7) Basophils % (Manual) 0 (0.0-2.0) Metamyelocytes % (manual) 0 Myelocytes % (Manual) 0 Promyelocytes % (Manual) 0 Blast Cells % (Manual) 0 Reactive Lymphocytes 4 Platelet Estimate Adequate Anisocytosis (manual) Slight Ovalocytes Moderate Yordan Cells Few Influenza Type A Antigen Negative (Negative) Influenza Type B Antigen Negative (Negative) SARS-CoV-2 Antigen (Rapid) Positive (NEGATIVE) Test 04/23/24 03:37 04/22/24 21:48 04/22/24 21:12 B-Type Natriuretic Peptide 17.63 pg/mL (0-100) Urine Color Light-orange (Yellow) Urine Clarity Clear (Clear) Urine pH 6.5 (5.0-9.0) Urine Specific [place] 1.017 (1.001-1.035) Urine Protein Trace (Negative) Urine Ketones Negative (Negative) Urine Blood Negative /uL (Negative) Urine Nitrite Negative (Negative) Urine Bilirubin Negative (Negative) Urine Urobilinogen Normal mg/dL (Negative) Urine Leukocyte Esterase 1+ /uL (Negative) Urine RBC 1 /hpf (0 - 4) Urine WBC 11 /hpf (0 - 5) Urine Squamous Epithelial Cells Few /hpf (<5) Urine Bacteria None seen /hpf (None Seen) Urine Yeast (Budding) Occasional /hpf (None Urine Glucose Normal mg/dL (Normal) Troponin I High Sensitivity 3 ng/L (</=34) Other Laboratory Tests 05/02/24 11:46 05/02/24 09:56 Brief Hx & Hospital Course: This is a 73-year-old female with past medical history of arthritis, CHF, GERD, seizures, hyperlipidemia, hypertension who presented to the ED for evaluation of hypotension. As reported by EMS patient was residing on [facility] where she started having hypotension before coming to the ED. staff at [facility] was reported that lower blood pressure was 60/28 mmHg. By EMS, they reported blood pressure readings with systolic blood pressure in the 90s. Patient was initially evaluated in the ED were CBC and CMP were grossly unremarkable except for hypokalemia and creatinine at 2.79 with a BUN of 62. Blood pressure initially was low at 92/54 mmHg. There was no evidence of fever or any requirement of oxygen at that time. Urinalysis was performed which came back positive suggesting urinary tract infection. Patient was started on IV fluids at 60 cc/hour and IV azithromycin and ceftriaxone. The patient tested positive for COVID but never requested any oxygen supplementation and was always saturating 95-97% on room air. Patient took out colostomy bag once and colostomy wound got exposed oozing fecal material and fluid through the abdominal wall. We will consulted wound nurse and several nurses tried to change colostomy bag multiple times during hospitalization stay by the abdominal wall is always wet from fluid and became erythematous very tender to palpation. Patient was started on nystatin powder due to possible superimposed fungal skin infection surrounding the colostomy wound. Today, morning labs were grossly unremarkable except for hemoglobin which came back low, we repeated hemoglobin and hematocrit and was slightly better. We have a long discussion via phone with the daughter ana valadez which explained that nobody could take care of her mom at home. We explained that at this point the patient will qualify for home hospice which the daughter agreed. We spoke with the patient and explained that she was going to be discharged on home hospice, which we explained to the patient and the patient agreed as well. We will discharge the patient on home hospice with iron tablets 325 mg daily for 30 days with docusate 100 mg b.i.d. for 30 days to prevent constipation. The patient still has erythema surrounding the colostomy wound but can be treated with nystatin powder and wound care on home hospice. There is no evidence of acute infection on labs, no fever, blood pressure has been in the lower side since admission but no need of pressors or any other medications. ROS Constitutional: Denies weight loss, fever and chills. HEENT: Denies changes in vision and hearing. Respiratory: Denies shortness of breath and cough Cardiovascular: Denies chest discomfort or palpitations GI: Reports moderate abdominal tenderness at the area of the skin surrounding the colostomy bag. Denies nausea, vomiting or diarrhea : Denies dysuria and urinary frequency. Musculoskeletal: Denies myalgias and joint pain Skin: Denies rash and pruritus. Neurological: Denies dizziness, headache, vision or hearing problems Physical Examination General: Patient alert and oriented in person, place and time but has some source of underlying dementia. HEENT: Normocephalic, atraumatic, moist mucous membranes Respiratory/pulmonary: Clear lungs bilaterally, no associated crackles or wheezes. Cardiovascular: Normal heart sounds S1 and S2 with no associated murmurs Abdomen: Abdomen nondistended, there is moderate to severe tenderness to slight palpation at the abdominal wall which is erythematous and wet due to wound fluid secretion. No masses palpated at this time. Extremities: There is no peripheral edema present at the lower extremities. Peripheral Pulses: 3+ Radial (R). 3+ Radial (L). 3+ Dorsalis pedis (R). 3+ Dorsalis pedis(L) Skin: No rashes or pruritus, there is no sacral edema present at this time. Neurological:Intact cranial nerves not evaluated independently, patient seems anxious and slightly irritable. Consults/Reason for consult N/A Operations or Procedures CHEST RADIOGRAPH Indication:sob Technique: Single frontal view of the chest was obtained Comparison: XY CHEST PORTABLE on DOS: 04/10/24, XY CHEST XRAY 1 VIEW on DOS: 03/30/24, XY CHEST XRAY 1 VIEW on DOS: 03/28/24 FINDINGS: Lines and Tubes: None Lungs: No focal consolidation. Pleura: No effusion. No pneumothorax. Cardiomediastinal contours: Unremarkable patient's right hand is superimposed over the right chest and mediastinum obscuring detail. Consider repeat study Bones: No acute osseous abnormality. IMPRESSION: 1. No acute cardiopulmonary disease. BILATERAL LOWER EXTREMITY VENOUS DOPPLER CLINICAL HISTORY: R/O DVT Technique: Duplex Doppler evaluation of the deep venous systems of both lower extremities from the common femoral veins to the popliteal veins including color Doppler and spectral/pulsed waveform analysis was performed. COMPARISON: US BILAT LOWER DVT on DOS: 03/28/24 FINDINGS: The right and left common femoral, superficial femoral, popliteal, posterior tibial and peroneal veins appear patent with normal augmentation, phasicity, compressibility and color-flow. There are small Chung's cyst in the right and left popliteal fossa measuring 2.8 x 1.2 cm and 2.0 x 0.5 cm. IMPRESSION: 1. There is no sonographic evidence for DVT in the lower extremities. 2. Small chung's cyst in the bilateral popliteal fossas. Exam: CT CT AB PEL WO CON-NO ORAL OR IV History: right lower abd cellulitis Comparison Study: CT CT AB PEL WO CON-NO ORAL OR IV on DOS: 03/31/24, CT CT AB PEL WO CON-NO ORAL OR IV on DOS: 12/27/23, CT CT AB PEL WO CON-NO ORAL OR IV on DOS: 12/23/23, MBHL on DOS: 02/16/22, MBHL on DOS: 12/29/21 Technique: Multidetector spiral CT of the abdomen and pelvis was performed from lung bases to pubic symphysis. Imaging was performed without IV contrast. Axial, coronal and sagittal multiplanar reformats were obtained from the axial data set by the technologist. Radiation dose : Abdomen/Pelvis: CTDIvol 5 mGy, DLP 261.6 mGy*cm. Findings: Evaluation of solid organs is limited due to lack of intravenous contrast use. Lung Bases: No acute or significant lung base finding. Normal heart size. No pleural or pericardial effusion. Liver: The liver is normal in size. No focal lesions. Gallbladder and biliary Tree: Cholelithiasis noted without secondary findings of cholecystitis or biliary obstruction. Spleen: Unremarkable Pancreas: The pancreas is grossly normal in appearance. Adrenal Glands: Unremarkable Kidneys: Kidneys are grossly normal without calculi or hydronephrosis. Bladder: Bladder is decompressed with a [place] catheter and cannot be adequately assessed. Bowel: The stomach is grossly normal in appearance. Postsurgical changes with a right midabdomen ostomy in place. The appendix is not visualized; however, no secondary findings of acute appendicitis identified. Ascites: Absent Lymphadenopathy: No mesenteric, retroperitoneal or periportal lymphadenopathy. Abdominal wall and Mesentery: Unremarkable. Vasculature: Infrarenal abdominal aortic aneurysm measuring up to 33 mm. Pelvic Organs: Unremarkable Musculoskeletal: Postsurgical changes in the spine. Advanced degenerative changes of the bilateral hips with [id number] impaction. IMPRESSION: 1. Limited noncontrast exam. No definite acute abnormality identified. Infrarenal abdominal aortic aneurysm measuring up to 33 mm. Cholelithiasis. Consider further evaluation with CT of the abdomen and pelvis with contrast. Condition at Discharge: Stable Final Diagnosis/Problems List Severe hypotension likely in the setting of UTI Ruled out sepsis Acute metabolic encephalopathy UTI Positive for Covid 19 Cellulitis surrounding colostomy bag/wound likely due to fungal infection Acute kidney injury superimposed Chronic Kidney Disease secondary hemodynamic mediated Hypomagnesemia Hypokalemia Dyslipidemia Chronic diastolic heart failure HFpEF 55% GERD Left knee pain likely due to severe advanced osteoarthritis Severe Malnourish Discharge Disposition: Hospice - Home Discharge Instruct/Medications Diet: Regular Activity: No Restrictions, As Tolerated Follow Up/Referral: F/U with her PCP in 1 week Medications: Iron tabs 325mg QD for 30 days Docusate 100mg QD for 20 days Discharge Statement: "Patient was advised to return to the ER or call 911 if any headaches, dizziness, shortness of breath, chest pain, abdominal pain, bleeding, fevers, or worsening of medical condition. Patient was counseled about treatment plan, medications, possible side effects, patientverbalized understanding. All questions were answered to the best of my ability. This discharge took greater then 30 minutes in planning, reviewing documentation, counseling the patient, and discussing with other team members." ASSESSMENT ASSESSMENT Assessment Severe hypotension likely in the setting of UTI Ruled out sepsis UTI Positive for Covid 19 Cellulitis surrounding colostomy bag/wound likely due to fungal infection Acute kidney injury superimposed Chronic Kidney Disease secondary hemodynamic mediated Hypomagnesemia Hypokalemia Dyslipidemia Chronic diastolic heart failure HFpEF 55% GERD Left knee pain likely due to severe advanced osteoarthritis Severe Malnourish Date of Service: May 02, 2024 Billing Provider: MISAEL BRIGHT MD Common Visit Codes: 96792-TDE/OBS DISCH DAY >30min RAEGAN RODRÍGUEZ RESIDENT May 02, 2024 14:49 MISAEL BRIGHT MD May 02, 2024 20:55
[2024-05-02] MEDS: POTASSIUM CHL 20MEQ/100ML 100 ML IV SCH (16:23)
[2024-05-02] MEDS: MELATONIN 5 MG TAB PO SCH (21:50)
[2024-05-03] VITALS (8 sets, daily range): BP systolic 93–110; BP diastolic 46–65; PULSE 76–94; RESP 17–18; TEMP 97.5–97.9; O2SAT 94–98
--- NOTE | 2024-05-03 10:30 | DVHPNRES ---
Progress Note Date Seen: May 03, 2024 Resident Creating Document: RAEGAN RODRÍGUEZ RESIDENT Has the PT tested + for MRSA If YES, has PT been informed?: No Medical Necessity Reason Pt with a Central, PICC or Fol: No Subjective Review of Systems This is a 73-year-old female with past medical history of arthritis, CHF, GERD, seizures, hyperlipidemia, hypertension who presented to the ED for evaluation of hypotension. As reported by EMS patient was residing on [facility] where she started having hypotension before coming to the ED. staff at [facility] was reported that lower blood pressure was 60/28 mmHg. By EMS, they reported blood pressure readings with systolic blood pressure in the 90s. Patient was initially evaluated in the ED were CBC and CMP were grossly unremarkable except for hypokalemia and creatinine at 2.79 with a BUN of 62. Blood pressure initially was low at 92/54 mmHg. There was no evidence of fever or any requirement of oxygen at that time. Urinalysis was performed which came back positive suggesting urinary tract infection. Patient was started on IV fluids at 60 cc/hour and IV azithromycin and ceftriaxone. Patient was admitted for further assessment and management. Patient seen and examined at bedside. This morning, the patient was a little bit more calm and was not reporting significant abdominal pain as before. Abdominal wall is still erythematous surrounding the area of the colostomy wound. Colostomy bag is placed on position. Patient will be discharged to home hospice today. ROS Constitutional: Denies weight loss, fever and chills. HEENT: Denies changes in vision and hearing. Respiratory: Denies shortness of breath and cough Cardiovascular: Denies chest discomfort or palpitations GI: Denies abdominal pain, nausea, vomiting and diarrhea. : Denies dysuria and urinary frequency. Musculoskeletal: Denies myalgias and joint pain Skin: Denies rash and pruritus. Neurological: Denies dizziness, headache, vision or hearing problems Objective vital signs Vital Sign Date Time Temp Pulse Resp B/P (MAP) Pulse Ox O2 Delivery O2 Flow Rate FiO2 05/03/24 05:08 97.8 83 17 110/64 (79) 96 97.8 05/02/24 19:40 Room Air* 0 21 Total Intake and Output 05/02/24 05/02/24 05/03/24 15:00 23:00 07:00 Intake Total 200 ml 1254 ml 1740 ml Output Total 3480 ml 700 ml Balance 200 ml -2226 ml 1040 ml medications Current Medications Medications Dose Ordered Sig/Arielle Route Start Time Stop Time Status Last Admin Dose Admin Clopidogrel Bisulfate 75 mg DAILY PO 04/23/24 10:00 05/02/24 12:39 75 MG Ondansetron HCl 4 mg Q4HP PRN IV 04/23/24 01:00 Docusate Sodium 100 mg BIDPRN PRN PO 04/23/24 01:00 Acetaminophen 650 mg Q6HP PRN PO 04/23/24 01:00 05/03/24 00:50 650 MG Atorvastatin Calcium 10 mg HS PO 04/23/24 22:00 05/02/24 20:14 10 MG Nitroglycerin 0.4 mg Q5MINP PRN SL 04/23/24 04:00 Enoxaparin Sodium 40 mg DAILY SC 04/24/24 10:00 UNV Enoxaparin Sodium 30 mg DAILY SC 04/25/24 10:00 05/02/24 12:41 30 MG Enteral Nutritional Formula 240 ml BIDWM PO 04/24/24 18:00 05/02/24 18:05 240 ML Cholecalciferol 2,000 unit DAILY PO 04/25/24 10:00 05/02/24 12:38 2,000 UNIT Zinc Sulfate 220 mg DAILY PO 04/25/24 10:00 05/02/24 12:38 220 MG Ascorbic Acid 500 mg DAILY PO 04/25/24 10:00 05/02/24 12:39 500 MG Magnesium Oxide 400 mg BID PO 04/25/24 22:00 05/02/24 20:13 400 MG Ferrous Sulfate 325 mg DAILY PO 04/26/24 10:00 05/02/24 12:37 325 MG Metronidazole 100 ml @ 100 mls/hr Q8HR IV 04/27/24 14:00 05/03/24 05:17 100 MLS/HR Sodium Chloride 1,000 ml @ 75 mls/hr [id number] IV 04/28/24 12:15 04/30/24 13:57 75 MLS/HR Cefepime HCl 50 ml @ 12.5 mls/hr Q24H IV 04/28/24 20:00 05/02/24 20:25 12.5 MLS/HR Famotidine 20 mg Q12HR IV 04/29/24 22:00 UNV Famotidine 20 mg HS IV 04/29/24 22:00 05/02/24 20:20 20 MG Nystatin 1 applic BID TOP 04/30/24 22:00 05/02/24 21:50 1 APPLIC Acetaminophen/ Hydrocodone Bitart 1 tab Q6HPRN PRN PO 05/02/24 10:30 05/03/24 05:17 1 TAB Melatonin 10 mg HS PO 05/02/24 22:00 05/02/24 21:50 10 MG Examination Physical Examination General: Patient alert and oriented in person, place and time but has some source of underlying dementia. HEENT: Normocephalic, atraumatic, moist mucous membranes Respiratory/pulmonary: Clear lungs bilaterally, no associated crackles or wheezes. Cardiovascular: Normal heart sounds S1 and S2 with no associated murmurs Abdomen: Abdomen nondistended, there is moderate tenderness to palpation at the abdominal wall which is erythematous and wet due to wound fluid secretion. Colostomy bag is placed on position. Peripheral Pulses: 3+ Radial (R). 3+ Radial (L). 3+ Dorsalis pedis (R). 3+ Dorsalis pedis(L) Skin: No rashes or pruritus, there is no sacral edema present at this time. Neurological:Intact cranial nerves not evaluated independently, patient seems anxious and slightly irritable. laboratory and microbiology Laboratory Tests 05/02/24 11:46 05/02/24 09:56 Test 05/02/24 09:56 Range/Units Serum Glucose 67 L 74-106 mg/dL Microbiology Date/Time Source Procedure Growth Status 04/25/24 21:38 Nose MRSA Screen - Final Complete 04/23/24 13:59 Blood Blood Culture - Final NO GROWTH AFTER 5 DAYS OF INCUBATION. Complete 04/22/24 21:48 Urine - [place] Urine Culture - Final Complete Problem List/Assessment/Plan Problem List/Assessment/Plan Assessment/Plan Severe hypotension likely in the setting of UTI -initial WBC was normal range -patient was slightly tachycardic, no fever, no leukocytosis, no tachypnea, no criteria for sepsis met at all -urinalysis came back positive for UTI -Discontinue IV ceftriaxone -monitor electrolytes -monitor blood pressure closely UTI -UA came back positive for UTI -continue cefepime -ordered urine bacterial culture, continue current antibiotics until cultures come back. Positive for Covid 19 -currently patient has no respiratory distress -currently saturating 96% on room air -Chest x ray was grossly unremarkable Cellulitis surrounding colostomy bag/wound likely due to fungal infection -Start nystatin powder BID topical use -Keep woud as dry and clean as possible -Continue cefepime IV -Continue metronidazole IV -Wound consult -Consulted surgery to evaluate status of colostomy wound Acute kidney injury superimposed Chronic Kidney Disease secondary hemodynamic mediated -creatinine was 1.38 and BUN 24 Hypomagnesemia -Mg improved to 2.0 -Will keep magnesium oxide 400mg BID po -Monitor electrolytes closely Hypokalemia -potassium was 4.0 Dyslipidemia -continue atorvastatin 10 mg q.d. Chronic diastolic heart failure HFpEF 55% -last echocardiogram on 12/24/2023 showed an LVEF of 55% with normal cardiac valves and no pericardial effusion -hold BP medications at this time due to hypotension -monitor blood pressure closely GERD -continue famotidine 20 mg q.d. Left knee pain likely due to severe advanced osteoarthritis -Ordered Bilat lower ext venous doppler which showed no evidence of DVTs at this time there are bilateral Chung cyst on both popliteal fossas. -monitor and pain medication -follow-up as an outpatient. Severe Malnourish -Continue vitamin-C, vitamin-D, Zinc -Continue ensure BID Patient will be discharged to home hospice today. Goals of care discussed with the patient at bedside for > 23min, FULL CODE Plan discussed with Dr. Hansen Plan discussed with: Patient My Orders My Orders Orders - RAEGAN RODRÍGUEZ Procedure Category Date Status Time Pureed DIET 05/02/24 Transmitted Lunch Hydrocodone-Acet PHA 05/02/24 In Process 5/325mg Tab ([place] 10:30 * [employer] CONS 05/02/24 Transmitted Consult 12:28 Discharge DISCHARGE 05/02/24 Transmitted 12:41 Discontinue [place] MATTHEW 05/02/24 In Process Catheter 16:49 Basic Metabolic Panel LAB 05/03/24 Logged 07:57 Dietary Evaluation Review Comments: Monitor PO intake to meet her needs at least 75%. Encourage Ensure High protein supplements. Expected Outcomes/Goals: gradual weight gains. Date of Service: May 03, 2024 Billing Provider: MISAEL HANSEN MD Common Visit Codes: [id number] INP/OBS CARE(HIGH) RAEGAN RODRÍGUEZ RESIDENT May 03, 2024 10:30 MISAEL HANSEN MD May 06, 2024 04:44
[2024-05-03 11:17] LABS: Chloride 104 mmol/L (98-107); Potassium 4.6 mmol/L (3.5-5.1)
[2024-05-03 11:18] LABS: Anion Gap 6 (5-15); Calcium 8.3 mg/dL (8.7-10.4); Carbon Dioxide 24 mmol/L (20-31)
[2024-05-03 11:23] LABS: BUN/Creatinine Ratio 15.2 (10.0-20.0); Blood Urea Nitrogen 21 mg/dL (9-23); Glucose 125 mg/dL (74-106)
[2024-05-03 11:33] LABS: Sodium 134 mmol/L (136-145)
--- NOTE | 2024-05-03 20:19 | DVHPN2 ---
Progress Note - Dictate Date Seen: May 03, 2024 Has the PT tested + for MRSA If YES, has PT been informed?: No Medical Necessity Reason Pt with a Central, PICC or Fol: No Subjective Pt was seen at bedside, she is less agitated asking for more food There is significant erythema and cellulitis surrounding colostomy wound. The cellulitis appears to be improving Respiratory edouard she is stable saturating 100% on room air Renal function is improving Patient was also seen by surgical consult who thinks it might be a fungal skin rash vital signs Vital Sign Date Time Temp Pulse Resp B/P (MAP) Pulse Ox O2 Delivery O2 Flow Rate FiO2 05/03/24 17:00 94 18 106/65 (79) 97 05/03/24 13:00 97.9 97.9 05/03/24 08:00 Room Air* 0 21 Total Intake and Output 05/02/24 05/02/24 05/03/24 14:59 22:59 06:59 Intake Total 200 ml 1254 ml 1740 ml Output Total 3480 ml 700 ml Balance 200 ml -2226 ml 1040 ml medications Current Medications Medications Dose Ordered Sig/Arielle Route Start Time Stop Time Status Last Admin Dose Admin Clopidogrel Bisulfate 75 mg DAILY PO 04/23/24 10:00 05/03/24 10:38 75 MG Ondansetron HCl 4 mg Q4HP PRN IV 04/23/24 01:00 Docusate Sodium 100 mg BIDPRN PRN PO 04/23/24 01:00 Acetaminophen 650 mg Q6HP PRN PO 04/23/24 01:00 05/03/24 00:50 650 MG Atorvastatin Calcium 10 mg HS PO 04/23/24 22:00 05/02/24 20:14 10 MG Nitroglycerin 0.4 mg Q5MINP PRN SL 04/23/24 04:00 Enoxaparin Sodium 40 mg DAILY SC 04/24/24 10:00 UNV Enoxaparin Sodium 30 mg DAILY SC 04/25/24 10:00 05/03/24 10:38 30 MG Enteral Nutritional Formula 240 ml BIDWM PO 04/24/24 18:00 05/03/24 18:00 240 ML Cholecalciferol 2,000 unit DAILY PO 04/25/24 10:00 05/03/24 10:38 2,000 UNIT Zinc Sulfate 220 mg DAILY PO 04/25/24 10:00 05/03/24 10:38 220 MG Ascorbic Acid 500 mg DAILY PO 04/25/24 10:00 05/03/24 10:38 500 MG Magnesium Oxide 400 mg BID PO 04/25/24 22:00 05/03/24 10:38 400 MG Ferrous Sulfate 325 mg DAILY PO 04/26/24 10:00 05/03/24 10:38 325 MG Metronidazole 100 ml @ 100 mls/hr Q8HR IV 04/27/24 14:00 05/03/24 15:09 100 MLS/HR Sodium Chloride 1,000 ml @ 75 mls/hr [id number] IV 04/28/24 12:15 04/30/24 13:57 75 MLS/HR Cefepime HCl 50 ml @ 12.5 mls/hr Q24H IV 04/28/24 20:00 05/02/24 20:25 12.5 MLS/HR Famotidine 20 mg Q12HR IV 04/29/24 22:00 UNV Famotidine 20 mg HS IV 04/29/24 22:00 05/02/24 20:20 20 MG Nystatin 1 applic BID TOP 04/30/24 22:00 05/03/24 10:00 1 APPLIC Acetaminophen/ Hydrocodone Bitart 1 tab Q6HPRN PRN PO 05/02/24 10:30 05/03/24 17:56 1 TAB Melatonin 10 mg HS PO 05/02/24 22:00 05/02/24 21:50 10 MG objective General: Patient is awake Chest: lung mauricio clear to auscultation Heart: RRR, no murmur Abdomen: Moderate redness to large area of abdomen, laboratory and microbiology Laboratory Tests 05/03/24 10:30 05/02/24 11:46 05/02/24 09:56 Test 05/03/24 10:30 Range/Units Serum Glucose 125 H 74-106 mg/dL Problems(with codes): (1) Physical deconditioning (2) COVID-19 (3) Cellulitis, abdominal wall (4) GRACIELA (acute kidney injury) (5) Colostomy in place (6) Anemia, unspecified Prognosis Assessment and plan There is a plan for possible discharge on hospice There might be bed availability tomorrow Prognosis remains guarded Continue local colostomy care Diet as tolerated Continue Mycostatin ointment and powder Dietary Evaluation Review Comments: Monitor PO intake to meet her needs at least 75%. Encourage Ensure High protein supplements. Expected Outcomes/Goals: gradual weight gains. Plan discussed with: Other (Nurse) SO BANG MD May 03, 2024 20:19
[2024-05-04] VITALS (7 sets, daily range): BP systolic 84–106; BP diastolic 50–64; PULSE 68–87; RESP 16–18; TEMP 98–98.5; O2SAT 93–100
--- NOTE | 2024-05-04 09:38 | DVHPNRES ---
Progress Note Date Seen: May 04, 2024 Resident Creating Document: RAEGAN RODRÍGUEZ RESIDENT Has the PT tested + for MRSA If YES, has PT been informed?: No Medical Necessity Reason Pt with a Central, PICC or Fol: No Subjective Review of Systems This is a 73-year-old female with past medical history of arthritis, CHF, GERD, seizures, hyperlipidemia, hypertension who presented to the ED for evaluation of hypotension. As reported by EMS patient was residing on [facility] where she started having hypotension before coming to the ED. staff at [facility] was reported that lower blood pressure was 60/28 mmHg. By EMS, they reported blood pressure readings with systolic blood pressure in the 90s. Patient was initially evaluated in the ED were CBC and CMP were grossly unremarkable except for hypokalemia and creatinine at 2.79 with a BUN of 62. Blood pressure initially was low at 92/54 mmHg. There was no evidence of fever or any requirement of oxygen at that time. Urinalysis was performed which came back positive suggesting urinary tract infection. Patient was started on IV fluids at 60 cc/hour and IV azithromycin and ceftriaxone. Patient was admitted for further assessment and management. Patient seen and examined at bedside. Patient colostomy wound and erythema in the right lower abdomen is improving and patient reports she was mild tenderness at this time. No additional complaints. Patient will be discharged to hospice today. ROS Constitutional: Denies weight loss, fever and chills. HEENT: Denies changes in vision and hearing. Respiratory: Denies shortness of breath and cough Cardiovascular: Denies chest discomfort or palpitations GI: Denies abdominal pain, nausea, vomiting and diarrhea. : Denies dysuria and urinary frequency. Musculoskeletal: Denies myalgias and joint pain Skin: Reports erythema surrounding the colostomy wound. Denies rash and pruritus. Neurological: Denies dizziness, headache, vision or hearing problems Objective vital signs Vital Sign Date Time Temp Pulse Resp B/P (MAP) Pulse Ox O2 Delivery O2 Flow Rate FiO2 05/04/24 05:00 78 17 104/64 (77) 96 05/03/24 20:00 Room Air* 0 21 05/03/24 13:00 97.9 97.9 Total Intake and Output 05/03/24 05/03/24 05/04/24 15:00 23:00 07:00 Intake Total 1140 ml 410 ml Output Total 300 ml 250 ml Balance -300 ml 1140 ml 160 ml medications Current Medications Medications Dose Ordered Sig/Arielle Route Start Time Stop Time Status Last Admin Dose Admin Clopidogrel Bisulfate 75 mg DAILY PO 04/23/24 10:00 05/03/24 10:38 75 MG Ondansetron HCl 4 mg Q4HP PRN IV 04/23/24 01:00 Docusate Sodium 100 mg BIDPRN PRN PO 04/23/24 01:00 Acetaminophen 650 mg Q6HP PRN PO 04/23/24 01:00 05/03/24 00:50 650 MG Atorvastatin Calcium 10 mg HS PO 04/23/24 22:00 05/03/24 22:32 10 MG Nitroglycerin 0.4 mg Q5MINP PRN SL 04/23/24 04:00 Enoxaparin Sodium 40 mg DAILY SC 04/24/24 10:00 UNV Enoxaparin Sodium 30 mg DAILY SC 04/25/24 10:00 05/03/24 10:38 30 MG Enteral Nutritional Formula 240 ml BIDWM PO 04/24/24 18:00 05/03/24 18:00 240 ML Cholecalciferol 2,000 unit DAILY PO 04/25/24 10:00 05/03/24 10:38 2,000 UNIT Zinc Sulfate 220 mg DAILY PO 04/25/24 10:00 05/03/24 10:38 220 MG Ascorbic Acid 500 mg DAILY PO 04/25/24 10:00 05/03/24 10:38 500 MG Magnesium Oxide 400 mg BID PO 04/25/24 22:00 05/03/24 22:32 400 MG Ferrous Sulfate 325 mg DAILY PO 04/26/24 10:00 05/03/24 10:38 325 MG Metronidazole 100 ml @ 100 mls/hr Q8HR IV 04/27/24 14:00 05/03/24 21:05 100 MLS/HR Sodium Chloride 1,000 ml @ 75 mls/hr [id number] IV 04/28/24 12:15 04/30/24 13:57 75 MLS/HR Cefepime HCl 50 ml @ 12.5 mls/hr Q24H IV 04/28/24 20:00 05/03/24 21:04 12.5 MLS/HR Famotidine 20 mg Q12HR IV 04/29/24 22:00 UNV Famotidine 20 mg HS IV 04/29/24 22:00 05/03/24 22:35 20 MG Nystatin 1 applic BID TOP 04/30/24 22:00 05/03/24 22:46 1 APPLIC Acetaminophen/ Hydrocodone Bitart 1 tab Q6HPRN PRN PO 05/02/24 10:30 05/04/24 00:16 1 TAB Melatonin 10 mg HS PO 05/02/24 22:00 05/03/24 22:34 10 MG Examination Physical Examination General: Patient alert and oriented in person, place and time but has some source of underlying dementia. HEENT: Normocephalic, atraumatic, moist mucous membranes Respiratory/pulmonary: Clear lungs bilaterally, no associated crackles or wheezes. Cardiovascular: Normal heart sounds S1 and S2 with no associated murmurs Abdomen: Abdomen nondistended, there is mild tenderness to palpation at the abdominal wall which is erythematous and wet due to wound fluid secretion but is improving compare to previous days. Colostomy bag is placed on position. Peripheral Pulses: 3+ Radial (R). 3+ Radial (L). 3+ Dorsalis pedis (R). 3+ Dorsalis pedis(L) Skin: No rashes or pruritus, there is no sacral edema present at this time. Neurological:Intact cranial nerves not evaluated independently, patient seems anxious and slightly irritable. laboratory and microbiology Laboratory Tests 05/03/24 10:30 05/02/24 11:46 05/02/24 09:56 Test 05/03/24 10:30 Range/Units Serum Glucose 125 H 74-106 mg/dL Microbiology Date/Time Source Procedure Growth Status 04/25/24 21:38 Nose MRSA Screen - Final Complete 04/23/24 13:59 Blood Blood Culture - Final NO GROWTH AFTER 5 DAYS OF INCUBATION. Complete 04/22/24 21:48 Urine - [place] Urine Culture - Final Complete Problem List/Assessment/Plan Problem List/Assessment/Plan Assessment/Plan Severe hypotension likely in the setting of UTI -initial WBC was normal range -patient was slightly tachycardic, no fever, no leukocytosis, no tachypnea, no criteria for sepsis met at all -urinalysis came back positive for UTI -monitor electrolytes -monitor blood pressure closely UTI -UA came back positive for UTI -continue cefepime -ordered urine bacterial culture, continue current antibiotics until cultures come back. Positive for Covid 19 -currently patient has no respiratory distress -currently saturating 96% on room air -Chest x ray was grossly unremarkable Cellulitis surrounding colostomy bag/wound likely due to fungal infection -Start nystatin powder BID topical use -Keep woud as dry and clean as possible -Continue cefepime IV -Continue metronidazole IV -Wound consult -Consulted surgery to evaluate status of colostomy wound Acute kidney injury superimposed Chronic Kidney Disease secondary hemodynamic mediated -creatinine was 1.38 and BUN 24 Hypomagnesemia -Mg improved to 2.0 -Will keep magnesium oxide 400mg BID po -Monitor electrolytes closely Hypokalemia, resolved -last potassium on normal range Dyslipidemia -continue atorvastatin 10 mg q.d. Chronic diastolic heart failure HFpEF 55% -last echocardiogram on 12/24/2023 showed an LVEF of 55% with normal cardiac valves and no pericardial effusion -hold BP medications at this time due to hypotension -monitor blood pressure closely GERD -continue famotidine 20 mg q.d. Left knee pain likely due to severe advanced osteoarthritis -Ordered Bilat lower ext venous doppler which showed no evidence of DVTs at this time there are bilateral Chung cyst on both popliteal fossas. -monitor and pain medication -follow-up as an outpatient. Severe Malnourish -Continue vitamin-C, vitamin-D, Zinc -Continue ensure BID Patient will be discharged to home hospice today. Goals of care discussed with the patient at bedside for > 23min, FULL CODE Plan discussed with Dr. Hansen Plan discussed with: Patient My Orders My Orders Orders - RAEGAN RODRÍGUEZ Procedure Category Date Status Time Insert Midline ORDERS 05/04/24 Transmitted 08:17 Dietary Evaluation Review Comments: Monitor PO intake to meet her needs at least 75%. Encourage Ensure High protein supplements. Expected Outcomes/Goals: gradual weight gains. Date of Service: May 04, 2024 Billing Provider: MISAEL HANSEN MD Common Visit Codes: [id number] INP/OBS CARE(MOD) RAEGAN RODRÍGUEZ May 04, 2024 09:38 MISAEL HANSEN MD May 06, 2024 04:45
[2024-05-04] MEDS: PANTOPRAZOLE 40 MG TAB PO ONE (13:05)
[2024-05-05 05:00] VITALS: BP 105/76; PULSE 80; RESP 18; TEMP 98.3; O2SAT 96
[2024-05-05 05:05] VITALS: TEMP 98.6
[2024-05-05 08:15] VITALS: PULSE 61; PULSE 84; RESP 21; O2SAT 91
[2024-05-05 09:00] VITALS: BP 95/55; PULSE 84; RESP 21; O2SAT 91
[2024-05-05 09:21] LABS: Basophils # (auto) 0 10 ^3/uL (0-0.2); Basophils % (auto) 0.6 % (0.0-2.0); Eosinophils # (auto) 0.1 10 ^3/uL (0-0.8); Hemoglobin 8.4 g/dL (12.2-16.2); Lymphocytes # (auto) 1.4 10 ^3/uL (0.4-5.4); Monocytes # (auto) 0.8 10 ^3/uL (0-1.3)
[2024-05-05 09:23] LABS: Eosinophils % (auto) 1.9 % (0.0-7.0); Hematocrit 25.3 % (36.0-46.0); Mean Corpuscular Hemoglobin 31.9 pg (28.0-32.0); Mean Corpuscular Hgb Conc. 33.2 g/dL (32.0-36.0); Mean Corpuscular Volume 96.3 fL (80.0-100.0); Monocytes % (auto) 13.4 % (0.0-12.0); Neutrophils # (auto) 3.9 10 ^3/uL (1.6-8.6); Neutrophils % (auto) 62.1 % (37.0-80.0); Nucleated Red Blood Cells % 0.4 %; Platelet Count (auto) 225 10^3/uL (140-450); Red Blood Cells 2.63 10^6/uL (4.0-5.20); Red Cell Distribution Width 15.1 % (11.8-14.3); White Blood Cell 6.2 10^3/uL (4.4-10.8)
[2024-05-05 09:28] LABS: Alanine Aminotransferase 12 U/L (7-40); Albumin 2.6 g/dL (3.2-4.8); Alkaline Phosphatase 98 U/L (46-116); Anion Gap 8 (5-15); Aspartate Aminotransferase 20 U/L (13-40); BUN/Creatinine Ratio 23.4 (10.0-20.0); Blood Urea Nitrogen 29 mg/dL (9-23); Calcium 7.7 mg/dL (8.7-10.4); Carbon Dioxide 27 mmol/L (20-31); Chloride 104 mmol/L (98-107); Glucose 79 mg/dL (74-106); Magnesium 1.5 mg/dL (1.6-2.6); Potassium 3.4 mmol/L (3.5-5.1); Sodium 139 mmol/L (136-145)
[2024-05-05 09:29] LABS: Bilirubin, Total 0.3 mg/dL (0.2-1.0); Total Protein 4.8 g/dL (5.7-8.2)
--- NOTE | 2024-05-05 11:59 | DVHPNRES ---
Progress Note Date Seen: May 05, 2024 Resident Creating Document: RAEGAN RODRÍGUEZ RESIDENT Has the PT tested + for MRSA If YES, has PT been informed?: No Medical Necessity Reason Pt with a Central, PICC or Fol: No Subjective Review of Systems This is a 73-year-old female with past medical history of arthritis, CHF, GERD, seizures, hyperlipidemia, hypertension who presented to the ED for evaluation of hypotension. As reported by EMS patient was residing on [facility] where she started having hypotension before coming to the ED. staff at [place] was reported that lower blood pressure was 60/28 mmHg. By EMS, they reported blood pressure readings with systolic blood pressure in the 90s. Patient was initially evaluated in the ED were CBC and CMP were grossly unremarkable except for hypokalemia and creatinine at 2.79 with a BUN of 62. Blood pressure initially was low at 92/54 mmHg. There was no evidence of fever or any requirement of oxygen at that time. Urinalysis was performed which came back positive suggesting urinary tract infection. Patient was started on IV fluids at 60 cc/hour and IV azithromycin and ceftriaxone. Patient was admitted for further assessment and management. Patient seen and examined at bedside. Patient still reporting of abdominal discomfort and irritation wean abdomen is manipulated. Erythema of the abdominal wall is slightly improved but still present. Yesterday, marriage and family social worker, daughter of the patient, patient and hospitalist all had a discussion regarding hospice/SNF. The patient and family agree ongoing back to [facility]. Patient will be going today. ROS Constitutional: Denies weight loss, fever and chills. HEENT: Denies changes in vision and hearing. Respiratory: Denies shortness of breath and cough Cardiovascular: Denies chest discomfort or palpitations GI: Still reports abdominal tenderness with slight abdominal manipulation. Denies nausea, vomiting or diarrhea. : Denies dysuria and urinary frequency. Musculoskeletal: Denies myalgias and joint pain Skin: Denies rash and pruritus. Neurological: Denies dizziness, headache, vision or hearing problems Objective vital signs Vital Sign Date Time Temp Pulse Resp B/P (MAP) Pulse Ox O2 Delivery O2 Flow Rate FiO2 05/05/24 09:00 84 21 95/55 (68) 91 05/05/24 05:05 98.6 05/04/24 20:00 Room Air* 0 21 Total Intake and Output 1105/04/24 05/05/24 15:00 23:00 07:00 Intake Total 750 ml 1150 ml Output Total 950 ml 550 ml Balance -200 ml 600 ml medications Current Medications Medications Dose Ordered Sig/Arielle Route Start Time Stop Time Status Last Admin Dose Admin Clopidogrel Bisulfate 75 mg DAILY PO 04/23/24 10:00 05/05/24 10:36 75 MG Ondansetron HCl 4 mg Q4HP PRN IV 04/23/24 01:00 Docusate Sodium 100 mg BIDPRN PRN PO 04/23/24 01:00 Acetaminophen 650 mg Q6HP PRN PO 04/23/24 01:00 05/05/24 04:05 650 MG Atorvastatin Calcium 10 mg HS PO 04/23/24 22:00 05/04/24 21:50 10 MG Nitroglycerin 0.4 mg Q5MINP PRN SL 04/23/24 04:00 Enoxaparin Sodium 40 mg DAILY SC 04/24/24 10:00 UNV Enoxaparin Sodium 30 mg DAILY SC 04/25/24 10:00 05/05/24 10:49 30 MG Enteral Nutritional Formula 240 ml BIDWM PO 04/24/24 18:00 05/05/24 10:59 240 ML Cholecalciferol 2,000 unit DAILY PO 04/25/24 10:00 05/05/24 10:36 2,000 UNIT Zinc Sulfate 220 mg DAILY PO 04/25/24 10:00 05/05/24 10:36 220 MG Ascorbic Acid 500 mg DAILY PO 04/25/24 10:00 05/05/24 10:36 500 MG Magnesium Oxide 400 mg BID PO 04/25/24 22:00 05/05/24 10:35 400 MG Ferrous Sulfate 325 mg DAILY PO 04/26/24 10:00 05/05/24 10:36 325 MG Metronidazole 100 ml @ 100 mls/hr Q8HR IV 04/27/24 14:00 05/05/24 05:23 100 MLS/HR Sodium Chloride 1,000 ml @ 75 mls/hr [id number] IV 04/28/24 12:15 05/05/24 06:13 75 MLS/HR Cefepime HCl 50 ml @ 12.5 mls/hr Q24H IV 04/28/24 20:00 05/04/24 19:49 12.5 MLS/HR Famotidine 20 mg Q12HR IV 04/29/24 22:00 UNV Famotidine 20 mg HS IV 04/29/24 22:00 05/04/24 21:50 20 MG Nystatin 1 applic BID TOP 04/30/24 22:00 05/05/24 10:00 1 APPLIC Acetaminophen/ Hydrocodone Bitart 1 tab Q6HPRN PRN PO 05/02/24 10:30 05/05/24 10:35 1 TAB Melatonin 10 mg HS PO 05/02/24 22:00 05/04/24 21:50 10 MG Examination Physical Examination General: Patient alert and oriented in person, place and time but has some source of underlying dementia. HEENT: Normocephalic, atraumatic, moist mucous membranes Respiratory/pulmonary: Clear lungs bilaterally, no associated crackles or wheezes. Cardiovascular: Normal heart sounds S1 and S2 with no associated murmurs Abdomen: Abdomen nondistended, there is mild tenderness to palpation at the abdominal wall which is erythematous and wet due to wound fluid secretion but is improving compare to previous days. Colostomy bag is placed on position. Peripheral Pulses: 3+ Radial (R). 3+ Radial (L). 3+ Dorsalis pedis (R). 3+ Dorsalis pedis(L) Skin: No rashes or pruritus, there is no sacral edema present at this time. Neurological:Intact cranial nerves not evaluated independently, patient seems anxious and slightly irritable. laboratory and microbiology Laboratory Tests 05/05/24 08:57 Test 05/05/24 08:57 Range/Units Serum Glucose 79 74-106 mg/dL Microbiology Date/Time Source Procedure Growth Status 04/25/24 21:38 Nose MRSA Screen - Final Complete 04/23/24 13:59 Blood Blood Culture - Final NO GROWTH AFTER 5 DAYS OF INCUBATION. Complete 04/22/24 21:48 Urine - [place] Urine Culture - Final Complete Problem List/Assessment/Plan Problem List/Assessment/Plan Assessment/Plan Severe hypotension likely in the setting of UTI -initial WBC was normal range -patient was slightly tachycardic, no fever, no leukocytosis, no tachypnea, no criteria for sepsis met at all -urinalysis came back positive for UTI -monitor electrolytes -monitor blood pressure closely UTI -UA came back positive for UTI -continue cefepime -ordered urine bacterial culture, continue current antibiotics until cultures come back. Positive for Covid 19 -currently patient has no respiratory distress -currently saturating 96% on room air -Chest x ray was grossly unremarkable Cellulitis surrounding colostomy bag/wound likely due to fungal infection -Start nystatin powder BID topical use -Keep woud as dry and clean as possible -Continue cefepime IV -Continue metronidazole IV -Wound consult -Consulted surgery to evaluate status of colostomy wound Acute kidney injury superimposed Chronic Kidney Disease secondary hemodynamic mediated -creatinine was 1.38 and BUN 24 Hypomagnesemia -Mg improved to 2.0 -Will keep magnesium oxide 400mg BID po -Monitor electrolytes closely Hypokalemia, resolved -last potassium on normal range Dyslipidemia -continue atorvastatin 10 mg q.d. Chronic diastolic heart failure HFpEF 55% -last echocardiogram on 12/24/2023 showed an LVEF of 55% with normal cardiac valves and no pericardial effusion -hold BP medications at this time due to hypotension -monitor blood pressure closely GERD -continue famotidine 20 mg q.d. Left knee pain likely due to severe advanced osteoarthritis -Ordered Bilat lower ext venous doppler which showed no evidence of DVTs at this time there are bilateral Chung cyst on both popliteal fossas. -monitor and pain medication -follow-up as an outpatient. Severe Malnourish -Continue vitamin-C, vitamin-D, Zinc -Continue ensure BID Patient will be discharged to SNF at [facility]. Goals of care discussed with the patient at bedside for > 23min, FULL CODE Plan discussed with Dr. Hansen Plan discussed with: Patient My Orders My Orders Orders - RAEGAN RODRÍGUEZ Procedure Category Date Status Time Discharge DISCHARGE 05/05/24 Transmitted 10:02 Dietary Evaluation Review Comments: Monitor PO intake to meet her needs at least 75%. Encourage Ensure High protein supplements. Expected Outcomes/Goals: gradual weight gains. Date of Service: May 05, 2024 Billing Provider: MISAEL HANSEN MD Common Visit Codes: 53154-[id number] INP/OBS CARE(HIGH) RAEGAN RODRÍGUEZ RESIDENT May 05, 2024 11:59 MISAEL HANSEN MD May 06, 2024 04:45
[2024-05-05 15:43] VITALS: BP 95/55; PULSE 84; RESP 21; O2SAT 96
--- NOTE | 2024-05-05 19:15 | DVHPN2 ---
Progress Note - Dictate Date Seen: May 05, 2024 Has the PT tested + for MRSA If YES, has PT been informed?: No Medical Necessity Reason Pt with a Central, PICC or Fol: No Subjective Cellulitis around the colostomy improving Respiratory edouard she is stable saturating 100% on room air Renal function is improving Hemoglobin stable at 8.4 vital signs Vital Sign Date Time Temp Pulse Resp B/P (MAP) Pulse Ox O2 Delivery O2 Flow Rate FiO2 05/05/24 15:43 84 21 96 05/05/24 09:00 95/55 (68) 05/05/24 08:15 Room Air* 0 21 05/05/24 05:05 98.6 Total Intake and Output 05/04/24 05/04/24 05/05/24 15:00 23:00 07:00 Intake Total 750 ml 1150 ml Output Total 950 ml 550 ml Balance -200 ml 600 ml medications Current Medications Medications Dose Ordered Sig/Arielle Route Start Time Stop Time Status Last Admin Dose Admin Clopidogrel Bisulfate 75 mg DAILY PO 04/23/24 10:00 05/05/24 10:36 75 MG Ondansetron HCl 4 mg Q4HP PRN IV 04/23/24 01:00 Docusate Sodium 100 mg BIDPRN PRN PO 04/23/24 01:00 Acetaminophen 650 mg Q6HP PRN PO 04/23/24 01:00 05/05/24 15:07 650 MG Atorvastatin Calcium 10 mg HS PO 04/23/24 22:00 05/04/24 21:50 10 MG Nitroglycerin 0.4 mg Q5MINP PRN SL 04/23/24 04:00 Enoxaparin Sodium 40 mg DAILY SC 04/24/24 10:00 UNV Enoxaparin Sodium 30 mg DAILY SC 04/25/24 10:00 05/05/24 10:49 30 MG Enteral Nutritional Formula 240 ml BIDWM PO 04/24/24 18:00 05/05/24 18:00 240 ML Cholecalciferol 2,000 unit DAILY PO 04/25/24 10:00 05/05/24 10:36 2,000 UNIT Zinc Sulfate 220 mg DAILY PO 04/25/24 10:00 05/05/24 10:36 220 MG Ascorbic Acid 500 mg DAILY PO 04/25/24 10:00 05/05/24 10:36 500 MG Magnesium Oxide 400 mg BID PO 04/25/24 22:00 05/05/24 10:35 400 MG Ferrous Sulfate 325 mg DAILY PO 04/26/24 10:00 05/05/24 10:36 325 MG Metronidazole 100 ml @ 100 mls/hr Q8HR IV 04/27/24 14:00 05/05/24 15:08 100 MLS/HR Sodium Chloride 1,000 ml @ 75 mls/hr [id number] IV 04/28/24 12:15 05/05/24 06:13 75 MLS/HR Cefepime HCl 50 ml @ 12.5 mls/hr Q24H IV 04/28/24 20:00 05/04/24 19:49 12.5 MLS/HR Famotidine 20 mg Q12HR IV 04/29/24 22:00 UNV Famotidine 20 mg HS IV 04/29/24 22:00 05/04/24 21:50 20 MG Nystatin 1 applic BID TOP 04/30/24 22:00 05/05/24 10:00 1 APPLIC Acetaminophen/ Hydrocodone Bitart 1 tab Q6HPRN PRN PO 05/02/24 10:30 05/05/24 10:35 1 TAB Melatonin 10 mg HS PO 05/02/24 22:00 05/04/24 21:50 10 MG objective General: Patient is awake Chest: lung mauricio clear to auscultation Heart: RRR, no murmur Abdomen: Moderate redness to large area of abdomen, laboratory and microbiology Laboratory Tests 05/05/24 08:57 Test 05/05/24 08:57 Range/Units Serum Glucose 79 74-106 mg/dL Problems(with codes): (1) Physical deconditioning (2) COVID-19 (3) GRACIELA (acute kidney injury) (4) Colostomy in place (5) Anemia, unspecified (6) Acute on chronic renal failure (7) UTI (urinary tract infection) (8) Generalized weakness (9) Metabolic encephalopathy Prognosis Patient accepted to [facility] Acute bed 40B to be transferred today 05/05/24 by [facility] between 0 and 1999 Continue IV antibiotics, antifungal ointment, stool softeners, nutritional support Dietary Evaluation Review Comments: Monitor PO intake to meet her needs at least 75%. Encourage Ensure High protein supplements. Expected Outcomes/Goals: gradual weight gains. Plan discussed with: Other (None) SO BANG MD May 05, 2024 19:15
== END 2024-05-05 19:38 | DRG 689 ==
LOC: EDBD 19:14 → ER 19:14 → TELE 04-23 03:58 → TELE-WESTW 04-23 09:20 → TELE-EAST 04-23 23:03
PROVIDERS: ADMIT Internal Medicine Geriatric Medicine; ATTEND Internal Medicine Geriatric Medicine
PROC: 05H933Z Insertion of Infusion Device into Right Brachial Vein, Percutaneous Approach (ICD-10-PCS; principal; 2024-04-24)
PROC: B54MZZA Ultrasonography of Right Upper Extremity Veins, Guidance (ICD-10-PCS; 2024-04-24)
DX: N30.00 Acute cystitis without hematuria (principal); E43 Unspecified severe protein-calorie malnutrition; U07.1 COVID-19; G93.41 Metabolic encephalopathy; I50.32 Chronic diastolic (congestive) heart failure; I13.0 Hypertensive heart and chronic kidney disease with heart failure and stage 1 through stage 4 chronic kidney disease, or unspecified chronic kidney disease; Z68.1 Body mass index [BMI] 19.9 or less, adult; L03.311 Cellulitis of abdominal wall; N17.9 Acute kidney failure, unspecified; D64.9 Anemia, unspecified; N18.32 Chronic kidney disease, stage 3b; E83.42 Hypomagnesemia; E78.5 Hyperlipidemia, unspecified; E87.6 Hypokalemia; K21.9 Gastro-esophageal reflux disease without esophagitis; G40.909 Epilepsy, unspecified, not intractable, without status epilepticus; M17.12 Unilateral primary osteoarthritis, left knee; Z88.0 Allergy status to penicillin; Z83.3 Family history of diabetes mellitus; Z82.49 Family history of ischemic heart disease and other diseases of the circulatory system; Z87.891 Personal history of nicotine dependence; Z93.3 Colostomy status
CPT/HCPCS: 36415; 71045; 74176; 80048; 80053; 81001; 83735; 83880; 84484; 85007; 85014; 85018; 85025; 85027; 86850; 86900; 86901; 87040; 87081; 87086; 87426; 87804; 93005; 93970; 96361; 96365; 97163; 99291; G0378; J1956; J3480; J3490; J7060

== ENCOUNTER 2024-05-26 08:37 | Inpatient (IN) | payer MEDICARE, MEDICAID ==
[~2024-05-26] VITALS: Ht 121.9 cm; Wt 49.4 kg
[2024-05-26] VITALS (11 sets, daily range): BP systolic 89–107; BP diastolic 45–69; PULSE 77–97; RESP 12–96; TEMP 97.3–98.6; O2SAT 91–100
[~2024-05-26 08:37] MED LIST changes: -BUPR5DIS TD; -MEGE20TA3 PO; -OMEP1CAP70 PO; -OXYC325T14 PO
--- NOTE | 2024-05-26 09:42 | ED.PDOC ---
Altered Mental Status HPI Comments 73 y.o female presents to the ED via EMS for an evaluation of altered mental status. Patient was brought in from [facility] s/p staff noticed patient altered today. Per staff, patient's normal baseline is alert and orientated x 4 but today appears to only respond to name and is moaning with no specified pain location noted. Patient's blood pressure reads 79/55 with a rectal temperature of 95.6 F at bedside and Heart rate in the high 80's. Patient is full code. Patient has extensive medical history that included: COPD, DM, hypotension ( last episode was on 05/19/24), UTI, multiple GA's, severe Sepsis with shock, CVA, colostomy placement, CHF, and seizures. Full list is with patient's packet that [facility] provided. At this time no complaint from patient due to mental status. Chief Complaint: ALOC Time Seen by MD: 09:25 Primary Care Provider: VERONICA Reviewed Notes: Nurses Notes, Drum Straightener Notes, Medications, Allergies Allergies: Coded Allergies: Penicillins (Verified Allergy, Intermediate, 02/02/21) Uncoded Allergies: BROCCOLI (Allergy, Severe, 04/29/24) Home Meds Active Scripts Ferrous Sulfate (Ferrous Sulfate) 325 Mg Tab, 325 MG PO TUTHSA for 30 Days, #30 TAB Prov:RINKU HURT RESIDENT 04/05/24 Reported Medications Patients Own Medication (PATIENTS OWN MEDICATION) ., 2 ML PO DAILY for 90 Days, #180 PTS OWN MED-OBTAIN FROM PT AND SEND TO RX DRUG: MEGESTROL 400 MG/10 ML ORAL SUSPENSION FREQ: TAKE 2 ML BY MOUTH ONCE DAILY RX# EXP: DATE DISP: TECH: RP: 04/26/24 Levetiracetam (Keppra) 500 Mg Tab, 1 TAB PO BID for 14 Days, #28 04/26/24 Hydrocodone-Acetaminophen (Hydrocodone/Acetaminophen 7.5-325 mg) 1 Tab Tab, 1 TAB PO QID for 7 Days, #28 04/26/24 Quetiapine Fumerate (QUETIAPINE FUMARATE) 100 Mg Tab, 25 MG PO BID for 14 Days, #28 04/26/24 Pantoprazole Sodium Sesquihydr (Protonix) 40 Mg Tab, 1 TAB PO DAILY for 14 Days, #14 11/6/24 Ondansetron Odt 4MG Tab (ZOFRAN PO) 4 Mg Tb, 1 TAB PO BID for 30 Days, #60 ODT TAB-DISSOLVE IN MOUTH, THEN SWALLOW 03/30/24 Potassium Chloride (Potassium Chloride ER) 10 Meq Tab, 1 TAB PO BID for 90 Days, #180 03/30/24 Prednisolone Acetate (Prednisolone Acetate P-F) 1 % Mayi, 1 DROP LEFTEYE QID 12/24/23 Allopurinol (Allopurinol) 100 Mg Tab, 1 TAB PO DAILY 12/24/23 Baclofen (Baclofen) 10 Mg Tab, 20 MG PO BID PRN Take 1 tablet by mouth without regards to meals as needed twice daily. 12/24/23 Atorvastatin Calcium (Lipitor) 10 Mg Tab, 1 TAB PO DAILY, #30 5 Refills 12/24/23 Gabapentin (Gabapentin) 300 Mg Cap, 1 CAP PO DAILY for 90 Days, #90 12/24/23 Clopidogrel Bisulfate (CLOPIDOGREL) 75 Mg Tab, 1 TAB PO DAILY 04/20/23 Cyanocobalamin (Vitamin B-12) 1,000 Mcg Tab, 1 TAB PO DAILY for 90 Days, #90 04/20/23 Furosemide (Furosemide) 20 Mg Tab, 1 TAB PO DAILY for 90 Days, #90 04/20/23 Ergocalciferol (Vitamin D) 50,000 Unit Cap, 1 CAP PO QWEEKLY for 84 Days, #12 04/20/23 Magnesium Oxide (MAGNESIUM OXIDE) 400 Mg Tab, 1 TAB PO BID for 30 Days, #60 04/20/23 Information Source: Emergency Med Personnel Mode of Arrival: EMS Severity: Moderate, Unable to Care for Self Timing: Hours Duration: Since onset Quality: Decreased Alertness, Change in Behavior Recent: Other History of: CVA, Diabetes Associated Signs and Symptoms: Other Past Medical History PAST MEDICAL HISTORY: Arthritis, CHF, GERD, High Lipids, HTN, Seizures Surgical History: Unknown HEALTH UNIT SUPERVISOR History: No Pertinent HEALTH UNIT SUPERVISOR History Family History Family History: Family hx of DM, Family hx of HTN Social History Smoker: Non-Smoker, Quit Greater Than 1 Year Alcohol: Rarely Drugs: Denies Drug Use Lives In: Home Unable to Obtain due to: Altered Mental Status Physical Exam General Appearance: Cachectic, Other (lying, curled up in bed responding to name only ) HEENT: Normal ENT Inspection Neck: Normal Inspection Respiratory: No Respiratory Distress Cardiovascular: Regular Rate/Rhythm Breast Exam: Deferred Gastrointestinal: Other (ileostomy bag is well appearing. No stool present ) Genitalia: Deferred Pelvic: Deferred Rectal: Deferred Extremities: Other (left clavicle appears dislocated ) Neurologic: Other (altered, responding to name only ) Cerebellar Function: Unable to Test, NOT DONE Reflexes: NOT DONE Skin: Dry Lymphatic: No Adenopathy EKG EKG : Pulse Rate (adult): 87 Cardiac Rhythm: NSR Comments prolonged QTS 520 with artifact old Q waves. Anterior and inferior leads Was a procedure done? Was a procedure done?: No Differential Diagnosis (ALOC) Differential Diagnosis: Dehydration, Encephalopathy, Sepsis, Hypoxemia, CVA, Heart Failure X-Ray, Labs, Meds, VS Vital Signs Date Time Temp Pulse Resp B/P (MAP) Pulse Ox O2 Delivery O2 Flow Rate FiO2 05/26/24 14:01 86 05/26/24 13:00 80 16 82/58 (66) 97 05/26/24 11:00 80 24 93/70 (78) 100 05/26/24 10:00 85 05/26/24 09:42 87 05/26/24 09:30 86 14 95 Room Air* 0 21 05/26/24 09:27 87 05/26/24 09:14 95.6 86 14 70/46 (54) 95.6 05/26/24 08:51 16 87/59 (68) Lab Test 05/26/24 13:27 Range/Units White Blood Count 15.4 H 4.4-10.8 10^3/uL Red Blood Count 4.20 4.0-5.20 10^6/uL Hemoglobin 13.1 12.2-16.2 g/dL Hematocrit 39.3 36.0-46.0 % Mean Corpuscular Volume 93.7 80.0-100.0 fL Mean Corpuscular Hemoglobin 31.1 28.0-32.0 pg Mean Corpuscular Hemoglobin Concent 33.2 32.0-36.0 g/dL Red Cell Distribution Width 14.8 H 11.8-14.3 % Platelet Count 521 H 140-450 10^3/uL Mean Platelet Volume 8.1 6.9-10.8 fL Neutrophils (%) (Auto) 81.6 H 37.0-80.0 % Lymphocytes (%) (Auto) 5.5 L 10.0-50.0 % Monocytes (%) (Auto) 11.4 0.0-12.0 % Eosinophils (%) (Auto) 0.3 0.0-7.0 % Basophils (%) (Auto) 1.2 0.0-2.0 % Neutrophils # (Auto) 12.6 H 1.6-8.6 10 ^3/uL Lymphocytes # (Auto) 0.9 0.4-5.4 10 ^3/uL Monocytes # (Auto) 1.8 H 0-1.3 10 ^3/uL Eosinophils # (Auto) 0 0-0.8 10 ^3/uL Basophils # (Auto) 0.2 0-0.2 10 ^3/uL Nucleated Red Blood Cells 0.1 % Sodium Level 124 L 136-145 mmol/L Potassium Level 6.7 *H 3.5-5.1 mmol/L Chloride Level 65 L 98-107 mmol/L Carbon Dioxide Level 23 20-31 mmol/L Anion Gap 36 H 5-15 Blood Urea Nitrogen 215 *H 9-23 mg/dL Creatinine 8.16 H 0.550-1.02 mg/dL Glomerular Filtration Rate Calc 5 >90 mL/min BUN/Creatinine Ratio 26.3 H 10.0-20.0 Serum Glucose 151 H 74-106 mg/dL Hemoglobin A1c 5.1 <5.7 % A1C Lactic Acid Level 3.9 *H 0.4-2.0 mmol/L Calcium Level 7.9 L 8.7-10.4 mg/dL Total Bilirubin 0.8 0.2-1.0 mg/dL Aspartate Amino Transferase (AST) 73 H 13-40 U/L Alanine Aminotransferase (ALT) 87 H 7-40 U/L Alkaline Phosphatase 342 H 46-116 U/L Troponin I High Sensitivity 28 </=34 ng/L Total Protein 9.3 H 5.7-8.2 g/dL Albumin 5.0 H 3.2-4.8 g/dL Current Medications Medications (Trade) Dose Ordered Sig/Arielle Route Start Time Stop Time Status Last Admin Sodium Chloride 1,100 ml @ 1,100 mls/hr ONCE ONCE IV 05/26/24 09:30 05/26/24 10:29 DC 05/26/24 12:00 Ceftriaxone Sodium 50 ml @ 100 mls/hr ONCE ONCE IV 05/26/24 14:15 12/6/24 14:44 DC 05/26/24 15:37 73-year-old female presents here with hypotension and hypothermia. Patient was found to be 95.5. She was immediately placed and blankets and Josy Hugger. She was found to be hypotensive in the 70s initially. She was written for 30 cc/kilos bolus. However there was significant delay in obtaining labs and other medical care as we had difficulty obtaining IV access. Blood work shows significant abnormalities including a leukocytosis at 15.4, BUN of 215, creatinine of 8, lactic acid of 3.9, potassium level of 6.7. Sodium of 124. I have started the patient on ceftriaxone. At this time hospitalist team has been consulted for ICU admission. Patient is full code Time of 1ST Reevaluation: 09:29 Reevaluation 1ST: Unchanged Time of 2ND Reevaluation: 10:40 Reevaluation 2ND: Improved Time of 3RD Reevaluation: 11:20 Reevaluation 3RD: Improved Patient Education/Counseling: Other (Patient unable to understand) Family Education/Counseling: No Family Present Sepsis Sepsis Reasesment Focused Exam Sepsis focused exam: focus exam completed, time: (10:40 a.m.) Departure 1 Departure Time of Disposition: 14:33 Impression: Primary Impression: Severe sepsis Additional Impressions: Hyperkalemia GRACIELA (acute kidney injury) Disposition: ADMITTED INPATIENT Admit to: ICU Condition: Critical Critical Care Note Critical Care Time?: Yes (35 min-critical care time only) Critical care comment: Time spent evaluating the patient, repeat evaluations due to blood pressure Stability Stability form required: No I personally scribed for JAMES FERNANDEZ MD ([email or web address]) on 05/26/24 at 09:42. Electronically submitted by Pam Antony ([facility]). I personally scribed for JAMES FERNANDEZ MD ([email or web address]) on 05/26/24 at 09:43. Electronically submitted by Pam Antony ([facility]). I personally scribed for JAMES FERNANDEZ MD ([email or web address]) on 05/26/24 at 17:04. Electronically submitted by Pam Antony ([facility]). JAMES FERNANDEZ MD May 26, 2024 09:42
--- NOTE | 2024-05-26 09:58 | DVH ---
EXAM: CT HEAD WITHOUT CONTRAST HISTORY: ALOC COMPARISON: MRI BRAIN HEAD WO CONTRAST on DOS: 04/11/24, CT HEAD WITHOUT CONTRAST on DOS: 04/10/24 TECHNIQUE: Axial images of the head were obtained and reformatted in coronal and sagittal planes. All CT scans at this medical facility are performed using dose modulation techniques as appropriate t o a performed exam including the following: Automated exposure control was utilized; adjustment of th e MA and/or KV according to patient size; and use of iterative reconstruction technique. CT Dose: CTDI volume is 47.71 mGy. Dose-length product is 803.75 mGy*cm FINDINGS: There is no evidence of acute intracranial hemorrhage, mass, mass effect midline shift. There is no h ydrocephalus or extra-axial fluid collection. There are patchy hypodense changes in the supratentoria l white matter compatible with chronic microvascular ischemic changes. Miramontes-white matter differentiat ion is maintained. The visualized paranasal sinuses and mastoid air cells are clear. The calvarium is intact. IMPRESSION: 1. No acute intracranial process. HS:Y
--- NOTE | 2024-05-26 10:35 | DVH ---
CHEST RADIOGRAPH Indication: ALOC Technique: Single frontal view of the chest was obtained Comparison: XY CHEST PORTABLE on DOS: 04/22/24, XY CHEST PORTABLE on DOS: 04/10/24, XY CHEST XRAY 1 EW on DOS: 03/30/24, XY CHEST XRAY 1 VIEW on DOS: 03/28/24, XY CHEST PORTABLE on DOS: 12/23/23 FINDINGS: Lines and Tubes: None Lungs: No focal consolidation. Pleura: Possible deep sulcus sign seen in the left CP angle which could represent a pneumothorax. CT Cardiomediastinal contours: Unremarkable Bones: No acute osseous abnormality. IMPRESSION: Possible deep sulcus sign seen in the left CP angle which could represent a pneumothorax. CT recomme nded.
--- NOTE | 2024-05-26 10:39 | DVH ---
CLINICAL INDICATION: Clavicle deformity TECHNIQUE: XY L SHOULDER 1V XRAY Comparison: XY R SHOULDER 2+ VIEW XRAY on DOS: 03/18/24, XY L HIP COMPLETE XRAY on DOS: 12/08/22 FINDINGS/IMPRESSION: There is no evidence of acute fracture or dislocation. The left clavicle appears superiorly displaced. This could be chronic in nature.
[2024-05-26] MEDS: SODIUM CHLORIDE 0.9% 1,100 ML IV ONE (12:00)
--- NOTE | 2024-05-26 13:26 | DVH ---
Procedure: CT CHEST WITHOUT CONTRAST Reason for study/Clinical History: 73 years old, Female; ro pneumothorax. Comparison Study: None available at time of dictation. Exam Date: 05/26/2024 12:24 PM TECHNIQUE: Multidetector CT of the chest was performed from the lung apices to the upper abdomen with out the use of intravenous contract. Axial, coronal and sagittal multiplanar reformats were performed . Radiation dose Information: CT Dose: CTDI volume is 4.56 mGy. Dose-length product is 175.86 mGy*cm The dose indicators for CT are the volume computed Tomography (CT) dose Index (CTDIvol) and the dose Length product (DLP), and are measured in units of mGy and mGy-cm, respectively. These indicators are not patient dose, but values generated from the CT scanner acquisition factors. The report includes radiation exposure data for exposures received during this examination. FINDINGS: Lower neck: Normal thyroid. Lungs: Chronic consolidation right upper lobe. Curvilinear scarring left upper lung. Emphysematous c hanges in both lungs. New tree-in-bud nodularity in the mid to lower lungs. Stable ground-glass airsp rahel disease in the right middle lobe. Heart/Vascular Structures: Normal heart size. No pericardial effusion. Lymph Nodes: No adenopathy Pleura: No pleural effusion or significant pneumothorax. Musculoskeletal: No acute osseous abnormality. Soft tissues: Normal. Upper abdomen: Infrarenal abdominal aortic aneurysm measuring up to 35 mm. Left renal cysts. IMPRESSION: 1. Previously seen ground-glass opacities have largely resolved. New tree-in-bud nodularity in both l ungs. Likely infectious/inflammatory. Chronic consolidation right upper lobe. Stable ground-glass o pacity right middle lobe. Clinical correlation and continued follow-up is recommended. Infrarenal abd ominal aortic aneurysm measuring up to 35 mm. Consider further evaluation with CT of the abdomen and pelvis. Radiation optimization: All CT scans at this facility use at least one of these dose optimization griselda hniques: Automated exposure control mA and/or kV adjustment per patient size (includes targeted exams where dose is matched to clinical indication) or iterative reconstruction. HS:Y
[2024-05-26 13:48] LABS: Hemoglobin 13.1 g/dL (12.2-16.2)
[2024-05-26 13:51] LABS: Basophils # (auto) 0.2 10 ^3/uL (0-0.2); Basophils % (auto) 1.2 % (0.0-2.0); Eosinophils # (auto) 0 10 ^3/uL (0-0.8); Eosinophils % (auto) 0.3 % (0.0-7.0); Hematocrit 39.3 % (36.0-46.0); Lymphocytes # (auto) 0.9 10 ^3/uL (0.4-5.4); Lymphocytes % (auto) 5.5 % (10.0-50.0); Mean Corpuscular Hemoglobin 31.1 pg (28.0-32.0); Mean Corpuscular Hgb Conc. 33.2 g/dL (32.0-36.0); Mean Corpuscular Volume 93.7 fL (80.0-100.0); Monocytes # (auto) 1.8 10 ^3/uL (0-1.3); Monocytes % (auto) 11.4 % (0.0-12.0); Neutrophils # (auto) 12.6 10 ^3/uL (1.6-8.6); Neutrophils % (auto) 81.6 % (37.0-80.0); Nucleated Red Blood Cells % 0.1 %; Platelet Count (auto) 521 10^3/uL (140-450); Red Cell Distribution Width 14.8 % (11.8-14.3); White Blood Cell 15.4 10^3/uL (4.4-10.8)
[2024-05-26 14:06] LABS: Anion Gap 36 (5-15); Bilirubin, Total 0.8 mg/dL (0.2-1.0); Carbon Dioxide 23 mmol/L (20-31)
[2024-05-26 14:11] LABS: Lactic Acid w/Reflex 3.9 mmol/L (0.4-2.0)
[2024-05-26 14:12] LABS: Alanine Aminotransferase 87 U/L (7-40); Alkaline Phosphatase 342 U/L (46-116); Aspartate Aminotransferase 73 U/L (13-40); Calcium 7.9 mg/dL (8.7-10.4); Chloride 65 mmol/L (98-107); Glucose 151 mg/dL (74-106); Potassium 6.7 mmol/L (3.5-5.1); Sodium 124 mmol/L (136-145); Total Protein 9.3 g/dL (5.7-8.2)
[2024-05-26 14:13] LABS: BUN/Creatinine Ratio 26.3 (10.0-20.0)
[2024-05-26 14:21] LABS: Blood Urea Nitrogen 215 mg/dL (9-23)
[2024-05-26] MEDS ORDERED: MORPHINE SULFATE INJ 2 MG/ml SYRG IV PRN (14:30)
[2024-05-26] MEDS ORDERED: NITROGLYCERIN 0.4 MG SL TAB SL PRN (14:30)
--- NOTE | 2024-05-26 14:31 | DVHHP2 ---
History of Present Illness History of Present Illness 73 y.o female presents to the ED via EMS for an evaluation of altered mental status. Patient was brought in from [facility] s/p staff noticed patient altered today. Per staff, patient's normal baseline is alert and orientated x 4 but today appears to only respond to name and is moaning with no specified pain location noted. Patient's blood pressure reads 79/55 with a rectal temperature of 95.6 F at bedside and Heart rate in the high 80's. Patient is full code. Patient has extensive medical history that included: COPD, DM, hypotension ( last episode was on 05/19/24), UTI, multiple AK's, severe Sepsis with shock, CVA, colostomy placement, CHF, and seizures. Full list is with patient's packet that [facility] provided. 73-year-old female presents for altered mental status from [facility]. Apparently patient was moaning and groaning and staff was having trouble obtaining blood pressure. Review of Systems Other Unable to obtain Allergies: Coded Allergies: Penicillins (Verified Allergy, Intermediate, 02/02/21) Uncoded Allergies: BROCCOLI (Allergy, Severe, 04/29/24) Exam Vital Signs Vital Signs Date Time Temp Pulse Resp B/P (MAP) Pulse Ox O2 Delivery O2 Flow Rate FiO2 05/26/24 10:00 85 05/26/24 08:51 16 87/59 (68) General Appearance: Other (Altered) Respiratory: Clear to auscultation, Normal air movement Cardiovascular: Regular rate, Normal S2, No murmurs Abdominal: Normal bowel sounds, Soft, No tenderness, No hepatospenomegaly Extremities: No clubbing, No cyanosis Labs/Xrays Labs Test 05/26/24 13:27 Range/Units White Blood Count 15.4 H 4.4-10.8 10^3/uL Red Blood Count 4.20 4.0-5.20 10^6/uL Hemoglobin 13.1 12.2-16.2 g/dL Hematocrit 39.3 36.0-46.0 % Mean Corpuscular Volume 93.7 80.0-100.0 fL Mean Corpuscular Hemoglobin 31.1 28.0-32.0 pg Mean Corpuscular Hemoglobin Concent 33.2 32.0-36.0 g/dL Red Cell Distribution Width 14.8 H 11.8-14.3 % Platelet Count 521 H 140-450 10^3/uL Mean Platelet Volume 8.1 6.9-10.8 fL Neutrophils (%) (Auto) 81.6 H 37.0-80.0 % Lymphocytes (%) (Auto) 5.5 L 10.0-50.0 % Monocytes (%) (Auto) 11.4 0.0-12.0 % Eosinophils (%) (Auto) 0.3 0.0-7.0 % Basophils (%) (Auto) 1.2 0.0-2.0 % Neutrophils # (Auto) 12.6 H 1.6-8.6 10 ^3/uL Lymphocytes # (Auto) 0.9 0.4-5.4 10 ^3/uL Monocytes # (Auto) 1.8 H 0-1.3 10 ^3/uL Eosinophils # (Auto) 0 0-0.8 10 ^3/uL Basophils # (Auto) 0.2 0-0.2 10 ^3/uL Nucleated Red Blood Cells 0.1 % Sodium Level 124 L 136-145 mmol/L Potassium Level 6.7 *H 3.5-5.1 mmol/L Chloride Level 65 L 98-107 mmol/L Carbon Dioxide Level 23 20-31 mmol/L Anion Gap 36 H 5-15 Blood Urea Nitrogen 215 *H 9-23 mg/dL Creatinine 8.16 H 0.550-1.02 mg/dL Glomerular Filtration Rate Calc 5 >90 mL/min BUN/Creatinine Ratio 26.3 H 10.0-20.0 Serum Glucose 151 H 74-106 mg/dL Lactic Acid Level 3.9 *H 0.4-2.0 mmol/L Calcium Level 7.9 L 8.7-10.4 mg/dL Total Bilirubin 0.8 0.2-1.0 mg/dL Aspartate Amino Transferase (AST) 73 H 13-40 U/L Alanine Aminotransferase (ALT) 87 H 7-40 U/L Alkaline Phosphatase 342 H 46-116 U/L Total Protein 9.3 H 5.7-8.2 g/dL Albumin 5.0 H 3.2-4.8 g/dL Assessment/Plan Assessment/Plan 1. Acute metabolic encephalopathy likely related to sepsis 2. GRACIELA likely with ATN Nephrology consult, IV fluids 3. Hyperkalemia Nephrology consult, hyperkalemia protocol 4. Pneumonia likely Gram-negative or Gram-positive IV antibiotics 5. Severe malnourished Dietary consult 6. History of CVA 7. COPD Managed treatments 8. Seizures Continue home medication Plan discussed with: Patient My Orders Orders - ENID GOSS Procedure Category Date Status Time Admit ADMIT 05/26/24 Transmitted 14:29 Allergies MATTHEW 05/26/24 Transmitted 14:29 Code Status CODE 05/26/24 Transmitted 14:29 Renal DIET 05/26/24 Transmitted Standard(2gna,3gk,Lopho) Dinner Enoxaparin Sodium PHA 05/27/24 Transmitted (Lovenox) 10:00 Condition: Fair MATTHEW 05/26/24 Verified 14:29 Nitroglycerin PHA 05/26/24 Verified Sublingual (Ntrostat 14:30 Morphine Sulfate PHA 05/26/24 Verified Injection 14:30 Stat Ekg For Chest [facility] 05/26/24 Verified Pain 14:29 Notify Md Of Changes [facility] 05/26/24 Verified From Base 14:29 Hospice Care Transitions Coordinator For [facility] 05/26/24 Verified 24 Hours 14:29 Emergency Dysrhythmia [facility] 05/26/24 Verified Protocol 14:29 Rhythm Strips Once [facility] 05/26/24 Verified Every Shift 14:29 Oxygen By Nasal RT 05/26/24 Verified Cannula 14:29 Date of Service: May 26, 2024 Billing Provider: JACINDA TROY MD Common Visit Codes: [id number] INP/OBS CARE (MOD), [id number] INP/OBS CARE (HIGH) ENID GOSS May 26, 2024 14:31
[2024-05-26] MEDS ORDERED: LACTATED RINGER'S 1,000 ML IV SCH (14:45)
[2024-05-26] MEDS: SODIUM CHLORIDE 0.9% 1,000 ML IV SCH (15:30)
[2024-05-26] MEDS: cefTRIAXone 1GM/50ML D5W 50 ML IV ONE (15:37)
[2024-05-26 16:02] LABS: Urine Bacteria FEW /hpf (None Seen); Urine Blood Negative /uL (Negative); Urine Budding Yeast MODERATE /hpf (None Seen); Urine Clarity Turbid (Clear); Urine Color Yellow (Yellow); Urine Hyaline Cast FEW /lpf (0 - 2); Urine Protein, UAD TRACE (Negative); Urine Specific Gravity 1.019 (1.001-1.035); Urine Urobilinogen Normal (Negative); Urine WBC 17 /hpf (0 - 5)
[2024-05-26] MEDS: DEXTROSE (50%) 50ML SYRG IV ONE (16:02)
[2024-05-26] MEDS: SODIUM BICARB 8.4% 50Meq/50ml SYR Vial IV ONE (16:03)
[2024-05-26] MEDS: CALCIUM GLUC 1,000mg/50ml-NS 50 ML IV ONE (16:03)
[2024-05-26] MEDS: InsuLIN REG 1unit/0.01ml Soln (100units/ml) IV ONE (16:04)
[2024-05-26] MEDS: ALBUTEROL SULF 2.5 MG/0.5ML(0.5%) NEB SOLN NEB ONE (16:30)
--- NOTE | 2024-05-26 17:01 | DVHINCON2 ---
Date of service: May 26, 2024 Referring Physician Sorin Ellison NP Reason for Consultation GRACIELA History of Present Illness Mrs. Dillard is a 73-year-old female with known history of chronic kidney disease, baseline creatinine in the low one range he presented for further evaluation and management of altered mental status. Current consultation requested due to markedly abnormal kidney function and electrolytes. She was se en in the emergency department she was in coherent and all the history was obtained through the chart. She reportedly recently was a resident at a local snf facility. Patient's RN in the emergency department stated there is still in order for a PICC line that is pending. Past Medical History Chronic kidney disease History of ostomy placement Allergies: Coded Allergies: Penicillins (Verified Allergy, Intermediate, 02/02/21) Uncoded Allergies: BROCCOLI (Allergy, Severe, 04/29/24) Home Meds Active Scripts Ferrous Sulfate (Ferrous Sulfate) 325 Mg Tab, 325 MG PO TUTHSA for 30 Days, #30 TAB Prov:RINKU HURT RESIDENT 04/05/24 Reported Medications Patients Own Medication (PATIENTS OWN MEDICATION) ., 2 ML PO DAILY for 90 Days, #180 PTS OWN MED-OBTAIN FROM PT AND SEND TO RX DRUG: MEGESTROL 400 MG/10 ML ORAL SUSPENSION FREQ: TAKE 2 ML BY MOUTH ONCE DAILY RX# EXP: DATE DISP: TECH: RPH: 04/26/24 Levetiracetam (Keppra) 500 Mg Tab, 1 TAB PO BID for 14 Days, #28 04/26/24 Hydrocodone-Acetaminophen (Hydrocodone/Acetaminophen 7.5-325 mg) 1 Tab Tab, 1 TAB PO QID for 7 Days, #28 04/26/24 Quetiapine Fumerate (QUETIAPINE FUMARATE) 100 Mg Tab, 25 MG PO BID for 14 Days, #28 04/26/24 Pantoprazole Sodium Sesquihydr (Protonix) 40 Mg Tab, 1 TAB PO DAILY for 14 Days, #14 04/26/24 Ondansetron Odt 4MG Tab (ZOFRAN PO) 4 Mg Tb, 1 TAB PO BID for 30 Days, #60 ODT TAB-DISSOLVE IN MOUTH, THEN SWALLOW 03/30/24 Potassium Chloride (Potassium Chloride ER) 10 Meq Tab, 1 TAB PO BID for 90 Days, #180 03/30/24 Prednisolone Acetate (Prednisolone Acetate P-F) 1 % Mayi, 1 DROP LEFTEYE QID 12/24/23 Allopurinol (Allopurinol) 100 Mg Tab, 1 TAB PO DAILY 12/24/23 Baclofen (Baclofen) 10 Mg Tab, 20 MG PO BID PRN Take 1 tablet by mouth without regards to meals as needed twice daily. 12/24/23 Atorvastatin Calcium (Lipitor) 10 Mg Tab, 1 TAB PO DAILY, #30 5 Refills 12/24/23 Gabapentin (Gabapentin) 300 Mg Cap, 1 CAP PO DAILY for 90 Days, #90 12/24/23 Clopidogrel Bisulfate (CLOPIDOGREL) 75 Mg Tab, 1 TAB PO DAILY 04/20/23 Cyanocobalamin (Vitamin B-12) 1,000 Mcg Tab, 1 TAB PO DAILY for 90 Days, #90 04/20/23 Furosemide (Furosemide) 20 Mg Tab, 1 TAB PO DAILY for 90 Days, #90 04/20/23 Ergocalciferol (Vitamin D) 50,000 Unit Cap, 1 CAP PO QWEEKLY for 84 Days, #12 04/20/23 Magnesium Oxide (MAGNESIUM OXIDE) 400 Mg Tab, 1 TAB PO BID for 30 Days, #60 04/20/23 Current Medications Current Medications Medications (Trade) Dose Ordered Sig/Arielle Route PRN Reason Start Time Stop Time Status Last Admin Enoxaparin Sodium (Lovenox) 40 mg DAILY SC 05/27/24 10:00 UNV Nitroglycerin (Ntrostat Sublingual) 0.4 mg Q5MINP PRN SL FOR CHEST PAIN 05/26/24 14:30 Morphine Sulfate 2 mg Q30M PRN IV FOR CHEST PAIN 05/26/24 14:30 Heparin Sodium (Porcine) 5,000 units Q12HR SC 05/26/24 22:00 Lactated Ringer's 1,000 ml @ 100 mls/hr Q10H IV 05/26/24 14:45 05/26/24 15:19 DC Piperacillin Sod/ Tazobactam Sod 100 ml @ 25 mls/hr Q12HR IV 05/26/24 22:00 UNV Clopidogrel Bisulfate (Plavix) 75 mg DAILY PO 05/27/24 10:00 Ferrous Sulfate 325 mg TUTHSA PO 05/27/24 10:00 Levetiracetam (Keppra Tablet) 500 mg BID PO 05/26/24 22:00 Pantoprazole Sodium (Protonix Tablet) 40 mg DAILY PO 05/27/24 10:00 Atorvastatin Calcium (Lipitor) 10 mg DAILY PO 05/27/24 10:00 Linezolid 300 ml @ 150 mls/hr Q12HR@0800,2000 IV 05/26/24 20:00 Sodium Chloride 1,000 ml @ 100 mls/hr Q10H IV 05/26/24 15:30 Family History: Patient reports no known family medical history. Review of Systems Unable to be obtained due to patient's critical status H&P Exam Vital Signs/I&O Vital Sign Date Time Temp Pulse Resp B/P (MAP) Pulse Ox O2 Delivery O2 Flow Rate FiO2 05/26/24 16:36 16 95 Room Air* 0 21 05/26/24 16:17 90 05/26/24 13:00 82/58 (66) 05/26/24 09:14 95.6 95.6 Physical Exam Gen: nad, cachectic in appearance heent: Dry oral mucosa, temporal wasting bilaterally lungs: cta anteriorly cvs: no rub abd: soft, ostomy noted ext: no edema skin: no rash neuro: Encephalopathic Labs/Diagnostic Data Labs/Diagnostic Data Laboratory Tests Test 05/26/24 15:10 05/26/24 14:50 05/26/24 13:27 Range/Units Urine Color Yellow Yellow Urine Clarity Turbid H Clear Urine pH 5.0 5.0-9.0 Urine Specific [place] 1.019 1.001-1.035 Urine Protein Trace H Negative Urine Ketones Negative Negative Urine Blood Negative Negative /uL Urine Nitrite Negative Negative Urine Bilirubin Negative Negative Urine Urobilinogen Normal Negative mg/dL Urine Leukocyte Esterase 3+ Negative /uL Urine RBC 10 0 - 4 /hpf Urine WBC 17 0 - 5 /hpf Urine Squamous Epithelial Cells Few <5 /hpf Urine Bacteria Few H None Seen /hpf Urine Hyaline Casts Few 0 - 2 /lpf Urine Yeast (Budding) Moderate None Seen /hpf Urine Glucose Normal Normal mg/dL Troponin I High Sensitivity 31 28 </=34 ng/L Thyroid Stimulating Hormone (TSH) 2.37 0.55-4.78 uIU/mL White Blood Count 15.4 H 4.4-10.8 10^3/uL Red Blood Count 4.20 4.0-5.20 10^6/uL Hemoglobin 13.1 12.2-16.2 g/dL Hematocrit 39.3 36.0-46.0 % Mean Corpuscular Volume 93.7 80.0-100.0 fL Mean Corpuscular Hemoglobin 31.1 28.0-32.0 pg Mean Corpuscular Hemoglobin Concent 33.2 32.0-36.0 g/dL Red Cell Distribution Width 14.8 H 11.8-14.3 % Platelet Count 521 H 140-450 10^3/uL Mean Platelet Volume 8.1 6.9-10.8 fL Neutrophils (%) (Auto) 81.6 H 37.0-80.0 % Lymphocytes (%) (Auto) 5.5 L 10.0-50.0 % Monocytes (%) (Auto) 11.4 0.0-12.0 % Eosinophils (%) (Auto) 0.3 0.0-7.0 % Basophils (%) (Auto) 1.2 0.0-2.0 % Neutrophils # (Auto) 12.6 H 1.6-8.6 10 ^3/uL Lymphocytes # (Auto) 0.9 0.4-5.4 10 ^3/uL Monocytes # (Auto) 1.8 H 0-1.3 10 ^3/uL Eosinophils # (Auto) 0 0-0.8 10 ^3/uL Basophils # (Auto) 0.2 0-0.2 10 ^3/uL Nucleated Red Blood Cells 0.1 % Sodium Level 124 L 136-145 mmol/L Potassium Level 6.7 *H 3.5-5.1 mmol/L Chloride Level 65 L 98-107 mmol/L Carbon Dioxide Level 23 20-31 mmol/L Anion Gap 36 H 5-15 Blood Urea Nitrogen 215 *H 9-23 mg/dL Creatinine 8.16 H 0.550-1.02 mg/dL Glomerular Filtration Rate Calc 5 >90 mL/min BUN/Creatinine Ratio 26.3 H 10.0-20.0 Serum Glucose 151 H 74-106 mg/dL Hemoglobin A1c 5.1 <5.7 % A1C Lactic Acid Level 3.9 *H 0.4-2.0 mmol/L Calcium Level 7.9 L 8.7-10.4 mg/dL Total Bilirubin 0.8 0.2-1.0 mg/dL Aspartate Amino Transferase (AST) 73 H 13-40 U/L Alanine Aminotransferase (ALT) 87 H 7-40 U/L Alkaline Phosphatase 342 H 46-116 U/L Total Protein 9.3 H 5.7-8.2 g/dL Albumin 5.0 H 3.2-4.8 g/dL Plan/Recommendation IMP: 1) hemodynamically mediated acute kidney injury, prerenal state 2) toxic metabolic, possible uremic encephalopathy 3) hyperkalemia 4) dehydrated state REC: - IV fluid hydration - consideration for kidney replacement therapy should metabolic parameters not improve with conservative Management - will continue to follow closely. Plan discussed with: Other PIO LAZO MD May 26, 2024 17:01
[2024-05-26 18:19] LABS: INR 1.54 (0.9-1.15); Partial Thromboplastin Time 29.1 SEC (24.5-34.5); Prothrombin Time 15.8 sec (9.3-11.8)
[2024-05-26] MEDS: LINEZOLID 600MG/300ML 300 ML IV SCH (20:06)
[2024-05-26] MEDS: HEPARIN SODIUM (PORCINE) 5000 UNITS/ML 1ML VIAL SC SCH (20:08)
[2024-05-26 20:20] LABS: Albumin 3.9 g/dL (3.2-4.8); Anion Gap 33 (5-15); Carbon Dioxide 25 mmol/L (20-31)
[2024-05-26 20:21] LABS: Bilirubin, Total 0.5 mg/dL (0.2-1.0); Total Protein 7.2 g/dL (5.7-8.2)
[2024-05-26 20:28] LABS: BUN/Creatinine Ratio 27.7 (10.0-20.0)
[2024-05-26 20:35] LABS: Alanine Aminotransferase 69 U/L (7-40); Alkaline Phosphatase 264 U/L (46-116); Aspartate Aminotransferase 59 U/L (13-40); Calcium 7.2 mg/dL (8.7-10.4); Chloride 71 mmol/L (98-107); Glucose 262 mg/dL (74-106); Sodium 129 mmol/L (136-145)
[2024-05-26 20:40] LABS: Blood Urea Nitrogen 223 mg/dL (9-23); Potassium 5.6 mmol/L (3.5-5.1)
[2024-05-26] MEDS: levETIRAcetam 500 MG TAB PO SCH (22:00)
[2024-05-26] MEDS: SODIUM CHLORIDE 0.9% 250 ML IV ONE (22:10)
[2024-05-26] MEDS: PIPERACILLIN-TAZOB 2.25GM 50 ML IV SCH (22:39)
[2024-05-27] VITALS (17 sets, daily range): BP systolic 90–136; BP diastolic 49–70; PULSE 57–84; RESP 12–84; TEMP 97–97.9; O2SAT 94–100
[2024-05-27 06:20] LABS: Basophils # (auto) 0 10 ^3/uL (0-0.2); Basophils % (auto) 0.1 % (0.0-2.0); Eosinophils # (auto) 0 10 ^3/uL (0-0.8); Lymphocytes # (auto) 0.7 10 ^3/uL (0.4-5.4); Mean Corpuscular Hemoglobin 31.4 pg (28.0-32.0); Mean Corpuscular Hgb Conc. 32.1 g/dL (32.0-36.0); Mean Corpuscular Volume 97.6 fL (80.0-100.0); Monocytes # (auto) 1.3 10 ^3/uL (0-1.3); Monocytes % (auto) 10.5 % (0.0-12.0); Neutrophils # (auto) 10.3 10 ^3/uL (1.6-8.6); Neutrophils % (auto) 83.4 % (37.0-80.0); Platelet Count (auto) 401 10^3/uL (140-450); Red Blood Cells 2.87 10^6/uL (4.0-5.20); Red Cell Distribution Width 14.9 % (11.8-14.3); White Blood Cell 12.4 10^3/uL (4.4-10.8)
[2024-05-27 06:28] LABS: Anion Gap 26 (5-15); Carbon Dioxide 24 mmol/L (20-31); Potassium 4.4 mmol/L (3.5-5.1)
[2024-05-27 06:42] LABS: BUN/Creatinine Ratio 27.9 (10.0-20.0)
[2024-05-27 06:48] LABS: Calcium 6.4 mg/dL (8.7-10.4); Chloride 85 mmol/L (98-107); Glucose 147 mg/dL (74-106); Sodium 135 mmol/L (136-145)
[2024-05-27 06:51] LABS: Blood Urea Nitrogen 200 mg/dL (9-23)
[2024-05-27 08:24] LABS: COVID19 ANTIGEN SOFIA FIA NEGATIVE (NEGATIVE); Rapid Influenza A Negative (Negative); Rapid Influenza B Negative (Negative)
[2024-05-27] MEDS: FERROUS SULFATE 325mg EC TAB PO SCH (09:54)
[2024-05-27] MEDS: ATORVASTATIN 20 MG TAB PO SCH (09:55)
[2024-05-27] MEDS: PANTOPRAZOLE 40 MG TAB PO SCH (09:55)
[2024-05-27] MEDS: CLOPIDOGREL BISULFATE 75 MG TAB PO SCH (09:55)
[2024-05-27] MEDS ORDERED: ENOXAPARIN SOD 40 MG/0.4 ML SYRINGE SC SCH (10:00)
[2024-05-27] MEDS: MORPHINE SULFATE INJ 2 MG/ml SYRG IV PRN (11:33)
[2024-05-27] MEDS: GABAPENTIN 300 MG CAP PO SCH (13:06)
--- NOTE | 2024-05-27 13:43 | DVHPN2 ---
Progress Note - Dictate Date Seen: May 27, 2024 Medical Necessity Reason Pt with a Central, PICC or Fol: Yes The following are medically ne: Machado Catheter Subjective Patient seen in the ER, she is moving spontaneously but still not coherent vital signs Vital Sign Date Time Temp Pulse Resp B/P (MAP) Pulse Ox O2 Delivery O2 Flow Rate FiO2 05/27/24 13:00 97.5 78 26 123/75 (91) 95 97.5 05/27/24 07:30 Room Air* 0 21 Total Intake and Output 05/26/24 05/26/24 05/27/24 15:00 23:00 07:00 Intake Total 2300 ml 750 ml Output Total 33 ml Balance 2300 ml 717 ml medications Current Medications Medications Dose Ordered Sig/Arielle Route Start Time Stop Time Status Last Admin Dose Admin Enoxaparin Sodium 40 mg DAILY SC 05/27/24 10:00 UNV Nitroglycerin 0.4 mg Q5MINP PRN SL 05/26/24 14:30 Morphine Sulfate 2 mg Q30M PRN IV 05/26/24 14:30 Piperacillin Sod/ Tazobactam Sod 50 ml @ 16.667 mls/ hr Q12HR IV 05/26/24 22:00 05/27/24 10:25 16.667 MLS/HR Clopidogrel Bisulfate 75 mg DAILY PO 05/27/24 10:00 05/27/24 09:55 75 MG Ferrous Sulfate 325 mg TUTHSA PO 05/27/24 10:00 05/27/24 09:54 325 MG Levetiracetam 500 mg BID PO 05/26/24 22:00 05/27/24 09:54 500 MG Pantoprazole Sodium 40 mg DAILY PO 05/27/24 10:00 05/27/24 09:55 40 MG Atorvastatin Calcium 10 mg DAILY PO 05/27/24 10:00 05/27/24 09:55 10 MG Linezolid 300 ml @ 150 mls/hr Q12HR@0800,2000 IV 05/26/24 20:00 05/27/24 08:21 150 MLS/HR Sodium Chloride 1,000 ml @ 100 mls/hr Q10H IV 05/26/24 15:30 05/27/24 11:40 100 MLS/HR Morphine Sulfate 1 mg Q4HP PRN IV 05/27/24 11:15 12/7/24 11:33 1 MG Gabapentin 300 mg DAILY PO 05/28/24 10:00 Gabapentin 300 mg DAILY PO 05/27/24 12:45 05/27/24 13:06 300 MG objective gen: market cachexia lungs: cta cvs: no rub exT: no edema laboratory and microbiology Laboratory Tests 05/27/24 05:50 Test 05/27/24 05:50 Range/Units Serum Glucose 147 H 74-106 mg/dL Assessment/Plan IMP: 1) hemodynamically mediated acute kidney injury, prerenal state 2) toxic metabolic, possible uremic encephalopathy 3) hyperkalemia 4) dehydrated state REC: - continue with NS - Slight improvement in azotemia and mental status - Hyperkalemia improved Plan discussed with: Other PIO LAZO MD May 27, 2024 13:43
--- NOTE | 2024-05-27 17:21 | ECG ---
[facility] Test Date: 2024-05-26 Test Time: 09:27:51 Pat Name: FELA RIVERA Department: ED Room: 0218T Gender: F Industrial Automation Specialist: WALLY : 1950 Requested By: JAMES FERNANDEZ Order Number: [id number] Reading MD: Eliel Juarez Measurements Intervals [place] Rate: 87 P: 89 NV: 153 QRS: 141 QRSD: 110 T: 15 QT: 432 QTc: 520 Interpretive Statements Sinus rhythm Right atrial enlargement Inferior infarct, old Anterior infarct, old Prolonged QT interval Electronically Signed On 06-01-2024 14:51:24 PST by Eliel Juarez Please click the below link to view image of tracing.
--- NOTE | 2024-05-27 17:33 | DVHPN2 ---
Progress Note Date Seen: May 27, 2024 Medical Necessity Reason Pt with a Central, PICC or Fol: Yes The following are medically ne: Machado Catheter Objective vital signs Vital Sign Date Time Temp Pulse Resp B/P (MAP) Pulse Ox O2 Delivery O2 Flow Rate FiO2 05/27/24 16:00 64 12 113/71 (85) 96 05/27/24 13:00 97.5 97.5 05/27/24 07:30 Room Air* 0 21 Total Intake and Output 05/26/24 05/26/24 05/27/24 15:00 23:00 07:00 Intake Total 2300 ml 750 ml Output Total 33 ml Balance 2300 ml 717 ml medications Current Medications Medications Dose Ordered Sig/Arielle Route Start Time Stop Time Status Last Admin Dose Admin Enoxaparin Sodium 40 mg DAILY SC 05/27/24 10:00 UNV Nitroglycerin 0.4 mg Q5MINP PRN SL 05/26/24 14:30 Morphine Sulfate 2 mg Q30M PRN IV 05/26/24 14:30 Piperacillin Sod/ Tazobactam Sod 50 ml @ 16.667 mls/ hr Q12HR IV 05/26/24 22:00 05/27/24 10:25 16.667 MLS/HR Clopidogrel Bisulfate 75 mg DAILY PO 05/27/24 10:00 05/27/24 09:55 75 MG Ferrous Sulfate 325 mg TUTHSA PO 05/27/24 10:00 05/27/24 09:54 325 MG Levetiracetam 500 mg BID PO 05/26/24 22:00 05/27/24 09:54 500 MG Pantoprazole Sodium 40 mg DAILY PO 05/27/24 10:00 05/27/24 09:55 40 MG Atorvastatin Calcium 10 mg DAILY PO 05/27/24 10:00 05/27/24 09:55 10 MG Linezolid 300 ml @ 150 mls/hr Q12HR@0800,2000 IV 05/26/24 20:00 05/27/24 08:21 150 MLS/HR Sodium Chloride 1,000 ml @ 100 mls/hr Q10H IV 05/26/24 15:30 05/27/24 11:40 100 MLS/HR Morphine Sulfate 1 mg Q4HP PRN IV 05/27/24 11:15 05/27/24 11:33 1 MG Gabapentin 300 mg DAILY PO 05/28/24 10:00 Gabapentin 300 mg DAILY PO 05/27/24 12:45 05/27/24 13:06 300 MG Examination: GENERAL:Normal, LUNGS:Normal, CVS:Normal, ABDOMEN:Normal, SKIN:Normal laboratory and microbiology Laboratory Tests 05/27/24 05:50 Test 05/27/24 05:50 Range/Units Serum Glucose 147 H 74-106 mg/dL Labs and/or images reviewed: Labs reviewed by me, Image(s) reviewed by me Problem List/Assessment/Plan Problem List/Assessment/Plan 1. Acute metabolic encephalopathy likely related to sepsis 2. GRACIELA likely with ATN Nephrology consult, IV fluids 3. Hyperkalemia Nephrology consult, hyperkalemia protocol 4. Pneumonia likely Gram-negative or Gram-positive IV antibiotics 5. Severe malnourished Dietary consult 6. History of CVA 7. COPD Managed treatments 8. Seizures Continue home medication Subjective: Patient is awake but not alert Objective: Patient was admitted for acute encephalopathy likely related to sepsis from pneumonia. Patient came from [facility]. Patient appears severely malnourished. Patient was placed on IV Zyvox and Zosyn. Infectious Disease has been consulted. Patient is pending neurology evaluation. Patient was also found to have GRACIELA with ATN, patient was also found to be severely hyperkalemic. Potassium was found to be 6.7 the patient did receive hypokalemic cocktail and potassium is now 4.4. Patient was seen by supply tech, and was placed on IV fluids. Plan: Continue with IV fluids per Nephrology, monitor electrolytes, dietary consult, Neurology consult, obtain brain MRI, awaiting Infectious Disease consult, continue with IV antibiotics Plan discussed with: Patient My Orders My Orders Orders - ENID GOSS ANCIENT [employer] CURATOR Procedure Category Date Status Time * Wound Consult CONS 05/26/24 Transmitted * Dietary Consult CONS 05/27/24 Transmitted 07:04 *Consult Dr. Esparza CONS 05/27/24 Transmitted [place] 07:05 Morphine Sulfate PHA 05/27/24 In Process Injection 11:15 Gabapentin Capsule PHA 05/28/24 In Process (Neurontin Capsule) 10:00 Gabapentin Capsule PHA 05/27/24 In Process (Neurontin Capsule) 12:45 Date of Service: May 27, 2024 Billing Provider: JACINDA TROY MD Common Visit Codes: [id number] INP/OBS CARE (MOD) ENID GOSS [facility] May 27, 2024 17:33
--- NOTE | 2024-05-27 23:44 | DVHINCON2 ---
Date of service: May 27, 2024 Family History: Patient reports no known family medical history. Allergies: Coded Allergies: Penicillins (Verified Allergy, Intermediate, 02/02/21) Uncoded Allergies: BROCCOLI (Allergy, Severe, 04/29/24) Home Meds Active Scripts Ferrous Sulfate (Ferrous Sulfate) 325 Mg Tab, 325 MG PO TUTHSA for 30 Days, #30 TAB Prov:RINKU HURT RESIDENT 04/05/24 Reported Medications Patients Own Medication (PATIENTS OWN MEDICATION) ., 2 ML PO DAILY for 90 Days, #180 PTS OWN MED-OBTAIN FROM PT AND SEND TO RX DRUG: MEGESTROL 400 MG/10 ML ORAL SUSPENSION FREQ: TAKE 2 ML BY MOUTH ONCE DAILY RX# EXP: DATE DISP: TECH: [facility]: 04/26/24 Levetiracetam (Keppra) 500 Mg Tab, 1 TAB PO BID for 14 Days, #28 04/26/24 Hydrocodone-Acetaminophen (Hydrocodone/Acetaminophen 7.5-325 mg) 1 Tab Tab, 1 TAB PO QID for 7 Days, #28 04/26/24 Quetiapine Fumerate (QUETIAPINE FUMARATE) 100 Mg Tab, 25 MG PO BID for 14 Days, #28 04/26/24 Pantoprazole Sodium Sesquihydr (Protonix) 40 Mg Tab, 1 TAB PO DAILY for 14 Days, #14 04/26/24 Ondansetron Odt 4MG Tab (ZOFRAN PO) 4 Mg Tb, 1 TAB PO BID for 30 Days, #60 ODT TAB-DISSOLVE IN MOUTH, THEN SWALLOW 03/30/24 Potassium Chloride (Potassium Chloride ER) 10 Meq Tab, 1 TAB PO BID for 90 Days, #180 03/30/24 Prednisolone Acetate (Prednisolone Acetate P-F) 1 % Mayi, 1 DROP LEFTEYE QID 12/24/23 Allopurinol (Allopurinol) 100 Mg Tab, 1 TAB PO DAILY 12/24/23 Baclofen (Baclofen) 10 Mg Tab, 20 MG PO BID PRN Take 1 tablet by mouth without regards to meals as needed twice daily. 12/24/23 Atorvastatin Calcium (Lipitor) 10 Mg Tab, 1 TAB PO DAILY, #30 5 Refills 12/24/23 Gabapentin (Gabapentin) 300 Mg Cap, 1 CAP PO DAILY for 90 Days, #90 12/24/23 Clopidogrel Bisulfate (CLOPIDOGREL) 75 Mg Tab, 1 TAB PO DAILY 04/20/23 Cyanocobalamin (Vitamin B-12) 1,000 Mcg Tab, 1 TAB PO DAILY for 90 Days, #90 04/20/23 Furosemide (Furosemide) 20 Mg Tab, 1 TAB PO DAILY for 90 Days, #90 04/20/23 Ergocalciferol (Vitamin D) 50,000 Unit Cap, 1 CAP PO QWEEKLY for 84 Days, #12 04/20/23 Magnesium Oxide (MAGNESIUM OXIDE) 400 Mg Tab, 1 TAB PO BID for 30 Days, #60 04/20/23 Current Medications Current Medications Medications (Trade) Dose Ordered Sig/Arielle Route PRN Reason Start Time Stop Time Status Last Admin Enoxaparin Sodium (Lovenox) 40 mg DAILY SC 05/27/24 10:00 UNV Clopidogrel Bisulfate (Plavix) 75 mg DAILY PO 05/27/24 10:00 05/27/24 09:55 Ferrous Sulfate 325 mg TUTHSA PO 05/27/24 10:00 05/27/24 09:54 Pantoprazole Sodium (Protonix Tablet) 40 mg DAILY PO 05/27/24 10:00 05/27/24 09:55 Atorvastatin Calcium (Lipitor) 10 mg DAILY PO 05/27/24 10:00 05/27/24 09:55 Morphine Sulfate 1 mg Q4HP PRN IV SEVERE PAIN (7-10 PAIN SCALE) 05/27/24 11:15 05/27/24 11:33 Gabapentin (Neurontin Capsule) 300 mg DAILY PO 05/28/24 10:00 Gabapentin (Neurontin Capsule) 300 mg DAILY PO 05/27/24 12:45 05/27/24 13:06 Vital Signs Vital Signs Date Time Temp Pulse Resp B/P (MAP) Pulse Ox O2 Delivery O2 Flow Rate FiO2 05/27/24 16:50 97.9 62 18 110/58 (75) 96 97.9 05/27/24 07:30 Room Air* 0 21 Labs/Diagnostic Data Labs Test 05/27/24 07:20 05/27/24 05:50 05/26/24 17:04 05/26/24 15:10 Range/Units Influenza Type A Antigen Negative Negative Influenza Type B Antigen Negative Negative SARS-CoV-2 Antigen (Rapid) Negative NEGATIVE White Blood Count 12.4 H 4.4-10.8 10^3/uL Red Blood Count 2.87 L 4.0-5.20 10^6/uL Hemoglobin 9.0 #L 12.2-16.2 g/dL Hematocrit 28.0 #L 36.0-46.0 % Mean Corpuscular Volume 97.6 # 80.0-100.0 fL Mean Corpuscular Hemoglobin 31.4 28.0-32.0 pg Mean Corpuscular Hemoglobin Concent 32.1 32.0-36.0 g/dL Red Cell Distribution Width 14.9 H 11.8-14.3 % Platelet Count 401 140-450 10^3/uL Mean Platelet Volume 7.5 6.9-10.8 fL Neutrophils (%) (Auto) 83.4 H 37.0-80.0 % Lymphocytes (%) (Auto) 6.0 L 10.0-50.0 % Monocytes (%) (Auto) 10.5 0.0-12.0 % Eosinophils (%) (Auto) 0.0 0.0-7.0 % Basophils (%) (Auto) 0.1 0.0-2.0 % Neutrophils # (Auto) 10.3 H 1.6-8.6 10 ^3/uL Lymphocytes # (Auto) 0.7 0.4-5.4 10 ^3/uL Monocytes # (Auto) 1.3 0-1.3 10 ^3/uL Eosinophils # (Auto) 0 0-0.8 10 ^3/uL Basophils # (Auto) 0 0-0.2 10 ^3/uL Nucleated Red Blood Cells 0.0 % Sodium Level 135 #L 136-145 mmol/L Potassium Level 4.4 3.5-5.1 mmol/L Chloride Level 85 #L 98-107 mmol/L Carbon Dioxide Level 24 20-31 mmol/L Anion Gap 26 H 5-15 Blood Urea Nitrogen 200 #*H 9-23 mg/dL Creatinine 7.17 H 0.550-1.02 mg/dL Glomerular Filtration Rate Calc 6 >90 mL/min BUN/Creatinine Ratio 27.9 H 10.0-20.0 Serum Glucose 147 H 74-106 mg/dL Calcium Level 6.4 L 8.7-10.4 mg/dL Prothrombin Time 15.8 H 9.3-11.8 sec Prothrombin Time INR 1.54 H 0.9-1.15 Activated Partial Thromboplast Time 29.1 24.5-34.5 SEC Lactic Acid Level 3.2 *H 0.4-2.0 mmol/L Total Bilirubin 0.5 0.2-1.0 mg/dL Aspartate Amino Transferase (AST) 59 H 13-40 U/L Alanine Aminotransferase (ALT) 69 H 7-40 U/L Alkaline Phosphatase 264 H 46-116 U/L Troponin I High Sensitivity 25 </=34 ng/L Total Protein 7.2 5.7-8.2 g/dL Albumin 3.9 3.2-4.8 g/dL Urine Color Yellow Yellow Urine Clarity Turbid H Clear Urine pH 5.0 5.0-9.0 Urine Specific Cameron 1.019 1.001-1.035 Urine Protein Trace H Negative Urine Ketones Negative Negative Urine Blood Negative Negative /uL Urine Nitrite Negative Negative Urine Bilirubin Negative Negative Urine Urobilinogen Normal Negative mg/dL Urine Leukocyte Esterase 3+ Negative /uL Urine RBC 10 0 - 4 /hpf Urine WBC 17 0 - 5 /hpf Urine Squamous Epithelial Cells Few <5 /hpf Urine Bacteria Few H None Seen /hpf Urine Hyaline Casts Few 0 - 2 /lpf Urine Yeast (Budding) Moderate None Seen /hpf Urine Glucose Normal Normal mg/dL Test 05/26/24 14:50 05/26/24 13:27 Range/Units Thyroid Stimulating Hormone (TSH) 2.37 0.55-4.78 uIU/mL Hemoglobin A1c 5.1 <5.7 % A1C Microbiology Date/Time Source Procedure Growth Status 05/26/24 17:04 Blood Blood Culture - Preliminary NO GROWTH AFTER 24 HOURS OF INCUBATION. Resulted Problems(with codes): (1) Community acquired bacterial pneumonia (2) GRACIELA (acute kidney injury) (3) Severe sepsis (4) Physical deconditioning (5) Colostomy in place (6) Hypotensive episode (7) UTI (urinary tract infection) (8) COPD (chronic obstructive pulmonary disease) (9) Renal failure (10) Altered mental status Plan/Recommendation ASSESSMENT AND PLAN: ID Problem List: - Altered mental status - Seizure disorder COPD - Pneumonia - Urinary tract infection - Septic shock - Acute renal failure - Possible congestive heart failure exacerbation - Left clavicle displacement - Anemia Assessment This is a 73 y.o. female with a past medical history of COPD, diabetes mellitus, recurrent UTIs, multiple myocardial infarctions, recent sepsis, cerebrovascular accident (stroke), colostomy placement, congestive heart failure, and seizure disorder, who presents with altered mental status. She was found to be hypotensive with a blood pressure of 79/55?mmHg, hypothermic with a rectal temperature of 95.6?F, and heart rate in the 80s. On examination, the patient is moaning and unresponsive to verbal stimuli. Laboratory studies reveal leukocytosis with WBC 15.4, thrombocytosis with platelets 521, anemia with hemoglobin 7.2 and hematocrit 23, elevated creatinine 8.06 indicating acute renal failure, hyponatremia (Na 129), hyperkalemia (K 6.7), elevated lactic acid 3.9. Liver enzymes are elevated with AST 264 and ALT 69. Urinalysis shows 17 WBCs, 3+ leukocytes, moderate yeast, and bacteria. Chest X-ray revealed a deep sulcus sign of the left costophrenic angle suggestive of possible pneumothorax; CT was recommended. Chest CT showed new tree-in-bud opacities in both lungs likely infectious/inflammatory, chronic consolidation in the right upper lobe, stable ground-glass opacities in the right middle lobe, and an infrarenal abdominal aortic aneurysm measuring 35?mm. Head CT showed no intracranial process. Shoulder X-ray showed the left clavicle is superiorly displaced, possibly chronic. Plan: - Septic shock: - Initiate fluid resuscitation to maintain MAP >65?mmHg. - Start vasopressors as needed. - Consider corticosteroids if hemodynamics do not improve. - Obtain blood cultures and urine cultures; follow up on results. - Continue linezolid and Zosyn for now; will adjust antibiotics based on renal function and culture results. - Recommend MRSA nasal swab and sputum culture. - Consider addition of doxycycline if respiratory status declines. - Acute renal failure: - Defer management to the nephrology team. - Patient will likely require dialysis. - Possible congestive heart failure exacerbation: - Recommend transthoracic echocardiogram (TTE) to evaluate cardiac function. - Obtain pro-BNP level. - Pneumonia: - Continue current antibiotics; adjust per culture results and sensitivities. - Altered mental status: - Monitor neurological status. - Defer seizure disorder management to neurology. - Electrolyte abnormalities: - Hyperkalemia (K 6.7): Implement hyperkalemia protocol. - Hyponatremia (Na 129): Monitor and correct sodium levels cautiously. - Anemia: - Monitor hemoglobin and hematocrit. - Consider transfusion if necessary. - Left clavicle displacement: - Consult orthopedics to evaluate left clavicle displacement. Isolation Precautions: standard Assessment and plan was discussed with the patient as written above. Plan is subject to change pending incorporation of new incoming information/diagnostics. Updates may be added as addendum at the bottom (OR TOP) of this note. Thank you for interesting consult. ID will continue to follow. Please contact Infectious disease for any questions or concerns. Digna Ellison M.D. [facility] Ph: ? History: The patient's chart and medications were reviewed in detail and the patient was seen and examined. History obtained from: chart review Miss Simon is a 73 y.o. female with a past medical history of COPD, diabetes mellitus, recurrent UTIs, multiple myocardial infarctions, recent sepsis, cerebrovascular accident (stroke), colostomy placement, congestive heart failure, and seizure disorder, who presents with altered mental status. She was found to be hypotensive with a blood pressure of 79/55?mmHg, hypothermic with a rectal temperature of 95.6?F, and heart rate in the 80s. She is normally alert and oriented times four but has been only moaning recently. Review of Systems: Unable to obtain due to the patient's altered mental status. Past Medical History: Diagnosis Date COPD Diabetes mellitus Urinary tract infections Multiple myocardial infarctions Recent sepsis Cerebrovascular accident (stroke) Colostomy placement Congestive heart failure Seizure disorder Past Surgical History: Colostomy placement Home Medications: Prior to Admission medications Medication Sig Allopurinol Take as prescribed. Atorvastatin Take 1 tablet by mouth daily. Baclofen Take as prescribed. Clopidogrel Take as prescribed. Vitamin B12 Take as prescribed. Calciferol (Vitamin D) Take as prescribed. Iron Take as prescribed. Furosemide (Lasix) Take as prescribed. Gabapentin Take as prescribed. Hydrocodone-acetaminophen (Sylvester) Take 1 tablet by mouth every 6 hours as needed for pain. Levetiracetam (Keppra) Take as prescribed. Magnesium oxide Take as prescribed. Ondansetron Take as prescribed. Pantoprazole Take as prescribed. Prednisolone acetate Use as prescribed. Quetiapine Take as prescribed. Allergies: Broccoli Penicillins Family History: Family history unknown. Social History: Social history unobtainable due to the patient's condition. Objective: Vital Signs on Arrival: Temp: 95.6?F (rectal)?BP: 79/55?mmHg?Pulse: 80?Resp: Not documented?SpO2: Not documented Most Recent Vital Signs: Not available. Admission Weight: Weight: Not available?BMI: Not available. Physical Exam: General: Appears ill, moaning, unresponsive to verbal stimuli. Neck: Supple. No masses. HEENT: PERRL. Normal lids and conjunctiva. Moist mucous membranes. Oropharynx without lesions, exudates or excessive erythema. Normal appearance of the external aspects of the nose and ears. Heart: Regular rhythm, normal rate. No murmur. No lower extremity edema. Lungs: Normal respiratory effort. Clear to auscultation bilaterally. No wheezes. No crackles. Abdomen: Soft. Non-tender. Non-distended. No masses or abdominal hernia. Colostomy bag site appears dry and intact. Msk: No digital cyanosis. Normal strength and tone in all 4 limbs. Skin: Warm and dry, no rashes. Neuro: Moaning, unresponsive to verbal stimuli. Unable to assess orientation. Psych: Unable to assess mood and affect. Unresponsive. Oriented to person, place, time, and situation: Unable to assess. Lines: No active lines documented. Diagnostic Studies: Available diagnostic studies were reviewed personally. Significant relevant results and findings are outlined below or addressed in the Assessment and Plan above. Pertinent Imaging: Recent Results (from the past 360 hour(s)) CXR Chest 2 View Impression: 1. Deep sulcus sign of the left costophrenic angle which could represent pneumothorax. Recommend chest CT for further evaluation. Electronically signed by: [Radiologist's Name] on [Date and Time] CT Chest Impression: 1. Previous ground-glass opacities largely resolved. 2. New tree-in-bud opacities in both lungs likely infectious/inflammatory. 3. Chronic consolidation in the right upper lobe. 4. Stable ground-glass opacities in the right middle lobe. 5. Infrarenal abdominal aortic aneurysm measuring 35?mm. Electronically signed by: [Radiologist's Name] on [Date and Time] CT Head Impression: 1. No intracranial process. Electronically signed by: [Radiologist's Name] on [Date and Time] X-ray Shoulder Impression: 1. Left clavicle is superiorly displaced, possibly chronic. Electronically signed by: [Radiologist's Name] on [Date and Time] Laboratory Data: Significant laboratory findings: - WBC: 15.4 (elevated) - Platelets: 521 (elevated) - Hemoglobin: 7.2 (low) - Hematocrit: 23 (low) - Sodium: 129 (low) - Potassium: 6.7 (high) - Creatinine: 8.06 (elevated) - Lactic acid: 3.9 (elevated) - AST: 264 (elevated) - ALT: 69 (elevated) - Urinalysis: 17 WBCs, 3+ leukocytes, moderate yeast, bacteria present. Plan discussed with: Patient DIGNA ELLISON MD May 27, 2024 23:44
[2024-05-28] VITALS (7 sets, daily range): BP systolic 93–120; BP diastolic 46–58; PULSE 51–59; RESP 16–19; TEMP 97–98; O2SAT 94–100
[2024-05-28 06:46] LABS: Sodium 137 mmol/L (136-145)
[2024-05-28 06:47] LABS: Anion Gap 21 (5-15); Carbon Dioxide 23 mmol/L (20-31)
[2024-05-28 07:01] LABS: BUN/Creatinine Ratio 27.2 (10.0-20.0); Calcium 6.4 mg/dL (8.7-10.4); Chloride 93 mmol/L (98-107); Glucose 70 mg/dL (74-106); Potassium 3.3 mmol/L (3.5-5.1)
[2024-05-28 07:03] LABS: Blood Urea Nitrogen 160 mg/dL (9-23)
[2024-05-28] MEDS: GABAPENTIN 300 MG CAP PO SCH (10:00)
[2024-05-28] MEDS: HYDROmorphone HCL 2 MG/ML VL/or syr IV PRN (13:50)
[2024-05-28 14:06] LABS: Basophils # (auto) 0 10 ^3/uL (0-0.2); Basophils % (auto) 0.2 % (0.0-2.0); Eosinophils # (auto) 0 10 ^3/uL (0-0.8); Eosinophils % (auto) 0.2 % (0.0-7.0); Hematocrit 27.1 % (36.0-46.0); Hemoglobin 8.9 g/dL (12.2-16.2); Lymphocytes # (auto) 0.7 10 ^3/uL (0.4-5.4); Mean Corpuscular Hemoglobin 30.9 pg (28.0-32.0); Mean Corpuscular Hgb Conc. 32.8 g/dL (32.0-36.0); Mean Corpuscular Volume 94.1 fL (80.0-100.0); Monocytes # (auto) 0.5 10 ^3/uL (0-1.3); Monocytes % (auto) 5.9 % (0.0-12.0); Neutrophils # (auto) 6.7 10 ^3/uL (1.6-8.6); Neutrophils % (auto) 84.7 % (37.0-80.0); Nucleated Red Blood Cells % 0.1 %; Platelet Count (auto) 367 10^3/uL (140-450); Red Blood Cells 2.88 10^6/uL (4.0-5.20); White Blood Cell 7.9 10^3/uL (4.4-10.8)
--- NOTE | 2024-05-28 16:00 | DVHINCON2 ---
Date of service: May 28, [address] Scot Cardenas Reason for Consultation Metabolic encephalopathy History of Present Illness Ms. Dillard is a 73 years old right-handed female with a history of hypertension, dyslipidemia, chronic low back pain, chronic pain in the hips, she came to the hospital on 05/26/24 with a chief complaint of altered mental status. At this time, she is awake, she is oriented to person, she knows that she is in a hospital. She can not provide history, the information is obtained from the chart review and talking to her daughter I saw her on 11/23/21 for ALOC/metabolic encephalopathy, 12/28/21 for ALOC, 02/15/2022 for stroke, 04/19/2023 for seizure, 11/24/2023, 04/12/24 for encephalopathy, 03/31/2024 for ALOC She was a resident in the [facility], her staff noticed she was mentally altered on 05/26/2024, in the hospital, the patient was found to have UTI, hyponatremia, hyperkalemia, kidney failure, lactic acidosis According to previous consult note, she had the following events On 04/18/23, she remembered eating breakfast at home, but the next memory was waking up in an emergency room, confused, with the bruise in the forehead. According to her , he heard her yelling, and found her on the floor nonresponsive with blood in the face, there was no convulsion or shaking On 02/14/22, when she was sitting in her kitchen, she felt to the floor, became nonresponsive, body stiffened up with mild shaking (not convulsion) for a few minutes, when she woke up, she did not know the place, was not able to recognize her . On 12/28/2021, after a poor nocturnal sleep secondary to abdominal pain, she was confused, she fell down and became nonresponsive, the eyes were rolling back, the body was stiff, with shaking all over the body, the event lasted for for a few minutes, she was still nonresponsive when the EMS came over. She had never had a similar problem before, she had had no history of seizure, olfactory hallucination, intracranial infection, head trauma, or family history of seizure disorder [phone], no answer. kenyon, , no answer, , the can not be completed at that time Urine culture, 05/27/2024: Blood culture, 05/26/2024: Urinalysis, 05/26/2024: WBC: 17, urine leukocyte esterase: 3+ WBC/HB/PLT/MCV, 05/28/2024: 7.9/8.19/367/94.1 Na, 05/26/2024: 124, 129, 05/27/2020 4:135 K, 05/26/2024: 6.7, 5.6, 05/28/2024: Sleep, sleep BUN/CR, 05/26/2024: 215/8.16, 05/26/2024: 223/8.06, : 160/5.88 Lactic acid, 05/26/2024: 3.9, 3.2 TG/HDL/LDL/HDL, 05/26/2024: 0.8/73/87/342, 12/ Vitamin B12, 03/2023: 395, : 968 Folic acid, 11/2021: 24, 03/29/2024: 13.56 TSH, 11/2021: 0.27 03/2024: 1.1 EEG, 12/29/2021: Normal EEG, 02/15/2022: Normal EEG, 04/11/2024: Bilateral PLEDs Carotid Doppler, 04/11/2024: No hemodynamically significant stenosis within the carotid arteries X-ray, Left shoulder 05/26/2024, There is no evidence of acute fracture or disl ocation. The left clavicle appears superiorly displaced. This could be chronic in nature CT head, 05/26/2024: No acute intracranial process CT chest, 05/26/2024: Previously seen ground-glass opacities have largely resolved. New tree-in-bud nodularity in both lungs. Likely infectious/inflammatory. Chronic consolidation right upper lobe. Stable ground-glass opacity right middle lobe. Clinical correlation and continued follow-up is recommended. Infrarenal abdominal aortic aneurysm measuring up to 35 mm. Consider further evaluation with CT of the abdomen and pelvis. MRI head, 12/29/2021: There is mild to moderate microvascular ischemic disease of supratentorial white matter. There is moderate to severe microvascular ischemic disease of the brain stem. There is no acute infarct. There is no hemorrhage, mass or hydrocephalus. No brain atrophy MRI head, 02/15/2022: Motion degraded study There is no acute infarct. There is no hemorrhage. There is mild to moderate microvascular ischemic disease of supratentorial white matter. There is a moderate to severe microvascular ischemic disease of the brainstem MRI head, 04/11/2024: 1. There is no acute intracranial process. 2. [id number] chronic microvascular ischemic changes Past Medical History Hypertension, dyslipidemia, congestive heart failure, chronic kidney failure, chronic low back pain, chronic pain in the hips Past Surgical History Colostomy/colostomy bag, lumbar spine surgery Family History: Patient reports no known family medical history. Family History Patient reports no known family medical history. Social History She was a tobacco smoker, but has no history of alcohol recreational substance abuse Allergies: Coded Allergies: Penicillins (Verified Allergy, Intermediate, 02/02/21) Uncoded Allergies: BROCCOLI (Allergy, Severe, 04/29/24) Home Meds Active Scripts Ferrous Sulfate (Ferrous Sulfate) 325 Mg Tab, 325 MG PO TUTHSA for 30 Days, #30 TAB Prov:RINKU HURT 04/05/24 Reported Medications Patients Own Medication (PATIENTS OWN MEDICATION) ., 2 ML PO DAILY for 90 Days, #180 PTS OWN MED-OBTAIN FROM PT AND SEND TO RX DRUG: MEGESTROL 400 MG/10 ML ORAL SUSPENSION FREQ: TAKE 2 ML BY MOUTH ONCE DAILY RX# EXP: DATE DISP: TECH: [facility]: 04/26/24 Levetiracetam (Keppra) 500 Mg Tab, 1 TAB PO BID for 14 Days, #28 04/26/24 Hydrocodone-Acetaminophen (Hydrocodone/Acetaminophen 7.5-325 mg) 1 Tab Tab, 1 TAB PO QID for 7 Days, #28 04/26/24 Quetiapine Fumerate (QUETIAPINE FUMARATE) 100 Mg Tab, 25 MG PO BID for 14 Days, #28 04/26/24 Pantoprazole Sodium Sesquihydr (Protonix) 40 Mg Tab, 1 TAB PO DAILY for 14 Days, #14 04/26/24 Ondansetron Odt 4MG Tab (ZOFRAN PO) 4 Mg Tb, 1 TAB PO BID for 30 Days, #60 ODT TAB-DISSOLVE IN MOUTH, THEN SWALLOW 03/30/24 Potassium Chloride (Potassium Chloride ER) 10 Meq Tab, 1 TAB PO BID for 90 Days, #180 03/30/24 Prednisolone Acetate (Prednisolone Acetate P-F) 1 % Mayi, 1 DROP LEFTEYE QID 12/24/23 Allopurinol (Allopurinol) 100 Mg Tab, 1 TAB PO DAILY 12/24/23 Baclofen (Baclofen) 10 Mg Tab, 20 MG PO BID PRN Take 1 tablet by mouth without regards to meals as needed twice daily. 12/24/23 Atorvastatin Calcium (Lipitor) 10 Mg Tab, 1 TAB PO DAILY, #30 5 Refills 12/24/23 Gabapentin (Gabapentin) 300 Mg Cap, 1 CAP PO DAILY for 90 Days, #90 12/24/23 Clopidogrel Bisulfate (CLOPIDOGREL) 75 Mg Tab, 1 TAB PO DAILY 04/20/23 Cyanocobalamin (Vitamin B-12) 1,000 Mcg Tab, 1 TAB PO DAILY for 90 Days, #90 04/20/23 Furosemide (Furosemide) 20 Mg Tab, 1 TAB PO DAILY for 90 Days, #90 04/20/23 Ergocalciferol (Vitamin D) 50,000 Unit Cap, 1 CAP PO QWEEKLY for 84 Days, #12 04/20/23 Magnesium Oxide (MAGNESIUM OXIDE) 400 Mg Tab, 1 TAB PO BID for 30 Days, #60 04/20/23 Current Medications Current Medications Medications (Trade) Dose Ordered Sig/Arielle Route PRN Reason Start Time Stop Time Status Last Admin Gabapentin (Neurontin Capsule) 300 mg DAILY PO 05/28/24 10:00 Hydromorphone HCl (Dilaudid Injection) 0.2 mg Q4HPRN PRN IV SEVERE PAIN (7-10 PAIN SCALE) 05/28/24 12:00 05/28/24 13:50 Review of Systems As above, the other systems are negative Vital Signs Vital Signs Date Time Temp Pulse Resp B/P (MAP) Pulse Ox O2 Delivery O2 Flow Rate FiO2 05/28/24 13:50 59 18 93/48 05/28/24 12:57 98.0 100 98.0 05/27/24 20:00 Room Air* 0 21 Physical Exam GENERAL EXAM: General: the patient is cachectic HEENT: Normocephalic, neck is supple, no carotid bruits. No mass RESPIRATORY: Normal respiratory effort with symmetrical lung expansion. Lungs clear to auscultation. CARDIOVASCULAR: Regular rate and rhythm with no murmurs. S1, S2. ABDOMEN: Soft, nontender, normal bowel sound, she has a colostomy bag NEUROLOGICAL: MENTAL STATUS: Subjective SPEECH, LANGUAGE, HIGHER CORTICAL FUNCTION: no aphasia or dysathria. CRANIAL NERVES: #2: Intact visual mauricio to confrontation. #3,4,6: Pupils are equal, round and reactive. EOMs full and conjugate #5: Facial sensation intact in all three divisions bilaterally. Mandibular strength intact. #7: Facial muscles symmetrical and strength intact. #8: Hearing grossly normal to voice. #9,10: Deferred #11: Trapezius and sternomastoid strength looks okay #12: Deferred SENSATION: Sensation to touch and pinprick is sign MOTOR: Normal tone in the upper and lower extremity. Normal muscle bulk. No fasciculations. No abnormal movements or posturing. She moves arms and legs REFLEXES: Deep tendon reflexes are symmetrical. No pathological reflexes. CEREBELLAR/COORDINATION: Deferred GAIT/STATION: deferred Labs/Diagnostic Data Labs Test 05/28/24 13:32 05/28/24 06:12 05/27/24 07:20 05/27/24 05:50 Range/Units White Blood Count 7.9 # 4.4-10.8 10^3/uL Red Blood Count 2.88 L 4.0-5.20 10^6/uL Hemoglobin 8.9 L 12.2-16.2 g/dL Hematocrit 27.1 L 36.0-46.0 % Mean Corpuscular Volume 94.1 80.0-100.0 fL Mean Corpuscular Hemoglobin 30.9 28.0-32.0 pg Mean Corpuscular Hemoglobin Concent 32.8 32.0-36.0 g/dL Red Cell Distribution Width 15.0 H 11.8-14.3 % Platelet Count 367 140-450 10^3/uL Mean Platelet Volume 7.7 6.9-10.8 fL Neutrophils (%) (Auto) 84.7 H 37.0-80.0 % Lymphocytes (%) (Auto) 9.0 L 10.0-50.0 % Monocytes (%) (Auto) 5.9 0.0-12.0 % Eosinophils (%) (Auto) 0.2 0.0-7.0 % Basophils (%) (Auto) 0.2 0.0-2.0 % Neutrophils # (Auto) 6.7 1.6-8.6 10 ^3/uL Lymphocytes # (Auto) 0.7 0.4-5.4 10 ^3/uL Monocytes # (Auto) 0.5 0-1.3 10 ^3/uL Eosinophils # (Auto) 0 0-0.8 10 ^3/uL Basophils # (Auto) 0 0-0.2 10 ^3/uL Nucleated Red Blood Cells 0.1 % Sodium Level 137 136-145 mmol/L Potassium Level 3.3 L 3.5-5.1 mmol/L Chloride Level 93 L 98-107 mmol/L Carbon Dioxide Level 23 20-31 mmol/L Anion Gap 21 H 5-15 Blood Urea Nitrogen 160 #*H 9-23 mg/dL Creatinine 5.88 H 0.550-1.02 mg/dL Glomerular Filtration Rate Calc 7 >90 mL/min BUN/Creatinine Ratio 27.2 H 10.0-20.0 Serum Glucose 70 L 74-106 mg/dL Calcium Level 6.4 L 8.7-10.4 mg/dL Influenza Type A Antigen Negative Negative Influenza Type B Antigen Negative Negative SARS-CoV-2 Antigen (Rapid) Negative NEGATIVE Test 05/26/24 17:04 05/26/24 15:10 05/26/24 14:50 05/26/24 13:27 Range/Units Prothrombin Time 15.8 H 9.3-11.8 sec Prothrombin Time INR 1.54 H 0.9-1.15 Activated Partial Thromboplast Time 29.1 24.5-34.5 SEC Lactic Acid Level 3.2 *H 0.4-2.0 mmol/L Total Bilirubin 0.5 0.2-1.0 mg/dL Aspartate Amino Transferase (AST) 59 H 13-40 U/L Alanine Aminotransferase (ALT) 69 H 7-40 U/L Alkaline Phosphatase 264 H 46-116 U/L Troponin I High Sensitivity 25 </=34 ng/L Total Protein 7.2 5.7-8.2 g/dL Albumin 3.9 3.2-4.8 g/dL Urine Color Yellow Yellow Urine Clarity Turbid H Clear Urine pH 5.0 5.0-9.0 Urine Specific [place] 1.019 1.001-1.035 Urine Protein Trace H Negative Urine Ketones Negative Negative Urine Blood Negative Negative /uL Urine Nitrite Negative Negative Urine Bilirubin Negative Negative Urine Urobilinogen Normal Negative mg/dL Urine Leukocyte Esterase 3+ Negative /uL Urine RBC 10 0 - 4 /hpf Urine WBC 17 0 - 5 /hpf Urine Squamous Epithelial Cells Few <5 /hpf Urine Bacteria Few H None Seen /hpf Urine Hyaline Casts Few 0 - 2 /lpf Urine Yeast (Budding) Moderate None Seen /hpf Urine Glucose Normal Normal mg/dL Thyroid Stimulating Hormone (TSH) 2.37 0.55-4.78 uIU/mL Hemoglobin A1c 5.1 <5.7 % A1C Microbiology Date/Time Source Procedure Growth Status 05/27/24 08:55 Urine - [place] Urine Culture - Preliminary Resulted 05/26/24 17:04 Blood Blood Culture - Preliminary NO GROWTH AFTER 24 HOURS OF INCUBATION. Resulted Assessment Altered mental status Likely metabolic encephalopathy ? Status epileptics ? Partial complex seizure Lactic acidosis/sepsis Urinary tract infection Seizure Kidney failure Cachexia Plan/Recommendation Monitoring Supportive treatment Follow up lab Blood culture Urine culture EEG IV antibiotics Keppra 500mg Bid Ativan for seizure breakthrough GI prophylaxis/pantoprazole Infectious disease on case Urology on case More recommendation per clinical course Prognosis: Poor This medical document was created using an electronic medical record system with [employer] computerized dictation system. Although this document has been carefully reviewed, there may still be some phonetic and typographical errors. These areas are purely typographical due to imperfections of the software programs, and do not reflect any compromise in the patient's medical care Plan discussed with: Daughter, Other CHINA RIVERA MD May 28, 2024 16:00
[2024-05-28] MEDS ORDERED: LORazepam 2MG/ML-1ML VIAL IV PRN (17:45)
--- NOTE | 2024-05-28 18:02 | DVHPN2 ---
Progress Note - Dictate Date Seen: May 28, 2024 Medical Necessity Reason Pt with a Central, PICC or Fol: Yes The following are medically ne: [place] Catheter Subjective Patient seen in her MedSurg room, resting comfortably this afternoon vital signs Vital Sign Date Time Temp Pulse Resp B/P (MAP) Pulse Ox O2 Delivery O2 Flow Rate FiO2 05/28/24 17:00 97.0 56 16 102/57 (72) 99 97.0 05/27/24 20:00 Room Air* 0 21 Total Intake and Output 05/27/24 05/27/24 05/28/24 15:00 23:00 07:00 Intake Total 683.301 ml 400 ml 350.001 ml Output Total 300 ml 200 ml Balance 683.301 ml 100 ml 150.001 ml medications Current Medications Medications Dose Ordered Sig/Arielle Route Start Time Stop Time Status Last Admin Dose Admin Enoxaparin Sodium 40 mg DAILY SC 05/27/24 10:00 UNV Nitroglycerin 0.4 mg Q5MINP PRN SL 05/26/24 14:30 Morphine Sulfate 2 mg Q30M PRN IV 05/26/24 14:30 Piperacillin Sod/ Tazobactam Sod 50 ml @ 16.667 mls/ hr Q12HR IV 05/26/24 22:00 05/28/24 11:23 16.667 MLS/HR Clopidogrel Bisulfate 75 mg DAILY PO 05/27/24 10:00 05/28/24 11:24 75 MG Ferrous Sulfate 325 mg TUTHSA PO 05/27/24 10:00 05/27/24 09:54 325 MG Levetiracetam 500 mg BID PO 05/26/24 22:00 05/28/24 11:23 500 MG Pantoprazole Sodium 40 mg DAILY PO 05/27/24 10:00 05/28/24 11:24 40 MG Atorvastatin Calcium 10 mg DAILY PO 05/27/24 10:00 05/28/24 11:24 10 MG Linezolid 300 ml @ 150 mls/hr Q12HR@0800,2000 IV 05/26/24 20:00 05/28/24 08:37 150 MLS/HR Sodium Chloride 1,000 ml @ 100 mls/hr Q10H IV 05/26/24 15:30 05/27/24 20:13 100 MLS/HR Gabapentin 300 mg DAILY PO 05/28/24 10:00 Gabapentin 300 mg DAILY PO 05/27/24 12:45 05/28/24 11:23 300 MG Hydromorphone HCl 0.2 mg Q4HPRN PRN IV 05/28/24 12:00 05/28/24 13:50 0.2 MG Lorazepam 1 mg Q5MINP PRN IV 05/28/24 17:45 objective gen: market cachexia lungs: cta cvs: no rub exT: no edema laboratory and microbiology Laboratory Tests 05/28/24 13:32 05/28/24 06:12 Test 05/28/24 06:12 Range/Units Serum Glucose 70 L 74-106 mg/dL Assessment/Plan IMP: 1) hemodynamically mediated acute kidney injury, prerenal state 2) toxic metabolic, possible uremic encephalopathy 3) hyperkalemia 4) dehydrated state REC: - azotemia, hyperkalemia continue to improve with conservative means - will continue with IV fluids - Currently without urgent indication for dialysis Plan discussed with: Other PIO LAZO MD May 28, 2024 18:02
--- NOTE | 2024-05-28 18:08 | DVHPN2 ---
Progress Note Date Seen: May 28, 2024 Medical Necessity Reason Pt with a Central, PICC or Fol: Yes The following are medically ne: [place] Catheter Objective vital signs Vital Sign Date Time Temp Pulse Resp B/P (MAP) Pulse Ox O2 Delivery O2 Flow Rate FiO2 05/28/24 17:00 97.0 56 16 102/57 (72) 99 97.0 05/27/24 20:00 Room Air* 0 21 Total Intake and Output 05/27/24 05/27/24 05/28/24 15:00 23:00 07:00 Intake Total 683.301 ml 400 ml 350.001 ml Output Total 300 ml 200 ml Balance 683.301 ml 100 ml 150.001 ml medications Current Medications Medications Dose Ordered Sig/Arielle Route Start Time Stop Time Status Last Admin Dose Admin Enoxaparin Sodium 40 mg DAILY SC 05/27/24 10:00 UNV Nitroglycerin 0.4 mg Q5MINP PRN SL 05/26/24 14:30 Morphine Sulfate 2 mg Q30M PRN IV 05/26/24 14:30 Piperacillin Sod/ Tazobactam Sod 50 ml @ 16.667 mls/ hr Q12HR IV 05/26/24 22:00 05/28/24 11:23 16.667 MLS/HR Clopidogrel Bisulfate 75 mg DAILY PO 05/27/24 10:00 05/28/24 11:24 75 MG Ferrous Sulfate 325 mg TUTHSA PO 05/27/24 10:00 05/27/24 09:54 325 MG Levetiracetam 500 mg BID PO 05/26/24 22:00 05/28/24 11:23 500 MG Pantoprazole Sodium 40 mg DAILY PO 05/27/24 10:00 05/28/24 11:24 40 MG Atorvastatin Calcium 10 mg DAILY PO 05/27/24 10:00 05/28/24 11:24 10 MG Linezolid 300 ml @ 150 mls/hr Q12HR@0800,2000 IV 05/26/24 20:00 05/28/24 08:37 150 MLS/HR Sodium Chloride 1,000 ml @ 100 mls/hr Q10H IV 05/26/24 15:30 05/27/24 20:13 100 MLS/HR Gabapentin 300 mg DAILY PO 05/28/24 10:00 Gabapentin 300 mg DAILY PO 05/27/24 12:45 05/28/24 11:23 300 MG Hydromorphone HCl 0.2 mg Q4HPRN PRN IV 05/28/24 12:00 05/28/24 13:50 0.2 MG Lorazepam 1 mg Q5MINP PRN IV 05/28/24 17:45 Examination: GENERAL:Normal, LUNGS:Normal, CVS:Normal, ABDOMEN:Normal, SKIN:Normal, NEURO:Normal laboratory and microbiology Laboratory Tests 05/28/24 13:32 05/28/24 06:12 Test 05/28/24 06:12 Range/Units Serum Glucose 70 L 74-106 mg/dL Microbiology Date/Time Source Procedure Growth Status 05/27/24 08:55 Urine - [place] Urine Culture - Preliminary Resulted 05/26/24 17:04 Blood Blood Culture - Preliminary NO GROWTH AFTER 48 HOURS OF INCUBATION. Resulted Labs and/or images reviewed: Labs reviewed by me, Image(s) reviewed by me Problem List/Assessment/Plan Problem List/Assessment/Plan 1. Acute metabolic encephalopathy likely related to sepsis 2. GARCIELA likely with ATN Nephrology consult, IV fluids 3. Hyperkalemia Nephrology consult, hyperkalemia protocol 4. Pneumonia likely Gram-negative or Gram-positive IV antibiotics 5. Severe malnourished Dietary consult 6. History of CVA 7. COPD Managed treatments 8. Seizures Continue home medication Subjective: Patient is more alert today Objective: Patient was admitted for acute encephalopathy likely related to sepsis from pneumonia. Patient came from [facility]. Patient appears severely malnourished. Patient was placed on IV Zyvox and Zosyn. Infectious Disease has been consulted. Patient is pending neurology evaluation. Patient was also found to have GRACIELA with ATN, patient was also found to be severely hyperkalemic. Potassium was found to be 6.7 the patient did receive hypokalemic cocktail and potassium is now 3.3, we will defer treatment to Nephrology. Patient was seen by [facility] administrator, and was placed on IV fluids. Patient was seen by neurologist and ordered EEG. Patient is more alert today Plan: Continue with IV fluids per Nephrology, monitor electrolytes, dietary consult, Neurology consult, awaiting Infectious Disease consult, continue with IV antibiotics Plan discussed with: Patient My Orders My Orders Orders - ENID GOSS SHIFT NURSE MANAGER Procedure Category Date Status Time Hydromorphone PHA 05/28/24 In Process Injection (Dilaudid 12:00 Date of Service: May 28, 2024 Billing Provider: JACINDA TROY MD Common Visit Codes: [id number] INP/OBS CARE (MOD) ENID GOSS SHIFT NURSE MANAGER May 28, 2024 18:08
[2024-05-29] VITALS (13 sets, daily range): BP systolic 83–106; BP diastolic 46–59; PULSE 57–91; RESP 16–18; TEMP 95.4–98.6; O2SAT 93–100
[2024-05-29 09:53] LABS: Anion Gap 17 (5-15); Bilirubin, Direct 0.3 mg/dL (<0.3); Bilirubin, Total 0.5 mg/dL (0.2-1.0); Carbon Dioxide 24 mmol/L (20-31); Potassium 3.5 mmol/L (3.5-5.1); Sodium 138 mmol/L (136-145)
[2024-05-29 10:03] LABS: Alanine Aminotransferase 52 U/L (7-40); Alkaline Phosphatase 155 U/L (46-116); Aspartate Aminotransferase 82 U/L (13-40); BUN/Creatinine Ratio 28.8 (10.0-20.0); Calcium 6.1 mg/dL (8.7-10.4); Chloride 97 mmol/L (98-107); Glucose 68 mg/dL (74-106); Total Protein 5.3 g/dL (5.7-8.2)
[2024-05-29 10:05] LABS: Blood Urea Nitrogen 150 mg/dL (9-23)
--- NOTE | 2024-05-29 10:59 | DVHPN2 ---
Progress Note - Dictate Date Seen: May 29, 2024 Medical Necessity Reason Pt with a Central, PICC or Fol: Yes The following are medically ne: [place] Catheter Subjective Ms. Dillard is a 73 years old right-handed female with a history of hypertension, dyslipidemia, chronic low back pain, chronic pain in the hips, she came to the hospital on 05/26/24 with a chief complaint of altered mental status. I saw her on 11/23/21 for ALOC/metabolic encephalopathy, 12/28/21 for ALOC, 02/15/2022 for stroke, 04/19/2023 for seizure, 11/24/2023, 04/12/24 for encephalopathy, 03/31/2024 for ALOC I have seen and examined the patient, I have talked to her nurse, she looks better today, more alert, she was oriented to person, place, she knows year, socially reasonable Her blood pressure and pulse are on the low side On warming blanket Urine culture, 05/27/2024: Blood culture, 05/26/2024: Urinalysis, 05/26/2024: WBC: 17, urine leukocyte esterase: 3+ WBC/HB/PLT/MCV, 05/28/2024: 7.9/8.19/367/94.1 Na, 05/26/2024: 124, 129, 05/27/2020 4:135 K, 05/26/2024: 6.7, 5.6, 05/28/2024: Sleep, sleep BUN/CR, 05/26/2024: 215/8.16, 05/26/2024: 223/8.06, : 160/5.88 Lactic acid, 05/26/2024: 3.9, 3.2 TG/HDL/LDL/HDL, 05/26/2024: 0.8/73/87/342, 12/ Vitamin B12, 03/2023: 395, : 968 Folic acid, 11/2021: 24, 03/29/2024: 13.56 TSH, 11/2021: 0.27 03/2024: 1.1 EEG, 12/29/2021: Normal EEG, 02/15/2022: Normal EEG, 04/11/2024: Bilateral PLEDs Carotid Doppler, 04/11/2024: No hemodynamically significant stenosis within the carotid arteries X-ray, Left shoulder 05/26/2024, There is no evidence of acute fracture or dislocation. The left clavicle appears superiorly displaced. This could be chronic in nature CT head, 05/26/2024: No acute intracranial process CT chest, 05/26/2024: Previously seen ground-glass opacities have largely resolved. New tree-in-bud nodularity in both lungs. Likely infectious/inflammatory. Chronic consolidation right upper lobe. Stable ground-glass opacity right middle lobe. Clinical correlation and continued follow-up is recommended. Infrarenal abdominal aortic aneurysm measuring up to 35 mm. Consider further evaluation with CT of the abdomen and pelvis. MRI head, 12/29/2021: There is mild to moderate microvascular ischemic disease of supratentorial white matter. There is moderate to severe microvascular ischemic disease of the brain stem. There is no acute infarct. There is no hemorrhage, mass or hydrocephalus. No brain atrophy MRI head, 02/15/2022: Motion degraded study There is no acute infarct. There is no hemorrhage. There is mild to moderate microvascular ischemic disease of supratentorial white matter. There is a moderate to severe microvascular ischemic disease of the brainstem MRI head, 04/11/2024: 1. There is no acute intracranial process. 2. [id number] chronic microvascular ischemic changes vital signs Vital Sign Date Time Temp Pulse Resp B/P (MAP) Pulse Ox O2 Delivery O2 Flow Rate FiO2 05/29/24 05:00 64 16 106/59 (75) 98 05/28/24 20:00 Room Air* 0 21 05/28/24 17:00 97.0 97.0 Total Intake and Output 05/28/24 05/28/24 05/29/24 15:00 23:00 07:00 Intake Total 470 ml 900 ml 175.001 ml Output Total 200 ml 350 ml Balance 470 ml 700 ml -174.999 ml medications Current Medications Medications Dose Ordered Sig/Arielle Route Start Time Stop Time Status Last Admin Dose Admin Enoxaparin Sodium 40 mg DAILY SC 05/27/24 10:00 UNV Nitroglycerin 0.4 mg Q5MINP PRN SL 05/26/24 14:30 Morphine Sulfate 2 mg Q30M PRN IV 05/26/24 14:30 Piperacillin Sod/ Tazobactam Sod 50 ml @ 16.667 mls/ hr Q12HR IV 05/26/24 22:00 05/28/24 22:40 16.667 MLS/HR Clopidogrel Bisulfate 75 mg DAILY PO 05/27/24 10:00 05/28/24 11:24 75 MG Ferrous Sulfate 325 mg TUTHSA PO 05/27/24 10:00 05/27/24 09:54 325 MG Levetiracetam 500 mg BID PO 05/26/24 22:00 05/28/24 21:01 500 MG Pantoprazole Sodium 40 mg DAILY PO 05/27/24 10:00 05/28/24 11:24 40 MG Atorvastatin Calcium 10 mg DAILY PO 05/27/24 10:00 05/28/24 11:24 10 MG Linezolid 300 ml @ 150 mls/hr Q12HR@0800,2000 IV 05/26/24 20:00 05/29/24 08:32 150 MLS/HR Sodium Chloride 1,000 ml @ 100 mls/hr Q10H IV 05/26/24 15:30 05/28/24 18:07 100 MLS/HR Gabapentin 300 mg DAILY PO 05/27/24 12:45 05/28/24 11:23 300 MG Hydromorphone HCl 0.2 mg Q4HPRN PRN IV 05/28/24 12:00 05/28/24 13:50 0.2 MG Lorazepam 1 mg Q5MINP PRN IV 05/28/24 17:45 objective General: the patient is cachectic MENTAL STATUS: Subjective SPEECH, LANGUAGE, HIGHER CORTICAL FUNCTION: no aphasia or dysathria. CRANIAL NERVES: Pupils are equal, round and reactive. EOMs full and conjugate. Facial sensation intact in all three divisions bilaterally. Mandibular strength intact. Facial muscles symmetrical and strength intact. SENSATION: Sensation to touch and pinprick is sign MOTOR: Normal tone in the upper and lower extremity. Normal muscle bulk. No fasciculations. No abnormal movements or posturing. She moves arms and legs REFLEXES: Deep tendon reflexes are symmetrical. No pathological reflexes. CEREBELLAR/COORDINATION: Deferred GAIT/STATION: deferred laboratory and microbiology Laboratory Tests 05/29/24 09:11 05/28/24 13:32 Test 05/29/24 09:11 Range/Units Serum Glucose 68 L 74-106 mg/dL Problem List Altered mental status Likely metabolic encephalopathy ? Status epileptics ? Partial complex seizure Lactic acidosis/sepsis Urinary tract infection Septic shock Seizure Kidney failure Cachexia Assessment/Plan Monitoring Supportive treatment Follow up lab Blood culture Urine culture Follow up with lactic acid EEG IV antibiotics Keppra 500mg Bid Ativan for seizure breakthrough GI prophylaxis/pantoprazole Infectious disease on case Urology on case More recommendation per clinical course This medical document was created using an electronic medical record system with [employer] dictation system. Although this document has been carefully reviewed, there may still be some phonetic and typographical errors. These areas are purely typographical due to imperfections of the software programs, and do not reflect any compromise in the patient's medical care Prognosis poor Plan discussed with: Other CHINA RIVERA MD May 29, 2024 10:59
--- NOTE | 2024-05-29 15:06 | DVHPN2 ---
Progress Note - Dictate Date Seen: May 29, 2024 Medical Necessity Reason Pt with a Central, PICC or Fol: Yes The following are medically ne: [place] Catheter vital signs Vital Sign Date Time Temp Pulse Resp B/P (MAP) Pulse Ox O2 Delivery O2 Flow Rate FiO2 05/29/24 13:00 96.7 71 16 83/46 (58) 93 96.7 05/28/24 20:00 Room Air* 0 21 Total Intake and Output 05/28/24 05/28/24 05/29/24 15:00 23:00 07:00 Intake Total 470 ml 900 ml 175.001 ml Output Total 200 ml 350 ml Balance 470 ml 700 ml -174.999 ml medications Current Medications Medications Dose Ordered Sig/Arielle Route Start Time Stop Time Status Last Admin Dose Admin Enoxaparin Sodium 40 mg DAILY SC 05/27/24 10:00 UNV Nitroglycerin 0.4 mg Q5MINP PRN SL 05/26/24 14:30 Morphine Sulfate 2 mg Q30M PRN IV 05/26/24 14:30 Piperacillin Sod/ Tazobactam Sod 50 ml @ 16.667 mls/ hr Q12HR IV 05/26/24 22:00 05/29/24 11:09 16.667 MLS/HR Clopidogrel Bisulfate 75 mg DAILY PO 05/27/24 10:00 05/29/24 11:10 75 MG Ferrous Sulfate 325 mg TUTHSA PO 05/27/24 10:00 05/27/24 09:54 325 MG Levetiracetam 500 mg BID PO 05/26/24 22:00 05/29/24 11:09 500 MG Pantoprazole Sodium 40 mg DAILY PO 05/27/24 10:00 05/29/24 11:10 40 MG Atorvastatin Calcium 10 mg DAILY PO 05/27/24 10:00 05/29/24 11:10 10 MG Linezolid 300 ml @ 150 mls/hr Q12HR@0800,2000 IV 05/26/24 20:00 05/29/24 08:32 150 MLS/HR Sodium Chloride 1,000 ml @ 100 mls/hr Q10H IV 05/26/24 15:30 05/29/24 13:48 100 MLS/HR Gabapentin 300 mg DAILY PO 05/27/24 12:45 05/28/24 11:23 300 MG Hydromorphone HCl 0.2 mg Q4HPRN PRN IV 05/28/24 12:00 05/29/24 11:15 0.2 MG Lorazepam 1 mg Q5MINP PRN IV 05/28/24 17:45 objective General Appearance: alert, no distress HEENT: EOMI, PERRLA, normal external inspect of ears, no icterus, no nasal drainage Neck: no carotid bruit, no jugular venous distention (JVD), no lymphadenopathy Chest: normal thorax Respiratory: clear to auscultation, normal air movement Cardiovascular: regular rate and rhythm, no diastolic murmur, no jugular venous distention (JVD), no rub, no systolic murmur Abdominal: soft, no hepatomegaly, no mass, no splenomegaly, no tenderness Genitourinary: grossly normal external Musculoskeletal: no joint tenderness, no swelling Extremities: normal pulses, no calf tenderness, no clubbing, no cyanosis, no edema Skin: no bruising, no jaundice, no rash Neurological: alert, No focal deficit laboratory and microbiology Laboratory Tests 05/29/24 09:11 05/28/24 13:32 Test 05/29/24 09:11 Range/Units Serum Glucose 68 L 74-106 mg/dL Problem List 1. Acute metabolic encephalopathy likely related to sepsis 2. GRACIELA likely with ATN Nephrology consult, IV fluids 3. Hyperkalemia Nephrology consult, hyperkalemia protocol 4. Pneumonia likely Gram-negative or Gram-positive IV antibiotics 5. Severe malnourished Dietary consult 6. History of CVA 7. COPD Managed treatments 8. Seizures Continue home medication Assessment/Plan Subjective: Patient is much more awake and alert today. Objective: Patient is a resident from [facility]. Patient was admitted for severe hydration and acute renal failure. BUN was originally 223 and creatinine was 5. BUN has now decreased to 150. Patient also had hyperkalemia at 6.7. Potassium today is 3.5. Patient is diuresing well. Patient is acute metabolic encephalopathy related to uremia sepsis. Patient was found to have pneumonia. Patient was started on Zyvox and Zosyn. Patient was seen by urology. Pending EEG. Patient does have a history of epilepsy. Plan: Continue antibiotics for sepsis and pneumonia. Continue to monitor renal function. No dialysis indicated at this time. Patient mentation is improving. Pending EEG. Plan discussed with: Patient, Other MARTÍN CHAWLA NP May 29, 2024 15:06
--- NOTE | 2024-05-29 15:37 | DVHPN2 ---
Progress Note Date Seen: May 29, 2024 Medical Necessity Reason Pt with a Central, PICC or Fol: Yes The following are medically ne: [place]ado Catheter Subjective Patient reports: No new complaints (thirsty) Review of Systems: Deferred Objective vital signs Vital Sign Date Time Temp Pulse Resp B/P (MAP) Pulse Ox O2 Delivery O2 Flow Rate FiO2 05/29/24 15:29 97.9 97.9 05/29/24 13:00 71 16 83/46 (58) 93 05/28/24 20:00 Room Air* 0 21 Total Intake and Output 05/28/24 05/28/24 05/29/24 14:59 22:59 06:59 Intake Total 470 ml 900 ml 175.001 ml Output Total 200 ml 350 ml Balance 470 ml 700 ml -174.999 ml medications Current Medications Medications Dose Ordered Sig/Arielle Route Start Time Stop Time Status Last Admin Dose Admin Enoxaparin Sodium 40 mg DAILY SC 05/27/24 10:00 UNV Nitroglycerin 0.4 mg Q5MINP PRN SL 05/26/24 14:30 Morphine Sulfate 2 mg Q30M PRN IV 05/26/24 14:30 Piperacillin Sod/ Tazobactam Sod 50 ml @ 16.667 mls/ hr Q12HR IV 05/26/24 22:00 05/29/24 11:09 16.667 MLS/HR Clopidogrel Bisulfate 75 mg DAILY PO 05/27/24 10:00 05/29/24 11:10 75 MG Ferrous Sulfate 325 mg TUTHSA PO 05/27/24 10:00 05/27/24 09:54 325 MG Levetiracetam 500 mg BID PO 05/26/24 22:00 05/29/24 11:09 500 MG Pantoprazole Sodium 40 mg DAILY PO 05/27/24 10:00 05/29/24 11:10 40 MG Atorvastatin Calcium 10 mg DAILY PO 05/27/24 10:00 05/29/24 11:10 10 MG Linezolid 300 ml @ 150 mls/hr Q12HR@0800,2000 IV 05/26/24 20:00 05/29/24 08:32 150 MLS/HR Sodium Chloride 1,000 ml @ 100 mls/hr Q10H IV 05/26/24 15:30 05/29/24 13:48 100 MLS/HR Gabapentin 300 mg DAILY PO 05/27/24 12:45 05/28/24 11:23 300 MG Hydromorphone HCl 0.2 mg Q4HPRN PRN IV 05/28/24 12:00 05/29/24 11:15 0.2 MG Lorazepam 1 mg Q5MINP PRN IV 05/28/24 17:45 Examination: GENERAL:Normal, HEENT:Normal, NECK:Normal, LUNGS:Normal, CVS:Normal, ABDOMEN:Normal, MSK:Normal, SKIN:Normal, NEURO:Normal, :Normal laboratory and microbiology Laboratory Tests 05/29/24 09:11 05/28/24 13:32 Test 05/29/24 09:11 Range/Units Serum Glucose 68 L 74-106 mg/dL Microbiology Date/Time Source Procedure Growth Status 05/27/24 08:55 Urine - [place] Urine Culture - Preliminary Resulted 05/26/24 17:04 Blood Blood Culture - Preliminary NO GROWTH AFTER 48 HOURS OF INCUBATION. Resulted Problem List/Assessment/Plan Problem List/Assessment/Plan 1) hemodynamically mediated acute kidney injury, prerenal state 2) toxic metabolic, possible uremic encephalopathy 3) hyperkalemia 4) dehydrated state REC: - azotemia, hyperkalemia continue to improve with conservative means - will continue with IV fluids - Currently without urgent indication for dialysis need strict i and o Plan discussed with: Patient SALOMÓN FARLEY MD May 29, 2024 15:37
[2024-05-29] MEDS: SODIUM CHLORIDE 0.9% 250 ML IV ONE (19:00)
[2024-05-29 20:03] LABS: Basophils # (auto) 0 10 ^3/uL (0-0.2); Basophils % (auto) 0.2 % (0.0-2.0); Eosinophils # (auto) 0.1 10 ^3/uL (0-0.8); Hematocrit 26.8 % (36.0-46.0); Hemoglobin 8.6 g/dL (12.2-16.2); Lymphocytes # (auto) 0.8 10 ^3/uL (0.4-5.4); Lymphocytes % (auto) 11.3 % (10.0-50.0); Mean Corpuscular Hemoglobin 31.8 pg (28.0-32.0); Mean Corpuscular Hgb Conc. 32.2 g/dL (32.0-36.0); Mean Corpuscular Volume 98.8 fL (80.0-100.0); Monocytes # (auto) 0.7 10 ^3/uL (0-1.3); Monocytes % (auto) 9.6 % (0.0-12.0); Neutrophils # (auto) 5.7 10 ^3/uL (1.6-8.6); Neutrophils % (auto) 77.9 % (37.0-80.0); Nucleated Red Blood Cells % 0.2 %; Platelet Count (auto) 293 10^3/uL (140-450); Red Blood Cells 2.71 10^6/uL (4.0-5.20); Red Cell Distribution Width 15.5 % (11.8-14.3); White Blood Cell 7.3 10^3/uL (4.4-10.8)
--- NOTE | 2024-05-29 22:13 | DVHPN2 ---
Consult Progress Note Date Seen: May 28, 2024 Subjective Patient reports: Feels better (increased UOP of 100cc, remains altered lethargic) Objective vital signs Vital Sign Date Time Temp Pulse Resp B/P (MAP) Pulse Ox O2 Delivery O2 Flow Rate FiO2 05/29/24 21:00 98.6 75 16 90/51 (64) 98 98.6 05/29/24 08:00 Room Air* 0 21 Total Intake and Output 05/28/24 05/28/24 05/29/24 15:00 23:00 07:00 Intake Total 470 ml 900 ml 175.001 ml Output Total 200 ml 350 ml Balance 470 ml 700 ml -174.999 ml medications Current Medications Medications Dose Ordered Sig/Arielle Route Start Time Stop Time Status Last Admin Dose Admin Enoxaparin Sodium 40 mg DAILY SC 05/27/24 10:00 UNV Nitroglycerin 0.4 mg Q5MINP PRN SL 05/26/24 14:30 Morphine Sulfate 2 mg Q30M PRN IV 05/26/24 14:30 Piperacillin Sod/ Tazobactam Sod 50 ml @ 16.667 mls/ hr Q12HR IV 05/26/24 22:00 05/29/24 11:09 16.667 MLS/HR Clopidogrel Bisulfate 75 mg DAILY PO 05/27/24 10:00 05/29/24 11:10 75 MG Ferrous Sulfate 325 mg TUTHSA PO 05/27/24 10:00 05/27/24 09:54 325 MG Levetiracetam 500 mg BID PO 05/26/24 22:00 05/29/24 11:09 500 MG Pantoprazole Sodium 40 mg DAILY PO 05/27/24 10:00 05/29/24 11:10 40 MG Atorvastatin Calcium 10 mg DAILY PO 05/27/24 10:00 05/29/24 11:10 10 MG Linezolid 300 ml @ 150 mls/hr Q12HR@0800,2000 IV 05/26/24 20:00 05/29/24 20:23 150 MLS/HR Sodium Chloride 1,000 ml @ 100 mls/hr Q10H IV 05/26/24 15:30 05/29/24 13:48 100 MLS/HR Gabapentin 300 mg DAILY PO 05/27/24 12:45 05/28/24 11:23 300 MG Hydromorphone HCl 0.2 mg Q4HPRN PRN IV 05/28/24 12:00 05/29/24 11:15 0.2 MG Lorazepam 1 mg Q5MINP PRN IV 05/28/24 17:45 Physical Exam: General: Appears ill, moaning, unresponsive to verbal stimuli. Neck: Supple. No masses. HEENT: PERRL. Normal lids and conjunctiva. Moist mucous membranes. Oropharynx without lesions, exudates or excessive erythema. Normal appearance of the external aspects of the nose and ears. Heart: Regular rhythm, normal rate. No murmur. No lower extremity edema. Lungs: Normal respiratory effort. Clear to auscultation bilaterally. No wheezes. No crackles. Abdomen: Soft. Non-tender. Non-distended. No masses or abdominal hernia. Colostomy bag site appears dry and intact. Msk: No digital cyanosis. Normal strength and tone in all 4 limbs. Skin: Warm and dry, no rashes. Neuro: Moaning, unresponsive to verbal stimuli. Unable to assess orientation. Psych: Unable to assess mood and affect. Unresponsive. Oriented to person, place, time, and situation: Unable to assess. laboratory and microbiology Laboratory Tests 05/29/24 19:10 05/29/24 09:11 Test 05/29/24 09:11 Range/Units Serum Glucose 68 L 74-106 mg/dL Problem List/Assessment/Plan Problem List/Assessment/Plan ASSESSMENT AND PLAN: ID Problem List: -- Altered mental status -- Seizure disorder -- COPD -- Pneumonia -- Urinary tract infection -- Septic shock -- Acute renal failure -- Possible congestive heart failure exacerbation -- Left clavicle displacement -- Anemia Assessment This is a 73 y.o. female with a past medical history of COPD, diabetes mellitus, recurrent UTIs, multiple myocardial infarctions, recent sepsis, cerebrovascular accident (stroke), colostomy placement, congestive heart failure, and seizure disorder, who presents with altered mental status. She was found to be hypotensive with a blood pressure of 79/55?mmHg, hypothermic with a rectal temperature of 95.6?F, and heart rate in the 80s. On examination, the patient is moaning and unresponsive to verbal stimuli. Laboratory studies reveal leukocytosis with WBC 15.4, thrombocytosis with platelets 521, anemia with hemoglobin 7.2 and hematocrit 23, elevated creatinine 8.06 indicating acute renal failure, hyponatremia (Na 129), hyperkalemia (K 6.7), elevated lactic acid 3.9. Liver enzymes are elevated with AST 264 and ALT 69. Urinalysis shows 17 WBCs, 3+ leukocytes, moderate yeast, and bacteria. Chest X-ray revealed a deep sulcus sign of the left costophrenic angle suggestive of possible pneumothorax; CT was recommended. Chest CT showed new tree-in-bud opacities in both lungs likely infectious/inflammatory, chronic consolidation in the right upper lobe, stable ground-glass opacities in the right middle lobe, and an infrarenal abdominal aortic aneurysm measuring 35?mm. Head CT showed no intracranial process. Shoulder X-ray showed the left clavicle is superiorly displaced, possibly chronic. Plan: -- Septic shock: Initiate fluid resuscitation to maintain MAP >65?mmHg. Start vasopressors as needed. Consider corticosteroids if hemodynamics do not improve. Obtain blood cultures and urine cultures; follow up on results. Continue linezolid and Zosyn for now; will adjust antibiotics based on renal function and culture results. Recommend MRSA nasal swab and sputum culture. Consider addition of doxycycline if respiratory status declines. -- Acute renal failure: Defer management to the nephrology team. Patient will likely require dialysis. -- Possible congestive heart failure exacerbation: Recommend transthoracic echocardiogram (TTE) to evaluate cardiac function. Obtain pro-BNP level. -- Pneumonia: Continue current antibiotics; adjust per culture results and sensitivities. -- Altered mental status: Monitor neurological status. Defer seizure disorder management to neurology. -- Electrolyte abnormalities: Hyperkalemia (K 6.7): Implement hyperkalemia protocol. Hyponatremia (Na 129): Monitor and correct sodium levels cautiously. -- Anemia: Monitor hemoglobin and hematocrit. Consider transfusion if necessary. -- Left clavicle displacement: Consult orthopedics to evaluate left clavicle displacement. Isolation Precautions: standard *Assessment and plan was discussed with the patient as written above. *Plan is subject to change pending incorporation of new incoming information/diagnostics. Updates may be added as addendum at the bottom (OR TOP) of this note. Thank you for interesting consult. ID will continue to follow. Please contact Infectious disease for any questions or concerns. Digna Ellison M.D. [facility] Ph: ? Plan discussed with: Patient Dietary Evaluation Review Comments: Continue current plan of care Expected Outcomes/Goals: F/U in 3-5 days DIGNA ELLISON MD May 29, 2024 22:12
--- NOTE | 2024-05-29 22:13 | DVHPN2 ---
Consult Progress Note Date Seen: May 29, 2024 Subjective Patient reports: Other (still altered , lethargic , has improved urine output 300ccs overnight , BP have been intermittedly low , not following commands ) Objective vital signs Vital Sign Date Time Temp Pulse Resp B/P (MAP) Pulse Ox O2 Delivery O2 Flow Rate FiO2 05/29/24 21:00 98.6 75 16 90/51 (64) 98 98.6 05/29/24 08:00 Room Air* 0 21 Total Intake and Output 05/28/24 05/28/24 05/29/24 15:00 23:00 07:00 Intake Total 470 ml 900 ml 175.001 ml Output Total 200 ml 350 ml Balance 470 ml 700 ml -174.999 ml medications Current Medications Medications Dose Ordered Sig/Arielle Route Start Time Stop Time Status Last Admin Dose Admin Enoxaparin Sodium 40 mg DAILY SC 05/27/24 10:00 UNV Nitroglycerin 0.4 mg Q5MINP PRN SL 05/26/24 14:30 Morphine Sulfate 2 mg Q30M PRN IV 05/26/24 14:30 Piperacillin Sod/ Tazobactam Sod 50 ml @ 16.667 mls/ hr Q12HR IV 05/26/24 22:00 05/29/24 11:09 16.667 MLS/HR Clopidogrel Bisulfate 75 mg DAILY PO 05/27/24 10:00 05/29/24 11:10 75 MG Ferrous Sulfate 325 mg TUTHSA PO 05/27/24 10:00 05/27/24 09:54 325 MG Levetiracetam 500 mg BID PO 05/26/24 22:00 05/29/24 11:09 500 MG Pantoprazole Sodium 40 mg DAILY PO 05/27/24 10:00 05/29/24 11:10 40 MG Atorvastatin Calcium 10 mg DAILY PO 05/27/24 10:00 05/29/24 11:10 10 MG Linezolid 300 ml @ 150 mls/hr Q12HR@0800,2000 IV 05/26/24 20:00 05/29/24 20:23 150 MLS/HR Sodium Chloride 1,000 ml @ 100 mls/hr Q10H IV 05/26/24 15:30 05/29/24 13:48 100 MLS/HR Gabapentin 300 mg DAILY PO 05/27/24 12:45 05/28/24 11:23 300 MG Hydromorphone HCl 0.2 mg Q4HPRN PRN IV 05/28/24 12:00 05/29/24 11:15 0.2 MG Lorazepam 1 mg Q5MINP PRN IV 05/28/24 17:45 Physical Exam: General: Appears ill, moaning, unresponsive to verbal stimuli. Neck: Supple. No masses. HEENT: PERRL. Normal lids and conjunctiva. Moist mucous membranes. Oropharynx without lesions, exudates or excessive erythema. Normal appearance of the external aspects of the nose and ears. Heart: Regular rhythm, normal rate. No murmur. No lower extremity edema. Lungs: Normal respiratory effort. Clear to auscultation bilaterally. No wheezes. No crackles. Abdomen: Soft. Non-tender. Non-distended. No masses or abdominal hernia. Colostomy bag site appears dry and intact. Msk: No digital cyanosis. Normal strength and tone in all 4 limbs. Skin: Warm and dry, no rashes. Neuro: Moaning, unresponsive to verbal stimuli. Unable to assess orientation. Psych: Unable to assess mood and affect. Unresponsive. Oriented to person, place, time, and situation: Unable to assess. laboratory and microbiology Laboratory Tests 05/29/24 19:10 05/29/24 09:11 Test 05/29/24 09:11 Range/Units Serum Glucose 68 L 74-106 mg/dL Problem List/Assessment/Plan Problems(with codes): (1) Hypotensive episode (2) Colostomy in place (3) Community acquired bacterial pneumonia (4) Physical deconditioning (5) Altered mental status (6) UTI (urinary tract infection) (7) Renal failure (8) COPD (chronic obstructive pulmonary disease) (9) GRACIELA (acute kidney injury) (10) Severe sepsis Problem List/Assessment/Plan ID Problem List: - Altered mental status - Seizure disorder COPD - Pneumonia - Urinary tract infection - Septic shock - Acute renal failure - Possible congestive heart failure exacerbation - Left clavicle displacement - Anemia Assessment This is a 73 y.o. female with a past medical history of COPD, diabetes mellitus, recurrent UTIs, multiple myocardial infarctions, recent sepsis, cerebrovascular accident (stroke), colostomy placement, congestive heart failure, and seizure disorder, who presents with altered mental status. She was found to be hypotensive with a blood pressure of 79/55?mmHg, hypothermic with a rectal temperature of 95.6?F, and heart rate in the 80s. On examination, the patient is moaning and unresponsive to verbal stimuli. Laboratory studies reveal leukocytosis with WBC 15.4, thrombocytosis with platelets 521, anemia with hemoglobin 7.2 and hematocrit 23, elevated creatinine 8.06 indicating acute renal failure, hyponatremia (Na 129), hyperkalemia (K 6.7), elevated lactic acid 3.9. Liver enzymes are elevated with AST 264 and ALT 69. Urinalysis shows 17 WBCs, 3+ leukocytes, moderate yeast, and bacteria. Chest X-ray revealed a deep sulcus sign of the left costophrenic angle suggestive of possible pneumothorax; CT was recommended. Chest CT showed new tree-in-bud opacities in both lungs likely infectious/inflammatory, chronic consolidation in the right upper lobe, stable ground-glass opacities in the right middle lobe, and an infrarenal abdominal aortic aneurysm measuring 35?mm. Head CT showed no intracranial process. Shoulder X-ray showed the left clavicle is superiorly displaced, possibly chronic. 05/29: urine cultures are growing great than 100,00 yeast and blood cultures have no growth to date , whitecount is 7.3 and signs of sepsis are improving Plan: - recommedn carias change - Septic shock: - Initiate fluid resuscitation to maintain MAP >65?mmHg. - Start vasopressors as needed. - Consider corticosteroids if hemodynamics do not improve. - Obtain blood cultures and urine cultures; follow up on results. - Continue linezolid and Zosyn for now; will adjust antibiotics based on renal function and culture results. - Recommend MRSA nasal swab and sputum culture. - Consider addition of doxycycline if respiratory status declines. - Acute renal failure: - Defer management to the nephrology team. - Patient will likely require dialysis. - Possible congestive heart failure exacerbation: - Recommend transthoracic echocardiogram (TTE) to evaluate cardiac function. - Obtain pro-BNP level. - Pneumonia: - Continue current antibiotics; adjust per culture results and sensitivities. - Altered mental status: - Monitor neurological status. - Defer seizure disorder management to neurology. - Electrolyte abnormalities: - Hyperkalemia (K 6.7): Implement hyperkalemia protocol. - Hyponatremia (Na 129): Monitor and correct sodium levels cautiously. - Anemia: - Monitor hemoglobin and hematocrit. - Consider transfusion if necessary. - Left clavicle displacement: - Consult orthopedics to evaluate left clavicle displacement. Plan discussed with: Other Dietary Evaluation Review Comments: Continue current plan of care Expected Outcomes/Goals: F/U in 3-5 days DIGNA OVERTON MD May 29, 2024 22:13
[2024-05-30] VITALS (11 sets, daily range): BP systolic 89–100; BP diastolic 49–56; PULSE 68–113; RESP 15–23; TEMP 97.5–98.2; O2SAT 92–99
--- NOTE | 2024-05-30 07:51 | DVHPN2 ---
Progress Note - Dictate Date Seen: May 30, 2024 Medical Necessity Reason Pt with a Central, PICC or Fol: Yes The following are medically ne: [place] Catheter vital signs Vital Sign Date Time Temp Pulse Resp B/P (MAP) Pulse Ox O2 Delivery O2 Flow Rate FiO2 05/30/24 05:00 98.2 70 16 89/53 (65) 92 98.2 05/29/24 20:00 Room Air* 0 21 Total Intake and Output 05/29/24 05/29/24 05/30/24 15:00 23:00 07:00 Intake Total 470 ml 1250 ml 1350 ml Output Total 700 ml Balance 470 ml 1250 ml 650 ml medications Current Medications Medications Dose Ordered Sig/Arielle Route Start Time Stop Time Status Last Admin Dose Admin Enoxaparin Sodium 40 mg DAILY SC 05/27/24 10:00 UNV Nitroglycerin 0.4 mg Q5MINP PRN SL 05/26/24 14:30 Morphine Sulfate 2 mg Q30M PRN IV 05/26/24 14:30 Piperacillin Sod/ Tazobactam Sod 50 ml @ 16.667 mls/ hr Q12HR IV 05/26/24 22:00 05/29/24 23:31 16.667 MLS/HR Clopidogrel Bisulfate 75 mg DAILY PO 05/27/24 10:00 05/29/24 11:10 75 MG Ferrous Sulfate 325 mg TUTHSA PO 05/27/24 10:00 05/27/24 09:54 325 MG Levetiracetam 500 mg BID PO 05/26/24 22:00 05/29/24 22:23 500 MG Pantoprazole Sodium 40 mg DAILY PO 05/27/24 10:00 05/29/24 11:10 40 MG Atorvastatin Calcium 10 mg DAILY PO 05/27/24 10:00 05/29/24 11:10 10 MG Linezolid 300 ml @ 150 mls/hr Q12HR@0800,2000 IV 05/26/24 20:00 05/29/24 20:23 150 MLS/HR Sodium Chloride 1,000 ml @ 100 mls/hr Q10H IV 05/26/24 15:30 05/30/24 06:07 100 MLS/HR Gabapentin 300 mg DAILY PO 05/27/24 12:45 05/28/24 11:23 300 MG Hydromorphone HCl 0.2 mg Q4HPRN PRN IV 05/28/24 12:00 05/29/24 11:15 0.2 MG Lorazepam 1 mg Q5MINP PRN IV 05/28/24 17:45 objective General Appearance: alert, no distress HEENT: EOMI, PERRLA, normal external inspect of ears, no icterus, no nasal drainage Neck: no carotid bruit, no jugular venous distention (JVD), no lymphadenopathy Chest: normal thorax Respiratory: clear to auscultation, normal air movement Cardiovascular: regular rate and rhythm, no diastolic murmur, no jugular venous distention (JVD), no rub, no systolic murmur Abdominal: soft, no hepatomegaly, no mass, no splenomegaly, no tenderness Genitourinary: grossly normal external Musculoskeletal: no joint tenderness, no swelling Extremities: normal pulses, no calf tenderness, no clubbing, no cyanosis, no edema Skin: no bruising, no jaundice, no rash Neurological: alert, No focal deficit laboratory and microbiology Laboratory Tests 05/29/24 19:10 05/29/24 09:11 Test 05/29/24 09:11 Range/Units Serum Glucose 68 L 74-106 mg/dL Problem List 1. Acute metabolic encephalopathy likely related to sepsis 2. GRACIELA likely with ATN Nephrology consult, IV fluids 3. Hyperkalemia Nephrology consult, hyperkalemia protocol 4. Pneumonia likely Gram-negative or Gram-positive IV antibiotics 5. Severe malnourished Dietary consult 6. History of CVA 7. COPD Managed treatments 8. Seizures Continue home medication Assessment/Plan Subjective: Patient is awake and alert. Objective: Mentation near baseline. Admitted for severe GRACIELA due to dehydration. Uremia is slowly resolving with good urine output. Creatinine is improving. No need for hemodialysis. Evaluated by nephrology. Complains of some abdominal pain. Colostomy was recently changed this morning with good output. Plan: Continue current treatment. Josy Hugger remains in place due to hypothermia. Blood pressure has stabilized. Continue IV antibiotics. Dietary Evaluation Review Comments: Continue current plan of care Expected Outcomes/Goals: F/U in 3-5 days Plan discussed with: Patient, Other MARTÍN CHAWLA NP May 30, 2024 07:51
[2024-05-30 15:04] LABS: Sodium 138 mmol/L (136-145)
[2024-05-30 15:05] LABS: Anion Gap 17 (5-15); Carbon Dioxide 24 mmol/L (20-31)
[2024-05-30 15:10] LABS: BUN/Creatinine Ratio 27.6 (10.0-20.0); Glucose 95 mg/dL (74-106)
[2024-05-30 15:13] LABS: Chloride 97 mmol/L (98-107); Potassium 2.8 mmol/L (3.5-5.1)
[2024-05-30 15:15] LABS: Blood Urea Nitrogen 120 mg/dL (9-23)
[2024-05-30 15:16] LABS: Calcium 5.7 mg/dL (8.7-10.4)
[2024-05-30] MEDS: POTASSIUM EFFERVESENT TAB 25 MEQ PO ONE (18:01)
[2024-05-30] MEDS: HYDROcodone-ACET 5/325MG TAB PO PRN (18:19)
--- NOTE | 2024-05-30 20:42 | DVHPN2 ---
Progress Note Date Seen: May 30, 2024 Medical Necessity Reason Pt with a Central, PICC or Fol: Yes The following are medically ne: [place] Catheter Subjective Patient reports: No new complaints Review of Systems: Deferred Objective vital signs Vital Sign Date Time Temp Pulse Resp B/P (MAP) Pulse Ox O2 Delivery O2 Flow Rate FiO2 05/30/24 17:00 97.6 72 16 100/56 (71) 98 97.6 05/30/24 16:49 Room Air* 0 21 Total Intake and Output 05/29/24 05/29/24 05/30/24 15:00 23:00 07:00 Intake Total 470 ml 1250 ml 1350 ml Output Total 700 ml Balance 470 ml 1250 ml 650 ml medications Current Medications Medications Dose Ordered Sig/Arielle Route Start Time Stop Time Status Last Admin Dose Admin Enoxaparin Sodium 40 mg DAILY SC 05/27/24 10:00 UNV Nitroglycerin 0.4 mg Q5MINP PRN SL 05/26/24 14:30 Morphine Sulfate 2 mg Q30M PRN IV 05/26/24 14:30 Piperacillin Sod/ Tazobactam Sod 50 ml @ 16.667 mls/ hr Q12HR IV 05/26/24 22:00 05/30/24 18:06 16.667 MLS/HR Clopidogrel Bisulfate 75 mg DAILY PO 05/27/24 10:00 05/30/24 09:49 75 MG Ferrous Sulfate 325 mg TUTHSA PO 05/27/24 10:00 05/30/24 09:49 325 MG Levetiracetam 500 mg BID PO 05/26/24 22:00 05/30/24 09:49 500 MG Pantoprazole Sodium 40 mg DAILY PO 05/27/24 10:00 05/30/24 09:49 40 MG Atorvastatin Calcium 10 mg DAILY PO 05/27/24 10:00 05/30/24 09:51 10 MG Sodium Chloride 1,000 ml @ 100 mls/hr Q10H IV 05/26/24 15:30 05/30/24 06:07 100 MLS/HR Gabapentin 300 mg DAILY PO 05/27/24 12:45 05/30/24 09:49 300 MG Lorazepam 1 mg Q5MINP PRN IV 05/28/24 17:45 Linezolid 600 mg BID PO 05/30/24 22:00 Acetaminophen/ Hydrocodone Bitart 1 tab Q6HPRN PRN PO 05/30/24 17:45 05/30/24 18:19 1 TAB Calcium Acetate 1,334 mg TIDWMEALS PO 05/31/24 08:00 UNV Examination: GENERAL:Normal, HEENT:Normal, NECK:Normal, LUNGS:Normal, CVS:Normal, ABDOMEN:Normal, MSK:Normal, SKIN:Normal, NEURO:Normal, :Normal laboratory and microbiology Laboratory Tests 05/30/24 14:10 05/29/24 19:10 Test 05/30/24 14:10 Range/Units Serum Glucose 95 74-106 mg/dL Microbiology Date/Time Source Procedure Growth Status 05/27/24 08:55 Urine - [place] Urine Culture - Preliminary Resulted 05/26/24 17:04 Blood Blood Culture - Preliminary NO GROWTH AFTER 72 HOURS OF INCUBATION. Resulted Problem List/Assessment/Plan Problem List/Assessment/Plan 1) hemodynamically mediated acute kidney injury, prerenal state 2) toxic metabolic, possible uremic encephalopathy 3) hyperkalemia now hypokalemia 4) dehydrated state REC: - will continue with IV fluids - Currently without urgent indication for dialysis--improving bun/cr good uop,,k replace need strict i and o Plan discussed with: Patient My Orders My Orders Orders - SALOMÓN FARLEY MD Procedure Category Date Status Time Calcium Acetate PHA 05/31/24 Logged Capsule (Phoslo 08:00 Phosphorus LAB 05/31/24 Verified 04:00 Basic Metabolic Panel LAB 05/31/24 Verified 05:00 Basic Metabolic Panel LAB 06/01/24 Verified 05:00 Basic Metabolic Panel LAB 06/02/24 Verified 05:00 Basic Metabolic Panel LAB 06/03/24 Verified 05:00 Basic Metabolic Panel LAB 06/04/24 Verified 05:00 Basic Metabolic Panel LAB 06/05/24 Verified 05:00 Basic Metabolic Panel LAB 06/06/24 Verified 05:00 Dietary Evaluation Review Comments: Continue current plan of care Expected Outcomes/Goals: F/U in 3-5 days SALOMÓN FARLEY MD May 30, 2024 20:42
[2024-05-30] MEDS: LINEZOLID 600MG TABLET PO SCH (22:08)
[2024-05-31] VITALS (20 sets, daily range): BP systolic 79–121; BP diastolic 38–81; PULSE 60–80; RESP 16–23; TEMP 97.2–97.9; O2SAT 95–100
[2024-05-31 07:27] LABS: Chloride 102 mmol/L (98-107); Sodium 140 mmol/L (136-145)
[2024-05-31 07:28] LABS: Anion Gap 13 (5-15); Carbon Dioxide 25 mmol/L (20-31)
[2024-05-31 07:33] LABS: Glucose 74 mg/dL (74-106)
[2024-05-31 07:34] LABS: BUN/Creatinine Ratio 22.4 (10.0-20.0)
[2024-05-31 07:36] LABS: Potassium 2.6 mmol/L (3.5-5.1)
[2024-05-31 07:37] LABS: Phosphorus 5.8 mg/dL (2.4-5.1)
[2024-05-31 07:38] LABS: Blood Urea Nitrogen 93 mg/dL (9-23)
--- NOTE | 2024-05-31 09:15 | DVHPN2 ---
Progress Note Date Seen: May 31, 2024 Medical Necessity Reason Pt with a Central, PICC or Fol: Yes The following are medically ne: [place] Catheter Subjective Patient reports: Other Review of Systems: Deferred Objective vital signs Vital Sign Date Time Temp Pulse Resp B/P (MAP) Pulse Ox O2 Delivery O2 Flow Rate FiO2 05/31/24 09:00 97.9 66 17 108/58 (75) 99 97.9 05/30/24 20:00 Room Air* 0 21 Total Intake and Output 05/30/24 05/30/24 05/31/24 15:00 23:00 07:00 Intake Total 250 ml 635 ml Output Total 1000 ml 900 ml Balance -750 ml -265 ml medications Current Medications Medications Dose Ordered Sig/Arielle Route Start Time Stop Time Status Last Admin Dose Admin Enoxaparin Sodium 40 mg DAILY SC 05/27/24 10:00 UNV Nitroglycerin 0.4 mg Q5MINP PRN SL 05/26/24 14:30 Morphine Sulfate 2 mg Q30M PRN IV 05/26/24 14:30 Piperacillin Sod/ Tazobactam Sod 50 ml @ 16.667 mls/ hr Q12HR IV 05/26/24 22:00 05/30/24 18:06 16.667 MLS/HR Clopidogrel Bisulfate 75 mg DAILY PO 05/27/24 10:00 05/30/24 09:49 75 MG Ferrous Sulfate 325 mg TUTHSA PO 05/27/24 10:00 05/30/24 09:49 325 MG Levetiracetam 500 mg BID PO 05/26/24 22:00 05/30/24 22:08 500 MG Pantoprazole Sodium 40 mg DAILY PO 05/27/24 10:00 05/30/24 09:49 40 MG Atorvastatin Calcium 10 mg DAILY PO 05/27/24 10:00 05/30/24 09:51 10 MG Sodium Chloride 1,000 ml @ 100 mls/hr Q10H IV 05/26/24 15:30 05/31/24 08:10 100 MLS/HR Gabapentin 300 mg DAILY PO 05/27/24 12:45 05/30/24 09:49 300 MG Lorazepam 1 mg Q5MINP PRN IV 05/28/24 17:45 Linezolid 600 mg BID PO 05/30/24 22:00 05/30/24 22:08 600 MG Acetaminophen/ Hydrocodone Bitart 1 tab Q6HPRN PRN PO 05/30/24 17:45 05/31/24 01:07 1 TAB Calcium Acetate 1,334 mg TIDWMEALS PO 05/31/24 08:00 Potassium Chloride 40 meq Q2H PO 05/31/24 10:00 05/31/24 12:01 laboratory and microbiology Laboratory Tests 05/31/24 06:49 05/29/24 19:10 Test 05/31/24 06:49 Range/Units Serum Glucose 74 74-106 mg/dL Microbiology Date/Time Source Procedure Growth Status 05/27/24 08:55 Urine - [place] Urine Culture - Preliminary Resulted 05/26/24 17:04 Blood Blood Culture - Preliminary NO GROWTH AFTER 72 HOURS OF INCUBATION. Resulted Problem List/Assessment/Plan Problem List/Assessment/Plan 1) hemodynamically mediated acute kidney injury, prerenal state 2) toxic metabolic, possible uremic encephalopathy 3) hyperkalemia now hypokalemia 4) dehydrated state REC: - will continue with IV fluids - Currently without urgent indication for dialysis--improving bun/cr good uop,,k replace need strict i and o Plan discussed with: Patient My Orders My Orders Orders - SALOMÓN FARLEY MD Procedure Category Date Status Time Calcium Acetate PHA 05/31/24 In Process Capsule (Phoslo 08:00 Basic Metabolic Panel LAB 06/01/24 Verified 05:00 Basic Metabolic Panel LAB 06/02/24 Verified 05:00 Basic Metabolic Panel LAB 06/03/24 Verified 05:00 Basic Metabolic Panel LAB 06/04/24 Verified 05:00 Basic Metabolic Panel LAB 06/05/24 Verified 05:00 Basic Metabolic Panel LAB 06/06/24 Verified 05:00 Potassium Effervesent PHA 05/31/24 In Process Tab (Klor-Con/Ef) 09:15 Potassium Er Tablet PHA 05/31/24 In Process (Klor-Con Tablet) 10:00 Dietary Evaluation Review Comments: Continue current plan of care Expected Outcomes/Goals: F/U in 3-5 days SALOMÓN FARLEY MD May 31, 2024 09:15
--- NOTE | 2024-05-31 09:34 | DVHPN2 ---
Progress Note - Dictate Date Seen: May 31, 2024 Medical Necessity Reason Pt with a Central, PICC or Fol: Yes The following are medically ne: [place] Catheter Subjective Ms. Dillard is a 73 years old right-handed female with a history of hypertension, dyslipidemia, chronic low back pain, chronic pain in the hips, she came to the hospital on 05/26/24 with a chief complaint of altered mental status. I saw her on 11/23/21 for ALOC/metabolic encephalopathy, 12/28/21 for ALOC, 02/15/2022 for stroke, 04/19/2023 for seizure, 11/24/2023, 04/12/24 for encephalopathy, 03/31/2024 for ALOC I have seen and examined the patient, I have talked to her nurse, she looks tired today, she is oriented to person, place, she knows month, socially reasonable She was hypotension On warming blanket Urine culture, 05/27/2024: Blood culture, 05/26/2024: Urinalysis, 05/26/2024: WBC: 17, urine leukocyte esterase: 3+ WBC/HB/PLT/MCV, 05/28/2024: 7.9/8.19/367/94.1 Na, 05/26/2024: 124, 129, 05/27/2020 4:135 K, 05/26/2024: 6.7, 5.6, 05/28/2024: Sleep, sleep BUN/CR, 05/26/2024: 215/8.16, 05/26/2024: 223/8.06, : 160/5.88, 05/31/2024: 93/4.16 Lactic acid, 05/26/2024: 3.9, 3.2 TBI/AST/ALT/AP, 05/26/2024: 0.8/73/87/342, 05/29/24: 0.3/82/53/152 Vitamin B12, 03/2023: 395, : 968 Folic acid, 11/2021: 24, 03/29/2024: 13.56 TSH, 11/2021: 0.27 03/2024: 1.1 EEG, 12/29/2021: Normal EEG, 02/15/2022: Normal EEG, 04/11/2024: Bilateral PLEDs Carotid Doppler, 04/11/2024: No hemodynamically significant stenosis within the carotid arteries X-ray, Left shoulder 05/26/2024, There is no evidence of acute fracture or dislocation. The left clavicle appears superiorly displaced. This could be chronic in nature CT head, 05/26/2024: No acute intracranial process CT chest, 05/26/2024: Previously seen ground-glass opacities have largely resolved. New tree-in-bud nodularity in both lungs. Likely infectious/inflammatory. Chronic consolidation right upper lobe. Stable ground-glass opacity right middle lobe. Clinical correlation and continued follow-up is recommended. Infrarenal abdominal aortic aneurysm measuring up to 35 mm. Consider further evaluation with CT of the abdomen and pelvis. MRI head, 12/29/2021: There is mild to moderate microvascular ischemic disease of supratentorial white matter. There is moderate to severe microvascular ischemic disease of the brain stem. There is no acute infarct. There is no hemorrhage, mass or hydrocephalus. No brain atrophy MRI head, 02/15/2022: Motion degraded study There is no acute infarct. There is no hemorrhage. There is mild to moderate microvascular ischemic disease of supratentorial white matter. There is a moderate to severe microvascular ischemic disease of the brainstem MRI head, 04/11/2024: 1. There is no acute intracranial process. 2. [id number] chronic microvascular ischemic changes vital signs Vital Sign Date Time Temp Pulse Resp B/P (MAP) Pulse Ox O2 Delivery O2 Flow Rate FiO2 05/31/24 09:00 97.9 66 17 108/58 (75) 99 97.9 05/30/24 20:00 Room Air* 0 21 Total Intake and Output 05/30/24 05/30/24 05/31/24 15:00 23:00 07:00 Intake Total 250 ml 635 ml Output Total 1000 ml 900 ml Balance -750 ml -265 ml medications Current Medications Medications Dose Ordered Sig/Arielle Route Start Time Stop Time Status Last Admin Dose Admin Enoxaparin Sodium 40 mg DAILY SC 05/27/24 10:00 UNV Nitroglycerin 0.4 mg Q5MINP PRN SL 05/26/24 14:30 Morphine Sulfate 2 mg Q30M PRN IV 05/26/24 14:30 Piperacillin Sod/ Tazobactam Sod 50 ml @ 16.667 mls/ hr Q12HR IV 05/26/24 22:00 05/30/24 18:06 16.667 MLS/HR Clopidogrel Bisulfate 75 mg DAILY PO 05/27/24 10:00 05/30/24 09:49 75 MG Ferrous Sulfate 325 mg TUTHSA PO 05/27/24 10:00 05/30/24 09:49 325 MG Levetiracetam 500 mg BID PO 05/26/24 22:00 05/30/24 22:08 500 MG Pantoprazole Sodium 40 mg DAILY PO 05/27/24 10:00 05/30/24 09:49 40 MG Atorvastatin Calcium 10 mg DAILY PO 05/27/24 10:00 05/30/24 09:51 10 MG Sodium Chloride 1,000 ml @ 100 mls/hr Q10H IV 05/26/24 15:30 05/31/24 08:10 100 MLS/HR Gabapentin 300 mg DAILY PO 05/27/24 12:45 05/30/24 09:49 300 MG Lorazepam 1 mg Q5MINP PRN IV 05/28/24 17:45 Linezolid 600 mg BID PO 05/30/24 22:00 05/30/24 22:08 600 MG Acetaminophen/ Hydrocodone Bitart 1 tab Q6HPRN PRN PO 05/30/24 17:45 05/31/24 01:07 1 TAB Calcium Acetate 1,334 mg TIDWMEALS PO 05/31/24 08:00 Potassium Chloride 40 meq Q2H PO 05/31/24 10:00 05/31/24 12:01 objective General: the patient is cachectic MENTAL STATUS: Subjective SPEECH, LANGUAGE, HIGHER CORTICAL FUNCTION: no aphasia or dysathria. CRANIAL NERVES: Pupils are equal, round and reactive. EOMs full and conjugate. Facial sensation intact in all three divisions bilaterally. Mandibular strength intact. Facial muscles symmetrical and strength intact. SENSATION: Sensation to touch and pinprick is sign MOTOR: Normal tone in the upper and lower extremity. Normal muscle bulk. No fasciculations. No abnormal movements or posturing. She moves arms and legs REFLEXES: Deep tendon reflexes are symmetrical. No pathological reflexes. CEREBELLAR/COORDINATION: Deferred GAIT/STATION: deferred laboratory and microbiology Laboratory Tests 05/31/24 06:49 05/29/24 19:10 Test 05/31/24 06:49 Range/Units Serum Glucose 74 74-106 mg/dL Problem List Altered mental status Likely metabolic encephalopathy ? Status epileptics ? Partial complex seizure Lactic acidosis/sepsis Urinary tract infection Septic shock Seizure Kidney failure Cachexia Assessment/Plan Monitoring Supportive treatment Follow up lab Blood culture Urine culture EEG IV antibiotics Keppra 500mg Bid Ativan for seizure breakthrough GI prophylaxis/pantoprazole Infectious disease on case Urology on case More recommendation per clinical course This medical document was created using an electronic medical record system with [employer] dictation system. Although this document has been carefully reviewed, there may still be some phonetic and typographical errors. These areas are purely typographical due to imperfections of the software programs, and do not reflect any compromise in the patient's medical care Prognosis poor Dietary Evaluation Review Comments: Continue current plan of care Expected Outcomes/Goals: F/U in 3-5 days Plan discussed with: Other CHINA RIVERA MD May 31, 2024 09:34
[2024-05-31] MEDS: CALCIUM ACETATE 667 MG CAP PO SCH (10:06)
[2024-05-31] MEDS: POTASSIUM CHL 20 Meq TABLET PO SCH (10:07)
[2024-05-31] MEDS ORDERED: MORPHINE SULFATE INJ 2 MG/ml SYRG IV PRN (12:15)
[2024-05-31] MEDS: POTASSIUM EFFERVESENT TAB 25 MEQ GT ONE (12:56)
--- NOTE | 2024-05-31 14:32 | DVHPN2 ---
Progress Note - Dictate Date Seen: May 31, 2024 Medical Necessity Reason Pt with a Central, PICC or Fol: Yes The following are medically ne: [place] Catheter vital signs Vital Sign Date Time Temp Pulse Resp B/P (MAP) Pulse Ox O2 Delivery O2 Flow Rate FiO2 05/31/24 13:00 97.9 78 19 95/57 (70) 96 97.9 05/31/24 08:00 Room Air* 0 21 Total Intake and Output 05/30/24 05/30/24 05/31/24 15:00 23:00 07:00 Intake Total 250 ml 635 ml Output Total 1000 ml 900 ml Balance -750 ml -265 ml medications Current Medications Medications Dose Ordered Sig/Arielle Route Start Time Stop Time Status Last Admin Dose Admin Enoxaparin Sodium 40 mg DAILY SC 05/27/24 10:00 UNV Nitroglycerin 0.4 mg Q5MINP PRN SL 05/26/24 14:30 Morphine Sulfate 2 mg Q30M PRN IV 05/26/24 14:30 Piperacillin Sod/ Tazobactam Sod 50 ml @ 16.667 mls/ hr Q12HR IV 05/26/24 22:00 05/31/24 10:06 16.667 MLS/HR Clopidogrel Bisulfate 75 mg DAILY PO 05/27/24 10:00 05/31/24 10:08 75 MG Ferrous Sulfate 325 mg TUTHSA PO 05/27/24 10:00 05/30/24 09:49 325 MG Levetiracetam 500 mg BID PO 05/26/24 22:00 05/31/24 10:06 500 MG Pantoprazole Sodium 40 mg DAILY PO 05/27/24 10:00 05/31/24 10:06 40 MG Atorvastatin Calcium 10 mg DAILY PO 05/27/24 10:00 05/31/24 10:07 10 MG Sodium Chloride 1,000 ml @ 100 mls/hr Q10H IV 05/26/24 15:30 05/31/24 08:10 100 MLS/HR Gabapentin 300 mg DAILY PO 05/27/24 12:45 05/31/24 10:08 300 MG Lorazepam 1 mg Q5MINP PRN IV 05/28/24 17:45 Linezolid 600 mg BID PO 05/30/24 22:00 05/31/24 10:06 600 MG Acetaminophen/ Hydrocodone Bitart 1 tab Q6HPRN PRN PO 05/30/24 17:45 05/31/24 12:57 1 TAB Calcium Acetate 1,334 mg TIDWMEALS PO 05/31/24 08:00 05/31/24 10:06 1,334 MG Morphine Sulfate 2 mg Q4HP PRN IV 05/31/24 12:15 objective General Appearance: alert, no distress HEENT: EOMI, PERRLA, normal external inspect of ears, no icterus, no nasal drainage Neck: no carotid bruit, no jugular venous distention (JVD), no lymphadenopathy Chest: normal thorax Respiratory: clear to auscultation, normal air movement Cardiovascular: regular rate and rhythm, no diastolic murmur, no jugular venous distention (JVD), no rub, no systolic murmur Abdominal: soft, no hepatomegaly, no mass, no splenomegaly, no tenderness Genitourinary: grossly normal external Musculoskeletal: no joint tenderness, no swelling Extremities: normal pulses, no calf tenderness, no clubbing, no cyanosis, no edema Skin: no bruising, no jaundice, no rash Neurological: alert, No focal deficit laboratory and microbiology Laboratory Tests 05/31/24 06:49 05/29/24 19:10 Test 05/31/24 06:49 Range/Units Serum Glucose 74 74-106 mg/dL Problem List 1. Acute metabolic encephalopathy likely related to sepsis 2. GRACIELA likely with ATN Nephrology consult, IV fluids 3. Hyperkalemia Nephrology consult, hyperkalemia protocol 4. Pneumonia likely Gram-negative or Gram-positive IV antibiotics 5. Severe malnourished Dietary consult 6. History of CVA 7. COPD Managed treatments 8. Seizures Continue home medication Assessment/Plan Subjective: Patient is awake and alert. Objective: Patient's hemoglobin is stable at 8.6, BUN is down to 93, creatinine today is 4.16. Patient has good urinary output. Patient is complaining of lower extremity pain. Patient was started on IV morphine. Plan: Continue current treatment. Start physical therapy eval. Monitor renal function. Dietary Evaluation Review Comments: Continue current plan of care Expected Outcomes/Goals: F/U in 3-5 days Plan discussed with: Patient, Other MARTÍN CHAWLA NP May 31, 2024 14:32
--- NOTE | 2024-05-31 16:36 | DVHPN2 ---
Progress Note Date Seen: May 31, 2024 Medical Necessity Reason Pt with a Central, PICC or Fol: Yes The following are medically ne: [place] Catheter Subjective Patient reports: Other Review of Systems: Deferred Objective vital signs Vital Sign Date Time Temp Pulse Resp B/P (MAP) Pulse Ox O2 Delivery O2 Flow Rate FiO2 05/31/24 13:00 97.9 78 19 95/57 (70) 96 97.9 05/31/24 08:00 Room Air* 0 21 Total Intake and Output 05/30/24 05/30/24 05/31/24 15:00 23:00 07:00 Intake Total 250 ml 635 ml Output Total 1000 ml 900 ml Balance -750 ml -265 ml medications Current Medications Medications Dose Ordered Sig/Arielle Route Start Time Stop Time Status Last Admin Dose Admin Enoxaparin Sodium 40 mg DAILY SC 05/27/24 10:00 UNV Nitroglycerin 0.4 mg Q5MINP PRN SL 05/26/24 14:30 Morphine Sulfate 2 mg Q30M PRN IV 05/26/24 14:30 Piperacillin Sod/ Tazobactam Sod 50 ml @ 16.667 mls/ hr Q12HR IV 05/26/24 22:00 05/31/24 10:06 16.667 MLS/HR Clopidogrel Bisulfate 75 mg DAILY PO 05/27/24 10:00 05/31/24 10:08 75 MG Ferrous Sulfate 325 mg TUTHSA PO 05/27/24 10:00 05/30/24 09:49 325 MG Levetiracetam 500 mg BID PO 05/26/24 22:00 05/31/24 10:06 500 MG Pantoprazole Sodium 40 mg DAILY PO 05/27/24 10:00 05/31/24 10:06 40 MG Atorvastatin Calcium 10 mg DAILY PO 05/27/24 10:00 05/31/24 10:07 10 MG Sodium Chloride 1,000 ml @ 100 mls/hr Q10H IV 05/26/24 15:30 05/31/24 08:10 100 MLS/HR Gabapentin 300 mg DAILY PO 05/27/24 12:45 05/31/24 10:08 300 MG Lorazepam 1 mg Q5MINP PRN IV 05/28/24 17:45 Linezolid 600 mg BID PO 05/30/24 22:00 05/31/24 10:06 600 MG Acetaminophen/ Hydrocodone Bitart 1 tab Q6HPRN PRN PO 05/30/24 17:45 05/31/24 12:57 1 TAB Calcium Acetate 1,334 mg TIDWMEALS PO 05/31/24 08:00 05/31/24 10:06 1,334 MG Morphine Sulfate 2 mg Q4HP PRN IV 05/31/24 12:15 Examination: GENERAL:Normal, HEENT:Normal, NECK:Normal, LUNGS:Normal, CVS:Normal, ABDOMEN:Normal, MSK:Normal, SKIN:Normal, NEURO:Normal, :Normal laboratory and microbiology Laboratory Tests 05/31/24 06:49 05/29/24 19:10 Test 05/31/24 06:49 Range/Units Serum Glucose 74 74-106 mg/dL Microbiology Date/Time Source Procedure Growth Status 05/30/24 08:20 Nose MRSA Screen - Final Complete 05/27/24 08:55 Urine - [place] Urine Culture - Final Yeast, not Bella albicans Complete 05/26/24 17:04 Blood Blood Culture - Preliminary NO GROWTH AFTER 72 HOURS OF INCUBATION. Resulted Problem List/Assessment/Plan Problem List/Assessment/Plan 1) acute kidney injury likely acute tubular necrosis 2) toxic metabolic, possible uremic encephalopathy---resolved 3) hyperkalemia now hypokalemia REC: - will continue with IV fluids--reduce IV fluid rate - Currently without urgent indication for dialysis--improving bun/cr good uop,,k replace need strict i and o Plan discussed with: Patient My Orders My Orders Orders - SALOMÓN FARLEY MD Procedure Category Date Status Time Calcium Acetate PHA 05/31/24 In Process Capsule (Phoslo 08:00 Basic Metabolic Panel LAB 06/01/24 Verified 05:00 Basic Metabolic Panel LAB 06/02/24 Verified 05:00 Basic Metabolic Panel LAB 06/03/24 Verified 05:00 Basic Metabolic Panel LAB 06/04/24 Verified 05:00 Basic Metabolic Panel LAB 06/05/24 Verified 05:00 Basic Metabolic Panel LAB 06/06/24 Verified 05:00 NS PHA 05/31/24 Verified 16:45 Dietary Evaluation Review Comments: Continue current plan of care Expected Outcomes/Goals: F/U in 3-5 days SALOMÓN FARLEY MD May 31, 2024 16:36
[2024-05-31] MEDS: SODIUM CHLORIDE 0.9% 1,000 ML IV SCH (17:33)
--- NOTE | 2024-05-31 23:47 | DVHPN2 ---
Consult Progress Note Date Seen: May 30, 2024 Subjective Patient reports: Feels better (mentation improving, hypotensive, no fevers) Objective vital signs Vital Sign Date Time Temp Pulse Resp B/P (MAP) Pulse Ox O2 Delivery O2 Flow Rate FiO2 05/31/24 22:34 97.2 63 18 101/55 (70) 100 97.2 05/31/24 20:00 Room Air* 0 21 Total Intake and Output 05/30/24 05/30/24 05/31/24 15:00 23:00 07:00 Intake Total 250 ml 635 ml Output Total 1500 ml 900 ml Balance -1250 ml -265 ml medications Current Medications Medications Dose Ordered Sig/Arielle Route Start Time Stop Time Status Last Admin Dose Admin Enoxaparin Sodium 40 mg DAILY SC 05/27/24 10:00 UNV Nitroglycerin 0.4 mg Q5MINP PRN SL 05/26/24 14:30 Morphine Sulfate 2 mg Q30M PRN IV 05/26/24 14:30 Piperacillin Sod/ Tazobactam Sod 50 ml @ 16.667 mls/ hr Q12HR IV 05/26/24 22:00 05/31/24 21:37 16.667 MLS/HR Clopidogrel Bisulfate 75 mg DAILY PO 05/27/24 10:00 05/31/24 10:08 75 MG Ferrous Sulfate 325 mg TUTHSA PO 05/27/24 10:00 05/30/24 09:49 325 MG Levetiracetam 500 mg BID PO 05/26/24 22:00 05/31/24 21:36 500 MG Pantoprazole Sodium 40 mg DAILY PO 05/27/24 10:00 05/31/24 10:06 40 MG Atorvastatin Calcium 10 mg DAILY PO 05/27/24 10:00 05/31/24 10:07 10 MG Gabapentin 300 mg DAILY PO 05/27/24 12:45 05/31/24 10:08 300 MG Lorazepam 1 mg Q5MINP PRN IV 05/28/24 17:45 Linezolid 600 mg BID PO 05/30/24 22:00 05/31/24 21:36 600 MG Acetaminophen/ Hydrocodone Bitart 1 tab Q6HPRN PRN PO 05/30/24 17:45 05/31/24 20:32 1 TAB Calcium Acetate 1,334 mg TIDWMEALS PO 05/31/24 08:00 05/31/24 10:06 1,334 MG Morphine Sulfate 2 mg Q4HP PRN IV 05/31/24 12:15 Sodium Chloride 1,000 ml @ 75 mls/hr [id number] IV 05/31/24 16:45 05/31/24 17:33 75 MLS/HR PHYSICAL EXAM: - GENERAL: Alert and oriented x 3. No acute distress. Well-nourished. ? - EYES: EOMI. Anicteric. ?- HENT: Moist mucous membranes. No scleral icterus. No cervical lymphadenopathy. ?- LUNGS: Clear to auscultation bilaterally. No accessory muscle use.? - CARDIOVASCULAR: Regular rate and rhythm. No murmur. No JVD.? - ABDOMEN: Soft, non-tender and non-distended. No palpable masses.? - EXTREMITIES: No edema. Non-tender.?SKIN: No rashes or lesions. Warm. ? - NEUROLOGIC: No focal neurological deficits. CN II-XII grossly intact, but not individually tested.? - PSYCHIATRIC: Cooperative. Appropriate mood and affect. laboratory and microbiology Laboratory Tests 05/31/24 06:49 05/29/24 19:10 Test 05/31/24 06:49 Range/Units Serum Glucose 74 74-106 mg/dL Problem List/Assessment/Plan Problem List/Assessment/Plan ID Problem List: - Altered mental status - Seizure disorder COPD - Pneumonia - Urinary tract infection - Septic shock - Acute renal failure - Possible congestive heart failure exacerbation - Left clavicle displacement - Anemia Assessment This is a 73 y.o. female with a past medical history of COPD, diabetes mellitus, recurrent UTIs, multiple myocardial infarctions, recent sepsis, cerebrovascular accident (stroke), colostomy placement, congestive heart failure, and seizure disorder, who presents with altered mental status. She was found to be hypotensive with a blood pressure of 79/55?mmHg, hypothermic with a rectal temperature of 95.6?F, and heart rate in the 80s. On examination, the patient is moaning and unresponsive to verbal stimuli. Laboratory studies reveal leukocytosis with WBC 15.4, thrombocytosis with platelets 521, anemia with hemoglobin 7.2 and hematocrit 23, elevated creatinine 8.06 indicating acute renal failure, hyponatremia (Na 129), hyperkalemia (K 6.7), elevated lactic acid 3.9. Liver enzymes are elevated with AST 264 and ALT 69. Urinalysis shows 17 WBCs, 3+ leukocytes, moderate yeast, and bacteria. Chest X-ray revealed a deep sulcus sign of the left costophrenic angle suggestive of possible pneumothorax; CT was recommended. Chest CT showed new tree-in-bud opacities in both lungs likely infectious/inflammatory, chronic consolidation in the right upper lobe, stable ground-glass opacities in the right middle lobe, and an infrarenal abdominal aortic aneurysm measuring 35?mm. Head CT showed no intracranial process. Shoulder X-ray showed the left clavicle is superiorly displaced, possibly chronic. 05/29: urine cultures are growing great than 100,00 yeast and blood cultures have no growth to date , whitecount is 7.3 and signs of sepsis are improving Plan: - recommend carias change - Septic shock: - Initiate fluid resuscitation to maintain MAP >65?mmHg. - Start vasopressors as needed. - Consider corticosteroids if hemodynamics do not improve. - Obtain blood cultures and urine cultures; follow up on results. - Continue linezolid and Zosyn for now; will adjust antibiotics based on renal function and culture results. - Recommend MRSA nasal swab and sputum culture. - Consider addition of doxycycline if respiratory status declines. - Acute renal failure: - Defer management to the nephrology team. - Patient will likely require dialysis. - Possible congestive heart failure exacerbation: - Recommend transthoracic echocardiogram (TTE) to evaluate cardiac function. - Obtain pro-BNP level. - Pneumonia: - Continue current antibiotics; adjust per culture results and sensitivities. - Altered mental status: - Monitor neurological status. - Defer seizure disorder management to neurology. - Electrolyte abnormalities: - Hyperkalemia (K 6.7): Implement hyperkalemia protocol. - Hyponatremia (Na 129): Monitor and correct sodium levels cautiously. - Anemia: - Monitor hemoglobin and hematocrit. - Consider transfusion if necessary. - Left clavicle displacement: - Consult orthopedics to evaluate left clavicle displacement. Plan discussed with: Patient Dietary Evaluation Review Comments: Continue current plan of care Expected Outcomes/Goals: F/U in 3-5 days DIGNA OVERTON MD May 31, 2024 23:47
[2024-06-01] VITALS (8 sets, daily range): BP systolic 96–113; BP diastolic 53–62; PULSE 59–87; RESP 16–20; TEMP 97.4–98.8; O2SAT 95–100
[2024-06-01 07:12] LABS: Anion Gap 12 (5-15); Carbon Dioxide 25 mmol/L (20-31); Chloride 103 mmol/L (98-107); Sodium 140 mmol/L (136-145)
[2024-06-01 07:18] LABS: BUN/Creatinine Ratio 21.4 (10.0-20.0); Glucose 77 mg/dL (74-106)
[2024-06-01 07:27] LABS: Potassium 2.8 mmol/L (3.5-5.1)
[2024-06-01 07:40] LABS: Blood Urea Nitrogen 76 mg/dL (9-23)
--- NOTE | 2024-06-01 12:59 | DVHPN2 ---
Progress Note - Dictate Date Seen: Jun 01, 2024 Medical Necessity Reason Pt with a Central, PICC or Fol: Yes The following are medically ne: [place] Catheter vital signs Vital Sign Date Time Temp Pulse Resp B/P (MAP) Pulse Ox O2 Delivery O2 Flow Rate FiO2 06/01/24 08:49 98.8 87 17 97/54 (68) 96 98.8 05/31/24 20:00 Room Air* 0 21 Total Intake and Output 05/31/24 05/31/24 06/01/24 15:00 23:00 07:00 Intake Total 50 ml 950 ml 290 ml Output Total 500 ml 600 ml Balance 50 ml 450 ml -310 ml medications Current Medications Medications Dose Ordered Sig/Arielle Route Start Time Stop Time Status Last Admin Dose Admin Enoxaparin Sodium 40 mg DAILY SC 05/27/24 10:00 UNV Nitroglycerin 0.4 mg Q5MINP PRN SL 05/26/24 14:30 Morphine Sulfate 2 mg Q30M PRN IV 05/26/24 14:30 Piperacillin Sod/ Tazobactam Sod 50 ml @ 16.667 mls/ hr Q12HR IV 05/26/24 22:00 06/01/24 11:05 16.667 MLS/HR Clopidogrel Bisulfate 75 mg DAILY PO 05/27/24 10:00 06/01/24 11:04 75 MG Ferrous Sulfate 325 mg TUTHSA PO 05/27/24 10:00 06/01/24 11:04 325 MG Levetiracetam 500 mg BID PO 05/26/24 22:00 06/01/24 11:04 500 MG Pantoprazole Sodium 40 mg DAILY PO 05/27/24 10:00 06/01/24 11:04 40 MG Atorvastatin Calcium 10 mg DAILY PO 05/27/24 10:00 06/01/24 11:03 10 MG Gabapentin 300 mg DAILY PO 05/27/24 12:45 06/01/24 11:04 300 MG Lorazepam 1 mg Q5MINP PRN IV 05/28/24 17:45 Linezolid 600 mg BID PO 05/30/24 22:00 06/01/24 11:05 600 MG Acetaminophen/ Hydrocodone Bitart 1 tab Q6HPRN PRN PO 05/30/24 17:45 06/01/24 05:09 1 TAB Calcium Acetate 1,334 mg TIDWMEALS PO 05/31/24 08:00 06/01/24 11:03 1,334 MG Morphine Sulfate 2 mg Q4HP PRN IV 05/31/24 12:15 Sodium Chloride 1,000 ml @ 75 mls/hr [id number] IV 05/31/24 16:45 06/01/24 05:08 75 MLS/HR objective General Appearance: alert, no distress HEENT: EOMI, PERRLA, normal external inspect of ears, no icterus, no nasal drainage Neck: no carotid bruit, no jugular venous distention (JVD), no lymphadenopathy Chest: normal thorax Respiratory: clear to auscultation, normal air movement Cardiovascular: regular rate and rhythm, no diastolic murmur, no jugular venous distention (JVD), no rub, no systolic murmur Abdominal: soft, no hepatomegaly, no mass, no splenomegaly, no tenderness Genitourinary: grossly normal external Musculoskeletal: no joint tenderness, no swelling Extremities: normal pulses, no calf tenderness, no clubbing, no cyanosis, no edema Skin: no bruising, no jaundice, no rash Neurological: alert, No focal deficit laboratory and microbiology Laboratory Tests 06/01/24 06:24 05/29/24 19:10 Test 06/01/24 06:24 Range/Units Serum Glucose 77 74-106 mg/dL Problem List 1. Acute metabolic encephalopathy likely related to sepsis 2. GRACIELA likely with ATN Nephrology consult, IV fluids 3. Hyperkalemia Nephrology consult, hyperkalemia protocol 4. Pneumonia likely Gram-negative or Gram-positive IV antibiotics 5. Severe malnourished Dietary consult 6. History of CVA 7. COPD Managed treatments 8. Seizures Continue home medication Assessment/Plan Subjective: Patient is awake and alert. Objective: Patient states her pain to her lower extremities is currently improving. Patient was admitted for acute metabolic encephalopathy most likely related to sepsis and uremia. Patient has a resolving GRACIELA. Plan: Continue current treatment. Monitor BUN and creatinine levels. Monitor CBC. Continue vasopressors as needed for septic shock. Continue IV antibiotics. Dietary Evaluation Review Comments: Continue current plan of care Expected Outcomes/Goals: F/U in 3-5 days Plan discussed with: Patient, Other MARTÍN CHAWLA NP Jun 01, 2024 12:59
--- NOTE | 2024-06-01 16:34 | DVHPN2 ---
Progress Note Date Seen: Jun 01, 2024 Medical Necessity Reason Pt with a Central, PICC or Fol: Yes The following are medically ne: [place] Catheter Subjective Patient reports: Other (Patient appears frail) Review of Systems: Deferred Objective vital signs Vital Sign Date Time Temp Pulse Resp B/P (MAP) Pulse Ox O2 Delivery O2 Flow Rate FiO2 06/01/24 13:00 98.6 59 16 100/53 (69) 96 98.6 06/01/24 08:00 Room Air* 0 21 Total Intake and Output 05/31/24 05/31/24 06/01/24 15:00 23:00 07:00 Intake Total 50 ml 950 ml 290 ml Output Total 500 ml 600 ml Balance 50 ml 450 ml -310 ml medications Current Medications Medications Dose Ordered Sig/Arielle Route Start Time Stop Time Status Last Admin Dose Admin Enoxaparin Sodium 40 mg DAILY SC 05/27/24 10:00 UNV Nitroglycerin 0.4 mg Q5MINP PRN SL 05/26/24 14:30 Morphine Sulfate 2 mg Q30M PRN IV 05/26/24 14:30 Piperacillin Sod/ Tazobactam Sod 50 ml @ 16.667 mls/ hr Q12HR IV 05/26/24 22:00 06/01/24 11:05 16.667 MLS/HR Clopidogrel Bisulfate 75 mg DAILY PO 05/27/24 10:00 06/01/24 11:04 75 MG Ferrous Sulfate 325 mg TUTHSA PO 05/27/24 10:00 06/01/24 11:04 325 MG Levetiracetam 500 mg BID PO 05/26/24 22:00 06/01/24 11:04 500 MG Pantoprazole Sodium 40 mg DAILY PO 05/27/24 10:00 06/01/24 11:04 40 MG Atorvastatin Calcium 10 mg DAILY PO 05/27/24 10:00 06/01/24 11:03 10 MG Gabapentin 300 mg DAILY PO 05/27/24 12:45 06/01/24 11:04 300 MG Lorazepam 1 mg Q5MINP PRN IV 05/28/24 17:45 Linezolid 600 mg BID PO 05/30/24 22:00 06/01/24 11:05 600 MG Acetaminophen/ Hydrocodone Bitart 1 tab Q6HPRN PRN PO 05/30/24 17:45 06/01/24 15:50 1 TAB Calcium Acetate 1,334 mg TIDWMEALS PO 05/31/24 08:00 06/01/24 11:03 1,334 MG Morphine Sulfate 2 mg Q4HP PRN IV 05/31/24 12:15 Sodium Chloride 1,000 ml @ 75 mls/hr [id number] IV 05/31/24 16:45 06/01/24 05:08 75 MLS/HR Examination: GENERAL:Abnormal, HEENT:Normal, LUNGS:Abnormal, MSK:Normal, NEURO:Normal laboratory and microbiology Laboratory Tests 06/01/24 06:24 05/29/24 19:10 Test 06/01/24 06:24 Range/Units Serum Glucose 77 74-106 mg/dL Microbiology Date/Time Source Procedure Growth Status 05/30/24 08:20 Nose MRSA Screen - Final Complete 05/27/24 08:55 Urine - [place] Urine Culture - Final Yeast, not Bella albicans Complete 05/26/24 17:04 Blood Blood Culture - Final NO GROWTH AFTER 5 DAYS OF INCUBATION. Complete Problem List/Assessment/Plan Problem List/Assessment/Plan 1) acute kidney injury likely acute tubular necrosis 2) toxic metabolic, possible uremic encephalopathy---resolved 3) hyperkalemia now hypokalemia Hypocalcemia Hypophosphatemia REC: - will continue with IV fluids--reduce IV fluid rate - Currently without urgent indication for dialysis--improving bun/cr good uop,,k replace need strict i and o Continue PhosLo Plan discussed with: Other My Orders My Orders Orders - SALOMÓN FARLEY MD Procedure Category Date Status Time Sodium Chloride 0.9% PHA 05/31/24 In Process 16:45 Strict I & O MATTHEW 05/31/24 In Process 18:15 Dietary Evaluation Review Comments: Continue current plan of care Expected Outcomes/Goals: F/U in 3-5 days SALOMÓN FARLEY MD Jun 01, 2024 16:34
[2024-06-01] MEDS: POTASSIUM CHL 20 Meq TABLET PO SCH (18:06)
--- NOTE | 2024-06-01 20:33 | DVHPN2 ---
Progress Note - Dictate Date Seen: Jun 01, 2024 Medical Necessity Reason Pt with a Central, PICC or Fol: Yes The following are medically ne: Machado Catheter Subjective Ms. Dillard is a 73 years old right-handed female with a history of hypertension, dyslipidemia, chronic low back pain, chronic pain in the hips, she came to the hospital on 05/26/24 with a chief complaint of altered mental status. I saw her on 11/23/21 for ALOC/metabolic encephalopathy, 12/28/21 for ALOC, 02/15/2022 for stroke, 04/19/2023 for seizure, 11/24/2023, 04/12/24 for encephalopathy, 03/31/2024 for ALOC I have seen and examined the patient, I have talked to her nurse, she looks tired today, she is oriented to person, place, socially reasonable Blood pressure low Urine culture, 05/27/2024: Yeast Blood culture, 05/26/2024: Negative Urinalysis, 05/26/2024: WBC: 17, urine leukocyte esterase: 3+ WBC/HB/PLT/MCV, 05/28/2024: 7.9/8.19/367/94.1 Na, 05/26/2024: 124, 129, 05/27/2020 4:135 K, 05/26/2024: 6.7, 5.6, 05/28/2024: Sleep, sleep BUN/CR, 05/26/2024: 215/8.16, 05/26/2024: 223/8.06, : 160/5.88, 05/31/2024: 93/4.16 Lactic acid, 05/26/2024: 3.9, 3.2 TBI/AST/ALT/AP, 05/26/2024: 0.8/73/87/342, 05/29/24: 0.3/82/53/152 Vitamin B12, 03/2023: 395, : 968 Folic acid, 11/2021: 24, 03/29/2024: 13.56 TSH, 11/2021: 0.27 03/2024: 1.1 EEG, 12/29/2021: Normal EEG, 02/15/2022: Normal EEG, 04/11/2024: Bilateral PLEDs Carotid Doppler, 04/11/2024: No hemodynamically significant stenosis within the carotid arteries X-ray, Left shoulder 05/26/2024, There is no evidence of acute fracture or dislocation. The left clavicle appears superiorly displaced. This could be chronic in nature CT head, 05/26/2024: No acute intracranial process CT chest, 05/26/2024: Previously seen ground-glass opacities have largely resolved. New tree-in-bud nodularity in both lungs. Likely infectious/inflammatory. Chronic consolidation right upper lobe. Stable ground-glass opacity right middle lobe. Clinical correlation and continued follow-up is recommended. Infrarenal abdominal aortic aneurysm measuring up to 35 mm. Consider further evaluation with CT of the abdomen and pelvis. MRI head, 12/29/2021: There is mild to moderate microvascular ischemic disease of supratentorial white matter. There is moderate to severe microvascular ischemic disease of the brain stem. There is no acute infarct. There is no hemorrhage, mass or hydrocephalus. No brain atrophy MRI head, 02/15/2022: Motion degraded study There is no acute infarct. There is no hemorrhage. There is mild to moderate microvascular ischemic disease of supratentorial white matter. There is a moderate to severe microvascular ischemic disease of the brainstem MRI head, 04/11/2024: 1. There is no acute intracranial process. 2. [id number] chronic microvascular ischemic changes vital signs Vital Sign Date Time Temp Pulse Resp B/P (MAP) Pulse Ox O2 Delivery O2 Flow Rate FiO2 06/01/24 16:51 97.4 61 20 98/62 (74) 96 97.4 06/01/24 08:00 Room Air* 0 21 Total Intake and Output 05/31/24 05/31/24 06/01/24 15:00 23:00 07:00 Intake Total 50 ml 950 ml 290 ml Output Total 500 ml 600 ml Balance 50 ml 450 ml -310 ml medications Current Medications Medications Dose Ordered Sig/Arielle Route Start Time Stop Time Status Last Admin Dose Admin Enoxaparin Sodium 40 mg DAILY SC 05/27/24 10:00 UNV Nitroglycerin 0.4 mg Q5MINP PRN SL 05/26/24 14:30 Morphine Sulfate 2 mg Q30M PRN IV 05/26/24 14:30 Piperacillin Sod/ Tazobactam Sod 50 ml @ 16.667 mls/ hr Q12HR IV 05/26/24 22:00 06/01/24 11:05 16.667 MLS/HR Clopidogrel Bisulfate 75 mg DAILY PO 05/27/24 10:00 06/01/24 11:04 75 MG Ferrous Sulfate 325 mg TUTHSA PO 05/27/24 10:00 06/01/24 11:04 325 MG Levetiracetam 500 mg BID PO 05/26/24 22:00 06/01/24 11:04 500 MG Pantoprazole Sodium 40 mg DAILY PO 05/27/24 10:00 06/01/24 11:04 40 MG Atorvastatin Calcium 10 mg DAILY PO 05/27/24 10:00 06/01/24 11:03 10 MG Gabapentin 300 mg DAILY PO 05/27/24 12:45 06/01/24 11:04 300 MG Lorazepam 1 mg Q5MINP PRN IV 05/28/24 17:45 Acetaminophen/ Hydrocodone Bitart 1 tab Q6HPRN PRN PO 05/30/24 17:45 06/01/24 15:50 1 TAB Calcium Acetate 1,334 mg TIDWMEALS PO 05/31/24 08:00 06/01/24 18:06 1,334 MG Morphine Sulfate 2 mg Q4HP PRN IV 05/31/24 12:15 Sodium Chloride 1,000 ml @ 75 mls/hr [id number] IV 05/31/24 16:45 06/01/24 05:08 75 MLS/HR objective General: the patient is cachectic MENTAL STATUS: Subjective SPEECH, LANGUAGE, HIGHER CORTICAL FUNCTION: no aphasia or dysathria. CRANIAL NERVES: Pupils are equal, round and reactive. EOMs full and conjugate. Facial sensation intact in all three divisions bilaterally. Mandibular strength intact. Facial muscles symmetrical and strength intact. SENSATION: Sensation to touch and pinprick is sign MOTOR: Normal tone in the upper and lower extremity. Normal muscle bulk. No fasciculations. No abnormal movements or posturing. She moves arms and legs REFLEXES: Deep tendon reflexes are symmetrical. No pathological reflexes. CEREBELLAR/COORDINATION: Deferred GAIT/STATION: deferred laboratory and microbiology Laboratory Tests 06/01/24 06:24 05/29/24 19:10 Test 06/01/24 06:24 Range/Units Serum Glucose 77 74-106 mg/dL Problem List Altered mental status Likely metabolic encephalopathy ? Status epileptics ? Partial complex seizure Lactic acidosis/sepsis Urinary tract infection Septic shock Seizure Kidney failure Cachexia Assessment/Plan Monitoring Supportive treatment Follow up lab EEG IV antibiotics Keppra 500mg Bid Ativan for seizure breakthrough GI prophylaxis/pantoprazole Infectious disease on case Urology on case More recommendation per clinical course This medical document was created using an electronic medical record system with [employer] dictation system. Although this document has been carefully reviewed, there may still be some phonetic and typographical errors. These areas are purely typographical due to imperfections of the software programs, and do not reflect any compromise in the patient's medical care Prognosis poor Dietary Evaluation Review Comments: Continue current plan of care Expected Outcomes/Goals: F/U in 3-5 days Plan discussed with: Other CHINA RIVERA MD Jun 01, 2024 20:33
--- NOTE | 2024-06-01 22:16 | DVHPN2 ---
Consult Progress Note Date Seen: Jun 01, 2024 Subjective Patient reports: Other (tolerating diet , BP is a bit low , improved BUN ) Objective vital signs Vital Sign Date Time Temp Pulse Resp B/P (MAP) Pulse Ox O2 Delivery O2 Flow Rate FiO2 06/01/24 21:00 97.7 59 17 113/61 (78) 97 97.7 06/01/24 08:00 Room Air* 0 21 Total Intake and Output 05/31/24 05/31/24 06/01/24 15:00 23:00 07:00 Intake Total 50 ml 950 ml 290 ml Output Total 500 ml 600 ml Balance 50 ml 450 ml -310 ml medications Current Medications Medications Dose Ordered Sig/Arielle Route Start Time Stop Time Status Last Admin Dose Admin Enoxaparin Sodium 40 mg DAILY SC 05/27/24 10:00 UNV Nitroglycerin 0.4 mg Q5MINP PRN SL 05/26/24 14:30 Morphine Sulfate 2 mg Q30M PRN IV 05/26/24 14:30 Piperacillin Sod/ Tazobactam Sod 50 ml @ 16.667 mls/ hr Q12HR IV 05/26/24 22:00 06/01/24 21:33 16.667 MLS/HR Clopidogrel Bisulfate 75 mg DAILY PO 05/27/24 10:00 06/01/24 11:04 75 MG Ferrous Sulfate 325 mg TUTHSA PO 05/27/24 10:00 06/01/24 11:04 325 MG Levetiracetam 500 mg BID PO 05/26/24 22:00 06/01/24 21:34 500 MG Pantoprazole Sodium 40 mg DAILY PO 05/27/24 10:00 06/01/24 11:04 40 MG Atorvastatin Calcium 10 mg DAILY PO 05/27/24 10:00 06/01/24 11:03 10 MG Gabapentin 300 mg DAILY PO 05/27/24 12:45 06/01/24 11:04 300 MG Lorazepam 1 mg Q5MINP PRN IV 05/28/24 17:45 Acetaminophen/ Hydrocodone Bitart 1 tab Q6HPRN PRN PO 05/30/24 17:45 06/01/24 21:34 1 TAB Calcium Acetate 1,334 mg TIDWMEALS PO 05/31/24 08:00 06/01/24 18:06 1,334 MG Morphine Sulfate 2 mg Q4HP PRN IV 05/31/24 12:15 Sodium Chloride 1,000 ml @ 75 mls/hr [id number] IV 05/31/24 16:45 06/01/24 20:51 75 MLS/HR Physical Exam: General: Appears ill, moaning, unresponsive to verbal stimuli. Neck: Supple. No masses. HEENT: PERRL. Normal lids and conjunctiva. Moist mucous membranes. Oropharynx without lesions, exudates or excessive erythema. Normal appearance of the external aspects of the nose and ears. Heart: Regular rhythm, normal rate. No murmur. No lower extremity edema. Lungs: Normal respiratory effort. Clear to auscultation bilaterally. No wheezes. No crackles. Abdomen: Soft. Non-tender. Non-distended. No masses or abdominal hernia. Colostomy bag site appears dry and intact. Msk: No digital cyanosis. Normal strength and tone in all 4 limbs. Skin: Warm and dry, no rashes. Neuro: Moaning, unresponsive to verbal stimuli. Unable to assess orientation. Psych: Unable to assess mood and affect. Unresponsive. Oriented to person, place, time, and situation: Unable to assess. laboratory and microbiology Laboratory Tests 06/01/24 06:24 05/29/24 19:10 Test 06/01/24 06:24 Range/Units Serum Glucose 77 74-106 mg/dL Problem List/Assessment/Plan Problems(with codes): (1) Hypotensive episode (2) Colostomy in place (3) Community acquired bacterial pneumonia (4) Physical deconditioning (5) Altered mental status (6) UTI (urinary tract infection) (7) Renal failure (8) COPD (chronic obstructive pulmonary disease) (9) GRACIELA (acute kidney injury) (10) Severe sepsis Problem List/Assessment/Plan ID Problem List: - Altered mental status - Seizure disorder COPD - Pneumonia - Urinary tract infection - Septic shock - Acute renal failure - Possible congestive heart failure exacerbation - Left clavicle displacement - Anemia Assessment This is a 73 y.o. female with a past medical history of COPD, diabetes mellitus, recurrent UTIs, multiple myocardial infarctions, recent sepsis, cerebrovascular accident (stroke), colostomy placement, congestive heart failure, and seizure disorder, who presents with altered mental status. She was found to be hypotensive with a blood pressure of 79/55?mmHg, hypothermic with a rectal temperature of 95.6?F, and heart rate in the 80s. On examination, the patient is moaning and unresponsive to verbal stimuli. Laboratory studies reveal leukocytosis with WBC 15.4, thrombocytosis with platelets 521, anemia with hemoglobin 7.2 and hematocrit 23, elevated creatinine 8.06 indicating acute renal failure, hyponatremia (Na 129), hyperkalemia (K 6.7), elevated lactic acid 3.9. Liver enzymes are elevated with AST 264 and ALT 69. Urinalysis shows 17 WBCs, 3+ leukocytes, moderate yeast, and bacteria. Chest X-ray revealed a deep sulcus sign of the left costophrenic angle suggestive of possible pneumothorax; CT was recommended. Chest CT showed new tree-in-bud opacities in both lungs likely infectious/inflammatory, chronic consolidation in the right upper lobe, stable ground-glass opacities in the right middle lobe, and an infrarenal abdominal aortic aneurysm measuring 35?mm. Head CT showed no intracranial process. Shoulder X-ray showed the left clavicle is superiorly displaced, possibly chronic. 05/29: urine cultures are growing great than 100,00 yeast and blood cultures have no growth to date , whitecount is 7.3 and signs of sepsis are improving 06/01: Responding to antibiotic therapy , kidney function is improving . MRSA nares is negative Plan: - Stop linezolid - Continue Zosyn - recommend carias change - Septic shock: - Initiate fluid resuscitation to maintain MAP >65?mmHg. - Start vasopressors as needed. - Consider corticosteroids if hemodynamics do not improve. - Obtain blood cultures and urine cultures; follow up on results. - Recommend MRSA nasal swab and sputum culture. - Consider addition of doxycycline if respiratory status declines. - Acute renal failure: - Defer management to the nephrology team. - Patient will likely require dialysis. - Possible congestive heart failure exacerbation: - Recommend transthoracic echocardiogram (TTE) to evaluate cardiac function. - Obtain pro-BNP level. - Pneumonia: - Continue current antibiotics; adjust per culture results and sensitivities. - Altered mental status: - Monitor neurological status. - Defer seizure disorder management to neurology. - Electrolyte abnormalities: - Hyperkalemia (K 6.7): Implement hyperkalemia protocol. - Hyponatremia (Na 129): Monitor and correct sodium levels cautiously. - Anemia: - Monitor hemoglobin and hematocrit. - Consider transfusion if necessary. - Left clavicle displacement: - Consult orthopedics to evaluate left clavicle displacement. Plan discussed with: Patient, Other Dietary Evaluation Review Comments: Continue current plan of care Expected Outcomes/Goals: F/U in 3-5 days DIGNA OVERTON MD Jun 01, 2024 22:16
[2024-06-02] VITALS (7 sets, daily range): BP systolic 83–107; BP diastolic 49–72; PULSE 52–76; RESP 16–18; TEMP 97.4–97.6; O2SAT 95–100
[2024-06-02 06:55] LABS: Anion Gap 13 (5-15); Carbon Dioxide 25 mmol/L (20-31); Chloride 104 mmol/L (98-107); Potassium 3.7 mmol/L (3.5-5.1); Sodium 142 mmol/L (136-145)
[2024-06-02 07:06] LABS: Calcium 6.5 mg/dL (8.7-10.4)
[2024-06-02 07:07] LABS: BUN/Creatinine Ratio 19.8 (10.0-20.0); Blood Urea Nitrogen 57 mg/dL (9-23); Glucose 57 mg/dL (74-106)
--- NOTE | 2024-06-02 10:21 | DVH ---
CLINICAL INFORMATION: 73 years old, Female; evaluate renal stones, obstruction, strictures. TECHNIQUE: Axial CT images of the abdomen and pelvis were obtained without IV contrast. Coronal and sagittal reformatted images were obtained, reviewed, and stored. Evaluation of the parenchymal organs is limited without IV contrast. Evaluation of the bowel and mesentery is limited without oral contra st. All CT scans at this medical facility are performed using dose modulation techniques as appropria te to a performed exam including the following: Automated exposure control was utilized; adjustment o f the MA and/or KV according to patient size; and use of iterative reconstruction technique. CTDIvol = 5.28 mGy DLP = 255.67 mGy-cm COMPARISON: CT CT AB PEL WO CON-NO ORAL OR IV on DOS: 04/27/24, CT CT AB PEL WO CON-NO ORAL OR IV on D OS: 03/31/24, CT CT AB PEL WO CON-NO ORAL OR IV on DOS: 12/27/23 FINDINGS: The patient was scanned while laying on her left side, limiting evaluation. Evaluation also limited due to lack of intravenous or oral contrast due to beam hardening artifact from the patient's arms. T here is a small left pleural effusion with overlying atelectasis. There is a small left pleural effus ion with overlying atelectasis. The liver, spleen, pancreas, and adrenal glands appear grossly unrema rkable given the limitations of the exam. Small calcified gallstones in the gallbladder. There is no hydronephrosis. No renal or ureteral calculi visualized. Portions of the ureters are obscured. Infra renal abdominal aortic aneurysm measures up to 3.2 x 3.6 cm. There is no small bowel obstruction. Den se stool in the rectum with moderate perirectal inflammatory changes, may be due to stercoral colitis in the appropriate clinical setting. Machado catheter extends into the bladder. Gas within the bladde r is likely due to Machado catheter placement. No free air in the abdomen. Severe arthritic changes are seen in both hips. Postsurgical changes in the lumbar spine from posterior spinal fusion at L5-S1. Surgical hardware appears intact. No acute fracture or suspicious intraosseous lesion identified. IMPRESSION: 1. No hydronephrosis and no renal or ureteral calculi visualized. 2. Cholelithiasis. 3. Dense stool in the rectum and adjacent stranding, may be seen with stercoral colitis in the approp riate clinical setting. 4. No small bowel obstruction. 5. Small left pleural effusion with overlying atelectasis . 6. Additional findings as described above. 7. Limited examination as described above.
--- NOTE | 2024-06-02 10:42 | DVHPN2 ---
Progress Note - Dictate Date Seen: Jun 02, 2024 Medical Necessity Reason Pt with a Central, PICC or Fol: Yes The following are medically ne: Machado Catheter Subjective NAD vital signs Vital Sign Date Time Temp Pulse Resp B/P (MAP) Pulse Ox O2 Delivery O2 Flow Rate FiO2 06/02/24 05:00 97.5 68 18 95/49 (64) 100 97.5 06/01/24 20:00 Room Air* 0 21 Total Intake and Output 06/01/24 06/01/24 06/02/24 15:00 23:00 07:00 Intake Total 480 ml 750 ml Output Total 600 ml 275 ml Balance -120 ml 475 ml medications Current Medications Medications Dose Ordered Sig/Arielle Route Start Time Stop Time Status Last Admin Dose Admin Enoxaparin Sodium 40 mg DAILY SC 05/27/24 10:00 UNV Nitroglycerin 0.4 mg Q5MINP PRN SL 05/26/24 14:30 Morphine Sulfate 2 mg Q30M PRN IV 05/26/24 14:30 Piperacillin Sod/ Tazobactam Sod 50 ml @ 16.667 mls/ hr Q12HR IV 05/26/24 22:00 06/01/24 22:00 16.667 MLS/HR Clopidogrel Bisulfate 75 mg DAILY PO 05/27/24 10:00 06/01/24 11:04 75 MG Ferrous Sulfate 325 mg TUTHSA PO 05/27/24 10:00 06/01/24 11:04 325 MG Levetiracetam 500 mg BID PO 05/26/24 22:00 06/01/24 21:34 500 MG Pantoprazole Sodium 40 mg DAILY PO 05/27/24 10:00 06/01/24 11:04 40 MG Atorvastatin Calcium 10 mg DAILY PO 05/27/24 10:00 06/01/24 11:03 10 MG Gabapentin 300 mg DAILY PO 05/27/24 12:45 06/01/24 11:04 300 MG Lorazepam 1 mg Q5MINP PRN IV 05/28/24 17:45 Acetaminophen/ Hydrocodone Bitart 1 tab Q6HPRN PRN PO 05/30/24 17:45 06/02/24 05:19 1 TAB Calcium Acetate 1,334 mg TIDWMEALS PO 05/31/24 08:00 06/01/24 18:06 1,334 MG Morphine Sulfate 2 mg Q4HP PRN IV 05/31/24 12:15 Sodium Chloride 1,000 ml @ 75 mls/hr [id number] IV 05/31/24 16:45 06/01/24 20:51 75 MLS/HR objective GENERAL:Abnormal, HEENT:Normal, LUNGS:Abnormal, MSK:Normal, NEURO:Normal laboratory and microbiology Laboratory Tests 06/02/24 05:52 05/29/24 19:10 Test 06/02/24 05:52 Range/Units Serum Glucose 57 L 74-106 mg/dL Assessment/Plan 1) acute kidney injury likely acute tubular necrosis 2) toxic metabolic, possible uremic encephalopathy---resolved 3) hyperkalemia now hypokalemia Hypocalcemia Hyperphosphatemia will continue with IV fluids Currently without urgent indication for dialysis--improving bun/cr strict i and o Continue PhosLo, check phos level tomorrow Dietary Evaluation Review Comments: Continue current plan of care Expected Outcomes/Goals: F/U in 3-5 days Plan discussed with: Patient ALEJANDRO SABA MD Jun 02, 2024 10:42
--- NOTE | 2024-06-02 17:14 | DVHPN2 ---
Progress Note - Dictate Date Seen: Jun 02, 2024 Medical Necessity Reason Pt with a Central, PICC or Fol: Yes The following are medically ne: Machado Catheter vital signs Vital Sign Date Time Temp Pulse Resp B/P (MAP) Pulse Ox O2 Delivery O2 Flow Rate FiO2 06/02/24 09:00 97.4 76 18 103/72 (82) 100 97.4 06/02/24 08:00 Room Air* 0 21 Total Intake and Output 06/01/24 06/01/24 06/02/24 15:00 23:00 07:00 Intake Total 480 ml 750 ml Output Total 600 ml 275 ml Balance -120 ml 475 ml medications Current Medications Medications Dose Ordered Sig/Arielle Route Start Time Stop Time Status Last Admin Dose Admin Enoxaparin Sodium 40 mg DAILY SC 05/27/24 10:00 UNV Nitroglycerin 0.4 mg Q5MINP PRN SL 05/26/24 14:30 Morphine Sulfate 2 mg Q30M PRN IV 05/26/24 14:30 Piperacillin Sod/ Tazobactam Sod 50 ml @ 16.667 mls/ hr Q12HR IV 05/26/24 22:00 06/02/24 10:31 16.667 MLS/HR Clopidogrel Bisulfate 75 mg DAILY PO 05/27/24 10:00 06/02/24 10:31 75 MG Ferrous Sulfate 325 mg TUTHSA PO 05/27/24 10:00 06/02/24 10:42 325 MG Levetiracetam 500 mg BID PO 05/26/24 22:00 06/02/24 10:31 500 MG Pantoprazole Sodium 40 mg DAILY PO 05/27/24 10:00 06/02/24 10:31 40 MG Atorvastatin Calcium 10 mg DAILY PO 05/27/24 10:00 06/02/24 10:30 10 MG Gabapentin 300 mg DAILY PO 05/27/24 12:45 06/02/24 10:30 300 MG Lorazepam 1 mg Q5MINP PRN IV 05/28/24 17:45 Acetaminophen/ Hydrocodone Bitart 1 tab Q6HPRN PRN PO 05/30/24 17:45 06/02/24 10:42 1 TAB Calcium Acetate 1,334 mg TIDWMEALS PO 05/31/24 08:00 06/02/24 12:00 1,334 MG Morphine Sulfate 2 mg Q4HP PRN IV 05/31/24 12:15 Sodium Chloride 1,000 ml @ 75 mls/hr [id number] IV 05/31/24 16:45 06/02/24 10:44 75 MLS/HR objective General Appearance: alert, no distress HEENT: EOMI, PERRLA, normal external inspect of ears, no icterus, no nasal drainage Neck: no carotid bruit, no jugular venous distention (JVD), no lymphadenopathy Chest: normal thorax Respiratory: clear to auscultation, normal air movement Cardiovascular: regular rate and rhythm, no diastolic murmur, no jugular venous distention (JVD), no rub, no systolic murmur Abdominal: soft, no hepatomegaly, no mass, no splenomegaly, no tenderness Genitourinary: grossly normal external Musculoskeletal: no joint tenderness, no swelling Extremities: normal pulses, no calf tenderness, no clubbing, no cyanosis, no edema Skin: no bruising, no jaundice, no rash Neurological: alert, No focal deficit laboratory and microbiology Laboratory Tests 06/02/24 05:52 05/29/24 19:10 Test 06/02/24 05:52 Range/Units Serum Glucose 57 L 74-106 mg/dL Problem List 1. Acute metabolic encephalopathy likely related to sepsis 2. GRACIELA likely with ATN Nephrology consult, IV fluids 3. Hyperkalemia Nephrology consult, hyperkalemia protocol 4. Pneumonia likely Gram-negative or Gram-positive IV antibiotics 5. Severe malnourished Dietary consult 6. History of CVA 7. COPD Managed treatments 8. Seizures Continue home medication Assessment/Plan Subjective Patient is awake and alert. Objective Patient was admitted for acute metabolic toxic encephalopathy. Patient has significant uremia and acute renal failure. Patient's renal function is significantly improving. Bun is 57. Creatinine is 2.88. Patient's calcium is also improving at 6.5. Patient's mentation is at baseline. Patient was found to have sepsis with septic shock. Plan Continue antibiotics with Zosyn. Monitor renal function. Dietary Evaluation Review Comments: Continue current plan of care Expected Outcomes/Goals: F/U in 3-5 days Plan discussed with: Patient, Other MARTÍN CHAWLA NP Jun 02, 2024 17:14
--- NOTE | 2024-06-02 20:55 | DVHPN2 ---
Progress Note - Dictate Date Seen: Jun 02, 2024 Medical Necessity Reason Pt with a Central, PICC or Fol: Yes The following are medically ne: Machado Catheter Subjective Ms. Dillard is a 73 years old right-handed female with a history of hypertension, dyslipidemia, chronic low back pain, chronic pain in the hips, she came to the hospital on 05/26/24 with a chief complaint of altered mental status. I saw her on 11/23/21 for ALOC/metabolic encephalopathy, 12/28/21 for ALOC, 02/15/2022 for stroke, 04/19/2023 for seizure, 11/24/2023, 04/12/24 for encephalopathy, 03/31/2024 for ALOC I have seen and examined the patient, I have talked to her nurse, she looks tired today, she is oriented 2-3, socially reasonable Blood pressure is mostly low Urine culture, 05/27/2024: Yeast Blood culture, 05/26/2024: Negative Urinalysis, 05/26/2024: WBC: 17, urine leukocyte esterase: 3+ WBC/HB/PLT/MCV, 05/28/2024: 7.9/8.19/367/94.1 Na, 05/26/2024: 124, 129, 05/27/2020 4:135 K, 05/26/2024: 6.7, 5.6, 05/28/2024: Sleep, sleep BUN/CR, 05/26/2024: 215/8.16, 05/26/2024: 223/8.06, : 160/5.88, 05/31/2024: 93/4.16 Lactic acid, 05/26/2024: 3.9, 3.2 TBI/AST/ALT/AP, 05/26/2024: 0.8/73/87/342, 05/29/24: 0.3/82/53/152 Vitamin B12, 03/2023: 395, : 968 Folic acid, 11/2021: 24, 03/29/2024: 13.56 TSH, 11/2021: 0.27 03/2024: 1.1 EEG, 12/29/2021: Normal EEG, 02/15/2022: Normal EEG, 04/11/2024: Bilateral PLEDs Carotid Doppler, 04/11/2024: No hemodynamically significant stenosis within the carotid arteries X-ray, Left shoulder 05/26/2024, There is no evidence of acute fracture or dislocation. The left clavicle appears superiorly displaced. This could be chronic in nature CT head, 05/26/2024: No acute intracranial process CT chest, 05/26/2024: Previously seen ground-glass opacities have largely resolved. New tree-in-bud nodularity in both lungs. Likely infectious/inflammatory. Chronic consolidation right upper lobe. Stable ground-glass opacity right middle lobe. Clinical correlation and continued follow-up is recommended. Infrarenal abdominal aortic aneurysm measuring up to 35 mm. Consider further evaluation with CT of the abdomen and pelvis. MRI head, 12/29/2021: There is mild to moderate microvascular ischemic disease of supratentorial white matter. There is moderate to severe microvascular ischemic disease of the brain stem. There is no acute infarct. There is no hemorrhage, mass or hydrocephalus. No brain atrophy MRI head, 02/15/2022: Motion degraded study There is no acute infarct. There is no hemorrhage. There is mild to moderate microvascular ischemic disease of supratentorial white matter. There is a moderate to severe microvascular ischemic disease of the brainstem MRI head, 04/11/2024: 1. There is no acute intracranial process. 2. Ekyc-ok-lgzqceun chronic microvascular ischemic changes vital signs Vital Sign Date Time Temp Pulse Resp B/P (MAP) Pulse Ox O2 Delivery O2 Flow Rate FiO2 06/02/24 17:00 97.4 68 16 107/63 (78) 99 97.4 06/02/24 08:00 Room Air* 0 21 Total Intake and Output 06/01/24 06/01/24 06/02/24 15:00 23:00 07:00 Intake Total 480 ml 750 ml Output Total 600 ml 275 ml Balance -120 ml 475 ml medications Current Medications Medications Dose Ordered Sig/Arielle Route Start Time Stop Time Status Last Admin Dose Admin Enoxaparin Sodium 40 mg DAILY SC 05/27/24 10:00 UNV Nitroglycerin 0.4 mg Q5MINP PRN SL 05/26/24 14:30 Morphine Sulfate 2 mg Q30M PRN IV 05/26/24 14:30 Clopidogrel Bisulfate 75 mg DAILY PO 05/27/24 10:00 06/02/24 10:31 75 MG Ferrous Sulfate 325 mg TUTHSA PO 05/27/24 10:00 06/02/24 10:42 325 MG Levetiracetam 500 mg BID PO 05/26/24 22:00 06/02/24 10:31 500 MG Pantoprazole Sodium 40 mg DAILY PO 05/27/24 10:00 06/02/24 10:31 40 MG Atorvastatin Calcium 10 mg DAILY PO 05/27/24 10:00 06/02/24 10:30 10 MG Gabapentin 300 mg DAILY PO 05/27/24 12:45 06/02/24 10:30 300 MG Lorazepam 1 mg Q5MINP PRN IV 05/28/24 17:45 Acetaminophen/ Hydrocodone Bitart 1 tab Q6HPRN PRN PO 05/30/24 17:45 06/02/24 17:51 1 TAB Calcium Acetate 1,334 mg TIDWMEALS PO 05/31/24 08:00 06/02/24 17:38 1,334 MG Morphine Sulfate 2 mg Q4HP PRN IV 05/31/24 12:15 Sodium Chloride 1,000 ml @ 75 mls/hr [id number] IV 05/31/24 16:45 06/02/24 10:44 75 MLS/HR Ceftriaxone Sodium/Dextrose 50 ml @ 50 mls/hr DAILY IV 06/03/24 10:00 objective General: the patient is cachectic MENTAL STATUS: Subjective SPEECH, LANGUAGE, HIGHER CORTICAL FUNCTION: no aphasia or dysathria. CRANIAL NERVES: Pupils are equal, round and reactive. EOMs full and conjugate. Facial sensation intact in all three divisions bilaterally. Mandibular strength intact. Facial muscles symmetrical and strength intact. SENSATION: Sensation to touch and pinprick is sign MOTOR: Normal tone in the upper and lower extremity. Normal muscle bulk. No fasciculations. No abnormal movements or posturing. She moves arms and legs REFLEXES: Deep tendon reflexes are symmetrical. No pathological reflexes. CEREBELLAR/COORDINATION: Deferred GAIT/STATION: deferred laboratory and microbiology Laboratory Tests 06/02/24 05:52 05/29/24 19:10 Test 06/02/24 05:52 Range/Units Serum Glucose 57 L 74-106 mg/dL Problem List Altered mental status Likely metabolic encephalopathy ? Status epileptics ? Partial complex seizure Lactic acidosis/sepsis Urinary tract infection Septic shock Seizure Kidney failure Cachexia Assessment/Plan Monitoring Supportive treatment Follow up lab EEG IV antibiotics Keppra 500mg Bid Ativan for seizure breakthrough GI prophylaxis/pantoprazole Infectious disease on case Urology on case More recommendation per clinical course This medical document was created using an electronic medical record system with [employer] dictation system. Although this document has been carefully reviewed, there may still be some phonetic and typographical errors. These areas are purely typographical due to imperfections of the software programs, and do not reflect any compromise in the patient's medical care Prognosis poor Dietary Evaluation Review Comments: Continue current plan of care Expected Outcomes/Goals: F/U in 3-5 days Plan discussed with: Other CHINA RIVERA MD Jun 02, 2024 20:55
--- NOTE | 2024-06-02 22:16 | DVHPN2 ---
Consult Progress Note Date Seen: Jun 02, 2024 Subjective Patient reports: Other (improvement in renal function , urinating well , BP is soft 95/49 , swelling is improving ) Objective vital signs Vital Sign Date Time Temp Pulse Resp B/P (MAP) Pulse Ox O2 Delivery O2 Flow Rate FiO2 06/02/24 20:00 57 18 96 Room Air* 0 21 06/02/24 17:00 97.4 107/63 (78) 97.4 Total Intake and Output 06/01/24 06/01/24 06/02/24 15:00 23:00 07:00 Intake Total 480 ml 750 ml Output Total 600 ml 275 ml Balance -120 ml 475 ml medications Current Medications Medications Dose Ordered Sig/Arielle Route Start Time Stop Time Status Last Admin Dose Admin Enoxaparin Sodium 40 mg DAILY SC 05/27/24 10:00 UNV Nitroglycerin 0.4 mg Q5MINP PRN SL 05/26/24 14:30 Morphine Sulfate 2 mg Q30M PRN IV 05/26/24 14:30 Clopidogrel Bisulfate 75 mg DAILY PO 05/27/24 10:00 06/02/24 10:31 75 MG Ferrous Sulfate 325 mg TUTHSA PO 05/27/24 10:00 06/02/24 10:42 325 MG Levetiracetam 500 mg BID PO 05/26/24 22:00 06/02/24 21:58 500 MG Pantoprazole Sodium 40 mg DAILY PO 05/27/24 10:00 06/02/24 10:31 40 MG Atorvastatin Calcium 10 mg DAILY PO 05/27/24 10:00 06/02/24 10:30 10 MG Gabapentin 300 mg DAILY PO 05/27/24 12:45 06/02/24 10:30 300 MG Lorazepam 1 mg Q5MINP PRN IV 05/28/24 17:45 Acetaminophen/ Hydrocodone Bitart 1 tab Q6HPRN PRN PO 05/30/24 17:45 06/02/24 17:51 1 TAB Calcium Acetate 1,334 mg TIDWMEALS PO 05/31/24 08:00 06/02/24 17:38 1,334 MG Morphine Sulfate 2 mg Q4HP PRN IV 05/31/24 12:15 Sodium Chloride 1,000 ml @ 75 mls/hr [id number] IV 05/31/24 16:45 06/02/24 10:44 75 MLS/HR Ceftriaxone Sodium/Dextrose 50 ml @ 50 mls/hr DAILY IV 06/03/24 10:00 Physical Exam: General: Appears ill, moaning, unresponsive to verbal stimuli. Neck: Supple. No masses. HEENT: PERRL. Normal lids and conjunctiva. Moist mucous membranes. Oropharynx without lesions, exudates or excessive erythema. Normal appearance of the external aspects of the nose and ears. Heart: Regular rhythm, normal rate. No murmur. No lower extremity edema. Lungs: Normal respiratory effort. Clear to auscultation bilaterally. No wheezes. No crackles. Abdomen: Soft. Non-tender. Non-distended. No masses or abdominal hernia. Colostomy bag site appears dry and intact. Msk: No digital cyanosis. Normal strength and tone in all 4 limbs. Skin: Warm and dry, no rashes. Neuro: Moaning, unresponsive to verbal stimuli. Unable to assess orientation. Psych: Unable to assess mood and affect. Unresponsive. Oriented to person, place, time, and situation: Unable to assess. laboratory and microbiology Laboratory Tests 06/02/24 05:52 05/29/24 19:10 Test 06/02/24 05:52 Range/Units Serum Glucose 57 L 74-106 mg/dL Problem List/Assessment/Plan Problems(with codes): (1) Hypotensive episode (2) Colostomy in place (3) Community acquired bacterial pneumonia (4) Physical deconditioning (5) Altered mental status (6) UTI (urinary tract infection) (7) Renal failure (8) COPD (chronic obstructive pulmonary disease) (9) GRACIELA (acute kidney injury) Problem List/Assessment/Plan ID Problem List: - Altered mental status - Seizure disorder COPD - Pneumonia - Urinary tract infection - Septic shock - Acute renal failure - Possible congestive heart failure exacerbation - Left clavicle displacement - Anemia - Strocoral collitis Assessment This is a 73 y.o. female with a past medical history of COPD, diabetes mellitus, recurrent UTIs, multiple myocardial infarctions, recent sepsis, cerebrovascular accident (stroke), colostomy placement, congestive heart failure, and seizure disorder, who presents with altered mental status. She was found to be hypotensive with a blood pressure of 79/55?mmHg, hypothermic with a rectal temperature of 95.6?F, and heart rate in the 80s. On examination, the patient is moaning and unresponsive to verbal stimuli. Laboratory studies reveal leukocytosis with WBC 15.4, thrombocytosis with platelets 521, anemia with hemoglobin 7.2 and hematocrit 23, elevated creatinine 8.06 indicating acute renal failure, hyponatremia (Na 129), hyperkalemia (K 6.7), elevated lactic acid 3.9. Liver enzymes are elevated with AST 264 and ALT 69. Urinalysis shows 17 WBCs, 3+ leukocytes, moderate yeast, and bacteria. Chest X-ray revealed a deep sulcus sign of the left costophrenic angle suggestive of possible pneumothorax; CT was recommended. Chest CT showed new tree-in-bud opacities in both lungs likely infectious/inflammatory, chronic consolidation in the right upper lobe, stable ground-glass opacities in the right middle lobe, and an infrarenal abdominal aortic aneurysm measuring 35?mm. Head CT showed no intracranial process. Shoulder X-ray showed the left clavicle is superiorly displaced, possibly chronic. 05/29: urine cultures are growing great than 100,00 yeast and blood cultures have no growth to date , whitecount is 7.3 and signs of sepsis are improving 06/01: Responding to antibiotic therapy , kidney function is improving . MRSA nares is negative 06/02: CT shows no hydronephoris , no renal stones and dense stool in the rectum with adjacent stranding , no small bowel obstruction , stucural colitis Plan: - Start ceftriaxone - Stop Zosyn - Start patient on bowel regimen to relieve constipation - recommend carias change - Septic shock: - Initiate fluid resuscitation to maintain MAP >65?mmHg. - Start vasopressors as needed. - Consider corticosteroids if hemodynamics do not improve. - Obtain blood cultures and urine cultures; follow up on results. - Recommend MRSA nasal swab and sputum culture. - Consider addition of doxycycline if respiratory status declines. - Acute renal failure: - Defer management to the nephrology team. - Patient will likely require dialysis. - Possible congestive heart failure exacerbation: - Recommend transthoracic echocardiogram (TTE) to evaluate cardiac function. - Obtain pro-BNP level. - Pneumonia: - Continue current antibiotics; adjust per culture results and sensitivities. - Altered mental status: - Monitor neurological status. - Defer seizure disorder management to neurology. - Electrolyte abnormalities: - Hyperkalemia (K 6.7): Implement hyperkalemia protocol. - Hyponatremia (Na 129): Monitor and correct sodium levels cautiously. - Anemia: - Monitor hemoglobin and hematocrit. - Consider transfusion if necessary. - Left clavicle displacement: - Consult orthopedics to evaluate left clavicle displacement. Plan discussed with: Other Dietary Evaluation Review Comments: Continue current plan of care Expected Outcomes/Goals: F/U in 3-5 days DIGNA OVERTON MD Jun 02, 2024 22:16
[2024-06-03] VITALS (8 sets, daily range): BP systolic 93–118; BP diastolic 25–69; PULSE 68–102; RESP 14–20; TEMP 97.4–98.2; O2SAT 82–100
[2024-06-03 06:32] LABS: Anion Gap 10 (5-15); Carbon Dioxide 26 mmol/L (20-31); Chloride 104 mmol/L (98-107); Sodium 140 mmol/L (136-145)
[2024-06-03 06:34] LABS: Calcium 9.3 mg/dL (8.7-10.4)
[2024-06-03 06:36] LABS: Potassium 3.4 mmol/L (3.5-5.1)
[2024-06-03 06:39] LABS: Blood Urea Nitrogen 16 mg/dL (9-23)
[2024-06-03 06:40] LABS: Glucose 113 mg/dL (74-106)
[2024-06-03] MEDS: cefTRIAXone 2GM/50ML D5W 50 ML IV SCH (11:18)
--- NOTE | 2024-06-03 11:30 | DVHPN2 ---
Progress Note - Dictate Date Seen: Jun 03, 2024 Medical Necessity Reason Pt with a Central, PICC or Fol: Yes The following are medically ne: Machado Catheter Subjective Ms. Dlilard is a 73 years old right-handed female with a history of hypertension, dyslipidemia, chronic low back pain, chronic pain in the hips, she came to the hospital on 05/26/24 with a chief complaint of altered mental status. I saw her on 11/23/21 for ALOC/metabolic encephalopathy, 12/28/21 for ALOC, 02/15/2022 for stroke, 04/19/2023 for seizure, 11/24/2023, 04/12/24 for encephalopathy, 03/31/2024 for ALOC I have seen and examined the patient, I have talked to her nurse, she is tired today, she is oriented 2, socially reasonable Urine culture, 05/27/2024: Yeast Blood culture, 05/26/2024: Negative Urinalysis, 05/26/2024: WBC: 17, urine leukocyte esterase: 3+ WBC/HB/PLT/MCV, 05/28/2024: 7.9/8.19/367/94.1 Na, 05/26/2024: 124, 129, 05/27/2020 4:135 K, 05/26/2024: 6.7, 5.6, 05/28/2024: Sleep, sleep BUN/CR, 05/26/2024: 215/8.16, 05/26/2024: 223/8.06, : 160/5.88, 05/31/2024: 93/4.16 Lactic acid, 05/26/2024: 3.9, 3.2 TBI/AST/ALT/AP, 05/26/2024: 0.8/73/87/342, 05/29/24: 0.3/82/53/152 Vitamin B12, 03/2023: 395, : 968 Folic acid, 11/2021: 24, 03/29/2024: 13.56 TSH, 11/2021: 0.27 03/2024: 1.1 EEG, 12/29/2021: Normal EEG, 02/15/2022: Normal EEG, 04/11/2024: Bilateral PLEDs Carotid Doppler, 04/11/2024: No hemodynamically significant stenosis within the carotid arteries X-ray, Left shoulder 05/26/2024, There is no evidence of acute fracture or dislocation. The left clavicle appears superiorly displaced. This could be chronic in nature CT head, 05/26/2024: No acute intracranial process CT chest, 05/26/2024: Previously seen ground-glass opacities have largely resolved. New tree-in-bud nodularity in both lungs. Likely infectious/inflammatory. Chronic consolidation right upper lobe. Stable ground-glass opacity right middle lobe. Clinical correlation and continued follow-up is recommended. Infrarenal abdominal aortic aneurysm measuring up to 35 mm. Consider further evaluation with CT of the abdomen and pelvis. MRI head, 12/29/2021: There is mild to moderate microvascular ischemic disease of supratentorial white matter. There is moderate to severe microvascular ischemic disease of the brain stem. There is no acute infarct. There is no hemorrhage, mass or hydrocephalus. No brain atrophy MRI head, 02/15/2022: Motion degraded study There is no acute infarct. There is no hemorrhage. There is mild to moderate microvascular ischemic disease of supratentorial white matter. There is a moderate to severe microvascular ischemic disease of the brainstem MRI head, 04/11/2024: 1. There is no acute intracranial process. 2. Sgnx-fy-sjdebgpt chronic microvascular ischemic changes vital signs Vital Sign Date Time Temp Pulse Resp B/P (MAP) Pulse Ox O2 Delivery O2 Flow Rate FiO2 06/03/24 09:00 98.2 74 14 110/56 (74) 99 98.2 06/03/24 08:00 Room Air* 0 21 Total Intake and Output 06/02/24 06/02/24 06/03/24 15:00 23:00 07:00 Intake Total 790 ml 2065 ml 250 ml Output Total 1000 ml 550 ml Balance 790 ml 1065 ml -300 ml medications Current Medications Medications Dose Ordered Sig/Arielle Route Start Time Stop Time Status Last Admin Dose Admin Enoxaparin Sodium 40 mg DAILY SC 05/27/24 10:00 UNV Nitroglycerin 0.4 mg Q5MINP PRN SL 05/26/24 14:30 Morphine Sulfate 2 mg Q30M PRN IV 05/26/24 14:30 Clopidogrel Bisulfate 75 mg DAILY PO 05/27/24 10:00 06/03/24 10:25 75 MG Ferrous Sulfate 325 mg TUTHSA PO 05/27/24 10:00 06/03/24 10:26 325 MG Levetiracetam 500 mg BID PO 05/26/24 22:00 06/03/24 10:25 500 MG Pantoprazole Sodium 40 mg DAILY PO 05/27/24 10:00 06/03/24 10:26 40 MG Atorvastatin Calcium 10 mg DAILY PO 05/27/24 10:00 06/03/24 10:26 10 MG Gabapentin 300 mg DAILY PO 05/27/24 12:45 06/03/24 10:26 300 MG Lorazepam 1 mg Q5MINP PRN IV 05/28/24 17:45 Acetaminophen/ Hydrocodone Bitart 1 tab Q6HPRN PRN PO 05/30/24 17:45 06/03/24 00:49 1 TAB Calcium Acetate 1,334 mg TIDWMEALS PO 05/31/24 08:00 06/03/24 08:00 1,334 MG Morphine Sulfate 2 mg Q4HP PRN IV 05/31/24 12:15 Sodium Chloride 1,000 ml @ 75 mls/hr [id number] IV 05/31/24 16:45 06/03/24 10:27 75 MLS/HR Ceftriaxone Sodium/Dextrose 50 ml @ 50 mls/hr DAILY IV 06/03/24 10:00 06/03/24 11:18 50 MLS/HR objective General: the patient is cachectic MENTAL STATUS: Subjective SPEECH, LANGUAGE, HIGHER CORTICAL FUNCTION: no aphasia or dysathria. CRANIAL NERVES: Pupils are equal, round and reactive. EOMs full and conjugate. Facial sensation intact in all three divisions bilaterally. Mandibular strength intact. Facial muscles symmetrical and strength intact. SENSATION: Sensation to touch and pinprick is sign MOTOR: Normal tone in the upper and lower extremity. Normal muscle bulk. No fasciculations. No abnormal movements or posturing. She moves arms and legs REFLEXES: Deep tendon reflexes are symmetrical. No pathological reflexes. CEREBELLAR/COORDINATION: Deferred GAIT/STATION: deferred laboratory and microbiology Laboratory Tests 06/03/24 04:50 05/29/24 19:10 Test 06/03/24 04:50 Range/Units Serum Glucose 113 H 74-106 mg/dL Problem List Altered mental status Likely metabolic encephalopathy ? Status epileptics ? Partial complex seizure Lactic acidosis/sepsis Urinary tract infection Septic shock Seizure Kidney failure Cachexia Assessment/Plan Monitoring Supportive treatment Follow up lab EEG IV antibiotics Keppra 500mg Bid Ativan for seizure breakthrough GI prophylaxis/pantoprazole Infectious disease on case Urology on case More recommendation per clinical course This medical document was created using an electronic medical record system with [employer] dictation system. Although this document has been carefully reviewed, there may still be some phonetic and typographical errors. These areas are purely typographical due to imperfections of the software programs, and do not reflect any compromise in the patient's medical care Prognosis poor Dietary Evaluation Review Comments: Continue current plan of care Expected Outcomes/Goals: F/U in 3-5 days Plan discussed with: Other CHINA RIVERA MD Jun 03, 2024 11:30
--- NOTE | 2024-06-03 13:46 | DVHPN2 ---
Progress Note - Dictate Date Seen: Jun 03, 2024 Medical Necessity Reason Pt with a Central, PICC or Fol: Yes The following are medically ne: Machado Catheter vital signs Vital Sign Date Time Temp Pulse Resp B/P (MAP) Pulse Ox O2 Delivery O2 Flow Rate FiO2 06/03/24 13:00 97.5 102 18 112/67 (82) 98 97.5 06/03/24 08:00 Room Air* 0 21 Total Intake and Output 06/02/24 06/02/24 06/03/24 15:00 23:00 07:00 Intake Total 790 ml 2065 ml 250 ml Output Total 1000 ml 550 ml Balance 790 ml 1065 ml -300 ml medications Current Medications Medications Dose Ordered Sig/Arielle Route Start Time Stop Time Status Last Admin Dose Admin Enoxaparin Sodium 40 mg DAILY SC 05/27/24 10:00 UNV Nitroglycerin 0.4 mg Q5MINP PRN SL 05/26/24 14:30 Morphine Sulfate 2 mg Q30M PRN IV 05/26/24 14:30 Clopidogrel Bisulfate 75 mg DAILY PO 05/27/24 10:00 06/03/24 10:25 75 MG Ferrous Sulfate 325 mg TUTHSA PO 05/27/24 10:00 06/03/24 10:26 325 MG Levetiracetam 500 mg BID PO 05/26/24 22:00 06/03/24 10:25 500 MG Pantoprazole Sodium 40 mg DAILY PO 05/27/24 10:00 06/03/24 10:26 40 MG Atorvastatin Calcium 10 mg DAILY PO 05/27/24 10:00 06/03/24 10:26 10 MG Gabapentin 300 mg DAILY PO 05/27/24 12:45 06/03/24 10:26 300 MG Lorazepam 1 mg Q5MINP PRN IV 05/28/24 17:45 Acetaminophen/ Hydrocodone Bitart 1 tab Q6HPRN PRN PO 05/30/24 17:45 06/03/24 00:49 1 TAB Calcium Acetate 1,334 mg TIDWMEALS PO 05/31/24 08:00 06/03/24 12:00 1,334 MG Morphine Sulfate 2 mg Q4HP PRN IV 05/31/24 12:15 Sodium Chloride 1,000 ml @ 75 mls/hr [id number] IV 05/31/24 16:45 12/14/24 10:27 75 MLS/HR Ceftriaxone Sodium/Dextrose 50 ml @ 50 mls/hr DAILY IV 06/03/24 10:00 06/03/24 11:18 50 MLS/HR objective General Appearance: alert, no distress HEENT: EOMI, PERRLA, normal external inspect of ears, no icterus, no nasal drainage Neck: no carotid bruit, no jugular venous distention (JVD), no lymphadenopathy Chest: normal thorax Respiratory: clear to auscultation, normal air movement Cardiovascular: regular rate and rhythm, no diastolic murmur, no jugular venous distention (JVD), no rub, no systolic murmur Abdominal: soft, no hepatomegaly, no mass, no splenomegaly, no tenderness Genitourinary: grossly normal external Musculoskeletal: no joint tenderness, no swelling Extremities: normal pulses, no calf tenderness, no clubbing, no cyanosis, no edema Skin: no bruising, no jaundice, no rash Neurological: alert, No focal deficit laboratory and microbiology Laboratory Tests 06/03/24 04:50 05/29/24 19:10 Test 06/03/24 04:50 Range/Units Serum Glucose 113 H 74-106 mg/dL Problem List 1. Acute metabolic encephalopathy likely related to sepsis 2. GRACIELA likely with ATN Nephrology consult, IV fluids 3. Hyperkalemia Nephrology consult, hyperkalemia protocol 4. Pneumonia likely Gram-negative or Gram-positive IV antibiotics 5. Severe malnourished Dietary consult 6. History of CVA 7. COPD Managed treatments 8. Seizures Continue home medication Assessment/Plan Subjective Patient is awake and alert. Objective Patient was admitted for acute metabolic encephalopathy due to uremia and acute renal failure. Patient's GRACIELA has now resolved. Patient is making good urine output. Patient's mentation is at baseline. Plan Continue current treatment. school services officer consult. Patient was on hospice services. DC planning back to hospice care. Dietary Evaluation Review Comments: Continue current plan of care Expected Outcomes/Goals: F/U in 3-5 days Plan discussed with: Patient, Other MARTÍN CHAWLA NP Jun 03, 2024 13:46
[2024-06-03 13:56] LABS: Basophils # (auto) 0 10 ^3/uL (0-0.2); Basophils % (auto) 0.5 % (0.0-2.0); Eosinophils # (auto) 0 10 ^3/uL (0-0.8); Eosinophils % (auto) 0.1 % (0.0-7.0); Hematocrit 39.3 % (36.0-46.0); Hemoglobin 13.4 g/dL (12.2-16.2); Lymphocytes # (auto) 1.6 10 ^3/uL (0.4-5.4); Lymphocytes % (auto) 27.9 % (10.0-50.0); Mean Corpuscular Hemoglobin 33.6 pg (28.0-32.0); Mean Corpuscular Hgb Conc. 34.2 g/dL (32.0-36.0); Mean Corpuscular Volume 98.2 fL (80.0-100.0); Monocytes # (auto) 0.8 10 ^3/uL (0-1.3); Monocytes % (auto) 14.1 % (0.0-12.0); Neutrophils # (auto) 3.2 10 ^3/uL (1.6-8.6); Neutrophils % (auto) 57.4 % (37.0-80.0); Nucleated Red Blood Cells % 0.1 %; Platelet Count (auto) 190 10^3/uL (140-450); Red Cell Distribution Width 14.2 % (11.8-14.3); White Blood Cell 5.6 10^3/uL (4.4-10.8)
--- NOTE | 2024-06-03 15:53 | DVHPN2 ---
Progress Note Date Seen: Jun 03, 2024 Medical Necessity Reason Pt with a Central, PICC or Fol: Yes The following are medically ne: [place] Catheter Subjective Patient reports: Feels better Objective vital signs Vital Sign Date Time Temp Pulse Resp B/P (MAP) Pulse Ox O2 Delivery O2 Flow Rate FiO2 06/03/24 13:00 97.5 102 18 112/67 (82) 98 97.5 06/03/24 08:00 Room Air* 0 21 Total Intake and Output 06/02/24 06/02/24 06/03/24 15:00 23:00 07:00 Intake Total 790 ml 2065 ml 250 ml Output Total 1000 ml 550 ml Balance 790 ml 1065 ml -300 ml medications Current Medications Medications Dose Ordered Sig/Arielle Route Start Time Stop Time Status Last Admin Dose Admin Enoxaparin Sodium 40 mg DAILY SC 05/27/24 10:00 UNV Nitroglycerin 0.4 mg Q5MINP PRN SL 05/26/24 14:30 Morphine Sulfate 2 mg Q30M PRN IV 05/26/24 14:30 Clopidogrel Bisulfate 75 mg DAILY PO 05/27/24 10:00 06/03/24 10:25 75 MG Ferrous Sulfate 325 mg TUTHSA PO 05/27/24 10:00 06/03/24 10:26 325 MG Levetiracetam 500 mg BID PO 05/26/24 22:00 06/03/24 10:25 500 MG Pantoprazole Sodium 40 mg DAILY PO 05/27/24 10:00 06/03/24 10:26 40 MG Atorvastatin Calcium 10 mg DAILY PO 05/27/24 10:00 06/03/24 10:26 10 MG Gabapentin 300 mg DAILY PO 05/27/24 12:45 06/03/24 10:26 300 MG Lorazepam 1 mg Q5MINP PRN IV 05/28/24 17:45 Acetaminophen/ Hydrocodone Bitart 1 tab Q6HPRN PRN PO 05/30/24 17:45 06/03/24 00:49 1 TAB Calcium Acetate 1,334 mg TIDWMEALS PO 05/31/24 08:00 06/03/24 12:00 1,334 MG Morphine Sulfate 2 mg Q4HP PRN IV 05/31/24 12:15 Sodium Chloride 1,000 ml @ 75 mls/hr [id number] IV 05/31/24 16:45 06/03/24 10:27 75 MLS/HR Ceftriaxone Sodium/Dextrose 50 ml @ 50 mls/hr DAILY IV 06/03/24 10:00 06/03/24 11:18 50 MLS/HR Examination: GENERAL:Abnormal, CVS:Normal laboratory and microbiology Laboratory Tests 06/03/24 04:52 06/03/24 04:50 Test 06/03/24 04:50 Range/Units Serum Glucose 113 H 74-106 mg/dL Microbiology Date/Time Source Procedure Growth Status 05/30/24 08:20 Nose MRSA Screen - Final Complete 05/27/24 08:55 Urine - [place] Urine Culture - Final Yeast, not Bella albicans Complete 05/26/24 17:04 Blood Blood Culture - Final NO GROWTH AFTER 5 DAYS OF INCUBATION. Complete Problem List/Assessment/Plan Problem List/Assessment/Plan 1) acute kidney injury likely acute tubular necrosis 2) toxic metabolic, possible uremic encephalopathy---resolved 3) hyperkalemia now hypokalemia Hypocalcemia Hyperphosphatemia GRACIELA is resolving strict i and o Continue PhosLo, check phos level tomorrow Plan discussed with: Patient Dietary Evaluation Review Comments: Continue current plan of care Expected Outcomes/Goals: F/U in 3-5 days ALEJANDRO SABA MD Jun 03, 2024 15:53
--- NOTE | 2024-06-03 23:52 | DVHPN2 ---
Consult Progress Note Date Seen: Jun 03, 2024 Subjective Patient reports: Other (low BP 118/25 likely to be an error , good bowel movement and urine output , is mentating well ) Objective vital signs Vital Sign Date Time Temp Pulse Resp B/P (MAP) Pulse Ox O2 Delivery O2 Flow Rate FiO2 06/03/24 21:00 97.4 90 20 118/25 (56) 82 97.4 06/03/24 20:00 Room Air* 0 21 Total Intake and Output 06/02/24 06/02/24 06/03/24 15:00 23:00 07:00 Intake Total 790 ml 2065 ml 250 ml Output Total 1000 ml 550 ml Balance 790 ml 1065 ml -300 ml medications Current Medications Medications Dose Ordered Sig/Arielle Route Start Time Stop Time Status Last Admin Dose Admin Enoxaparin Sodium 40 mg DAILY SC 05/27/24 10:00 UNV Nitroglycerin 0.4 mg Q5MINP PRN SL 05/26/24 14:30 Morphine Sulfate 2 mg Q30M PRN IV 05/26/24 14:30 Clopidogrel Bisulfate 75 mg DAILY PO 05/27/24 10:00 06/03/24 10:25 75 MG Ferrous Sulfate 325 mg TUTHSA PO 05/27/24 10:00 06/03/24 10:26 325 MG Levetiracetam 500 mg BID PO 05/26/24 22:00 06/03/24 21:18 500 MG Pantoprazole Sodium 40 mg DAILY PO 05/27/24 10:00 06/03/24 10:26 40 MG Atorvastatin Calcium 10 mg DAILY PO 05/27/24 10:00 06/03/24 10:26 10 MG Gabapentin 300 mg DAILY PO 05/27/24 12:45 06/03/24 10:26 300 MG Lorazepam 1 mg Q5MINP PRN IV 05/28/24 17:45 Acetaminophen/ Hydrocodone Bitart 1 tab Q6HPRN PRN PO 05/30/24 17:45 06/03/24 21:17 1 TAB Calcium Acetate 1,334 mg TIDWMEALS PO 05/31/24 08:00 06/03/24 18:09 1,334 MG Morphine Sulfate 2 mg Q4HP PRN IV 05/31/24 12:15 Sodium Chloride 1,000 ml @ 75 mls/hr [id number] IV 05/31/24 16:45 06/03/24 10:27 75 MLS/HR Ceftriaxone Sodium/Dextrose 50 ml @ 50 mls/hr DAILY IV 06/03/24 10:00 06/03/24 11:18 50 MLS/HR Physical Exam: General: Appears ill, moaning, unresponsive to verbal stimuli. Neck: Supple. No masses. HEENT: PERRL. Normal lids and conjunctiva. Moist mucous membranes. Oropharynx without lesions, exudates or excessive erythema. Normal appearance of the external aspects of the nose and ears. Heart: Regular rhythm, normal rate. No murmur. No lower extremity edema. Lungs: Normal respiratory effort. Clear to auscultation bilaterally. No wheezes. No crackles. Abdomen: Soft. Non-tender. Non-distended. No masses or abdominal hernia. Colostomy bag site appears dry and intact. Msk: No digital cyanosis. Normal strength and tone in all 4 limbs. Skin: Warm and dry, no rashes. Neuro: Moaning, unresponsive to verbal stimuli. Unable to assess orientation. Psych: Unable to assess mood and affect. Unresponsive. Oriented to person, place, time, and situation: Unable to assess. laboratory and microbiology Laboratory Tests 06/03/24 04:52 06/03/24 04:50 Test 06/03/24 04:50 Range/Units Serum Glucose 113 H 74-106 mg/dL Problem List/Assessment/Plan Problems(with codes): (1) Hypotensive episode (2) Colostomy in place (3) Community acquired bacterial pneumonia (4) Physical deconditioning (5) Altered mental status (6) UTI (urinary tract infection) (7) Renal failure (8) COPD (chronic obstructive pulmonary disease) (9) GRACIELA (acute kidney injury) Problem List/Assessment/Plan ID Problem List: - Altered mental status - Seizure disorder COPD - Pneumonia - Urinary tract infection - Septic shock - Acute renal failure - Possible congestive heart failure exacerbation - Left clavicle displacement - Anemia - Strocoral collitis Assessment This is a 73 y.o. female with a past medical history of COPD, diabetes mellitus, recurrent UTIs, multiple myocardial infarctions, recent sepsis, cerebrovascular accident (stroke), colostomy placement, congestive heart failure, and seizure disorder, who presents with altered mental status. She was found to be hypotensive with a blood pressure of 79/55?mmHg, hypothermic with a rectal temperature of 95.6?F, and heart rate in the 80s. On examination, the patient is moaning and unresponsive to verbal stimuli. Laboratory studies reveal leukocytosis with WBC 15.4, thrombocytosis with platelets 521, anemia with hemoglobin 7.2 and hematocrit 23, elevated creatinine 8.06 indicating acute renal failure, hyponatremia (Na 129), hyperkalemia (K 6.7), elevated lactic acid 3.9. Liver enzymes are elevated with AST 264 and ALT 69. Urinalysis shows 17 WBCs, 3+ leukocytes, moderate yeast, and bacteria. Chest X-ray revealed a deep sulcus sign of the left costophrenic angle suggestive of possible pneumothorax; CT was recommended. Chest CT showed new tree-in-bud opacities in both lungs likely infectious/inflammatory, chronic consolidation in the right upper lobe, stable ground-glass opacities in the right middle lobe, and an infrarenal abdominal aortic aneurysm measuring 35?mm. Head CT showed no intracranial process. Shoulder X-ray showed the left clavicle is superiorly displaced, possibly chronic. 05/29: urine cultures are growing great than 100,00 yeast and blood cultures have no growth to date , whitecount is 7.3 and signs of sepsis are improving 06/01: Responding to antibiotic therapy , kidney function is improving . MRSA nares is negative 06/02: CT shows no hydronephoris , no renal stones and dense stool in the rectum with adjacent stranding , no small bowel obstruction , stucural colitis Plan: - Continue ceftriaxone - Start patient on bowel regimen to relieve constipation - recommend carias change - Septic shock: - Initiate fluid resuscitation to maintain MAP >65?mmHg. - Start vasopressors as needed. - Consider corticosteroids if hemodynamics do not improve. - Obtain blood cultures and urine cultures; follow up on results. - Recommend MRSA nasal swab and sputum culture. - Consider addition of doxycycline if respiratory status declines. - Acute renal failure: - Defer management to the nephrology team. - Patient will likely require dialysis. - Possible congestive heart failure exacerbation: - Recommend transthoracic echocardiogram (TTE) to evaluate cardiac function. - Obtain pro-BNP level. - Pneumonia: - Continue current antibiotics; adjust per culture results and sensitivities. - Altered mental status: - Monitor neurological status. - Defer seizure disorder management to neurology. - Electrolyte abnormalities: - Hyperkalemia (K 6.7): Implement hyperkalemia protocol. - Hyponatremia (Na 129): Monitor and correct sodium levels cautiously. - Anemia: - Monitor hemoglobin and hematocrit. - Consider transfusion if necessary. - Left clavicle displacement: - Consult orthopedics to evaluate left clavicle displacement. Plan discussed with: Other Dietary Evaluation Review Comments: Continue current plan of care Expected Outcomes/Goals: F/U in 3-5 days DIGNA OVERTON MD Jun 03, 2024 23:52
[2024-06-04] VITALS (8 sets, daily range): BP systolic 96–125; BP diastolic 56–81; PULSE 61–89; RESP 17–18; TEMP 97.5–98.8; O2SAT 92–100
[2024-06-04 06:22] LABS: Anion Gap 12 (5-15); Carbon Dioxide 26 mmol/L (20-31); Chloride 106 mmol/L (98-107); Sodium 144 mmol/L (136-145)
[2024-06-04 06:27] LABS: Glucose 96 mg/dL (74-106)
[2024-06-04 06:28] LABS: BUN/Creatinine Ratio 16.5 (10.0-20.0)
[2024-06-04 06:30] LABS: Phosphorus 2.6 mg/dL (2.4-5.1)
[2024-06-04 06:43] LABS: Blood Urea Nitrogen 38 mg/dL (9-23); Calcium 6.9 mg/dL (8.7-10.4)
--- NOTE | 2024-06-04 12:37 | DVHPN2 ---
Progress Note - Dictate Date Seen: Jun 04, 2024 Medical Necessity Reason Pt with a Central, PICC or Fol: Yes The following are medically ne: [place] Catheter vital signs Vital Sign Date Time Temp Pulse Resp B/P (MAP) Pulse Ox O2 Delivery O2 Flow Rate FiO2 06/04/24 09:00 97.8 83 18 97 97.8 06/04/24 08:00 Room Air* 0 21 06/04/24 05:00 111/60 (77) Total Intake and Output 06/03/24 06/03/24 06/04/24 15:00 23:00 07:00 Intake Total 625 ml 875 ml 1035 ml Output Total 1275 ml 1150 ml Balance 625 ml -400 ml -115 ml medications Current Medications Medications Dose Ordered Sig/Arielle Route Start Time Stop Time Status Last Admin Dose Admin Enoxaparin Sodium 40 mg DAILY SC 05/27/24 10:00 UNV Nitroglycerin 0.4 mg Q5MINP PRN SL 05/26/24 14:30 Morphine Sulfate 2 mg Q30M PRN IV 05/26/24 14:30 Clopidogrel Bisulfate 75 mg DAILY PO 05/27/24 10:00 06/04/24 10:36 75 MG Ferrous Sulfate 325 mg TUTHSA PO 05/27/24 10:00 06/03/24 10:26 325 MG Levetiracetam 500 mg BID PO 05/26/24 22:00 06/04/24 10:35 500 MG Pantoprazole Sodium 40 mg DAILY PO 05/27/24 10:00 06/04/24 10:36 40 MG Atorvastatin Calcium 10 mg DAILY PO 05/27/24 10:00 06/04/24 10:36 10 MG Gabapentin 300 mg DAILY PO 05/27/24 12:45 06/04/24 10:36 300 MG Lorazepam 1 mg Q5MINP PRN IV 05/28/24 17:45 Acetaminophen/ Hydrocodone Bitart 1 tab Q6HPRN PRN PO 05/30/24 17:45 06/04/24 06:28 1 TAB Calcium Acetate 1,334 mg TIDWMEALS PO 05/31/24 08:00 06/04/24 08:21 1,334 MG Morphine Sulfate 2 mg Q4HP PRN IV 05/31/24 12:15 Sodium Chloride 1,000 ml @ 75 mls/hr [id number] IV 05/31/24 16:45 06/04/24 01:29 75 MLS/HR Ceftriaxone Sodium/Dextrose 50 ml @ 50 mls/hr DAILY IV 06/03/24 10:00 06/04/24 10:36 50 MLS/HR objective General Appearance: alert, no distress HEENT: EOMI, PERRLA, normal external inspect of ears, no icterus, no nasal drainage Neck: no carotid bruit, no jugular venous distention (JVD), no lymphadenopathy Chest: normal thorax Respiratory: clear to auscultation, normal air movement Cardiovascular: regular rate and rhythm, no diastolic murmur, no jugular venous distention (JVD), no rub, no systolic murmur Abdominal: soft, no hepatomegaly, no mass, no splenomegaly, no tenderness Genitourinary: grossly normal external Musculoskeletal: no joint tenderness, no swelling Extremities: normal pulses, no calf tenderness, no clubbing, no cyanosis, no edema Skin: no bruising, no jaundice, no rash Neurological: alert, No focal deficit laboratory and microbiology Laboratory Tests 06/04/24 05:00 06/03/24 04:52 Test 06/04/24 05:00 Range/Units Serum Glucose 96 74-106 mg/dL Problem List 1. Acute metabolic encephalopathy likely related to sepsis 2. GRACIELA likely with ATN Nephrology consult, IV fluids 3. Hyperkalemia Nephrology consult, hyperkalemia protocol 4. Pneumonia likely Gram-negative or Gram-positive IV antibiotics 5. Severe malnourished Dietary consult 6. History of CVA 7. COPD Managed treatments 8. Seizures Continue home medication Assessment/Plan Patient is awake and alert. Objective I spoke with patient's daughter Nisha who lives in [place] at length in regards to plan of care. Patient was at [facility] for rehab approximately 3 weeks. Her condition has rapidly declined. She was admitted for acute metabolic uremic encephalopathy. Patient had acute renal failure and she was bedbound. Patient's renal function is near baseline now. Patient was found to be sepsis with septic shock. Patient has pneumonia. Patient is doing well and her mentation is now at baseline. Per daughter she does not want patient to go back to [facility] due to her belief that patient was ignored and patient was very sick and septic upon admission. She states she did speak with the patient's director Will however she does not believe that they can accommodate and look after her mother properly. I also discussed plan of care with social work specialist Matilde. Plan PT eval. Patient is currently requiring a moderate to maximum amount of assistance and patient will most likely need jail facility. career services manager will discuss with family member and possibly look into transferring to a different jail facility for rehab. Continue antibiotics for pneumonia and sepsis. Dietary Evaluation Review Comments: Continue current plan of care Expected Outcomes/Goals: F/U in 3-5 days Plan discussed with: Patient, Other MARTÍN [employer]AWLA [employer]BER Jun 04, 2024 12:37
[2024-06-04] MEDS: POTASSIUM EFFERVESENT TAB 25 MEQ PO ONE (13:06)
--- NOTE | 2024-06-04 13:51 | DVHPN2 ---
Progress Note Date Seen: Jun 04, 2024 Medical Necessity Reason Pt with a Central, PICC or Fol: Yes The following are medically ne: [place] Catheter Subjective Patient reports: Feels better Objective vital signs Vital Sign Date Time Temp Pulse Resp B/P (MAP) Pulse Ox O2 Delivery O2 Flow Rate FiO2 06/04/24 09:00 97.8 83 18 97 97.8 06/04/24 08:00 Room Air* 0 21 06/04/24 05:00 111/60 (77) Total Intake and Output 06/03/24 06/03/24 06/04/24 15:00 23:00 07:00 Intake Total 625 ml 875 ml 1035 ml Output Total 1275 ml 1150 ml Balance 625 ml -400 ml -115 ml medications Current Medications Medications Dose Ordered Sig/Arielle Route Start Time Stop Time Status Last Admin Dose Admin Enoxaparin Sodium 40 mg DAILY SC 05/27/24 10:00 UNV Nitroglycerin 0.4 mg Q5MINP PRN SL 05/26/24 14:30 Morphine Sulfate 2 mg Q30M PRN IV 05/26/24 14:30 Clopidogrel Bisulfate 75 mg DAILY PO 05/27/24 10:00 06/04/24 10:36 75 MG Ferrous Sulfate 325 mg TUTHSA PO 05/27/24 10:00 06/03/24 10:26 325 MG Levetiracetam 500 mg BID PO 05/26/24 22:00 06/04/24 10:35 500 MG Pantoprazole Sodium 40 mg DAILY PO 05/27/24 10:00 06/04/24 10:36 40 MG Atorvastatin Calcium 10 mg DAILY PO 05/27/24 10:00 06/04/24 10:36 10 MG Gabapentin 300 mg DAILY PO 05/27/24 12:45 06/04/24 10:36 300 MG Lorazepam 1 mg Q5MINP PRN IV 05/28/24 17:45 Acetaminophen/ Hydrocodone Bitart 1 tab Q6HPRN PRN PO 05/30/24 17:45 06/04/24 06:28 1 TAB Calcium Acetate 1,334 mg TIDWMEALS PO 05/31/24 08:00 06/04/24 13:06 1,334 MG Morphine Sulfate 2 mg Q4HP PRN IV 05/31/24 12:15 Sodium Chloride 1,000 ml @ 75 mls/hr [id number] IV 05/31/24 16:45 06/04/24 01:29 75 MLS/HR Ceftriaxone Sodium/Dextrose 50 ml @ 50 mls/hr DAILY IV 06/03/24 10:00 06/04/24 10:36 50 MLS/HR Examination: GENERAL:Abnormal, CVS:Normal, ABDOMEN:Normal laboratory and microbiology Laboratory Tests 06/04/24 05:00 06/03/24 04:52 Test 06/04/24 05:00 Range/Units Serum Glucose 96 74-106 mg/dL Microbiology Date/Time Source Procedure Growth Status 05/30/24 08:20 Nose MRSA Screen - Final Complete 05/27/24 08:55 Urine - [place] Urine Culture - Final Yeast, not Bella albicans Complete 05/26/24 17:04 Blood Blood Culture - Final NO GROWTH AFTER 5 DAYS OF INCUBATION. Complete Problem List/Assessment/Plan Problem List/Assessment/Plan 1) acute kidney injury likely acute tubular necrosis 2) toxic metabolic, possible uremic encephalopathy---resolved 3) hyperkalemia now hypokalemia Hypocalcemia Hyperphosphatemia GRACIELA is resolving strict i and o potassium replacement phos level has normalized, cancel calcium acetate Plan discussed with: Patient Dietary Evaluation Review Comments: Continue current plan of care Expected Outcomes/Goals: F/U in 3-5 days ALEJANDRO SABA MD Jun 04, 2024 13:51
--- NOTE | 2024-06-04 20:10 | DVHPN2 ---
Consult Progress Note Date Seen: Jun 04, 2024 Subjective Patient reports: Other (mentating at baseline dementia , BPs are good and have 2 liters of stool output . has an GRACIELA ) Objective vital signs Vital Sign Date Time Temp Pulse Resp B/P (MAP) Pulse Ox O2 Delivery O2 Flow Rate FiO2 06/04/24 17:00 97.5 72 18 125/81 (96) 92 97.5 06/04/24 08:00 Room Air* 0 21 Total Intake and Output 06/03/24 06/03/24 06/04/24 15:00 23:00 07:00 Intake Total 625 ml 875 ml 1035 ml Output Total 1275 ml 1150 ml Balance 625 ml -400 ml -115 ml medications Current Medications Medications Dose Ordered Sig/Arielle Route Start Time Stop Time Status Last Admin Dose Admin Enoxaparin Sodium 40 mg DAILY SC 05/27/24 10:00 UNV Nitroglycerin 0.4 mg Q5MINP PRN SL 05/26/24 14:30 Clopidogrel Bisulfate 75 mg DAILY PO 05/27/24 10:00 06/04/24 10:36 75 MG Ferrous Sulfate 325 mg TUTHSA PO 05/27/24 10:00 06/03/24 10:26 325 MG Levetiracetam 500 mg BID PO 05/26/24 22:00 06/04/24 10:35 500 MG Pantoprazole Sodium 40 mg DAILY PO 05/27/24 10:00 06/04/24 10:36 40 MG Atorvastatin Calcium 10 mg DAILY PO 05/27/24 10:00 06/04/24 10:36 10 MG Gabapentin 300 mg DAILY PO 05/27/24 12:45 06/04/24 10:36 300 MG Lorazepam 1 mg Q5MINP PRN IV 05/28/24 17:45 Acetaminophen/ Hydrocodone Bitart 1 tab Q6HPRN PRN PO 05/30/24 17:45 06/04/24 06:28 1 TAB Morphine Sulfate 2 mg Q4HP PRN IV 05/31/24 12:15 Sodium Chloride 1,000 ml @ 75 mls/hr [id number] IV 05/31/24 16:45 06/04/24 15:01 75 MLS/HR Physical Exam: General: Appears ill, moaning, unresponsive to verbal stimuli. Neck: Supple. No masses. HEENT: PERRL. Normal lids and conjunctiva. Moist mucous membranes. Oropharynx without lesions, exudates or excessive erythema. Normal appearance of the external aspects of the nose and ears. Heart: Regular rhythm, normal rate. No murmur. No lower extremity edema. Lungs: Normal respiratory effort. Clear to auscultation bilaterally. No wheezes. No crackles. Abdomen: Soft. Non-tender. Non-distended. No masses or abdominal hernia. Colostomy bag site appears dry and intact. Msk: No digital cyanosis. Normal strength and tone in all 4 limbs. Skin: Warm and dry, no rashes. Neuro: Moaning, unresponsive to verbal stimuli. Unable to assess orientation. Psych: Unable to assess mood and affect. Unresponsive. Oriented to person, place, time, and situation: Unable to assess. laboratory and microbiology Laboratory Tests 06/04/24 05:00 06/03/24 04:52 Test 06/04/24 05:00 Range/Units Serum Glucose 96 74-106 mg/dL Problem List/Assessment/Plan Problems(with codes): (1) Hypotensive episode (2) Colostomy in place (3) Community acquired bacterial pneumonia (4) Physical deconditioning (5) Altered mental status (6) UTI (urinary tract infection) (7) Renal failure (8) COPD (chronic obstructive pulmonary disease) (9) GRACIELA (acute kidney injury) Problem List/Assessment/Plan ID Problem List: - Altered mental status - Seizure disorder COPD - Pneumonia - Urinary tract infection - Septic shock - Acute renal failure - Possible congestive heart failure exacerbation - Left clavicle displacement - Anemia - Strocoral collitis Assessment This is a 73 y.o. female with a past medical history of COPD, diabetes mellitus, recurrent UTIs, multiple myocardial infarctions, recent sepsis, cerebrovascular accident (stroke), colostomy placement, congestive heart failure, and seizure disorder, who presents with altered mental status. She was found to be hypotensive with a blood pressure of 79/55?mmHg, hypothermic with a rectal temperature of 95.6?F, and heart rate in the 80s. On examination, the patient is moaning and unresponsive to verbal stimuli. Laboratory studies reveal leukocytosis with WBC 15.4, thrombocytosis with platelets 521, anemia with hemoglobin 7.2 and hematocrit 23, elevated creatinine 8.06 indicating acute renal failure, hyponatremia (Na 129), hyperkalemia (K 6.7), elevated lactic acid 3.9. Liver enzymes are elevated with AST 264 and ALT 69. Urinalysis shows 17 WBCs, 3+ leukocytes, moderate yeast, and bacteria. Chest X-ray revealed a deep sulcus sign of the left costophrenic angle suggestive of possible pneumothorax; CT was recommended. Chest CT showed new tree-in-bud opacities in both lungs likely infectious/inflammatory, chronic consolidation in the right upper lobe, stable ground-glass opacities in the right middle lobe, and an infrarenal abdominal aortic aneurysm measuring 35?mm. Head CT showed no intracranial process. Shoulder X-ray showed the left clavicle is superiorly displaced, possibly chronic. 05/29: urine cultures are growing great than 100,00 yeast and blood cultures have no growth to date , whitecount is 7.3 and signs of sepsis are improving 06/01: Responding to antibiotic therapy , kidney function is improving . MRSA nares is negative 06/02: CT shows no hydronephoris , no renal stones and dense stool in the rectum with adjacent stranding , no small bowel obstruction , stucural colitis 06/04: suspect diarrhea is contributing to GRACIELA Plan: - Stop ceftriaxone - monitor patients off all antibiotics - Start patient on bowel regimen to relieve constipation - recommend carias change - Septic shock: - Initiate fluid resuscitation to maintain MAP >65?mmHg. - Start vasopressors as needed. - Consider corticosteroids if hemodynamics do not improve. - Obtain blood cultures and urine cultures; follow up on results. - Recommend MRSA nasal swab and sputum culture. - Consider addition of doxycycline if respiratory status declines. - Acute renal failure: - Defer management to the nephrology team. - Patient will likely require dialysis. - Possible congestive heart failure exacerbation: - Recommend transthoracic echocardiogram (TTE) to evaluate cardiac function. - Obtain pro-BNP level. - Pneumonia: - Continue current antibiotics; adjust per culture results and sensitivities. - Altered mental status: - Monitor neurological status. - Defer seizure disorder management to neurology. - Electrolyte abnormalities: - Hyperkalemia (K 6.7): Implement hyperkalemia protocol. - Hyponatremia (Na 129): Monitor and correct sodium levels cautiously. - Anemia: - Monitor hemoglobin and hematocrit. - Consider transfusion if necessary. - Left clavicle displacement: - Consult orthopedics to evaluate left clavicle displacement. Plan discussed with: Other Dietary Evaluation Review Comments: Continue current plan of care Expected Outcomes/Goals: F/U in 3-5 days DIGNA OVERTON MD Jun 04, 2024 20:10
[2024-06-05] VITALS (8 sets, daily range): BP systolic 103–115; BP diastolic 53–64; PULSE 62–113; RESP 16–18; TEMP 97.7–98.7; O2SAT 87–99
[2024-06-05 07:03] LABS: Chloride 107 mmol/L (98-107); Sodium 144 mmol/L (136-145)
[2024-06-05 07:10] LABS: BUN/Creatinine Ratio 15.7 (10.0-20.0); Blood Urea Nitrogen 29 mg/dL (9-23); Glucose 87 mg/dL (74-106); Potassium 3.1 mmol/L (3.5-5.1)
[2024-06-05 07:11] LABS: Calcium 6.6 mg/dL (8.7-10.4)
[2024-06-05 08:30] LABS: Anion Gap 8 (5-15); Carbon Dioxide 29 mmol/L (20-31)
--- NOTE | 2024-06-05 10:25 | DVHPN2 ---
Progress Note - Dictate Date Seen: Jun 05, 2024 Medical Necessity Reason Pt with a Central, PICC or Fol: Yes The following are medically ne: [place]ado Catheter Subjective Ms. Dillard is a 73 years old right-handed female with a history of hypertension, dyslipidemia, chronic low back pain, chronic pain in the hips, she came to the hospital on 05/26/24 with a chief complaint of altered mental status. I saw her on 11/23/21 for ALOC/metabolic encephalopathy, 12/28/21 for ALOC, 02/15/2022 for stroke, 04/19/2023 for seizure, 11/24/2023, 04/12/24 for encephalopathy, 03/31/2024 for ALOC I have seen and examined the patient, I have talked to her nurse, she is tired today, she is oriented 2, socially reasonable She reports pain in the legs She was numerous ecchymosis over her body Urine culture, 05/27/2024: Yeast Blood culture, 05/26/2024: Negative Urinalysis, 05/26/2024: WBC: 17, urine leukocyte esterase: 3+ WBC/HB/PLT/MCV, 05/28/2024: 7.9/8.19/367/94.1, 06/03/2024: 5.6/13.4/190/98.2 PT/INR/PTT, 05/26/2024: 15.8/1.54/29.1 Na, 05/26/2024: 124, 129, 05/27/2020 4:135 K, 05/26/2024: 6.7, 5.6, 05/28/2024: Sleep, sleep BUN/CR, 05/26/2024: 215/8.16, 05/26/2024: 223/8.06, : 160/5.88, 05/31/2024: 93/4.16 Lactic acid, 05/26/2024: 3.9, 3.2 TBI/AST/ALT/AP, 05/26/2024: 0.8/73/87/342, 05/29/24: 0.3/82/53/152 Vitamin B12, 03/2023: 395, : 968 Folic acid, 11/2021: 24, 03/29/2024: 13.56 TSH, 11/2021: 0.27 03/2024: 1.1 EEG, 12/29/2021: Normal EEG, 02/15/2022: Normal EEG, 04/11/2024: Bilateral PLEDs Carotid Doppler, 04/11/2024: No hemodynamically significant stenosis within the carotid arteries X-ray, Left shoulder 05/26/2024, There is no evidence of acute fracture or dislocation. The left clavicle appears superiorly displaced. This could be chronic in nature CT head, 05/26/2024: No acute intracranial process CT chest, 05/26/2024: Previously seen ground-glass opacities have largely resolved. New tree-in-bud nodularity in both lungs. Likely infectious/inflammatory. Chronic consolidation right upper lobe. Stable ground-glass opacity right middle lobe. Clinical correlation and continued follow-up is recommended. Infrarenal abdominal aortic aneurysm measuring up to 35 mm. Consider further evaluation with CT of the abdomen and pelvis. MRI head, 12/29/2021: There is mild to moderate microvascular ischemic disease of supratentorial white matter. There is moderate to severe microvascular ischemic disease of the brain stem. There is no acute infarct. There is no hemorrhage, mass or hydrocephalus. No brain atrophy MRI head, 02/15/2022: Motion degraded study There is no acute infarct. There is no hemorrhage. There is mild to moderate microvascular ischemic disease of supratentorial white matter. There is a moderate to severe microvascular ischemic disease of the brainstem MRI head, 04/11/2024: 1. There is no acute intracranial process. 2. [id number] chronic microvascular ischemic changes vital signs Vital Sign Date Time Temp Pulse Resp B/P (MAP) Pulse Ox O2 Delivery O2 Flow Rate FiO2 06/05/24 09:00 98.3 89 17 115/56 (75) 90 98.3 06/04/24 20:00 Room Air* 0 21 Total Intake and Output 06/04/24 06/04/24 06/05/24 15:00 23:00 07:00 Intake Total 50 ml 715 ml 1600 ml Output Total 425 ml 1000 ml Balance 50 ml 290 ml 600 ml medications Current Medications Medications Dose Ordered Sig/Arielle Route Start Time Stop Time Status Last Admin Dose Admin Enoxaparin Sodium 40 mg DAILY SC 05/27/24 10:00 UNV Nitroglycerin 0.4 mg Q5MINP PRN SL 05/26/24 14:30 Clopidogrel Bisulfate 75 mg DAILY PO 05/27/24 10:00 06/05/24 09:51 75 MG Ferrous Sulfate 325 mg TUTHSA PO 05/27/24 10:00 06/03/24 10:26 325 MG Levetiracetam 500 mg BID PO 05/26/24 22:00 06/05/24 09:51 500 MG Pantoprazole Sodium 40 mg DAILY PO 05/27/24 10:00 06/05/24 09:52 40 MG Atorvastatin Calcium 10 mg DAILY PO 05/27/24 10:00 06/05/24 09:52 10 MG Gabapentin 300 mg DAILY PO 05/27/24 12:45 06/05/24 09:51 300 MG Lorazepam 1 mg Q5MINP PRN IV 05/28/24 17:45 Acetaminophen/ Hydrocodone Bitart 1 tab Q6HPRN PRN PO 05/30/24 17:45 06/04/24 06:28 1 TAB Morphine Sulfate 2 mg Q4HP PRN IV 05/31/24 12:15 Sodium Chloride 1,000 ml @ 75 mls/hr [id number] IV 05/31/24 16:45 06/05/24 03:41 75 MLS/HR objective General: the patient is cachectic MENTAL STATUS: Subjective SPEECH, LANGUAGE, HIGHER CORTICAL FUNCTION: no aphasia or dysathria. CRANIAL NERVES: Pupils are equal, round and reactive. EOMs full and conjugate. Facial sensation intact in all three divisions bilaterally. Mandibular strength intact. Facial muscles symmetrical and strength intact. SENSATION: Sensation to touch and pinprick is sign MOTOR: Normal tone in the upper and lower extremity. Normal muscle bulk. No fasciculations. No abnormal movements or posturing. She moves arms and legs REFLEXES: Deep tendon reflexes are symmetrical. No pathological reflexes. CEREBELLAR/COORDINATION: Deferred GAIT/STATION: deferred laboratory and microbiology Laboratory Tests 06/05/24 06:03 06/03/24 04:52 Test 06/05/24 06:03 Range/Units Serum Glucose 87 74-106 mg/dL Problem List Altered mental status Likely metabolic encephalopathy ? Status epileptics ? Partial complex seizure Lactic acidosis/sepsis Urinary tract infection Septic shock Seizure Kidney failure Cachexia Ecchymosis Assessment/Plan Monitoring Supportive treatment Coagulation panel EEG IV antibiotics Keppra 500mg Bid Ativan for seizure breakthrough Pain management GI prophylaxis/pantoprazole Infectious disease on case Urology on case More recommendation per clinical course This medical document was created using an electronic medical record system with [employer] dictation system. Although this document has been carefully reviewed, there may still be some phonetic and typographical errors. These areas are purely typographical due to imperfections of the software programs, and do not reflect any compromise in the patient's medical care Prognosis poor Dietary Evaluation Review Comments: Continue current plan of care Expected Outcomes/Goals: F/U in 3-5 days Plan discussed with: Other CHINA RIVERA MD Jun 05, 2024 10:25
--- NOTE | 2024-06-05 11:04 | DVHPN2 ---
Progress Note - Dictate Date Seen: Jun 05, 2024 Medical Necessity Reason Pt with a Central, PICC or Fol: Yes The following are medically ne: [place]ado Catheter vital signs Vital Sign Date Time Temp Pulse Resp B/P (MAP) Pulse Ox O2 Delivery O2 Flow Rate FiO2 06/05/24 09:00 98.3 89 17 115/56 (75) 90 98.3 06/04/24 20:00 Room Air* 0 21 Total Intake and Output 06/04/24 06/04/24 06/05/24 14:59 22:59 06:59 Intake Total 50 ml 715 ml 1600 ml Output Total 425 ml 1000 ml Balance 50 ml 290 ml 600 ml medications Current Medications Medications Dose Ordered Sig/Arielle Route Start Time Stop Time Status Last Admin Dose Admin Enoxaparin Sodium 40 mg DAILY SC 05/27/24 10:00 UNV Nitroglycerin 0.4 mg Q5MINP PRN SL 05/26/24 14:30 Clopidogrel Bisulfate 75 mg DAILY PO 05/27/24 10:00 06/05/24 09:51 75 MG Ferrous Sulfate 325 mg TUTHSA PO 05/27/24 10:00 06/03/24 10:26 325 MG Levetiracetam 500 mg BID PO 05/26/24 22:00 06/05/24 09:51 500 MG Pantoprazole Sodium 40 mg DAILY PO 05/27/24 10:00 06/05/24 09:52 40 MG Atorvastatin Calcium 10 mg DAILY PO 05/27/24 10:00 06/05/24 09:52 10 MG Gabapentin 300 mg DAILY PO 05/27/24 12:45 06/05/24 09:51 300 MG Lorazepam 1 mg Q5MINP PRN IV 05/28/24 17:45 Acetaminophen/ Hydrocodone Bitart 1 tab Q6HPRN PRN PO 05/30/24 17:45 06/04/24 06:28 1 TAB Morphine Sulfate 2 mg Q4HP PRN IV 05/31/24 12:15 Sodium Chloride 1,000 ml @ 75 mls/hr [id number] IV 05/31/24 16:45 06/05/24 03:41 75 MLS/HR objective General Appearance: alert, no distress HEENT: EOMI, PERRLA, normal external inspect of ears, no icterus, no nasal drainage Neck: no carotid bruit, no jugular venous distention (JVD), no lymphadenopathy Chest: normal thorax Respiratory: clear to auscultation, normal air movement Cardiovascular: regular rate and rhythm, no diastolic murmur, no jugular venous distention (JVD), no rub, no systolic murmur Abdominal: soft, no hepatomegaly, no mass, no splenomegaly, no tenderness Genitourinary: grossly normal external Musculoskeletal: no joint tenderness, no swelling Extremities: normal pulses, no calf tenderness, no clubbing, no cyanosis, no edema Skin: no bruising, no jaundice, no rash Neurological: alert, No focal deficit laboratory and microbiology Laboratory Tests 06/05/24 06:03 06/03/24 04:52 Test 06/05/24 06:03 Range/Units Serum Glucose 87 74-106 mg/dL Problem List 1. Acute metabolic encephalopathy likely related to sepsis 2. GRACIELA likely with ATN Nephrology consult, IV fluids 3. Hyperkalemia Nephrology consult, hyperkalemia protocol 4. Pneumonia likely Gram-negative or Gram-positive IV antibiotics 5. Severe malnourished Dietary consult 6. History of CVA 7. COPD Managed treatments 8. Seizures Continue home medication Assessment/Plan Subjective: Patient is awake and alert. Objective: Patient is from [facility]. Admitted for acute renal failure. Hemoglobin is stable. GFR is 29, and creatinine is 1.85. Patient is refusing to return to [facility], and her family also refuses her return there. Plan: Continue current treatment, continue PT evaluation, and initiate a social media marketer consult for discharge planning to a different senior living facility. Dietary Evaluation Review Comments: Continue current plan of care Expected Outcomes/Goals: F/U in 3-5 days Plan discussed with: Patient, Other MARTÍN CHAWLA NP Jun 05, 2024 11:04
[2024-06-05 11:46] LABS: INR 2.1 (0.9-1.15); Prothrombin Time 21.1 sec (9.3-11.8)
--- NOTE | 2024-06-05 12:33 | DVHPN2 ---
Progress Note Date Seen: Jun 05, 2024 Medical Necessity Reason Pt with a Central, PICC or Fol: Yes The following are medically ne: Machado Catheter Subjective Patient reports: No new complaints Other Systems: Patient seen and examined by myself today in follow-up Objective vital signs Vital Sign Date Time Temp Pulse Resp B/P (MAP) Pulse Ox O2 Delivery O2 Flow Rate FiO2 06/05/24 09:00 98.3 89 17 115/56 (75) 90 98.3 06/05/24 08:00 Room Air* 0 21 Total Intake and Output 06/04/24 06/04/24 06/05/24 15:00 23:00 07:00 Intake Total 50 ml 715 ml 1600 ml Output Total 425 ml 1000 ml Balance 50 ml 290 ml 600 ml medications Current Medications Medications Dose Ordered Sig/Arielle Route Start Time Stop Time Status Last Admin Dose Admin Enoxaparin Sodium 40 mg DAILY SC 05/27/24 10:00 UNV Nitroglycerin 0.4 mg Q5MINP PRN SL 05/26/24 14:30 Clopidogrel Bisulfate 75 mg DAILY PO 05/27/24 10:00 06/05/24 09:51 75 MG Ferrous Sulfate 325 mg TUTHSA PO 05/27/24 10:00 06/03/24 10:26 325 MG Levetiracetam 500 mg BID PO 05/26/24 22:00 06/05/24 09:51 500 MG Pantoprazole Sodium 40 mg DAILY PO 05/27/24 10:00 06/05/24 09:52 40 MG Atorvastatin Calcium 10 mg DAILY PO 05/27/24 10:00 06/05/24 09:52 10 MG Gabapentin 300 mg DAILY PO 05/27/24 12:45 06/05/24 09:51 300 MG Lorazepam 1 mg Q5MINP PRN IV 05/28/24 17:45 Acetaminophen/ Hydrocodone Bitart 1 tab Q6HPRN PRN PO 05/30/24 17:45 06/04/24 06:28 1 TAB Morphine Sulfate 2 mg Q4HP PRN IV 05/31/24 12:15 Sodium Chloride 1,000 ml @ 75 mls/hr [id number] IV 05/31/24 16:45 06/05/24 03:41 75 MLS/HR Potassium Bicarbonate 50 meq BID GT 06/05/24 11:15 Examination: LUNGS:Normal, CVS:Normal, MSK:Normal laboratory and microbiology Laboratory Tests 06/05/24 06:03 06/03/24 04:52 Test 06/05/24 06:03 Range/Units Serum Glucose 87 74-106 mg/dL Microbiology Date/Time Source Procedure Growth Status 05/30/24 08:20 Nose MRSA Screen - Final Complete 05/27/24 08:55 Urine - [place] Urine Culture - Final Yeast, not Bella albicans Complete 05/26/24 17:04 Blood Blood Culture - Final NO GROWTH AFTER 5 DAYS OF INCUBATION. Complete Problem List/Assessment/Plan Problem List/Assessment/Plan acute kidney injury likely acute tubular necrosis toxic metabolic, possible uremic encephalopathy---resolved hyperkalemia now hypokalemia Hypocalcemia Recommendations Kidney function is improving Increased urine output strict i and o potassium replacement Calcium gluconate IV piggyback We will continue to follow Plan discussed with: Patient Dietary Evaluation Review Comments: Continue current plan of care Expected Outcomes/Goals: F/U in 3-5 days MAR HELMS MD Jun 05, 2024 12:33
[2024-06-05] MEDS: POTASSIUM EFFERVESENT TAB 25 MEQ GT SCH (13:57)
[2024-06-05] MEDS: MAGNESIUM SULFATE 1GM/100ML 100 ML IV SCH (15:34)
[2024-06-05] MEDS: CALCIUM GLUC 1,000mg/50ml-NS 50 ML IV SCH (17:20)
[2024-06-05 21:08] LABS: Creatinine, Urine 74.61 mg/dL (30.0-125.0)
[2024-06-06] VITALS (9 sets, daily range): BP systolic 95–117; BP diastolic 52–71; PULSE 57–98; RESP 16–18; TEMP 97.5–97.9; O2SAT 93–100
--- NOTE | 2024-06-06 00:03 | DVHPN2 ---
Consult Progress Note Date Seen: Jun 06, 2024 Subjective Patient reports: Feels better (no fever or chills) Objective vital signs Vital Sign Date Time Temp Pulse Resp B/P (MAP) Pulse Ox O2 Delivery O2 Flow Rate FiO2 06/05/24 21:00 98.0 82 18 110/60 (77) 98 98.0 06/05/24 20:00 Nasal Cannula* 2 28 Total Intake and Output 06/05/24 06/05/24 06/06/24 15:00 23:00 07:00 Intake Total 1030 ml Output Total 50 ml 800 ml Balance -50 ml 230 ml medications Current Medications Medications Dose Ordered Sig/Arielle Route Start Time Stop Time Status Last Admin Dose Admin Enoxaparin Sodium 40 mg DAILY SC 05/27/24 10:00 UNV Nitroglycerin 0.4 mg Q5MINP PRN SL 05/26/24 14:30 Clopidogrel Bisulfate 75 mg DAILY PO 05/27/24 10:00 06/05/24 09:51 75 MG Ferrous Sulfate 325 mg TUTHSA PO 05/27/24 10:00 06/03/24 10:26 325 MG Levetiracetam 500 mg BID PO 05/26/24 22:00 06/05/24 21:05 500 MG Pantoprazole Sodium 40 mg DAILY PO 05/27/24 10:00 06/05/24 09:52 40 MG Atorvastatin Calcium 10 mg DAILY PO 05/27/24 10:00 06/05/24 09:52 10 MG Gabapentin 300 mg DAILY PO 05/27/24 12:45 06/05/24 09:51 300 MG Lorazepam 1 mg Q5MINP PRN IV 05/28/24 17:45 Acetaminophen/ Hydrocodone Bitart 1 tab Q6HPRN PRN PO 05/30/24 17:45 06/04/24 06:28 1 TAB Morphine Sulfate 2 mg Q4HP PRN IV 05/31/24 12:15 Sodium Chloride 1,000 ml @ 75 mls/hr [id number] IV 05/31/24 16:45 06/05/24 17:11 75 MLS/HR Potassium Bicarbonate 50 meq BID GT 06/05/24 11:15 06/05/24 21:25 50 MEQ Physical Exam: General: Appears ill. Neck: Supple. No masses. HEENT: PERRL. Normal lids and conjunctiva. Moist mucous membranes. Oropharynx without lesions, exudates, or excessive erythema. Normal appearance of the external aspects of the nose and ears. Heart: Regular rhythm, tachycardic. No murmur. No lower extremity edema. Lungs: Normal respiratory effort. Clear to auscultation bilaterally. No wheezes. No crackles. Abdomen: Distended. Tender to palpation. No masses or abdominal hernia. MSK: No digital cyanosis. Normal strength and tone in all four limbs. Skin: Warm and dry, no rashes. Neuro: Alert. No facial droop or slurred speech. Extraocular movements intact. Sensation intact to soft touch in all four limbs. Psych: Appropriate mood. Full affect. Oriented to person, place, time, and situation. laboratory and microbiology Laboratory Tests 06/05/24 06:03 06/03/24 04:52 Test 06/05/24 06:03 Range/Units Serum Glucose 87 74-106 mg/dL Problem List/Assessment/Plan Problem List/Assessment/Plan ID Problem List: - Altered mental status - Seizure disorder COPD - Pneumonia - Urinary tract infection - Septic shock - Acute renal failure - Possible congestive heart failure exacerbation - Left clavicle displacement - Anemia - Strocoral collitis Assessment This is a 73 y.o. female with a past medical history of COPD, diabetes mellitus, recurrent UTIs, multiple myocardial infarctions, recent sepsis, cerebrovascular accident (stroke), colostomy placement, congestive heart failure, and seizure disorder, who presents with altered mental status. She was found to be hypotensive with a blood pressure of 79/55?mmHg, hypothermic with a rectal temperature of 95.6?F, and heart rate in the 80s. On examination, the patient is moaning and unresponsive to verbal stimuli. Laboratory studies reveal leukocytosis with WBC 15.4, thrombocytosis with platelets 521, anemia with hemoglobin 7.2 and hematocrit 23, elevated creatinine 8.06 indicating acute renal failure, hyponatremia (Na 129), hyperkalemia (K 6.7), elevated lactic acid 3.9. Liver enzymes are elevated with AST 264 and ALT 69. Urinalysis shows 17 WBCs, 3+ leukocytes, moderate yeast, and bacteria. Chest X-ray revealed a deep sulcus sign of the left costophrenic angle suggestive of possible pneumothorax; CT was recommended. Chest CT showed new tree-in-bud opacities in both lungs likely infectious/inflammatory, chronic consolidation in the right upper lobe, stable ground-glass opacities in the right middle lobe, and an infrarenal abdominal aortic aneurysm measuring 35?mm. Head CT showed no intracranial process. Shoulder X-ray showed the left clavicle is superiorly displaced, possibly chronic. 05/29: urine cultures are growing great than 100,00 yeast and blood cultures have no growth to date , whitecount is 7.3 and signs of sepsis are improving 06/01: Responding to antibiotic therapy , kidney function is improving . MRSA nares is negative 06/02: CT shows no hydronephoris , no renal stones and dense stool in the rectum with adjacent stranding , no small bowel obstruction , stucural colitis 06/04: suspect diarrhea is contributing to GRACIELA Plan: - Stop ceftriaxone - monitor patients off all antibiotics - Start patient on bowel regimen to relieve constipation - recommend carias change - Septic shock: - Initiate fluid resuscitation to maintain MAP >65?mmHg. - Start vasopressors as needed. - Consider corticosteroids if hemodynamics do not improve. - Obtain blood cultures and urine cultures; follow up on results. - Recommend MRSA nasal swab and sputum culture. - Consider addition of doxycycline if respiratory status declines. - Acute renal failure: - Defer management to the nephrology team. - Patient will likely require dialysis. - Possible congestive heart failure exacerbation: - Recommend transthoracic echocardiogram (TTE) to evaluate cardiac function. - Obtain pro-BNP level. - Pneumonia: - Continue current antibiotics; adjust per culture results and sensitivities. - Altered mental status: - Monitor neurological status. - Defer seizure disorder management to neurology. - Electrolyte abnormalities: - Hyperkalemia (K 6.7): Implement hyperkalemia protocol. - Hyponatremia (Na 129): Monitor and correct sodium levels cautiously. - Anemia: - Monitor hemoglobin and hematocrit. - Consider transfusion if necessary. - Left clavicle displacement: - Consult orthopedics to evaluate left clavicle displacement. Plan discussed with: Patient Dietary Evaluation Review Comments: Continue current plan of care Expected Outcomes/Goals: F/U in 3-5 days DIGNA OVERTON MD Jun 06, 2024 00:03
--- NOTE | 2024-06-06 09:59 | DVHPN2 ---
Progress Note - Dictate Date Seen: Jun 06, 2024 Medical Necessity Reason Pt with a Central, PICC or Fol: Yes The following are medically ne: Machado Catheter vital signs Vital Sign Date Time Temp Pulse Resp B/P (MAP) Pulse Ox O2 Delivery O2 Flow Rate FiO2 06/06/24 09:00 97.8 73 16 109/61 (77) 100 97.8 06/06/24 08:05 Nasal Cannula* 2 28 Total Intake and Output 06/05/24 06/05/24 06/06/24 15:00 23:00 07:00 Intake Total 1130 ml 915 ml Output Total 50 ml 800 ml 300 ml Balance -50 ml 330 ml 615 ml medications Current Medications Medications Dose Ordered Sig/Arielle Route Start Time Stop Time Status Last Admin Dose Admin Enoxaparin Sodium 40 mg DAILY SC 05/27/24 10:00 UNV Nitroglycerin 0.4 mg Q5MINP PRN SL 05/26/24 14:30 Clopidogrel Bisulfate 75 mg DAILY PO 05/27/24 10:00 06/06/24 09:13 75 MG Ferrous Sulfate 325 mg TUTHSA PO 05/27/24 10:00 06/06/24 09:12 325 MG Levetiracetam 500 mg BID PO 05/26/24 22:00 06/06/24 09:12 500 MG Pantoprazole Sodium 40 mg DAILY PO 05/27/24 10:00 06/06/24 09:14 40 MG Atorvastatin Calcium 10 mg DAILY PO 05/27/24 10:00 06/06/24 09:13 10 MG Gabapentin 300 mg DAILY PO 05/27/24 12:45 06/06/24 09:14 300 MG Lorazepam 1 mg Q5MINP PRN IV 05/28/24 17:45 Acetaminophen/ Hydrocodone Bitart 1 tab Q6HPRN PRN PO 05/30/24 17:45 06/06/24 00:04 1 TAB Morphine Sulfate 2 mg Q4HP PRN IV 05/31/24 12:15 Sodium Chloride 1,000 ml @ 75 mls/hr [id number] IV 05/31/24 16:45 06/05/24 17:11 75 MLS/HR Potassium Bicarbonate 50 meq BID GT 06/05/24 11:15 06/06/24 09:11 50 MEQ objective General Appearance: alert, no distress HEENT: EOMI, PERRLA, normal external inspect of ears, no icterus, no nasal drainage Neck: no carotid bruit, no jugular venous distention (JVD), no lymphadenopathy Chest: normal thorax Respiratory: clear to auscultation, normal air movement Cardiovascular: regular rate and rhythm, no diastolic murmur, no jugular venous distention (JVD), no rub, no systolic murmur Abdominal: soft, no hepatomegaly, no mass, no splenomegaly, no tenderness Genitourinary: grossly normal external Musculoskeletal: no joint tenderness, no swelling Extremities: normal pulses, no calf tenderness, no clubbing, no cyanosis, no edema Skin: no bruising, no jaundice, no rash Neurological: alert, No focal deficit laboratory and microbiology Laboratory Tests 06/05/24 06:03 06/03/24 04:52 Test 06/05/24 06:03 Range/Units Serum Glucose 87 74-106 mg/dL Problem List 1. Acute metabolic encephalopathy likely related to sepsis 2. GRACIELA likely with ATN Nephrology consult, IV fluids 3. Hyperkalemia Nephrology consult, hyperkalemia protocol 4. Pneumonia likely Gram-negative or Gram-positive IV antibiotics 5. Severe malnourished Dietary consult 6. History of CVA 7. COPD Managed treatments 8. Seizures Continue home medication Assessment/Plan Subjective: Patient is awake and alert. Objective: Patient is pending a physical therapy evaluation today. Patient was admitted for metabolic encephalopathy due to acute renal failure and dehydration. Patient's renal function is improving, creatinine is 1.85, GFR is 29. Patient remains on IV fluids at 75 mL an hour. Patient is eating almost 100% of her meals. Patient at this time is very weak and deconditioned did a total of care patient was at [facility] for 3 weeks and she was ambulatory prior to her hospitalization. Plan: Continue current treatment. PT eval pending. social services consult for DC planning to nursing home facility for rehab. Daughter is refusing for patient to return to [facility]. Dietary Evaluation Review Comments: Continue current plan of care Expected Outcomes/Goals: F/U in 3-5 days Plan discussed with: Patient, Other MARTÍN CHAWLA NP Jun 06, 2024 09:59
[2024-06-06 10:44] LABS: Basophils # (auto) 0.1 10 ^3/uL (0-0.2); Basophils % (auto) 1.2 % (0.0-2.0); Eosinophils # (auto) 0 10 ^3/uL (0-0.8); Eosinophils % (auto) 0.7 % (0.0-7.0); Hematocrit 29.6 % (36.0-46.0); Hemoglobin 9.6 g/dL (12.2-16.2); Lymphocytes # (auto) 0.6 10 ^3/uL (0.4-5.4); Lymphocytes % (auto) 13.3 % (10.0-50.0); Mean Corpuscular Hemoglobin 30.8 pg (28.0-32.0); Mean Corpuscular Hgb Conc. 32.6 g/dL (32.0-36.0); Mean Corpuscular Volume 94.5 fL (80.0-100.0); Monocytes # (auto) 0.5 10 ^3/uL (0-1.3); Monocytes % (auto) 9.9 % (0.0-12.0); Neutrophils # (auto) 3.5 10 ^3/uL (1.6-8.6); Neutrophils % (auto) 74.9 % (37.0-80.0); Platelet Count (auto) 114 10^3/uL (140-450); Red Blood Cells 3.13 10^6/uL (4.0-5.20); Red Cell Distribution Width 15.1 % (11.8-14.3); White Blood Cell 4.6 10^3/uL (4.4-10.8)
--- NOTE | 2024-06-06 10:48 | DVHPN2 ---
Progress Note Date Seen: Jun 06, 2024 Medical Necessity Reason Pt with a Central, PICC or Fol: Yes The following are medically ne: [place] Catheter Subjective Patient reports: No new complaints Other Systems: Patient seen and examined by myself today in follow-up Objective vital signs Vital Sign Date Time Temp Pulse Resp B/P (MAP) Pulse Ox O2 Delivery O2 Flow Rate FiO2 06/06/24 09:00 97.8 73 16 109/61 (77) 100 97.8 06/06/24 08:05 Nasal Cannula* 2 28 Total Intake and Output 06/05/24 06/05/24 06/06/24 15:00 23:00 07:00 Intake Total 1130 ml 915 ml Output Total 50 ml 800 ml 300 ml Balance -50 ml 330 ml 615 ml medications Current Medications Medications Dose Ordered Sig/Arielle Route Start Time Stop Time Status Last Admin Dose Admin Enoxaparin Sodium 40 mg DAILY SC 05/27/24 10:00 UNV Nitroglycerin 0.4 mg Q5MINP PRN SL 05/26/24 14:30 Clopidogrel Bisulfate 75 mg DAILY PO 05/27/24 10:00 06/06/24 09:13 75 MG Ferrous Sulfate 325 mg TUTHSA PO 05/27/24 10:00 06/06/24 09:12 325 MG Levetiracetam 500 mg BID PO 05/26/24 22:00 06/06/24 09:12 500 MG Pantoprazole Sodium 40 mg DAILY PO 05/27/24 10:00 06/06/24 09:14 40 MG Atorvastatin Calcium 10 mg DAILY PO 05/27/24 10:00 06/06/24 09:13 10 MG Gabapentin 300 mg DAILY PO 05/27/24 12:45 06/06/24 09:14 300 MG Lorazepam 1 mg Q5MINP PRN IV 05/28/24 17:45 Acetaminophen/ Hydrocodone Bitart 1 tab Q6HPRN PRN PO 05/30/24 17:45 06/06/24 00:04 1 TAB Morphine Sulfate 2 mg Q4HP PRN IV 05/31/24 12:15 Sodium Chloride 1,000 ml @ 75 mls/hr [id number] IV 05/31/24 16:45 06/06/24 10:12 75 MLS/HR Potassium Bicarbonate 50 meq BID GT 06/05/24 11:15 06/06/24 09:11 50 MEQ Examination: LUNGS:Normal, CVS:Normal, MSK:Normal laboratory and microbiology Test 06/06/24 10:30 Range/Units Serum Glucose Pending Microbiology Date/Time Source Procedure Growth Status 05/30/24 08:20 Nose MRSA Screen - Final Complete 05/27/24 08:55 Urine - [place] Urine Culture - Final Yeast, not Bella albicans Complete 05/26/24 17:04 Blood Blood Culture - Final NO GROWTH AFTER 5 DAYS OF INCUBATION. Complete Problem List/Assessment/Plan Problem List/Assessment/Plan acute kidney injury likely acute tubular necrosis toxic metabolic, possible uremic encephalopathy---resolved Hypokalemia Hypocalcemia Recommendations Kidney function is improving Increased urine output Machado catheter strict i and o Check magnesium potassium replacement Calcium gluconate IV piggyback We will continue to follow Plan discussed with: Patient Dietary Evaluation Review Comments: Continue current plan of care Expected Outcomes/Goals: F/U in 3-5 days MAR HELMS MD Jun 06, 2024 10:48
[2024-06-06 11:15] LABS: Anion Gap 7 (5-15); BUN/Creatinine Ratio 12.4 (10.0-20.0); Blood Urea Nitrogen 22 mg/dL (9-23); Carbon Dioxide 31 mmol/L (20-31); Chloride 104 mmol/L (98-107); Sodium 142 mmol/L (136-145)
[2024-06-06 11:16] LABS: Albumin 3.3 g/dL (3.2-4.8); Aspartate Aminotransferase 38 U/L (13-40)
[2024-06-06 11:17] LABS: Bilirubin, Total 0.4 mg/dL (0.2-1.0)
[2024-06-06 11:22] LABS: Alanine Aminotransferase 42 U/L (7-40); Alkaline Phosphatase 161 U/L (46-116); Calcium 8.1 mg/dL (8.7-10.4); Glucose 112 mg/dL (74-106)
[2024-06-06 15:31] LABS: Magnesium 1.5 mg/dL (1.6-2.6); Phosphorus 1.6 mg/dL (2.4-5.1)
--- NOTE | 2024-06-06 22:38 | DVHPN2 ---
Consult Progress Note Date Seen: Jun 06, 2024 Subjective Patient reports: Feels better (no diarrhea or rash) Objective vital signs Vital Sign Date Time Temp Pulse Resp B/P (MAP) Pulse Ox O2 Delivery O2 Flow Rate FiO2 06/06/24 17:00 97.9 84 16 117/71 (86) 96 97.9 06/06/24 08:05 Nasal Cannula* 2 28 Total Intake and Output 06/05/24 06/05/24 06/06/24 15:00 23:00 07:00 Intake Total 1130 ml 915 ml Output Total 50 ml 800 ml 300 ml Balance -50 ml 330 ml 615 ml medications Current Medications Medications Dose Ordered Sig/Arielle Route Start Time Stop Time Status Last Admin Dose Admin Enoxaparin Sodium 40 mg DAILY SC 05/27/24 10:00 UNV Nitroglycerin 0.4 mg Q5MINP PRN SL 05/26/24 14:30 Clopidogrel Bisulfate 75 mg DAILY PO 05/27/24 10:00 06/06/24 09:13 75 MG Ferrous Sulfate 325 mg TUTHSA PO 05/27/24 10:00 06/06/24 09:12 325 MG Levetiracetam 500 mg BID PO 05/26/24 22:00 06/06/24 21:18 500 MG Pantoprazole Sodium 40 mg DAILY PO 05/27/24 10:00 06/06/24 09:14 40 MG Atorvastatin Calcium 10 mg DAILY PO 05/27/24 10:00 06/06/24 09:13 10 MG Gabapentin 300 mg DAILY PO 05/27/24 12:45 06/06/24 09:14 300 MG Lorazepam 1 mg Q5MINP PRN IV 05/28/24 17:45 Acetaminophen/ Hydrocodone Bitart 1 tab Q6HPRN PRN PO 05/30/24 17:45 06/06/24 00:04 1 TAB Morphine Sulfate 2 mg Q4HP PRN IV 05/31/24 12:15 Sodium Chloride 1,000 ml @ 75 mls/hr [id number] IV 05/31/24 16:45 06/06/24 10:12 75 MLS/HR Potassium Bicarbonate 50 meq BID GT 06/05/24 11:15 06/06/24 09:11 50 MEQ Physical Exam: General: Appears ill. Neck: Supple. No masses. HEENT: PERRL. Normal lids and conjunctiva. Moist mucous membranes. Oropharynx without lesions, exudates, or excessive erythema. Normal appearance of the external aspects of the nose and ears. Heart: Regular rhythm, tachycardic. No murmur. No lower extremity edema. Lungs: Normal respiratory effort. Clear to auscultation bilaterally. No wheezes. No crackles. Abdomen: Distended. Tender to palpation. No masses or abdominal hernia. MSK: No digital cyanosis. Normal strength and tone in all four limbs. Skin: Warm and dry, no rashes. Neuro: Alert. No facial droop or slurred speech. Extraocular movements intact. Sensation intact to soft touch in all four limbs. Psych: Appropriate mood. Full affect. Oriented to person, place, time, and situation. laboratory and microbiology Laboratory Tests 06/06/24 10:30 Test 06/06/24 10:30 Range/Units Serum Glucose 112 H 74-106 mg/dL Problem List/Assessment/Plan Problem List/Assessment/Plan ID Problem List: - Altered mental status - Seizure disorder COPD - Pneumonia - Urinary tract infection - Septic shock - Acute renal failure - Possible congestive heart failure exacerbation - Left clavicle displacement - Anemia - Strocoral collitis Assessment This is a 73 y.o. female with a past medical history of COPD, diabetes mellitus, recurrent UTIs, multiple myocardial infarctions, recent sepsis, cerebrovascular accident (stroke), colostomy placement, congestive heart failure, and seizure disorder, who presents with altered mental status. She was found to be hypotensive with a blood pressure of 79/55?mmHg, hypothermic with a rectal temperature of 95.6?F, and heart rate in the 80s. On examination, the patient is moaning and unresponsive to verbal stimuli. Laboratory studies reveal leukocytosis with WBC 15.4, thrombocytosis with platelets 521, anemia with hemoglobin 7.2 and hematocrit 23, elevated creatinine 8.06 indicating acute renal failure, hyponatremia (Na 129), hyperkalemia (K 6.7), elevated lactic acid 3.9. Liver enzymes are elevated with AST 264 and ALT 69. Urinalysis shows 17 WBCs, 3+ leukocytes, moderate yeast, and bacteria. Chest X-ray revealed a deep sulcus sign of the left costophrenic angle suggestive of possible pneumothorax; CT was recommended. Chest CT showed new tree-in-bud opacities in both lungs likely infectious/inflammatory, chronic consolidation in the right upper lobe, stable ground-glass opacities in the right middle lobe, and an infrarenal abdominal aortic aneurysm measuring 35?mm. Head CT showed no intracranial process. Shoulder X-ray showed the left clavicle is superiorly displaced, possibly chronic. 05/29: urine cultures are growing great than 100,00 yeast and blood cultures have no growth to date , whitecount is 7.3 and signs of sepsis are improving 06/01: Responding to antibiotic therapy , kidney function is improving . MRSA nares is negative 06/02: CT shows no hydronephoris , no renal stones and dense stool in the rectum with adjacent stranding , no small bowel obstruction , stucural colitis 06/04: suspect diarrhea is contributing to GRACIELA Plan: - monitor patients off all antibiotics - Start patient on bowel regimen to relieve constipation - recommend carias change - Septic shock: - Initiate fluid resuscitation to maintain MAP >65?mmHg. - Start vasopressors as needed. - Consider corticosteroids if hemodynamics do not improve. - Obtain blood cultures and urine cultures; follow up on results. - Recommend MRSA nasal swab and sputum culture. - Consider addition of doxycycline if respiratory status declines. - Acute renal failure: - Defer management to the nephrology team. - Patient will likely require dialysis. - Possible congestive heart failure exacerbation: - Recommend transthoracic echocardiogram (TTE) to evaluate cardiac function. - Obtain pro-BNP level. - Pneumonia: - Continue current antibiotics; adjust per culture results and sensitivities. - Altered mental status: - Monitor neurological status. - Defer seizure disorder management to neurology. - Electrolyte abnormalities: - Hyperkalemia (K 6.7): Implement hyperkalemia protocol. - Hyponatremia (Na 129): Monitor and correct sodium levels cautiously. - Anemia: - Monitor hemoglobin and hematocrit. - Consider transfusion if necessary. - Left clavicle displacement: - Consult orthopedics to evaluate left clavicle displacement. Plan discussed with: Patient Dietary Evaluation Review Comments: Continue current plan of care Expected Outcomes/Goals: F/U in 3-5 days DIGNA OVERTON MD Jun 06, 2024 22:37
[2024-06-07] VITALS (9 sets, daily range): BP systolic 94–127; BP diastolic 60–77; PULSE 54–89; RESP 16–17; TEMP 97.3–98.7; O2SAT 81–98
--- NOTE | 2024-06-07 09:50 | DVHPN2 ---
Progress Note - Dictate Date Seen: Jun 07, 2024 Medical Necessity Reason Pt with a Central, PICC or Fol: Yes The following are medically ne: [place] Catheter Subjective Ms. Dillard is a 73 years old right-handed female with a history of hypertension, dyslipidemia, chronic low back pain, chronic pain in the hips, she came to the hospital on 05/26/24 with a chief complaint of altered mental status. I saw her on 11/23/21 for ALOC/metabolic encephalopathy, 12/28/21 for ALOC, 02/15/2022 for stroke, 04/19/2023 for seizure, 11/24/2023, 04/12/24 for encephalopathy, 03/31/2024 for ALOC I have seen and examined the patient, I have talked to her nurse, she looks weak , she is oriented x 2, socially reasonable According to her nurse, she was mentally better earlier this morning Urine culture, 05/27/2024: Yeast Blood culture, 05/26/2024: Negative Urinalysis, 05/26/2024: WBC: 17, urine leukocyte esterase: 3+ WBC/HB/PLT/MCV, 05/28/2024: 7.9/8.19/367/94.1, 06/03/2024: 5.6/13.4/190/98.2 PT/INR/PTT, 05/26/2024: 15.8/1.54/29.1 Na, 05/26/2024: 124, 129, 05/27/2020 4:135 K, 05/26/2024: 6.7, 5.6, 05/28/2024: Sleep, sleep BUN/CR, 05/26/2024: 215/8.16, 05/26/2024: 223/8.06, : 160/5.88, 05/31/2024: 93/4.16 Lactic acid, 05/26/2024: 3.9, 3.2 TBI/AST/ALT/AP, 05/26/2024: 0.8/73/87/342, 05/29/24: 0.3/82/53/152 Vitamin B12, 03/2023: 395, : 968 Folic acid, 11/2021: 24, 03/29/2024: 13.56 TSH, 11/2021: 0.27 03/2024: 1.1 EEG, 12/29/2021: Normal EEG, 02/15/2022: Normal EEG, 04/11/2024: Bilateral PLEDs Carotid Doppler, 04/11/2024: No hemodynamically significant stenosis within the carotid arteries X-ray, Left shoulder 05/26/2024, There is no evidence of acute fracture or dislocation. The left clavicle appears superiorly displaced. This could be chronic in nature CT head, 05/26/2024: No acute intracranial process CT chest, 05/26/2024: Previously seen ground-glass opacities have largely resolved. New tree-in-bud nodularity in both lungs. Likely infectious/inflammatory. Chronic consolidation right upper lobe. Stable ground-glass opacity right middle lobe. Clinical correlation and continued follow-up is recommended. Infrarenal abdominal aortic aneurysm measuring up to 35 mm. Consider further evaluation with CT of the abdomen and pelvis. MRI head, 12/29/2021: There is mild to moderate microvascular ischemic disease of supratentorial white matter. There is moderate to severe microvascular ischemic disease of the brain stem. There is no acute infarct. There is no hemorrhage, mass or hydrocephalus. No brain atrophy MRI head, 02/15/2022: Motion degraded study There is no acute infarct. There is no hemorrhage. There is mild to moderate microvascular ischemic disease of supratentorial white matter. There is a moderate to severe microvascular ischemic disease of the brainstem MRI head, 04/11/2024: 1. There is no acute intracranial process. 2. [id number] chronic microvascular ischemic changes vital signs Vital Sign Date Time Temp Pulse Resp B/P (MAP) Pulse Ox O2 Delivery O2 Flow Rate FiO2 06/07/24 08:41 97.9 73 17 123/69 (87) 97 97.9 06/07/24 07:40 Nasal Cannula* 2 28 Total Intake and Output 06/06/24 06/06/24 06/07/24 15:00 23:00 07:00 Intake Total 240 ml 960 ml 300 ml Output Total 1965 ml 1400 ml Balance 240 ml -1005 ml -1100 ml medications Current Medications Medications Dose Ordered Sig/Arielle Route Start Time Stop Time Status Last Admin Dose Admin Enoxaparin Sodium 40 mg DAILY SC 05/27/24 10:00 UNV Nitroglycerin 0.4 mg Q5MINP PRN SL 05/26/24 14:30 Clopidogrel Bisulfate 75 mg DAILY PO 05/27/24 10:00 06/06/24 09:13 75 MG Ferrous Sulfate 325 mg TUTHSA PO 05/27/24 10:00 06/06/24 09:12 325 MG Levetiracetam 500 mg BID PO 05/26/24 22:00 06/06/24 21:18 500 MG Pantoprazole Sodium 40 mg DAILY PO 05/27/24 10:00 06/06/24 09:14 40 MG Atorvastatin Calcium 10 mg DAILY PO 05/27/24 10:00 06/06/24 09:13 10 MG Gabapentin 300 mg DAILY PO 05/27/24 12:45 06/06/24 09:14 300 MG Lorazepam 1 mg Q5MINP PRN IV 05/28/24 17:45 Acetaminophen/ Hydrocodone Bitart 1 tab Q6HPRN PRN PO 05/30/24 17:45 06/06/24 00:04 1 TAB Morphine Sulfate 2 mg Q4HP PRN IV 05/31/24 12:15 Sodium Chloride 1,000 ml @ 75 mls/hr [id number] IV 05/31/24 16:45 06/06/24 23:14 75 MLS/HR Potassium Bicarbonate 50 meq BID GT 06/05/24 11:15 06/06/24 09:11 50 MEQ objective General: the patient is cachectic MENTAL STATUS: Subjective SPEECH, LANGUAGE, HIGHER CORTICAL FUNCTION: no aphasia or dysathria. CRANIAL NERVES: Pupils are equal, round and reactive. EOMs full and conjugate. Facial sensation intact in all three divisions bilaterally. Mandibular strength intact. Facial muscles symmetrical and strength is 4/5. SENSATION: Sensation to touch and pinprick is fine MOTOR: Normal tone in the upper and lower extremity. Normal muscle bulk. No fasciculations. No abnormal movements or posturing. She moves arms and legs REFLEXES: Deep tendon reflexes are symmetrical. No pathological reflexes. CEREBELLAR/COORDINATION: Deferred GAIT/STATION: deferred laboratory and microbiology Laboratory Tests 06/06/24 10:30 Test 06/06/24 10:30 Range/Units Serum Glucose 112 H 74-106 mg/dL Problem List Altered mental status Likely metabolic encephalopathy ? Status epileptics ? Partial complex seizure Lactic acidosis/sepsis Urinary tract infection Septic shock Seizure Kidney failure Cachexia Ecchymosis Assessment/Plan Monitoring Supportive treatment Coagulation panel EEG IV antibiotics Keppra 500mg Bid Ativan for seizure breakthrough Pain management GI prophylaxis/pantoprazole Infectious disease on case Urology on case More recommendation per clinical course This medical document was created using an electronic medical record system with [employer] dictation system. Although this document has been carefully reviewed, there may still be some phonetic and typographical errors. These areas are purely typographical due to imperfections of the software programs, and do not reflect any compromise in the patient's medical care Prognosis poor Dietary Evaluation Review Comments: Continue current plan of care Expected Outcomes/Goals: F/U in 3-5 days Plan discussed with: Other CHINA RIVERA MD Jun 07, 2024 09:50
--- NOTE | 2024-06-07 11:06 | CONS ---
Pharmacy Clinical Information: CQM HF. Patient's most recent Hemoglobin A1c is 5.1% (05/26/24) which is at goal (<7% per ADA guidelines), not recommended to start antihyperglycemic drug at this time. MARTÍN SANTAMARIA PHARMACIST Jun 07, 2024 11:06
--- NOTE | 2024-06-07 12:09 | DVHPN2 ---
Progress Note Date Seen: Jun 07, 2024 Medical Necessity Reason Pt with a Central, PICC or Fol: Yes The following are medically ne: [place] Catheter Subjective Patient reports: No new complaints Other Systems: Patient seen and examined by myself on follow-up today Objective vital signs Vital Sign Date Time Temp Pulse Resp B/P (MAP) Pulse Ox O2 Delivery O2 Flow Rate FiO2 06/07/24 08:41 97.9 73 17 123/69 (87) 97 97.9 06/07/24 07:40 Nasal Cannula* 2 28 Total Intake and Output 06/06/24 06/06/24 06/07/24 15:00 23:00 07:00 Intake Total 240 ml 960 ml 300 ml Output Total 1965 ml 1400 ml Balance 240 ml -1005 ml -1100 ml medications Current Medications Medications Dose Ordered Sig/Arielle Route Start Time Stop Time Status Last Admin Dose Admin Enoxaparin Sodium 40 mg DAILY SC 05/27/24 10:00 UNV Nitroglycerin 0.4 mg Q5MINP PRN SL 05/26/24 14:30 Clopidogrel Bisulfate 75 mg DAILY PO 05/27/24 10:00 06/07/24 10:29 75 MG Ferrous Sulfate 325 mg TUTHSA PO 05/27/24 10:00 06/06/24 09:12 325 MG Levetiracetam 500 mg BID PO 05/26/24 22:00 06/07/24 10:29 500 MG Pantoprazole Sodium 40 mg DAILY PO 05/27/24 10:00 06/07/24 10:28 40 MG Atorvastatin Calcium 10 mg DAILY PO 05/27/24 10:00 06/07/24 10:29 10 MG Gabapentin 300 mg DAILY PO 05/27/24 12:45 06/07/24 10:28 300 MG Lorazepam 1 mg Q5MINP PRN IV 05/28/24 17:45 Acetaminophen/ Hydrocodone Bitart 1 tab Q6HPRN PRN PO 05/30/24 17:45 06/06/24 00:04 1 TAB Morphine Sulfate 2 mg Q4HP PRN IV 05/31/24 12:15 Sodium Chloride 1,000 ml @ 75 mls/hr [id number] IV 05/31/24 16:45 06/06/24 23:14 75 MLS/HR Potassium Bicarbonate 50 meq BID GT 06/05/24 11:15 06/07/24 10:29 50 MEQ Examination: LUNGS:Normal, CVS:Normal, MSK:Normal laboratory and microbiology Laboratory Tests 06/06/24 10:30 Test 06/06/24 10:30 Range/Units Serum Glucose 112 H 74-106 mg/dL Microbiology Date/Time Source Procedure Growth Status 05/30/24 08:20 Nose MRSA Screen - Final Complete 05/27/24 08:55 Urine - [place] Urine Culture - Final Yeast, not Bella albicans Complete 05/26/24 17:04 Blood Blood Culture - Final NO GROWTH AFTER 5 DAYS OF INCUBATION. Complete Problem List/Assessment/Plan Problem List/Assessment/Plan acute kidney injury likely acute tubular necrosis toxic metabolic, possible uremic encephalopathy---resolved Hypokalemia Hypophosphatemia Hypocalcemia Hypomagnesemia Recommendations Kidney function is improving Increased urine output [place]ado catheter strict i and o Sodium phos IV piggyback Magnesium sulfate IV piggyback Calcium gluconate IV piggyback We will continue to follow Plan discussed with: Patient Dietary Evaluation Review Comments: Continue current plan of care Expected Outcomes/Goals: F/U in 3-5 days MAR HELMS MD Jun 07, 2024 12:09
[2024-06-07] MEDS: MAGNESIUM SULFATE 1GM/100ML 100 ML IV SCH (13:13)
--- NOTE | 2024-06-07 13:16 | DVHPN2 ---
Progress Note - Dictate Date Seen: Jun 07, 2024 Medical Necessity Reason Pt with a Central, PICC or Fol: Yes The following are medically ne: [place] Catheter vital signs Vital Sign Date Time Temp Pulse Resp B/P (MAP) Pulse Ox O2 Delivery O2 Flow Rate FiO2 06/07/24 13:07 98.0 71 17 121/71 (88) 97 98.0 06/07/24 07:40 Nasal Cannula* 2 28 Total Intake and Output 06/06/24 06/06/24 06/07/24 14:59 22:59 06:59 Intake Total 240 ml 960 ml 300 ml Output Total 1765 ml 1600 ml Balance 240 ml -805 ml -1300 ml medications Current Medications Medications Dose Ordered Sig/Arielle Route Start Time Stop Time Status Last Admin Dose Admin Enoxaparin Sodium 40 mg DAILY SC 05/27/24 10:00 UNV Nitroglycerin 0.4 mg Q5MINP PRN SL 05/26/24 14:30 Clopidogrel Bisulfate 75 mg DAILY PO 05/27/24 10:00 06/07/24 10:29 75 MG Ferrous Sulfate 325 mg TUTHSA PO 05/27/24 10:00 06/06/24 09:12 325 MG Levetiracetam 500 mg BID PO 05/26/24 22:00 06/07/24 10:29 500 MG Pantoprazole Sodium 40 mg DAILY PO 05/27/24 10:00 06/07/24 10:28 40 MG Atorvastatin Calcium 10 mg DAILY PO 05/27/24 10:00 06/07/24 10:29 10 MG Gabapentin 300 mg DAILY PO 05/27/24 12:45 06/07/24 10:28 300 MG Lorazepam 1 mg Q5MINP PRN IV 05/28/24 17:45 Acetaminophen/ Hydrocodone Bitart 1 tab Q6HPRN PRN PO 05/30/24 17:45 06/06/24 00:04 1 TAB Morphine Sulfate 2 mg Q4HP PRN IV 05/31/24 12:15 Sodium Chloride 1,000 ml @ 75 mls/hr [id number] IV 05/31/24 16:45 06/07/24 13:13 75 MLS/HR Potassium Bicarbonate 50 meq BID GT 06/05/24 11:15 06/07/24 10:29 50 MEQ Magnesium Sulfate/ Dextrose 100 ml @ 100 mls/hr Q1HR IV 06/07/24 13:00 06/07/24 14:59 06/07/24 13:13 100 MLS/HR objective General Appearance: alert, no distress HEENT: EOMI, PERRLA, normal external inspect of ears, no icterus, no nasal drainage Neck: no carotid bruit, no jugular venous distention (JVD), no lymphadenopathy Chest: normal thorax Respiratory: clear to auscultation, normal air movement Cardiovascular: regular rate and rhythm, no diastolic murmur, no jugular venous distention (JVD), no rub, no systolic murmur Abdominal: soft, no hepatomegaly, no mass, no splenomegaly, no tenderness Genitourinary: grossly normal external Musculoskeletal: no joint tenderness, no swelling Extremities: normal pulses, no calf tenderness, no clubbing, no cyanosis, no edema Skin: no bruising, no jaundice, no rash Neurological: alert, No focal deficit laboratory and microbiology Laboratory Tests 06/06/24 10:30 Test 06/06/24 10:30 Range/Units Serum Glucose 112 H 74-106 mg/dL Problem List 1. Acute metabolic encephalopathy likely related to sepsis 2. GRACIELA likely with ATN Nephrology consult, IV fluids 3. Hyperkalemia Nephrology consult, hyperkalemia protocol 4. Pneumonia likely Gram-negative or Gram-positive IV antibiotics 5. Severe malnourished Dietary consult 6. History of CVA 7. COPD Managed treatments 8. Seizures Continue home medication Assessment/Plan Subjective: Patient is awake and alert. Objective: Patient expressed concerns that physical therapy has not been working with her. Admitted for sepsis and acute renal failure. Creatinine is stable at 1.78. Phosphate is 1.6, and magnesium is 1.5. Patient is eating well but remains severely malnourished. Plan: Continue current treatment. Ensure PT evaluation. Replace electrolytes as needed. Monitor renal function. Discharge planning to a residential facility. Dietary Evaluation Review Comments: Continue current plan of care Expected Outcomes/Goals: F/U in 3-5 days Plan discussed with: Patient, Other MARTÍN CHAWLA NP Jun 07, 2024 13:16
[2024-06-07 14:00] LABS: Chloride 105 mmol/L (98-107); Potassium 4.3 mmol/L (3.5-5.1); Sodium 138 mmol/L (136-145)
[2024-06-07 14:01] LABS: Anion Gap 5 (5-15); Carbon Dioxide 28 mmol/L (20-31)
[2024-06-07 14:05] LABS: Calcium 7.6 mg/dL (8.7-10.4)
[2024-06-07 14:06] LABS: BUN/Creatinine Ratio 11.4 (10.0-20.0); Blood Urea Nitrogen 19 mg/dL (9-23); Glucose 101 mg/dL (74-106)
[2024-06-07] MEDS: SODIUM PHOSPHATES 24 MEQ in SODIUM CHL 0.9% 100 ML IV ONE (14:24)
[2024-06-08] VITALS (7 sets, daily range): BP systolic 96–104; BP diastolic 52–59; PULSE 56–88; RESP 15–21; TEMP 98–98.5; O2SAT 95–100
[2024-06-08 07:09] LABS: Alanine Aminotransferase 27 U/L (7-40); Anion Gap 7 (5-15); Aspartate Aminotransferase 29 U/L (13-40); BUN/Creatinine Ratio 11.5 (10.0-20.0); Bilirubin, Total 0.5 mg/dL (0.2-1.0); Blood Urea Nitrogen 19 mg/dL (9-23); Carbon Dioxide 28 mmol/L (20-31); Chloride 106 mmol/L (98-107); Phosphorus 2.7 mg/dL (2.4-5.1); Potassium 3.5 mmol/L (3.5-5.1); Sodium 141 mmol/L (136-145)
[2024-06-08 07:12] LABS: Alkaline Phosphatase 134 U/L (46-116); Calcium 7.7 mg/dL (8.7-10.4); Glucose 72 mg/dL (74-106); Total Protein 5.3 g/dL (5.7-8.2)
--- NOTE | 2024-06-08 12:58 | DVHPN2 ---
Progress Note - Dictate Date Seen: Jun 08, 2024 Medical Necessity Reason Pt with a Central, PICC or Fol: Yes The following are medically ne: [place] Catheter vital signs Vital Sign Date Time Temp Pulse Resp B/P (MAP) Pulse Ox O2 Delivery O2 Flow Rate FiO2 06/08/24 10:12 63 06/08/24 05:00 18 104/52 (69) 100 06/07/24 21:00 98.1 98.1 06/07/24 20:00 Nasal Cannula* 2 28 Total Intake and Output 06/07/24 06/07/24 06/08/24 15:00 23:00 07:00 Intake Total 100 ml 1050 ml 240 ml Output Total 2875 ml 210 ml Balance 100 ml -1825 ml 30 ml medications Current Medications Medications Dose Ordered Sig/Arielle Route Start Time Stop Time Status Last Admin Dose Admin Enoxaparin Sodium 40 mg DAILY SC 05/27/24 10:00 UNV Nitroglycerin 0.4 mg Q5MINP PRN SL 05/26/24 14:30 Clopidogrel Bisulfate 75 mg DAILY PO 05/27/24 10:00 06/08/24 09:49 75 MG Ferrous Sulfate 325 mg TUTHSA PO 05/27/24 10:00 06/08/24 09:49 325 MG Levetiracetam 500 mg BID PO 05/26/24 22:00 06/08/24 09:49 500 MG Pantoprazole Sodium 40 mg DAILY PO 05/27/24 10:00 06/08/24 09:50 40 MG Atorvastatin Calcium 10 mg DAILY PO 05/27/24 10:00 06/08/24 09:50 10 MG Gabapentin 300 mg DAILY PO 05/27/24 12:45 06/08/24 09:50 300 MG Lorazepam 1 mg Q5MINP PRN IV 05/28/24 17:45 Acetaminophen/ Hydrocodone Bitart 1 tab Q6HPRN PRN PO 05/30/24 17:45 06/06/24 00:04 1 TAB Morphine Sulfate 2 mg Q4HP PRN IV 05/31/24 12:15 Sodium Chloride 1,000 ml @ 75 mls/hr [id number] IV 05/31/24 16:45 06/07/24 13:13 75 MLS/HR Potassium Bicarbonate 50 meq BID GT 06/05/24 11:15 06/08/24 09:48 50 MEQ objective General Appearance: alert, no distress HEENT: EOMI, PERRLA, normal external inspect of ears, no icterus, no nasal drainage Neck: no carotid bruit, no jugular venous distention (JVD), no lymphadenopathy Chest: normal thorax Respiratory: clear to auscultation, normal air movement Cardiovascular: regular rate and rhythm, no diastolic murmur, no jugular venous distention (JVD), no rub, no systolic murmur Abdominal: soft, no hepatomegaly, no mass, no splenomegaly, no tenderness Genitourinary: grossly normal external Musculoskeletal: no joint tenderness, no swelling Extremities: normal pulses, no calf tenderness, no clubbing, no cyanosis, no edema Skin: no bruising, no jaundice, no rash Neurological: alert, No focal deficit laboratory and microbiology Laboratory Tests 06/08/24 06:27 06/06/24 10:30 Test 06/08/24 06:27 Range/Units Serum Glucose 72 L 74-106 mg/dL Problem List 1. Acute metabolic encephalopathy likely related to sepsis 2. GRACIELA likely with ATN Nephrology consult, IV fluids 3. Hyperkalemia Nephrology consult, hyperkalemia protocol 4. Pneumonia likely Gram-negative or Gram-positive IV antibiotics 5. Severe malnourished Dietary consult 6. History of CVA 7. COPD Managed treatments 8. Seizures Continue home medication Assessment/Plan Subjective Patient is awake and alert Objective I did speak with patient's daughter Rosanna who states she is agreeable for patient to go ro nursing facility however she is only requesting [facility]. Patient was admitted on 05/26/2024 for severe metabolic encephalopathy, uremia, acute kidney injury, and severe malnourishment. Patient had a history of a CVA with residual deficits. Patient reportedly was at [facility] for 3 weeks and she was able to ambulate prior to transfer [facility]. Patient is now bedbound and dependent on caregivers. Plan Continue current treatment. Continue IV antibiotics. Plan to discharge to skilled facility tomorrow when bed is available. Dietary Evaluation Review Comments: Continue current plan of care Expected Outcomes/Goals: F/U in 3-5 days Plan discussed with: Patient, Other MARTÍN CHAWLA NP Jun 08, 2024 12:58
--- NOTE | 2024-06-08 16:23 | DVHPN2 ---
Progress Note Date Seen: Jun 08, 2024 Medical Necessity Reason Pt with a Central, PICC or Fol: Yes The following are medically ne: [place] Catheter Subjective Patient reports: No new complaints Other Systems: Patient seen and examined by myself in follow-up today Objective vital signs Vital Sign Date Time Temp Pulse Resp B/P (MAP) Pulse Ox O2 Delivery O2 Flow Rate FiO2 06/08/24 13:00 98.0 62 21 100/57 (71) 97 98.0 06/07/24 20:00 Nasal Cannula* 2 28 Total Intake and Output 06/07/24 06/07/24 06/08/24 15:00 23:00 07:00 Intake Total 100 ml 1050 ml 240 ml Output Total 2875 ml 210 ml Balance 100 ml -1825 ml 30 ml medications Current Medications Medications Dose Ordered Sig/Arielle Route Start Time Stop Time Status Last Admin Dose Admin Enoxaparin Sodium 40 mg DAILY SC 05/27/24 10:00 UNV Nitroglycerin 0.4 mg Q5MINP PRN SL 05/26/24 14:30 Clopidogrel Bisulfate 75 mg DAILY PO 05/27/24 10:00 06/08/24 09:49 75 MG Ferrous Sulfate 325 mg TUTHSA PO 05/27/24 10:00 06/08/24 09:49 325 MG Levetiracetam 500 mg BID PO 05/26/24 22:00 06/08/24 09:49 500 MG Pantoprazole Sodium 40 mg DAILY PO 05/27/24 10:00 06/08/24 09:50 40 MG Atorvastatin Calcium 10 mg DAILY PO 05/27/24 10:00 06/08/24 09:50 10 MG Gabapentin 300 mg DAILY PO 05/27/24 12:45 06/08/24 09:50 300 MG Lorazepam 1 mg Q5MINP PRN IV 05/28/24 17:45 Acetaminophen/ Hydrocodone Bitart 1 tab Q6HPRN PRN PO 05/30/24 17:45 06/06/24 00:04 1 TAB Morphine Sulfate 2 mg Q4HP PRN IV 05/31/24 12:15 Sodium Chloride 1,000 ml @ 75 mls/hr [id number] IV 05/31/24 16:45 06/07/24 13:13 75 MLS/HR Potassium Bicarbonate 50 meq BID GT 06/05/24 11:15 06/08/24 09:48 50 MEQ Examination: LUNGS:Normal, CVS:Normal, MSK:Normal laboratory and microbiology Laboratory Tests 06/08/24 06:27 06/06/24 10:30 Test 06/08/24 06:27 Range/Units Serum Glucose 72 L 74-106 mg/dL Microbiology Date/Time Source Procedure Growth Status 05/30/24 08:20 Nose MRSA Screen - Final Complete 05/27/24 08:55 Urine - [place] Port Urine Culture - Final Yeast, not Bella albicans Complete 05/26/24 17:04 Blood Blood Culture - Final NO GROWTH AFTER 5 DAYS OF INCUBATION. Complete Problem List/Assessment/Plan Problem List/Assessment/Plan acute kidney injury likely acute tubular necrosis toxic metabolic, possible uremic encephalopathy---resolved Hypokalemia Hypophosphatemia, replaced Hypocalcemia Hypomagnesemia, replaced Recommendations Kidney function stabilize stage IIIB Increased urine output Machado catheter strict i and o Calcium gluconate IV piggyback We will continue to follow Plan discussed with: Patient Dietary Evaluation Review Comments: Continue current plan of care Expected Outcomes/Goals: F/U in 3-5 days MAR HELMS MD Jun 08, 2024 16:23
--- NOTE | 2024-06-08 16:58 | DVHPN2 ---
Consult Progress Note Date Seen: Jun 07, 2024 Subjective Patient reports: Feels better (awaiting SNF placement) Objective vital signs Vital Sign Date Time Temp Pulse Resp B/P (MAP) Pulse Ox O2 Delivery O2 Flow Rate FiO2 06/08/24 13:00 98.0 62 21 100/57 (71) 97 98.0 06/07/24 20:00 Nasal Cannula* 2 28 Total Intake and Output 06/07/24 06/07/24 06/08/24 15:00 23:00 07:00 Intake Total 100 ml 1050 ml 240 ml Output Total 2875 ml 210 ml Balance 100 ml -1825 ml 30 ml medications Current Medications Medications Dose Ordered Sig/Arielle Route Start Time Stop Time Status Last Admin Dose Admin Enoxaparin Sodium 40 mg DAILY SC 05/27/24 10:00 UNV Nitroglycerin 0.4 mg Q5MINP PRN SL 05/26/24 14:30 Clopidogrel Bisulfate 75 mg DAILY PO 05/27/24 10:00 06/08/24 09:49 75 MG Ferrous Sulfate 325 mg TUTHSA PO 05/27/24 10:00 06/08/24 09:49 325 MG Levetiracetam 500 mg BID PO 05/26/24 22:00 06/08/24 09:49 500 MG Pantoprazole Sodium 40 mg DAILY PO 05/27/24 10:00 06/08/24 09:50 40 MG Atorvastatin Calcium 10 mg DAILY PO 05/27/24 10:00 06/08/24 09:50 10 MG Gabapentin 300 mg DAILY PO 05/27/24 12:45 06/08/24 09:50 300 MG Lorazepam 1 mg Q5MINP PRN IV 05/28/24 17:45 Acetaminophen/ Hydrocodone Bitart 1 tab Q6HPRN PRN PO 05/30/24 17:45 06/06/24 00:04 1 TAB Morphine Sulfate 2 mg Q4HP PRN IV 05/31/24 12:15 Sodium Chloride 1,000 ml @ 75 mls/hr [id number] IV 05/31/24 16:45 06/07/24 13:13 75 MLS/HR Potassium Bicarbonate 50 meq BID GT 06/05/24 11:15 06/08/24 09:48 50 MEQ Physical Exam: General: Appears ill. Neck: Supple. No masses. HEENT: PERRL. Normal lids and conjunctiva. Moist mucous membranes. Oropharynx without lesions, exudates, or excessive erythema. Normal appearance of the external aspects of the nose and ears. Heart: Regular rhythm, tachycardic. No murmur. No lower extremity edema. Lungs: Normal respiratory effort. Clear to auscultation bilaterally. No wheezes. No crackles. Abdomen: Distended. Tender to palpation. No masses or abdominal hernia. MSK: No digital cyanosis. Normal strength and tone in all four limbs. Skin: Warm and dry, no rashes. Neuro: Alert. No facial droop or slurred speech. Extraocular movements intact. Sensation intact to soft touch in all four limbs. Psych: Appropriate mood. Full affect. Oriented to person, place, time, and situation. laboratory and microbiology Laboratory Tests 06/08/24 06:27 06/06/24 10:30 Test 06/08/24 06:27 Range/Units Serum Glucose 72 L 74-106 mg/dL Problem List/Assessment/Plan Problem List/Assessment/Plan ID Problem List: - Altered mental status - Seizure disorder COPD - Pneumonia - Urinary tract infection - Septic shock - Acute renal failure - Possible congestive heart failure exacerbation - Left clavicle displacement - Anemia - Strocoral collitis Assessment This is a 73 y.o. female with a past medical history of COPD, diabetes mellitus, recurrent UTIs, multiple myocardial infarctions, recent sepsis, cerebrovascular accident (stroke), colostomy placement, congestive heart failure, and seizure disorder, who presents with altered mental status. She was found to be hypotensive with a blood pressure of 79/55?mmHg, hypothermic with a rectal temperature of 95.6?F, and heart rate in the 80s. On examination, the patient is moaning and unresponsive to verbal stimuli. Laboratory studies reveal leukocytosis with WBC 15.4, thrombocytosis with platelets 521, anemia with hemoglobin 7.2 and hematocrit 23, elevated creatinine 8.06 indicating acute renal failure, hyponatremia (Na 129), hyperkalemia (K 6.7), elevated lactic acid 3.9. Liver enzymes are elevated with AST 264 and ALT 69. Urinalysis shows 17 WBCs, 3+ leukocytes, moderate yeast, and bacteria. Chest X-ray revealed a deep sulcus sign of the left costophrenic angle suggestive of possible pneumothorax; CT was recommended. Chest CT showed new tree-in-bud opacities in both lungs likely infectious/inflammatory, chronic consolidation in the right upper lobe, stable ground-glass opacities in the right middle lobe, and an infrarenal abdominal aortic aneurysm measuring 35?mm. Head CT showed no intracranial process. Shoulder X-ray showed the left clavicle is superiorly displaced, possibly chronic. 05/29: urine cultures are growing great than 100,00 yeast and blood cultures have no growth to date , whitecount is 7.3 and signs of sepsis are improving 06/01: Responding to antibiotic therapy , kidney function is improving . MRSA nares is negative 06/02: CT shows no hydronephoris , no renal stones and dense stool in the rectum with adjacent stranding , no small bowel obstruction , stucural colitis 06/04: suspect diarrhea is contributing to GRACIELA Plan: - monitor patients off all antibiotics - Start patient on bowel regimen to relieve constipation - recommend carias change - Septic shock: - Initiate fluid resuscitation to maintain MAP >65?mmHg. - Start vasopressors as needed. - Consider corticosteroids if hemodynamics do not improve. - Obtain blood cultures and urine cultures; follow up on results. - Recommend MRSA nasal swab and sputum culture. - Consider addition of doxycycline if respiratory status declines. - Acute renal failure: - Defer management to the nephrology team. - Patient will likely require dialysis. - Possible congestive heart failure exacerbation: - Recommend transthoracic echocardiogram (TTE) to evaluate cardiac function. - Obtain pro-BNP level. - Pneumonia: - Continue current antibiotics; adjust per culture results and sensitivities. - Altered mental status: - Monitor neurological status. - Defer seizure disorder management to neurology. - Electrolyte abnormalities: - Hyperkalemia (K 6.7): Implement hyperkalemia protocol. - Hyponatremia (Na 129): Monitor and correct sodium levels cautiously. - Anemia: - Monitor hemoglobin and hematocrit. - Consider transfusion if necessary. - Left clavicle displacement: - Consult orthopedics to evaluate left clavicle displacement. Plan discussed with: Patient Dietary Evaluation Review Comments: Continue current plan of care Expected Outcomes/Goals: F/U in 3-5 days DIGNA OVERTON MD Jun 08, 2024 16:58
--- NOTE | 2024-06-08 22:12 | DVHPN2 ---
Consult Progress Note Date Seen: Jun 08, 2024 Subjective Patient reports: Other (doing well , BP is good and having no pain , mentaating well . illeiostomy output is good with a clean intertion site ) Objective vital signs Vital Sign Date Time Temp Pulse Resp B/P (MAP) Pulse Ox O2 Delivery O2 Flow Rate FiO2 06/08/24 21:00 98.5 88 15 96/59 (71) 100 98.5 06/08/24 08:04 Nasal Cannula* 2 28 Total Intake and Output 06/07/24 06/07/24 06/08/24 15:00 23:00 07:00 Intake Total 100 ml 1050 ml 240 ml Output Total 2875 ml 210 ml Balance 100 ml -1825 ml 30 ml medications Current Medications Medications Dose Ordered Sig/Arielle Route Start Time Stop Time Status Last Admin Dose Admin Enoxaparin Sodium 40 mg DAILY SC 05/27/24 10:00 UNV Nitroglycerin 0.4 mg Q5MINP PRN SL 05/26/24 14:30 Clopidogrel Bisulfate 75 mg DAILY PO 05/27/24 10:00 06/08/24 09:49 75 MG Ferrous Sulfate 325 mg TUTHSA PO 05/27/24 10:00 06/08/24 09:49 325 MG Levetiracetam 500 mg BID PO 05/26/24 22:00 06/08/24 21:45 500 MG Pantoprazole Sodium 40 mg DAILY PO 05/27/24 10:00 06/08/24 09:50 40 MG Atorvastatin Calcium 10 mg DAILY PO 05/27/24 10:00 06/08/24 09:50 10 MG Gabapentin 300 mg DAILY PO 05/27/24 12:45 06/08/24 09:50 300 MG Lorazepam 1 mg Q5MINP PRN IV 05/28/24 17:45 Morphine Sulfate 2 mg Q4HP PRN IV 05/31/24 12:15 Sodium Chloride 1,000 ml @ 75 mls/hr [id number] IV 05/31/24 16:45 06/07/24 13:13 75 MLS/HR Potassium Bicarbonate 50 meq BID GT 06/05/24 11:15 06/08/24 21:49 50 MEQ Physical Exam: General: Appears ill. Neck: Supple. No masses. HEENT: PERRL. Normal lids and conjunctiva. Moist mucous membranes. Oropharynx without lesions, exudates, or excessive erythema. Normal appearance of the external aspects of the nose and ears. Heart: Regular rhythm, tachycardic. No murmur. No lower extremity edema. Lungs: Normal respiratory effort. Clear to auscultation bilaterally. No wheezes. No crackles. Abdomen: Distended. Tender to palpation. No masses or abdominal hernia. MSK: No digital cyanosis. Normal strength and tone in all four limbs. Skin: Warm and dry, no rashes. Neuro: Alert. No facial droop or slurred speech. Extraocular movements intact. Sensation intact to soft touch in all four limbs. Psych: Appropriate mood. Full affect. Oriented to person, place, time, and situation. laboratory and microbiology Laboratory Tests 06/08/24 06:27 06/06/24 10:30 Test 06/08/24 06:27 Range/Units Serum Glucose 72 L 74-106 mg/dL Problem List/Assessment/Plan Problems(with codes): (1) Hypotensive episode (2) Colostomy in place (3) Community acquired bacterial pneumonia (4) Physical deconditioning (5) Altered mental status (6) UTI (urinary tract infection) (7) Renal failure (8) COPD (chronic obstructive pulmonary disease) (9) GRACIELA (acute kidney injury) (10) Severe sepsis Problem List/Assessment/Plan ID Problem List: - Altered mental status - Seizure disorder COPD - Pneumonia - Urinary tract infection - Septic shock - Acute renal failure - Possible congestive heart failure exacerbation - Left clavicle displacement - Anemia - Strocoral collitis Assessment This is a 73 y.o. female with a past medical history of COPD, diabetes mellitus, recurrent UTIs, multiple myocardial infarctions, recent sepsis, cerebrovascular accident (stroke), colostomy placement, congestive heart failure, and seizure disorder, who presents with altered mental status. She was found to be hypotensive with a blood pressure of 79/55?mmHg, hypothermic with a rectal temperature of 95.6?F, and heart rate in the 80s. On examination, the patient is moaning and unresponsive to verbal stimuli. Laboratory studies reveal leukocytosis with WBC 15.4, thrombocytosis with platelets 521, anemia with hemoglobin 7.2 and hematocrit 23, elevated creatinine 8.06 indicating acute renal failure, hyponatremia (Na 129), hyperkalemia (K 6.7), elevated lactic acid 3.9. Liver enzymes are elevated with AST 264 and ALT 69. Urinalysis shows 17 WBCs, 3+ leukocytes, moderate yeast, and bacteria. Chest X-ray revealed a deep sulcus sign of the left costophrenic angle suggestive of possible pneumothorax; CT was recommended. Chest CT showed new tree-in-bud opacities in both lungs likely infectious/inflammatory, chronic consolidation in the right upper lobe, stable ground-glass opacities in the right middle lobe, and an infrarenal abdominal aortic aneurysm measuring 35?mm. Head CT showed no intracranial process. Shoulder X-ray showed the left clavicle is superiorly displaced, possibly chronic. 05/29: urine cultures are growing great than 100,00 yeast and blood cultures have no growth to date , whitecount is 7.3 and signs of sepsis are improving 06/01: Responding to antibiotic therapy , kidney function is improving . MRSA nares is negative 06/02: CT shows no hydronephoris , no renal stones and dense stool in the rectum with adjacent stranding , no small bowel obstruction , stucural colitis 06/04: suspect diarrhea is contributing to GRACIELA Plan: - monitor patients off all antibiotics - Start patient on bowel regimen to relieve constipation - recommend carias change - Acute renal failure: - Defer management to the nephrology team. - Patient will likely require dialysis. - Altered mental status: - Monitor neurological status. - Defer seizure disorder management to neurology. - Electrolyte abnormalities: - Hyperkalemia (K 6.7): Implement hyperkalemia protocol. - Hyponatremia (Na 129): Monitor and correct sodium levels cautiously. - Anemia: - Monitor hemoglobin and hematocrit. - Consider transfusion if necessary. Plan discussed with: Other Dietary Evaluation Review Comments: Continue current plan of care Expected Outcomes/Goals: F/U in 3-5 days DIGNA OVERTON MD Jun 08, 2024 22:12
[2024-06-09] VITALS (8 sets, daily range): BP systolic 99–108; BP diastolic 58–69; PULSE 70–90; RESP 16–19; TEMP 97.8–98.5; O2SAT 94–100
--- NOTE | 2024-06-09 14:29 | DVHPN2 ---
Progress Note Date Seen: Jun 09, 2024 Medical Necessity Reason Pt with a Central, PICC or Fol: Yes The following are medically ne: [place] Catheter Subjective Patient reports: No new complaints Other Systems: Patient seen and examined by myself today in follow-up Objective vital signs Vital Sign Date Time Temp Pulse Resp B/P (MAP) Pulse Ox O2 Delivery O2 Flow Rate FiO2 06/09/24 12:35 97.8 82 16 99/63 (75) 94 97.8 06/09/24 08:00 Nasal Cannula* 2 28 Total Intake and Output 06/08/24 06/08/24 06/09/24 15:00 23:00 07:00 Intake Total 440 ml 520 ml 170 ml Output Total 250 ml 2050 ml Balance 440 ml 270 ml -1880 ml medications Current Medications Medications Dose Ordered Sig/Arielle Route Start Time Stop Time Status Last Admin Dose Admin Enoxaparin Sodium 40 mg DAILY SC 05/27/24 10:00 UNV Nitroglycerin 0.4 mg Q5MINP PRN SL 05/26/24 14:30 Clopidogrel Bisulfate 75 mg DAILY PO 05/27/24 10:00 06/09/24 09:08 75 MG Ferrous Sulfate 325 mg TUTHSA PO 05/27/24 10:00 06/08/24 09:49 325 MG Levetiracetam 500 mg BID PO 05/26/24 22:00 06/09/24 09:08 500 MG Pantoprazole Sodium 40 mg DAILY PO 05/27/24 10:00 06/09/24 09:08 40 MG Atorvastatin Calcium 10 mg DAILY PO 05/27/24 10:00 06/09/24 09:07 10 MG Gabapentin 300 mg DAILY PO 05/27/24 12:45 06/09/24 09:08 300 MG Lorazepam 1 mg Q5MINP PRN IV 05/28/24 17:45 Morphine Sulfate 2 mg Q4HP PRN IV 05/31/24 12:15 Sodium Chloride 1,000 ml @ 75 mls/hr [id number] IV 05/31/24 16:45 06/09/24 00:52 75 MLS/HR Potassium Bicarbonate 50 meq BID GT 06/05/24 11:15 06/09/24 09:06 50 MEQ Examination: LUNGS:Normal, CVS:Normal, MSK:Normal laboratory and microbiology Laboratory Tests 06/08/24 06:27 06/06/24 10:30 Test 06/08/24 06:27 Range/Units Serum Glucose 72 L 74-106 mg/dL Microbiology Date/Time Source Procedure Growth Status 05/30/24 08:20 Nose MRSA Screen - Final Complete 05/27/24 08:55 Urine - [place] Urine Culture - Final Yeast, not Bella albicans Complete 05/26/24 17:04 Blood Blood Culture - Final NO GROWTH AFTER 5 DAYS OF INCUBATION. Complete Problem List/Assessment/Plan Problem List/Assessment/Plan acute kidney injury likely acute tubular necrosis toxic metabolic, possible uremic encephalopathy---resolved Hypokalemia Hypophosphatemia, replaced Hypocalcemia, replace Hypomagnesemia, replaced Recommendations Kidney function stabilize stage IIIB Increased urine output [place] catheter strict i and o KCL replacement We will continue to follow Plan discussed with: Patient Dietary Evaluation Review Comments: Continue current plan of care Expected Outcomes/Goals: F/U in 3-5 days MAR HELMS MD Jun 09, 2024 14:29
[2024-06-09] MEDS: ALBUMIN 25% 100 ML IV SCH (17:31)
--- NOTE | 2024-06-09 19:01 | DVHPN2 ---
Progress Note Date Seen: Jun 09, 2024 Medical Necessity Reason Pt with a Central, PICC or Fol: Yes The following are medically ne: [place]ado Catheter Subjective Patient reports: No new complaints Objective vital signs Vital Sign Date Time Temp Pulse Resp B/P (MAP) Pulse Ox O2 Delivery O2 Flow Rate FiO2 06/09/24 17:00 98.4 70 16 100/58 (72) 95 98.4 06/09/24 08:00 Nasal Cannula* 2 28 Total Intake and Output 06/08/24 06/08/24 06/09/24 15:00 23:00 07:00 Intake Total 440 ml 520 ml 170 ml Output Total 250 ml 2050 ml Balance 440 ml 270 ml -1880 ml medications Current Medications Medications Dose Ordered Sig/Arielle Route Start Time Stop Time Status Last Admin Dose Admin Enoxaparin Sodium 40 mg DAILY SC 05/27/24 10:00 UNV Nitroglycerin 0.4 mg Q5MINP PRN SL 05/26/24 14:30 Clopidogrel Bisulfate 75 mg DAILY PO 05/27/24 10:00 06/09/24 09:08 75 MG Ferrous Sulfate 325 mg TUTHSA PO 05/27/24 10:00 06/08/24 09:49 325 MG Levetiracetam 500 mg BID PO 05/26/24 22:00 06/09/24 09:08 500 MG Pantoprazole Sodium 40 mg DAILY PO 05/27/24 10:00 06/09/24 09:08 40 MG Atorvastatin Calcium 10 mg DAILY PO 05/27/24 10:00 06/09/24 09:07 10 MG Gabapentin 300 mg DAILY PO 05/27/24 12:45 06/09/24 09:08 300 MG Lorazepam 1 mg Q5MINP PRN IV 05/28/24 17:45 Sodium Chloride 1,000 ml @ 75 mls/hr [id number] IV 05/31/24 16:45 06/09/24 00:52 75 MLS/HR Potassium Bicarbonate 50 meq BID GT 06/05/24 11:15 06/09/24 09:06 50 MEQ Albumin Human 100 ml @ 100 mls/hr Q8H IV 06/09/24 16:30 06/10/24 09:29 06/09/24 17:31 100 MLS/HR Examination: GENERAL:Normal, LUNGS:Normal, CVS:Normal, ABDOMEN:Normal, SKIN:Normal laboratory and microbiology Laboratory Tests 06/08/24 06:27 06/06/24 10:30 Test 06/08/24 06:27 Range/Units Serum Glucose 72 L 74-106 mg/dL Microbiology Date/Time Source Procedure Growth Status 05/30/24 08:20 Nose MRSA Screen - Final Complete 05/27/24 08:55 Urine - [place] Urine Culture - Final Yeast, not Bella albicans Complete 05/26/24 17:04 Blood Blood Culture - Final NO GROWTH AFTER 5 DAYS OF INCUBATION. Complete Labs and/or images reviewed: Labs reviewed by me, Image(s) reviewed by me Problem List/Assessment/Plan Problem List/Assessment/Plan 1. Acute metabolic encephalopathy likely related to sepsis 2. GRACIELA likely with ATN Nephrology consult, IV fluids 3. Hyperkalemia Nephrology consult, hyperkalemia protocol 4. Pneumonia likely Gram-negative or Gram-positive IV antibiotics 5. Severe malnourished Dietary consult 6. History of CVA 7. COPD Managed treatments 8. Seizures Continue home medication Assessment/Plan Subjective Patient is awake and alert Objective Daughter has agreed for snf placement however case specialist is still searching for snf that daughter is agreeable to. Patient was admitted on 05/26/2024 for severe metabolic encephalopathy, uremia, acute kidney injury, and severe malnourishment. Patient had a history of a CVA with residual deficits. Patient reportedly was at [facility] for 3 weeks and she was able to ambulate prior to transfer to [facility]. Patient is now bedbound and dependent on caregivers. Per nurse blood pressures have been soft today in the 80s systolic, ordered albumin. Plan Continue current treatment. Continue IV antibiotics. Plan to discharge to skilled facility tomorrow when bed is available, monitor blood pressure, IV albumin Plan discussed with: Patient My Orders My Orders Orders - ENID GOSS Procedure Category Date Status Time Discharge DISCHARGE 06/09/24 Transmitted 12:53 Albumin 25% (Albutein) PHA 06/09/24 In Process 16:30 Dietary Evaluation Review Comments: Continue current plan of care Expected Outcomes/Goals: F/U in 3-5 days Date of Service: Jun 09, 2024 Billing Provider: JACINDA TROY MD Common Visit Codes: [id number] INP/OBS CARE (MOD) ENID GOSS Jun 09, 2024 19:01
--- NOTE | 2024-06-09 23:05 | DVHPN2 ---
Consult Progress Note Date Seen: Jun 09, 2024 Subjective Patient reports: Feels better, Other (no complaints of pain anywhere , appears to be at her baseline . IS getting wound care for her ulcer which appears clean . is producing plenty of urine ) Objective vital signs Vital Sign Date Time Temp Pulse Resp B/P (MAP) Pulse Ox O2 Delivery O2 Flow Rate FiO2 06/09/24 21:00 98.2 82 19 104/58 (73) 100 98.2 06/09/24 20:00 Nasal Cannula* 2 28 Total Intake and Output 06/08/24 06/08/24 06/09/24 15:00 23:00 07:00 Intake Total 440 ml 520 ml 170 ml Output Total 250 ml 2050 ml Balance 440 ml 270 ml -1880 ml medications Current Medications Medications Dose Ordered Sig/Arielle Route Start Time Stop Time Status Last Admin Dose Admin Enoxaparin Sodium 40 mg DAILY SC 05/27/24 10:00 UNV Nitroglycerin 0.4 mg Q5MINP PRN SL 05/26/24 14:30 Clopidogrel Bisulfate 75 mg DAILY PO 05/27/24 10:00 06/09/24 09:08 75 MG Ferrous Sulfate 325 mg TUTHSA PO 05/27/24 10:00 06/08/24 09:49 325 MG Levetiracetam 500 mg BID PO 05/26/24 22:00 06/09/24 21:45 500 MG Pantoprazole Sodium 40 mg DAILY PO 05/27/24 10:00 06/09/24 09:08 40 MG Atorvastatin Calcium 10 mg DAILY PO 05/27/24 10:00 06/09/24 09:07 10 MG Gabapentin 300 mg DAILY PO 05/27/24 12:45 06/09/24 09:08 300 MG Lorazepam 1 mg Q5MINP PRN IV 05/28/24 17:45 Sodium Chloride 1,000 ml @ 75 mls/hr [id number] IV 05/31/24 16:45 06/09/24 00:52 75 MLS/HR Potassium Bicarbonate 50 meq BID GT 06/05/24 11:15 06/09/24 21:45 50 MEQ Albumin Human 100 ml @ 100 mls/hr Q8H IV 06/09/24 16:30 06/10/24 09:29 06/09/24 17:31 100 MLS/HR Physical Exam: General: Appears ill. Neck: Supple. No masses. HEENT: PERRL. Normal lids and conjunctiva. Moist mucous membranes. Oropharynx without lesions, exudates, or excessive erythema. Normal appearance of the external aspects of the nose and ears. Heart: Regular rhythm, tachycardic. No murmur. No lower extremity edema. Lungs: Normal respiratory effort. Clear to auscultation bilaterally. No wheezes. No crackles. Abdomen: Distended. Tender to palpation. No masses or abdominal hernia. MSK: No digital cyanosis. Normal strength and tone in all four limbs. Skin: Warm and dry, no rashes. Neuro: Alert. No facial droop or slurred speech. Extraocular movements intact. Sensation intact to soft touch in all four limbs. Psych: Appropriate mood. Full affect. Oriented to person, place, time, and situation. laboratory and microbiology Laboratory Tests 06/08/24 06:27 06/06/24 10:30 Test 06/08/24 06:27 Range/Units Serum Glucose 72 L 74-106 mg/dL Problem List/Assessment/Plan Problems(with codes): (1) Hypotensive episode (2) Colostomy in place (3) Community acquired bacterial pneumonia (4) Physical deconditioning (5) Altered mental status (6) UTI (urinary tract infection) (7) Renal failure (8) COPD (chronic obstructive pulmonary disease) (9) GRACIELA (acute kidney injury) Problem List/Assessment/Plan ID Problem List: - Altered mental status - Seizure disorder COPD - Pneumonia - Urinary tract infection - Septic shock - Acute renal failure - Possible congestive heart failure exacerbation - Left clavicle displacement - Anemia - Strocoral collitis Assessment This is a 73 y.o. female with a past medical history of COPD, diabetes mellitus, recurrent UTIs, multiple myocardial infarctions, recent sepsis, cerebrovascular accident (stroke), colostomy placement, congestive heart failure, and seizure disorder, who presents with altered mental status. She was found to be hypotensive with a blood pressure of 79/55?mmHg, hypothermic with a rectal temperature of 95.6?F, and heart rate in the 80s. On examination, the patient is moaning and unresponsive to verbal stimuli. Laboratory studies reveal leukocytosis with WBC 15.4, thrombocytosis with platelets 521, anemia with hemoglobin 7.2 and hematocrit 23, elevated creatinine 8.06 indicating acute renal failure, hyponatremia (Na 129), hyperkalemia (K 6.7), elevated lactic acid 3.9. Liver enzymes are elevated with AST 264 and ALT 69. Urinalysis shows 17 WBCs, 3+ leukocytes, moderate yeast, and bacteria. Chest X-ray revealed a deep sulcus sign of the left costophrenic angle suggestive of possible pneumothorax; CT was recommended. Chest CT showed new tree-in-bud opacities in both lungs likely infectious/inflammatory, chronic consolidation in the right upper lobe, stable ground-glass opacities in the right middle lobe, and an infrarenal abdominal aortic aneurysm measuring 35?mm. Head CT showed no intracranial process. Shoulder X-ray showed the left clavicle is superiorly displaced, possibly chronic. 05/29: urine cultures are growing great than 100,00 yeast and blood cultures have no growth to date , whitecount is 7.3 and signs of sepsis are improving 06/01: Responding to antibiotic therapy , kidney function is improving . MRSA nares is negative 06/02: CT shows no hydronephoris , no renal stones and dense stool in the rectum with adjacent stranding , no small bowel obstruction , stucural colitis 06/04: suspect diarrhea is contributing to GRACIELA Plan: - monitor patients off all antibiotics - Start patient on bowel regimen to relieve constipation - recommend carias change - Acute renal failure: - Defer management to the nephrology team. - Patient will likely require dialysis. - Altered mental status: - Monitor neurological status. - Defer seizure disorder management to neurology. - Electrolyte abnormalities: - Hyperkalemia (K 6.7): Implement hyperkalemia protocol. - Hyponatremia (Na 129): Monitor and correct sodium levels cautiously. - Anemia: - Monitor hemoglobin and hematocrit. - Consider transfusion if necessary. Plan discussed with: Other Dietary Evaluation Review Comments: Continue current plan of care Expected Outcomes/Goals: F/U in 3-5 days DIGNA OVERTON MD Jun 09, 2024 23:05
[2024-06-10 01:32] VITALS: BP 97/55; PULSE 75; RESP 17; TEMP 98.2; O2SAT 95
[2024-06-10 05:45] VITALS: BP 107/58; PULSE 69; RESP 17; TEMP 97.4; O2SAT 98
[2024-06-10 08:00] VITALS: PULSE 61
[2024-06-10 09:00] VITALS: BP 90/50; PULSE 71; RESP 17; TEMP 97.9; O2SAT 100
--- NOTE | 2024-06-10 09:54 | DVHPN2 ---
Progress Note Date Seen: Jun 10, 2024 Medical Necessity Reason Pt with a Central, PICC or Fol: Yes The following are medically ne: Machado Catheter Subjective Patient reports: No new complaints Other Systems: Patient seen and examined by myself today in follow-up Objective vital signs Vital Sign Date Time Temp Pulse Resp B/P (MAP) Pulse Ox O2 Delivery O2 Flow Rate FiO2 06/10/24 05:45 97.4 69 17 107/58 (74) 98 97.4 06/09/24 20:00 Nasal Cannula* 2 28 Total Intake and Output 06/09/24 06/09/24 06/10/24 15:00 23:00 07:00 Intake Total 950 ml 800 ml Output Total 350 ml 2000 ml 2700 ml Balance -350 ml -1050 ml -1900 ml medications Current Medications Medications Dose Ordered Sig/Arielle Route Start Time Stop Time Status Last Admin Dose Admin Enoxaparin Sodium 40 mg DAILY SC 05/27/24 10:00 UNV Nitroglycerin 0.4 mg Q5MINP PRN SL 05/26/24 14:30 Clopidogrel Bisulfate 75 mg DAILY PO 05/27/24 10:00 06/09/24 09:08 75 MG Ferrous Sulfate 325 mg TUTHSA PO 05/27/24 10:00 06/08/24 09:49 325 MG Levetiracetam 500 mg BID PO 05/26/24 22:00 06/09/24 21:45 500 MG Pantoprazole Sodium 40 mg DAILY PO 05/27/24 10:00 06/09/24 09:08 40 MG Atorvastatin Calcium 10 mg DAILY PO 05/27/24 10:00 06/09/24 09:07 10 MG Gabapentin 300 mg DAILY PO 05/27/24 12:45 06/09/24 09:08 300 MG Lorazepam 1 mg Q5MINP PRN IV 05/28/24 17:45 Sodium Chloride 1,000 ml @ 75 mls/hr [id number] IV 05/31/24 16:45 06/10/24 02:33 75 MLS/HR Potassium Bicarbonate 50 meq BID GT 06/05/24 11:15 06/09/24 21:45 50 MEQ Examination: LUNGS:Normal, CVS:Normal, MSK:Normal laboratory and microbiology Laboratory Tests 06/08/24 06:27 06/06/24 10:30 Test 06/08/24 06:27 Range/Units Serum Glucose 72 L 74-106 mg/dL Microbiology Date/Time Source Procedure Growth Status 05/30/24 08:20 Nose MRSA Screen - Final Complete 05/27/24 08:55 Urine - [place] Urine Culture - Final Yeast, not Bella albicans Complete 05/26/24 17:04 Blood Blood Culture - Final NO GROWTH AFTER 5 DAYS OF INCUBATION. Complete Problem List/Assessment/Plan Problem List/Assessment/Plan acute kidney injury likely acute tubular necrosis toxic metabolic, possible uremic encephalopathy---resolved Hypokalemia Hypophosphatemia, replaced Hypocalcemia, replace Hypomagnesemia, replaced Recommendations Kidney function stabilize stage IIIB Increased urine output Machado catheter strict i and o KCL replacement We will continue to follow Plan discussed with: Patient Dietary Evaluation Review Comments: Continue current plan of care Expected Outcomes/Goals: F/U in 3-5 days MAR HELMS MD Jun 10, 2024 09:54
--- NOTE | 2024-06-10 10:16 | DVHPN2 ---
Progress Note - Dictate Date Seen: Jun 10, 2024 Medical Necessity Reason Pt with a Central, PICC or Fol: Yes The following are medically ne: Machado Catheter Subjective Ms. Dillard is a 73 years old right-handed female with a history of hypertension, dyslipidemia, chronic low back pain, chronic pain in the hips, she came to the hospital on 05/26/24 with a chief complaint of altered mental status. I saw her on 11/23/21 for ALOC/metabolic encephalopathy, 12/28/21 for ALOC, 02/15/2022 for stroke, 04/19/2023 for seizure, 11/24/2023, 04/12/24 for encephalopathy, 03/31/2024 for ALOC I have seen and examined the patient, I have talked to her nurse, she looks stronger, she is oriented x 3, socially reasonable, she can maintain a good conversation Urine culture, 05/27/2024: Yeast Blood culture, 05/26/2024: Negative Urinalysis, 05/26/2024: WBC: 17, urine leukocyte esterase: 3+ WBC/HB/PLT/MCV, 05/28/2024: 7.9/8.19/367/94.1, 06/03/2024: 5.6/13.4/190/98.2 PT/INR/PTT, 05/26/2024: 15.8/1.54/29.1 Na, 05/26/2024: 124, 129, 05/27/2020 4:135 K, 05/26/2024: 6.7, 5.6, 05/28/2024: Sleep, sleep BUN/CR, 05/26/2024: 215/8.16, 05/26/2024: 223/8.06, : 160/5.88, 05/31/2024: 93/4.16 Lactic acid, 05/26/2024: 3.9, 3.2 TBI/AST/ALT/AP, 05/26/2024: 0.8/73/87/342, 05/29/24: 0.3/82/53/152 Vitamin B12, 03/2023: 395, : 968 Folic acid, 11/2021: 24, 03/29/2024: 13.56 TSH, 11/2021: 0.27 03/2024: 1.1 EEG, 12/29/2021: Normal EEG, 02/15/2022: Normal EEG, 04/11/2024: Bilateral PLEDs Carotid Doppler, 04/11/2024: No hemodynamically significant stenosis within the carotid arteries X-ray, Left shoulder 05/26/2024, There is no evidence of acute fracture or dislocation. The left clavicle appears superiorly displaced. This could be chronic in nature CT head, 05/26/2024: No acute intracranial process CT chest, 05/26/2024: Previously seen ground-glass opacities have largely resolved. New tree-in-bud nodularity in both lungs. Likely infectious/inflammatory. Chronic consolidation right upper lobe. Stable ground-glass opacity right middle lobe. Clinical correlation and continued follow-up is recommended. Infrarenal abdominal aortic aneurysm measuring up to 35 mm. Consider further evaluation with CT of the abdomen and pelvis. MRI head, 12/29/2021: There is mild to moderate microvascular ischemic disease of supratentorial white matter. There is moderate to severe microvascular ischemic disease of the brain stem. There is no acute infarct. There is no hemorrhage, mass or hydrocephalus. No brain atrophy MRI head, 02/15/2022: Motion degraded study There is no acute infarct. There is no hemorrhage. There is mild to moderate microvascular ischemic disease of supratentorial white matter. There is a moderate to severe microvascular ischemic disease of the brainstem MRI head, 04/11/2024: 1. There is no acute intracranial process. 2. [id number] chronic microvascular ischemic changes vital signs Vital Sign Date Time Temp Pulse Resp B/P (MAP) Pulse Ox O2 Delivery O2 Flow Rate FiO2 06/10/24 09:00 97.9 71 17 90/50 (63) 100 97.9 06/09/24 20:00 Nasal Cannula* 2 28 Total Intake and Output 06/09/24 06/09/24 06/10/24 15:00 23:00 07:00 Intake Total 950 ml 800 ml Output Total 350 ml 2000 ml 2700 ml Balance -350 ml -1050 ml -1900 ml medications Current Medications Medications Dose Ordered Sig/Arielle Route Start Time Stop Time Status Last Admin Dose Admin Enoxaparin Sodium 40 mg DAILY SC 05/27/24 10:00 UNV Nitroglycerin 0.4 mg Q5MINP PRN SL 05/26/24 14:30 Clopidogrel Bisulfate 75 mg DAILY PO 05/27/24 10:00 06/09/24 09:08 75 MG Ferrous Sulfate 325 mg TUTHSA PO 05/27/24 10:00 06/08/24 09:49 325 MG Levetiracetam 500 mg BID PO 05/26/24 22:00 06/09/24 21:45 500 MG Pantoprazole Sodium 40 mg DAILY PO 05/27/24 10:00 06/09/24 09:08 40 MG Atorvastatin Calcium 10 mg DAILY PO 05/27/24 10:00 06/09/24 09:07 10 MG Gabapentin 300 mg DAILY PO 05/27/24 12:45 06/09/24 09:08 300 MG Lorazepam 1 mg Q5MINP PRN IV 05/28/24 17:45 Sodium Chloride 1,000 ml @ 75 mls/hr [id number] IV 05/31/24 16:45 06/10/24 02:33 75 MLS/HR Potassium Bicarbonate 50 meq BID GT 06/05/24 11:15 06/09/24 21:45 50 MEQ objective General: the patient is cachectic MENTAL STATUS: Subjective SPEECH, LANGUAGE, HIGHER CORTICAL FUNCTION: no aphasia or dysathria. CRANIAL NERVES: Pupils are equal, round and reactive. EOMs full and conjugate. Facial sensation intact in all three divisions bilaterally. Mandibular strength intact. Facial muscles symmetrical and strength is 4/5. SENSATION: Sensation to touch and pinprick is fine MOTOR: Normal tone in the upper and lower extremity. Normal muscle bulk. No fasciculations. No abnormal movements or posturing. She moves arms and legs REFLEXES: Deep tendon reflexes are symmetrical. No pathological reflexes. CEREBELLAR/COORDINATION: Deferred GAIT/STATION: deferred laboratory and microbiology Laboratory Tests 06/08/24 06:27 06/06/24 10:30 Test 06/08/24 06:27 Range/Units Serum Glucose 72 L 74-106 mg/dL Problem List Altered mental status Likely metabolic encephalopathy ? Status epileptics ? Partial complex seizure Lactic acidosis/sepsis Urinary tract infection Septic shock Seizure Kidney failure Cachexia Ecchymosis Assessment/Plan Monitoring Supportive treatment Coagulation panel EEG, she refused IV antibiotics Keppra 500mg Bid Ativan for seizure breakthrough Pain management GI prophylaxis/pantoprazole Infectious disease on case Urology on case More recommendation per clinical course This medical document was created using an electronic medical record system with [employer]ujoo computerized dictation system. Although this document has been carefully reviewed, there may still be some phonetic and typographical errors. These areas are purely typographical due to imperfections of the software programs, and do not reflect any compromise in the patient's medical care Prognosis poor Dietary Evaluation Review Comments: Continue current plan of care Expected Outcomes/Goals: F/U in 3-5 days Plan discussed with: Other CHINA RIVERA MD Jun 10, 2024 10:16
[2024-06-10 12:10] LABS: Chloride 100 mmol/L (98-107); Potassium 3.8 mmol/L (3.5-5.1); Sodium 138 mmol/L (136-145)
[2024-06-10 12:11] LABS: Anion Gap 7 (5-15); Carbon Dioxide 31 mmol/L (20-31)
[2024-06-10 12:16] LABS: BUN/Creatinine Ratio 10.9 (10.0-20.0); Blood Urea Nitrogen 19 mg/dL (9-23); Glucose 102 mg/dL (74-106)
[2024-06-10 12:22] LABS: Calcium 8.5 mg/dL (8.7-10.4)
[2024-06-10 15:27] LABS: Hemoglobin 8.4 g/dL (12.2-16.2); Red Blood Cells 2.75 10^6/uL (4.0-5.20); White Blood Cell 4.3 10^3/uL (4.4-10.8)
[2024-06-10 15:28] LABS: Hematocrit 25.7 % (36.0-46.0); Mean Corpuscular Hemoglobin 30.5 pg (28.0-32.0); Mean Corpuscular Hgb Conc. 32.7 g/dL (32.0-36.0); Mean Corpuscular Volume 93.4 fL (80.0-100.0); Platelet Count (auto) 97 10^3/uL (140-450)
[2024-06-10 15:32] LABS: Band Neutrophils % (manual) 0; Basophils % (manual) 0 (0.0-2.0); Blast Cells 0; Metamyelocytes % 0; Myelocytes % 0; Promyelocytes % 0; Reactive Lymphocytes 0
[2024-06-10 16:04] LABS: Eosinophils % (manual) 2 (0-7); Lymphocytes % (manual) 29 (10.0-50.0); Monocytes % (manual) 3 (0-12)
[2024-06-10 16:05] LABS: Platelet Estimate Decreased
[2024-06-10 17:00] VITALS: BP 120/56; PULSE 77; RESP 20; TEMP 97.4; O2SAT 99
[2024-06-10 17:26] VITALS: TEMP 36.6
--- NOTE | 2024-06-10 17:26 | DVHDS2 ---
Discharge Summary Date of Admission May 26, 2024 at 14:29 Date of Discharge: Jun 10, 2024 Labs/Diagnostic Data: Laboratory Results Test 06/10/24 15:09 06/10/24 11:40 06/08/24 06:27 06/06/24 10:30 White Blood Count 4.3 10^3/uL (4.4-10.8) Red Blood Count 2.75 10^6/uL (4.0-5.20) Hemoglobin 8.4 g/dL (12.2-16.2) Hematocrit 25.7 % (36.0-46.0) Mean Corpuscular Volume 93.4 fL (80.0-100.0) Mean Corpuscular Hemoglobin 30.5 pg (28.0-32.0) Mean Corpuscular Hemoglobin Concent 32.7 g/dL (32.0-36.0) Red Cell Distribution Width 15.0 % (11.8-14.3) Platelet Count 97 10^3/uL (140-450) Mean Platelet Volume 8.2 fL (6.9-10.8) Neutrophils (%) (Auto) % (37.0-80.0) Lymphocytes (%) (Auto) % (10.0-50.0) Monocytes (%) (Auto) % (0.0-12.0) Basophils (%) (Auto) % (0.0-2.0) Neutrophils # (Auto) 10 ^3/uL (1.6-8.6) Lymphocytes # (Auto) 10 ^3/uL (0.4-5.4) Monocytes # (Auto) 10 ^3/uL (0-1.3) Differential Total Cells Counted 100.0 (100) Neutrophils % (Manual) 66 (37.0-80.0) Band Neutrophils % (Manual) 0 Lymphocytes % (Manual) 29 (10.0-50.0) Monocytes % (Manual) 3 (0-12) Eosinophils % (Manual) 2 (0-7) Basophils % (Manual) 0 (0.0-2.0) Metamyelocytes % (manual) 0 Myelocytes % (Manual) 0 Promyelocytes % (Manual) 0 Blast Cells % (Manual) 0 Reactive Lymphocytes 0 Platelet Estimate Decreased Sodium Level 138 mmol/L (136-145) Potassium Level 3.8 mmol/L (3.5-5.1) Chloride Level 100 mmol/L (98-107) Carbon Dioxide Level 31 mmol/L (20-31) Anion Gap 7 (5-15) Blood Urea Nitrogen 19 mg/dL (9-23) Creatinine 1.75 mg/dL (0.550-1.02) Glomerular Filtration Rate Calc 31 mL/min (>90) BUN/Creatinine Ratio 10.9 (10.0-20.0) Serum Glucose 102 mg/dL (74-106) Calcium Level 8.5 mg/dL (8.7-10.4) Phosphorus Level 2.7 mg/dL (2.4-5.1) Total Bilirubin 0.5 mg/dL (0.2-1.0) Aspartate Amino Transferase (AST) 29 U/L (13-40) Alanine Aminotransferase (ALT) 27 U/L (7-40) Alkaline Phosphatase 134 U/L (46-116) Total Protein 5.3 g/dL (5.7-8.2) Albumin 3.0 g/dL (3.2-4.8) Eosinophils (%) (Auto) 0.7 % (0.0-7.0) Eosinophils # (Auto) 0 10 ^3/uL (0-0.8) Basophils # (Auto) 0.1 10 ^3/uL (0-0.2) Nucleated Red Blood Cells 0.0 % Magnesium Level 1.5 mg/dL (1.6-2.6) Vitamin D 25-Hydroxy 54.8 ng/mL (30.0-100) Parathyroid Hormone (Intact) 213.8 pg/mL (18.4-80.1) Test 06/05/24 20:41 06/05/24 11:09 05/29/24 10:53 05/29/24 09:11 Urine Creatinine 74.61 mg/dL (30.0-125.0) Urine Sodium 40 mmol/L (40-220) Prothrombin Time 21.1 sec (9.3-11.8) Prothrombin Time INR 2.10 (0.9-1.15) Lactic Acid Level 1.7 mmol/L (0.4-2.0) Direct Bilirubin 0.3 mg/dL (<0.3) Test 05/27/24 07:20 05/27/24 05:50 05/26/24 17:04 05/26/24 15:10 Influenza Type A Antigen Negative (Negative) Influenza Type B Antigen Negative (Negative) SARS-CoV-2 Antigen (Rapid) Negative (NEGATIVE) Hepatitis B Surface Antigen Negative (Negative) Activated Partial Thromboplast Time 29.1 SEC (24.5-34.5) Troponin I High Sensitivity 25 ng/L (</=34) Urine Color Yellow (Yellow) Urine Clarity Turbid (Clear) Urine pH 5.0 (5.0-9.0) Urine Specific Midnight 1.019 (1.001-1.035) Urine Protein Trace (Negative) Urine Ketones Negative (Negative) Urine Blood Negative /uL (Negative) Urine Nitrite Negative (Negative) Urine Bilirubin Negative (Negative) Urine Urobilinogen Normal mg/dL (Negative) Urine Leukocyte Esterase 3+ /uL (Negative) Urine RBC 10 /hpf (0 - 4) Urine WBC 17 /hpf (0 - 5) Urine Squamous Epithelial Cells Few /hpf (<5) Urine Bacteria Few /hpf (None Seen) Urine Hyaline Casts Few /lpf (0 - 2) Urine Yeast (Budding) Moderate /hpf (None Seen) Urine Glucose Normal mg/dL (Normal) Test 05/26/24 14:50 05/26/24 13:27 Thyroid Stimulating Hormone (TSH) 2.37 uIU/mL (0.55-4.78) Hemoglobin A1c 5.1 % A1C (<5.7) Other Laboratory Tests 06/10/24 15:09 06/10/24 11:40 Brief Hx & Hospital Course: Patient was admitted for acute metabolic encephalopathy which is multifactorial related to uremia, from GRACIELA due to ATN, sepsis related to pneumonia. Patient was given IV fluids later renal function did improve to CKD 3B with GFR of 31, patient was seen and evaluated by child and family services worker. Patient initially had severe hyperkalemia which was treated and returned back to baseline. Patient's mental status returned to baseline, patient was seen by neurologist and was cleared for discharge. Patient also had severe malnourishment patient was restarted on diet and was given nutrition supplements. Per daughter, patient was previously independent and has now become severely deconditioned and bed-bound and needed continued skilled PT. Patient will be transferred to [facility] facility for continued PT. Patient was also given IV antibiotics and seen by Infectious Disease for pneumonia and sepsis. Condition at Discharge: Fair Final Diagnosis/Problems List Acute Renal Failure with AKN Malnutrition Sepsis PNA steffany gram negatative or positive Discharge Disposition: [facility] Facility Discharge Instruct/Medications Diet: Cardiac 2g Na,low cholest Activity: No Restrictions, As Tolerated Follow Up/Referral: pcp 1 week Discharge Statement: "Patient was advised to return to the ER or call 911 if any headaches, dizziness, shortness of breath, chest pain, abdominal pain, bleeding, fevers, or worsening of medical condition. Patient was counseled about treatment plan, medications, possible side effects, patientverbalized understanding. All questions were answered to the best of my ability. This discharge took greater then 30 minutes in planning, reviewing documentation, counseling the patient, and discussing with other team members." ASSESSMENT ASSESSMENT Assessment Acute Renal Failure Malnutrition Sepsis PNA ENID GOSS Jun 10, 2024 17:26
--- NOTE | 2024-06-10 23:18 | DVHPN2 ---
Consult Progress Note Date Seen: Jun 10, 2024 Subjective Patient reports: Other (output in colonstomy bag , bp is low 90/50 ) Objective vital signs Vital Sign Date Time Temp Pulse Resp B/P (MAP) Pulse Ox O2 Delivery O2 Flow Rate FiO2 06/10/24 17:26 36.6 06/10/24 17:00 77 20 120/56 (77) 99 06/10/24 08:00 Nasal Cannula* 2 28 Total Intake and Output 06/09/24 06/09/24 06/10/24 15:00 23:00 07:00 Intake Total 950 ml 800 ml Output Total 350 ml 2000 ml 2700 ml Balance -350 ml -1050 ml -1900 ml medications Current Medications Medications Dose Ordered Sig/Arielle Route Start Time Stop Time Status Last Admin Dose Admin Enoxaparin Sodium 40 mg DAILY SC 05/27/24 10:00 UNV Physical Exam: General: Appears ill. Neck: Supple. No masses. HEENT: PERRL. Normal lids and conjunctiva. Moist mucous membranes. Oropharynx without lesions, exudates, or excessive erythema. Normal appearance of the external aspects of the nose and ears. Heart: Regular rhythm, tachycardic. No murmur. No lower extremity edema. Lungs: Normal respiratory effort. Clear to auscultation bilaterally. No wheezes. No crackles. Abdomen: Distended. Tender to palpation. No masses or abdominal hernia. MSK: No digital cyanosis. Normal strength and tone in all four limbs. Skin: Warm and dry, no rashes. Neuro: Alert. No facial droop or slurred speech. Extraocular movements intact. Sensation intact to soft touch in all four limbs. Psych: Appropriate mood. Full affect. Oriented to person, place, time, and situation. laboratory and microbiology Laboratory Tests 06/10/24 15:09 06/10/24 11:40 Test 06/10/24 11:40 Range/Units Serum Glucose 102 74-106 mg/dL Problem List/Assessment/Plan Problems(with codes): (1) Hypotensive episode (2) Colostomy in place (3) Community acquired bacterial pneumonia (4) Physical deconditioning (5) Altered mental status (6) UTI (urinary tract infection) (7) Renal failure Problem List/Assessment/Plan ID Problem List: - Altered mental status - Seizure disorder COPD - Pneumonia - Urinary tract infection - Septic shock - Acute renal failure - Possible congestive heart failure exacerbation - Left clavicle displacement - Anemia - Strocoral collitis Assessment This is a 73 y.o. female with a past medical history of COPD, diabetes mellitus, recurrent UTIs, multiple myocardial infarctions, recent sepsis, cerebrovascular accident (stroke), colostomy placement, congestive heart failure, and seizure disorder, who presents with altered mental status. She was found to be hypotensive with a blood pressure of 79/55?mmHg, hypothermic with a rectal temperature of 95.6?F, and heart rate in the 80s. On examination, the patient is moaning and unresponsive to verbal stimuli. Laboratory studies reveal leukocytosis with WBC 15.4, thrombocytosis with platelets 521, anemia with hemoglobin 7.2 and hematocrit 23, elevated creatinine 8.06 indicating acute renal failure, hyponatremia (Na 129), hyperkalemia (K 6.7), elevated lactic acid 3.9. Liver enzymes are elevated with AST 264 and ALT 69. Urinalysis shows 17 WBCs, 3+ leukocytes, moderate yeast, and bacteria. Chest X-ray revealed a deep sulcus sign of the left costophrenic angle suggestive of possible pneumothorax; CT was recommended. Chest CT showed new tree-in-bud opacities in both lungs likely infectious/inflammatory, chronic consolidation in the right upper lobe, stable ground-glass opacities in the right middle lobe, and an infrarenal abdominal aortic aneurysm measuring 35?mm. Head CT showed no intracranial process. Shoulder X-ray showed the left clavicle is superiorly displaced, possibly chronic. 05/29: urine cultures are growing great than 100,00 yeast and blood cultures have no growth to date , whitecount is 7.3 and signs of sepsis are improving 06/01: Responding to antibiotic therapy , kidney function is improving . MRSA nares is negative 06/02: CT shows no hydronephoris , no renal stones and dense stool in the rectum with adjacent stranding , no small bowel obstruction , stucural colitis 06/04: suspect diarrhea is contributing to GRACIELA Plan: - monitor patients off all antibiotics - Start patient on bowel regimen to relieve constipation - recommend carias change - Acute renal failure: - Defer management to the nephrology team. - Patient will likely require dialysis. - Altered mental status: - Monitor neurological status. - Defer seizure disorder management to neurology. - Electrolyte abnormalities: - Hyperkalemia (K 6.7): Implement hyperkalemia protocol. - Hyponatremia (Na 129): Monitor and correct sodium levels cautiously. - Anemia: - Monitor hemoglobin and hematocrit. - Consider transfusion if necessary. Plan discussed with: Other Dietary Evaluation Review Comments: Continue current plan of care Expected Outcomes/Goals: F/U in 3-5 days DIGNA OVERTON MD Jun 10, 2024 23:18
== END 2024-06-10 20:06 | DRG 871 ==
LOC: EDBD 08:37 → ER 08:37 → EDUNIT# 08:37 → TELE 14:29 → TELE-WESTW 05-27 16:50 → TELE-CENTR 05-30 17:25
PROVIDERS: ADMIT Nurse Practitioner Family; ATTEND Nurse Practitioner
PROC: 05HB33Z Insertion of Infusion Device into Right Basilic Vein, Percutaneous Approach (ICD-10-PCS; principal; 2024-05-30)
PROC: B54MZZA Ultrasonography of Right Upper Extremity Veins, Guidance (ICD-10-PCS; 2024-05-30)
DX: A41.9 Sepsis, unspecified organism (principal); E43 Unspecified severe protein-calorie malnutrition; G93.41 Metabolic encephalopathy; N17.0 Acute kidney failure with tubular necrosis; J15.69 Pneumonia due to other Gram-negative bacteria; J15.9 Unspecified bacterial pneumonia; R65.21 Severe sepsis with septic shock; N39.0 Urinary tract infection, site not specified; R64 Cachexia; J44.0 Chronic obstructive pulmonary disease with (acute) lower respiratory infection; E87.20 Acidosis, unspecified; E87.1 Hypo-osmolality and hyponatremia; I13.0 Hypertensive heart and chronic kidney disease with heart failure and stage 1 through stage 4 chronic kidney disease, or unspecified chronic kidney disease; E86.0 Dehydration; F17.200 Nicotine dependence, unspecified, uncomplicated; D64.9 Anemia, unspecified; F03.90 Unspecified dementia, unspecified severity, without behavioral disturbance, psychotic disturbance, mood disturbance, and anxiety; G89.29 Other chronic pain; Z20.822 Contact with and (suspected) exposure to COVID-19; I50.9 Heart failure, unspecified; G40.909 Epilepsy, unspecified, not intractable, without status epilepticus; N18.32 Chronic kidney disease, stage 3b; E11.22 Type 2 diabetes mellitus with diabetic chronic kidney disease; E83.39 Other disorders of phosphorus metabolism; D75.839 Thrombocytosis, unspecified; E87.5 Hyperkalemia; K21.9 Gastro-esophageal reflux disease without esophagitis; E83.51 Hypocalcemia; Z86.73 Personal history of transient ischemic attack (TIA), and cerebral infarction without residual deficits; Z93.3 Colostomy status; Z88.0 Allergy status to penicillin; Z83.3 Family history of diabetes mellitus; Z82.49 Family history of ischemic heart disease and other diseases of the circulatory system; Z68.33 Body mass index [BMI] 33.0-33.9, adult; I25.2 Old myocardial infarction; Z87.440 Personal history of urinary (tract) infections
CPT/HCPCS: 36415; 70450; 71045; 71250; 73020; 74176; 80048; 80053; 80076; 81001; 82306; 82570; 83036; 83605; 83735; 83970; 84100; 84300; 84443; 84484; 85007; 85025; 85027; 85610; 85730; 87040; 87081; 87086; 87088; 87340; 87426; 87804; 92610; 93005; 94640; 96365; 96366; 96368; 96372; 96375; 97110; 97163; 97530; 99291; G0378; J1815; J2543; P9047